=== PATIENT | male | born 1950 | race Caucasian/White ===

== ENCOUNTER 2024-02-14 08:39 | Emergency (ER) | payer MEDICARE, OTHER, SELFPAY ==
[2024-02-14 08:39] VITALS: BP 153/59; PULSE 90; RESP 16; TEMP 36; O2SAT 100; BMI 28.0
--- NOTE | 2024-02-14 08:52 | CT_ITS ---
INDICATION: right back pain, achymosis and swelling EXAMINATION: CTA CHEST, ABDOMEN AND PELVIS WITH CONTRAST - TECHNIQUE: A CTA of the chest, abdomen, and pelvis is obtained with sagittal and coronal reconstructed MIP views. Three-dimensional surface rendered sequence of the thoracic and abdominal aorta was obtained. A radiation dose optimization technique was used for this scan. 75 mL of Isovue-370. Oral contrast: None. COMPARISON: None. FINDINGS: CT CHEST: THORACIC AORTA: Atherosclerotic plaque formation of the ascending thoracic, aortic arch and descending thoracic aorta. ABDOMINAL AORTA: Atherosclerotic plaque formation of the abdominal aorta as well as the major visceral branches. LUNGS: Small right pleural effusion with increased markings at the right lung base suggestive of compressive basilar atelectasis. A small amount of fluid is seen within the right minor fissure. MEDIASTINUM: The thyroid gland is normal. Small mediastinal lymph nodes. HEART: Heart is normal size. No pericardial effusion. Coronary artery calcification. CT ABDOMEN AND PELVIS: LIVER: The liver enhances homogeneously. No masses identified. GALLBLADDER: The CBD is normal. Status post cholecystectomy. SPLEEN: Normal. PANCREAS: No masses or inflammation. ADRENAL GLANDS: Normal. KIDNEYS AND URETERS: The kidneys both enhance appropriately. There are normal size and shape. No hydronephrosis or nephrolithiasis. Small left renal cysts. Punctate calculus in the lower pole calyx of the left kidney. Nonspecific bilateral perinephric stranding. No obstructive uropathy is seen. STOMACH: Normal. SMALL BOWEL: No abnormal distention of the small bowel. MESENTERY: No mesenteric inflammation. No ascites. COLON: No significant diverticulosis, masses or inflammation. The colon otherwise is normal. There is a large fatty ileocecal valve. APPENDIX: The appendix is visualized and normal. IVC: Normal. RETROPERITONEUM: No retroperitoneal lymphadenopathy. PELVIC STRUCTURES: Normal bladder. Prostatic enlargement with indentation of the bladder base. Mild central prostatic calcifications. SOFT TISSUES ABDOMEN: The anterior abdominal wall is normal. SOFT TISSUE CHEST: The extrathoracic soft tissues are normal. BONES: Degenerative changes of the thoracic and lumbar vertebra. CT/CTA Chst, Abd, Pel W and/or WO IMPRESSION: Small right pleural effusion with a right basilar dependent atelectasis. Atherosclerotic plaque formation of the thoracic aorta as well as the abdominal aorta and visceral branches. No evidence of dissection. Nonspecific bilateral perinephric stranding. Small left renal cysts as well as a nonobstructive punctate calculus in the lower pole calyx of the left kidney. Status post cholecystectomy. Electronically Signed: Jared Villanueva MD at 10:48 EDT ,
--- NOTE | 2024-02-14 08:53 | ED.VIS.BACK ---
HPI History of Present Illness Chief Complaint: Back Detail of Chief Complaint: Right back pain Informant: patient Narrative Narrative: Patient presents with right-sided back pain that started about a week ago. Patient states that he just moved here from [place] a week ago. He thinks he may have torn a muscle in his back moving furniture in a bed. She has some pain in his neck that resolved and then started having more pain in his upper back. noted swelling to his back and bruising. He is on Brilinta. History of coronary artery disease. He denies chest pain or significant shortness of breath. Does not have a primary care physician in the area. Patient denies any falls or trauma otherwise. PFSH PFSH Allergy/AdvReac Type Severity Reaction Status Date / Time No Known Allergies Allergy Verified 02/14/24 08:41 Social History Smoking Status: Former smoker ROS ROS ED Review of Systems ROS Unobtainable: other Constitutional Constitutional ED: Reports lethargy; Denies chills, fever(s), sweats or weight loss Eyes Eyes: Denies blurry vision, change in vision or diplopia ENT ENT ED: Denies rhinorrhea or sore throat Cardiovascular Cardiovascular: Reports chest pain and racing heartbeat; Denies orthopnea Respiratory/Chest Respiratory/Chest: Reports dyspnea on exertion; Denies cough, dyspnea, orthopnea or sputum Gastrointestinal Gastrointestinal: Denies abdominal pain, diarrhea, nausea or vomiting Genitourinary Genitourinary ED: Denies dysuria, hematuria or urinary frequency Musculoskeletal Musculoskeletal: Reports back pain; Denies arthralgias, myalgias or neck pain Integumentary Denies abscess, Abrasions or rash Neurologic Neurologic: Denies headache(s) or weakness Psychiatric Psychiatric: Denies anxiety, depression or suicidal thoughts Endocrine Endocrinology: Denies polydipsia, polyphagia or polyuria Hematologic/Lymphatic Hematologic/Lymphatic: Denies easy bleeding, easy bruising or lymphadenopathy Allergic/Immunologic Allergic/Immunologic ED: Denies mouth swelling, tongue swelling or urticaria EXAM Physical Exam Const Vital Signs: 02/14/24 08:39 02/14/24 11:02 Temperature 96.8 F L Temperature Source Temporal Pulse Rate 90 Pulse Rate [Lying] 70 Pulse Rate [Sitting (for 1 minute prior to obtaining)] 71 Pulse Rate [Standing (for 1 minute prior to obtaining)] 81 Respiratory Rate 16 Blood Pressure 153/59 H Blood Pressure [Lying] 155/75 H Blood Pressure [Sitting (for 1 minute prior to obtaining)] 145/62 H Blood Pressure [Standing (for 1 minute prior to obtaining)] 128/54 H Blood Pressure Mean 90 Blood Pressure Mean [Lying] 101 Blood Pressure Mean [Sitting (for 1 minute prior to obtaining)] 89 Blood Pressure Mean [Standing (for 1 minute prior to obtaining)] 78 Pulse Ox 100 Oxygen Delivery Method Room Air Positive well nourished and well developed General Appearance ED: well developed and NAD HEENT Reports TM's clear and moist mucous membranes normocephalic and atraumatic; Negative for trauma or tenderness Tympanic Membrane ED: Yes TM's clear Eyes PERRL and EOMs intact bilaterally General Eye ED: Negative for pale conjunctiva or scleral icterus Neck no lymphadenopathy, supple and no JVD General: Negative for tenderness Chest Wall inspection of chest normal and palpation of chest normal Chest: Negative for tenderness Resp normal respiratory effort and clear to auscultation bilaterally Effort and Inspection: Negative for respiratory distress or pain with movement Auscultation: Negative for rhonchi, wheezes or diminished lung sounds Cardio regular rate, regular rhythm, S1 normal heart sound, S2 normal heart sound and no murmurs Peripheral Pulses: pulses 2+ throughout GI normal to inspection, nondistended, normoactive bowel sounds, soft to palpation, non-tender, non-distended and no masses Back/Spine no CVA tenderness and no thoracic nor lumbar tenderness Back/Spine Narrative: Evaluation of the back reveals significant soft tissue swelling and fullness inferior to the right scapula and into the mid axillary line of the chest wall. Area tender to palpation. There is ecchymosis and bruising extending down the right flank. No crepitus or subcu for Delia noted. Extremity normal to inspection General Extremety ED: Negative for edema General Extremity: Negative for edema Neuro oriented x3, CN's II-XII intact bilaterally, no sensory deficits noted and gait normal Sensorium / Orientation: awake, alert, oriented to person, oriented to place and oriented to time Motor Exam: strength 5/5 throughout and strength abnormal Psych mental status grossly normal Skin no rashes or lesions noted and no wounds MDM MDM MDM Narrative Medical decision making narrative: Patient presents with large soft tissue swelling right posterior chest wall at the mid axillary line with ecchymosis. Concern for hematoma and ongoing active bleeding. IV line established. CBC with differential obtained showed white at 11.7 with hemoglobin 9.0 and platelet count of 339. Chemistries unremarkable. BUN 23 and creatinine 1.95. Glucose 162. Patient had a CTA of the chest abdomen pelvis that showed large hematoma in her right chest wall with questionable area of active bleeding. Discussed case with our general surgeon Dr. Henderson who recommended transfer to a tertiary care center. Discussed case with [facility] however they have no bed availability. Discussed case with [facility] and spoke with surgeon there who accepted transfer patient to their emergency department for further evaluation. Lab Data Attestation: I reviewed the patient's lab results. Labs: Laboratory Results - last 24 hr 02/14/24 09:20 WBC 11.7 H RBC 3.82 L Hgb 9.0 L Hct 28.8 L MCV 75.4 L MCH 23.6 L MCHC 31.3 L RDW Std Deviation 56.9 H RDW Coeff of Toney 21.0 H Plt Count 339 MPV 9.3 Immature Gran % (Auto) 0.600 Neut % (Auto) 82.5 H Lymph % (Auto) 7.0 L Wharton % (Auto) 6.3 Eos % (Auto) 3.2 Baso % (Auto) 0.4 Absolute Neuts (auto) 9.7 H Absolute Lymphs (auto) 0.82 L Nucleated RBC % 0 Anisocytosis 2+ Sodium 140 Potassium 4.8 Chloride 111 H Carbon Dioxide 24.0 Anion Gap 6 BUN 23 H Creatinine 1.95 H Estim Creat Clear Calc 41.85 Est GFR (MDRD) Af Amer 44 L Est GFR (MDRD) Non-Af 36 L BUN/Creatinine Ratio 11.8 Glucose 162 H Calcium 8.6 Radiography Diagnostic Testing: Clinical Impression(s) from Imaging Studies Chest/Abdomen/Pelvis CTA 02/14/24 08:52 IMPRESSION: Small right pleural effusion with a right basilar dependent atelectasis. Atherosclerotic plaque formation of the thoracic aorta as well as the abdominal aorta and visceral branches. No evidence of dissection. Nonspecific bilateral perinephric stranding. Small left renal cysts as well as a nonobstructive punctate calculus in the lower pole calyx of the left kidney. Status post cholecystectomy. Electronically Signed: Jared Villanueva MD at 10:48 EDT , ADDENDUM: 02/14/24 1105 IMPRESSION: Findings suggestive of a large soft tissue density with evidence of the hematoma and possible active bleeding overlying the right lateral chest wall as described. Electronically Signed: Jared Villanueva MD at 10:58 EDT , Discharge Plan Triage Chief Complaint: Back ED Provider: Carlos Kline Dx/Rx/DC Orders Clinical Impression: Hematoma, Anemia Primary Care Provider: Care Physician,No Primary Referrals: NOT,DEFINED [Non-Staff] - Print Language: Occitan Disposition Disposition: DC/Tx to Another Type of HCF
[2024-02-14 09:27] LABS: Absolute Lymphocyte Count 0.82 X10^3/uL (0.83-4.51); Absolute Neutrophil Count 9.7 X10^3/uL (2.0-7.7); Basophil# 0.05 X10^3/uL; Basophil% 0.4 % (0-1); Eosinophil# 0.38 X10^3/uL; Eosinophils% 3.2 % (0-5); Hematocrit 28.8 % (40-54); Lymphocyte # 0.82 X10^3/ul (0.83-4.51); Mean Corp Hgb Conc 31.3 g/dL (32-36); Mean Corpuscular Hgb 23.6 pg (27.0-32.0); Mean Corpuscular Volume 75.4 fL (80-94); Mean Platelet Vol. 9.3 fl (6.2-12.0); Monocyte# 0.74 X10^3/uL; Monocyte% 6.3 % (0-10); NRBC Flagged by Analyzer 0 % (0-5); Neutrophil # 9.65 X10^3/uL (2.7-7.7); Neutrophil % 82.5 % (47-70); POSITIVE MORPHOLOGY YES; Platelet Count 339 K/mm3 (150-450); RBC Distribution Width SD 56.9 fl (35.1-43.9); Red Blood Count 3.82 M/mm3 (4.6-6.2); White Blood Count 11.7 K/mm3 (4.4-11.0)
[2024-02-14 09:36] LABS: Differential Indicated SCAN CRITERIA MET
[2024-02-14 09:40] LABS: Anion Gap 6 (5-15); BUN 23 mg/dL (7-18); BUN/Creat Ratio 11.8 RATIO (10-20); Calcium,Total 8.6 mg/dL (8.5-10.1); Chloride 111 mmol/L (98-107); Creatinine, Serum 1.95 mg/dL (0.70-1.30); EST Glomerular Filtration Rate 36 mL/min (>60); Est Glom Filt Rate - Afr Amer 44 mL/min (>60); Estimated Creatinine Clearance 41.85 ml/min; Glucose 162 mg/dL (74-106); Potassium 4.8 mmol/L (3.5-5.1); Sodium Level 140 mmol/L (136-145)
[2024-02-14 09:56] LABS: Anisocytosis 2+
[2024-02-14 11:02] VITALS: BP 128/54; BP 145/62; BP 155/75; PULSE 70; PULSE 71; PULSE 81
--- NOTE | 2024-02-14 11:32 | ED.RN ---
CALLED [facility].
--- NOTE | 2024-02-14 11:33 | ED.RN ---
CALLED [facility].
[2024-02-14] MEDS: Ondansetron 4 MG/2 ML Vial IV (12:30)
[2024-02-14] MEDS: Morphine 4 MG/ML Syringe IV (12:30)
[2024-02-14] MEDS: 0.9% Normal Saline (1000mL) 1,000 ML 999 ML IV (12:30)
[2024-02-14 12:39] VITALS: BP 130/59; PULSE 68; RESP 18; O2SAT 99
[2024-02-14 13:47] VITALS: BP 130/59; PULSE 68; RESP 18; TEMP 36.6; O2SAT 99
== END 2024-02-14 14:41 | disposition short-term general hospital (02) ==
PROVIDERS: Emergency Provider Emergency Medicine; Visit Provider Emergency Medicine
DX: S20.211A Contusion of right front wall of thorax, initial encounter (principal); X58.XXXA Exposure to other specified factors, initial encounter; D64.9 Anemia, unspecified; I25.10 Atherosclerotic heart disease of native coronary artery without angina pectoris; Z79.02 Long term (current) use of antithrombotics/antiplatelets; Z87.891 Personal history of nicotine dependence
CPT/HCPCS: 71275; 74174; 80048; 85025; 96361; 96374; 96375; 99285; J7030; Q9967; A4216; J2405

== ENCOUNTER → 2024-04-08 | Outpatient (CLI) | payer MEDICARE, OTHER, SELFPAY ==
--- NOTE | 2024-04-08 14:06 | PCM.CR.HP2 ---
CR - History & Physical General Arrival date:: 04/08/24 Arrival time:: 14:06 Date of Referral:: 03/20/24 Date of CR Evaluation:: 04/08/24 Referring Physician: Dr. Salgado Primary Diagnosis: SD NonSTEMI <12 months History of Present Cardiac Event Onset Date Acute Myocardial Infarction within 12 months:: Yes (11/20/2023) Medications Ambulatory Orders ?Medication ?Instructions ?Recorded aspirin 81 mg tablet,delayed 81 mg PO QDAY 03/13/24 release (Adult Aspirin Regimen) atorvastatin 10 mg tablet 10 mg PO QDAY 03/13/24 gabapentin 300 mg capsule 300 mg PO BID 03/13/24 nisoldipine 34 mg tablet,extended 34 mg PO QDAY 03/13/24 release 24 hr ticagrelor 90 mg tablet (Brilinta) 90 mg PO BID 03/13/24 cholecalciferol (vitamin D3) 25 25 mcg PO QDAY 03/20/24 mcg (1,000 unit) capsule dupilumab 300 mg/2 mL subcutaneous 300 mg subcut Q2W 03/20/24 pen injector (Dupixent) insulin lispro continuous subcutaneous infusion 03/20/24 levothyroxine 88 mcg tablet 88 mcg PO QDAY 03/20/24 (Synthroid) metoprolol succinate 25 mg 25 mg PO QDAY 03/20/24 tablet,extended release 24 hr multivitamin 1 tab PO QDAY 03/20/24 vitamin B complex 1 tab PO QDAY 03/20/24 Allergies Allergies No Known Allergies Allergy (Verified 03/20/24 11:35) Sleep Disorder Evaluation Hx of Sleep Apnea: No Do you snore loudly (louder than talking or can be heard through closed doors)?: No Do you often feel tired/ fatigued/ sleepy during daytime?: No Has anyone observed you stop breathing during sleep?: No History of Hypertension (for STOP score): Yes STOP Results: Negative Advanced Directives Advanced Directives Power of Electrical Maintenance Technician: No Living Will: No Advance Directives Information Provided: No Advance Directives on File: No DNR Order?:: No Past Medical History Covid-19 Screening Physicial Symptoms Other Clinical Concerns Exposure Risk Pertinent Comorbidities 65 years or older:: Yes Has a serious heart condition:: Yes Diabetic:: Yes Past Medical Illness Medical History STEMI (ST elevation myocardial infarction) NSTEMI (non-ST elevated myocardial infarction) Hyperlipidemia Diabetic neuropathy Gout Diabetes type I Nephropathy Chronic kidney disease (CKD) Proteinuria Systolic ejection murmur Carotid artery stenosis Hypertension Fatty liver disease, nonalcoholic Renal cyst Chronic back pain Acute renal failure Iron deficiency anemia Hypothyroidism Past Surgical History Surgical History S/P right coronary artery (RCA) stent placement History of bilateral cataract extraction History of vasectomy History of cholecystectomy Family History Summary Family History Mother Hypertension Son Diabetes Social History Smoking History Smoking Status: Former smoker Years Smokin Packs Smoked per Day: 1.5 (stopped in 2011) Alcohol Use Alcohol Usage: No Substance Abuse Hx Substance Use: No Occupation Occupation (List type of work in comments):: Retired Hobbies, Recreation, Social Activities Hobbies: Woodworking Recreational Activities: I am able to engage in all my recreational activities Social Environment Status Marital Status: Current Living Arrangements Living Environment:: Spouse Children How many children do you have?: 4 Do any of your children live nearby?: Yes Safety Do you feel safe in your surroundings?: Yes Assistance Do you need any assistance at home?: no Review of Systems Review of Systems Hints Review of Present Symptoms: Reports Shortness of Breath with Exertion, Dizziness/Lightheadedness, Fatigue, Appetite - Normal, Appetite - Special Diet and Sleep - Normal; Denies Shortness of Breath at Rest, PVD, Operative Discomfort, Angina, Wound Healing, Heart Arrhythmia/Irregularities or Sexual Changes Pain Is Patient Pain Free?: Yes Pain Location: lower extremity Pain Level: 10 Risk Factor Assessment Chief Complaint Chief Complaint: SD NonSTEMI <12 months Vital Signs Pulse Ox: 98 Blood Pressure: 140/67 Pulse Pulse Rate: 66 Pulse Rhythm: Regular Hypertension How long have you been treated?: 20-25 years Blood Pressure Sitting - Right Arm: 140/67 Diabetes Diabetic History: Type I Nutrition Referral for Diabetes: No Obesity Height: 6 ft 2 in Weight:: 220 lb Weight in Pounds: 220.0 lbs Body Mass Index (BMI): 28.2 Physical Inactivity Physical Inactivity: Recreational activity Risk Stratification Risk Guidelines: Moderate Risk: Risk Factor for Smoking, Risk Factor for Obesity, Risk Factor for Sedentary Lifestyle and Risk Factor for Depression and Highest Risk: Risk Factor for Dyslipidemia, Risk Factor for Diabetes and Risk Factor for Hypertension For Smoking Smoking Risk Guidelines For Dyslipidemia Dyslipidemia Risk Guidelines For Diabetes Mellitus Diabetes Risk Guidelines For Obesity/Overweight Obesity/Overweight Risk Guidelines For Hypertension Hypertension Risk Guidelines For Sedentary Lifestyle Sedentary Lifestyle Risk Guidelines For Depression Depression Risk Guidelines Family History Family History Mother Hypertension Son Diabetes Motivation Motivation to Participate On a scale of 1 to 10, how prepared are you to commit to attending program?: 8 What do you see as barriers to successfully being able to complete the program?: nothing What do you see as the benefits of succesfully completing the program? In other words, what do you hope to get out of participating in the program?: improve energy Are there issues you are dealing with that will interfere with completing the program?: no Do you have a spouse or signficant other, family or friends who will help support you to complete the program?: yes
[2024-04-08 14:17] VITALS: BP 140/67; PULSE 66
--- NOTE | 2024-04-08 14:17 | CR.ITP_ITS ---
Diagnosis General Information Admitting Diagnosis: PA NonSTEMI <12 months Personal Learning Style:: Audio/Visual Barriers to Learning: No Barriers Stage of change r/t lifestyle modifications:: Contemplation Gave educational material for:: Treating Heart Disease, How The Heart Works, What it means to have Heart Disease, How Coronary Artery Disease is Diagnosed, Heart Procedures, What Heart Medications Do, Risk Factors & Modifications, Living an Active Life, Nutrition, Emotions & Heart Disease, Stress Management & Relaxation and Sleep Disorders & Heart Disease Education/Goals Cardiac Rehabilitation Goals Personal Goals: Initial Assessment: Improve energy level, Improve knowledge of cardiac disease and Improve muscle strength and endurance Scale for measuring improvement of personal goals Diagnosis & Disease Process Outcomes/Goals: Pt IDs own risk factors & lifestyle modifications by Session 10, Verbalizes symptoms of angina & response by session 3., Pt independently manages and Other Additional Outcomes/Goals: Plan/Interventions: Assist Pt to ID & engage in lifestyle modification to reduce CVD risk, Instruct on individual risk factors, Review symptoms of angina & emergency actions, Review secondary diagnosis & identify educational needs. and Other see comment 30 day Reassessments:: Not Met 30 day Reassessments:: Not Met 30 day Reassessments:: Not Met 30 day Reassessments:: Not Met Final Reassessments:: Not Met Safety Referral to Physical Therapy: No Referral to [facility] Case Management: No Fall Risk Assessed:: Yes Assistive Devices:: None Exercise - Initial Assessment Visit Date of Eval: 04/08/24 (initial eval ) Mets: Pre-: >3 METS for 30 minutes by discharge, >5 METS for 30 minutes by discharge, >7 METS for 30 minutes by discharge and Unable to meet goal due to: (see comment below) Physician Prescribed Exercise Modalities: Treadmill, Rower, Schwinn Airdyne AD-7, SciFit Stepper, SciFit Pro- II Ergometer and SciFit Lateral Form Presser Frequency: 3x/week for 12 weeks [36 sessions] Intensity: 60-80% of age predicted maximum heart rate reserve Current METSs:: 3 Target Heart Rate:: 87-110 Resting Blood Pressure: 140/67 EKG Type: SR Outcomes & Goals Goals:: Verbalizes understanding of THR, RPE & goal METS by session 6, Documents in home exercise log/reports 30 min aerobic 5 day/wk by DC, Demonstrates accurate pulse taking by DC and Other additional outcome/goals: see below Intervention & Plan Exercise Program Goals: Instruct on personal THR & RPE, Instruct on MET level & personal MET goal, Show patient to take own pulse /validate performance until accurate, Instruct on home exercise and Other additional plan/int Physical Activity Home Exercise Physical Activity - Home Exercise: Safe Exercise, Warm-up, Self-monitoring, Cool-Down, Home Exercise > 30 min Daily and Sitting Time <3 hours/daily Outcomes & Goals Outcomes/Goals: Demonstrates correct Warm-up/exercise Cool-Down (S3) if = 2.5 METs, Verbalizes symptoms of exercise intolerance by Session 3 (S3), Demonstrate safe equipment use (S3) & follows exercise prescrition (6) and Other: See below Intervention & Plan Plan/Intervention: Instruct warm-up & cool-down if exercising at > 2 METs, Instruct on symptoms of exercise intolerance & actions to take, Instruct & monitor on saf, Assess intial functional capacity & safety risk and Other See below Nutrition - Initial Assessment Program Goals Nutrition Program Goals Patient has diagnosis of Hyperlipidemia (ICD E78)?: Yes Visit Date of Eval: 04/08/24 (initial eval ) Cholesterol/Lipids (Other Core Measures) Determine presence & major risk factors that modify LDL goal: Cigarette smoking, Hypertension or hypertensive medication, Low HDL cholesterol <40 mg/dL*, Family history of premature CHD in Male < 55 years: female <65 yearsFa and Age men > 45 years; women >/= 55 years Outcomes/Goals: Pt IDs own risk factors & lifestyle modifications by Session 10, Verbalizes symptoms of angina & response by session 3., Pt independently manages and Other Additional Outcomes/Goals: Intervention/Plan: Advocate for lipid panel cholesterol medication if applicable, Instruct on personal lipid levels & lipid goals/NCEP guidelines, Instruct on cholesterol and Other additional plan/int Referral to dietitian:: No (declines) Diabetes (Other Core Measures) Diabetes Type: Diagnosis Type I ICD-10 E10 Insulin dependent injection/pump?: Yes Non-Insulin Dependent?: No Do you monitor your blood sugar at home?: Yes Referral to Diabetic Clinic:: No (declines) Outcomes/Goals:: Able to state symptoms of, Able to state, Able to state and Other additional Intervention/Plan:: Instruct on, Refer to, Instruct on and Other Weight Mgt (Other Care) Height: 6 ft 2 in Weight:: 220 lb BMI: 28.2 Diagnosis Overweight/Obesity BMI> 30% ICD-10 E66: No Diagnosis High BMI/Morbid Obesity BMI> 35% ICD-10 Z68: No Outcomes/Goals: Pt sets, maintains & shows weight loss goal & trend during rehab and Other additional outcomes/goals Intervention/Plan: Instruct on ideal BMI & set weight loss goal w/patient, Assist pt to ID & incorporate diet changes for weight loss by S9, Refer to Structured Weight Loss program as appropriate, Encourage goal of using 250- 300dcal per session for weight loss and Other additional plan/interventions Healthy Eating Habits Will attend diet classes:: Yes Outcomes/Goals:: Consume diet rich in vegs,fruits,whole grain/high fiber,fish,lean meat, Limit sat/trans fats,cholesterol & added salts & sugars and Other additional outcome/goals: Intervention/Plan:: Assess current eating habits and Other Additional plan/interventions Education Gave educational materials for:: Signs & symptoms of hypoglycemia, Signs & symptoms of hyperglycemia, Relate diabetes to coronary artery disease and Healthy eating Core - Initial Assessment Visit Date of Eval: 04/08/24 (initial eval ) Medication Compliance Preventative Medication(s):: Aspirin, Ticagrelor/P2Y12 inhibitor, Statin/lipid and Beta yennifer H/O mental health issues: depression, anxiety, or addiction?: No Doesn?t believe in the benefits of treatment?: No Believes medications are unnecessary or harmful?: No Has a concern about medication side effects?: No Expresses concern over the cost of medications?: No Outcomes/Goals: Verbalizes medications,desired effect & common side effects @ DC, Pt self-reports following medication regimen, Keeps card in wallet w/medications listed by DC and Other additional outcome/goals: Interventions/plans: Instruct on medication effects & side effects, Review medication list w/patient every two weeks, Instruct importance of taking meds as ordered & assist problem solving and Other additional Tobacco Use Tobacco Use: Non-smoker How long ago did you quit using tobacco products?: Greater than or equal to 6 months ago Years Smokin Hypertension Hypertension Diagnosis:: Hypertension ICD-10 I10 Resting Blood Pressure:: 140/67 [place] [employer] Hypertension Guidelines Outcomes/Goals: Able to verbalize/achieve optimal blood pressure <130/80, Incorporates diet changes & exercise for blood pressure control by DC and Other additional outcomes/goals Interventions/plan: Instruct on optimal blood pressure, hypertension & medications, Instruct on effects of sodium, alcohol, stress, exercise &hypertension and Other additional plan/interventions Tobacco Cessation Referral Smoking Cessation Referral:: No Individual Education/Counseling:: No Education Schedule Given:: Yes Psychosocial - Initial Assess VIsit Date of Eval: 04/08/24 (initial eval ) History of previous Mental disease:: No Target Goals Target Goals Psychosocial Test Tool Used:: [employer] (formerly [employer]) QOL Cardiac and PHQ-9 Questionnaire phq-9 Severity Referral to Behavioral Health PS - Interventions: Yes: Attend Stress Management Classes Outcomes/Goals: See list Psychosocial Outcomes/Goals:: ID's personal stressors & 2 strategies to manage stress by discharge and Other Additional outcome/goals: Intervention/Plan: See List Interventions/Plan:: Assess stressors,coping strategies & signs of derpression on admission, Instruct/assist pt to develop coping & personal stress Mgt strateg ies, Refer to Behavioral Health if appropriate, Refer to Physician if appropriate, Instruct patient to recognize signs & symptoms of depression, Instruct patient to recog and Other additional plan/intervention Patient Health Questionnaire PHQ-9 Screening Initial Assessment: 1. Little interest or pleasure in doing things: Not at all 2. Feeling down, depressed, or hopeless: Not at all 3. Trouble falling or staying asleep, or sleeping too much: Not at all 4. Feeling tired or having little energy: More than half the days 5. Poor appetite or overeating: Not at all 6. Feeling bad about yourself -- or that you are a failure or have let yourself or your family down: Not at all 7. Trouble concentrating on things, such as reading the newspaper or watching television: Not at all 8. Moving or speaking so slowly that other people could have noticed. Or the opposite - being so fidgety or restless that you have been moving around a lot more than usual: Not at all 9. Thoughts that you would be better off , or of hurting yourself in some way: Not at all How difficult have these problems made it for you to do your work, take care of things at home, or get along with other people?: Not difficult at all Total Score: 2 MIRANDA-Q SV Test Statements CAD is a disease of the arteries in the heart: False Examples of risk factors for heart disease: True Angina is chest pain or discomfort: True The benefits of resistance training include: True Eating more meat and dairy products: I Don't Know Anti-platelet medications such as aspirin are important: I Don't Know The only effective way to manage stress: False An exercise warm-up slowly increases heart rate: True Prepared, processed foods usually have high sodium: I Don't Know Depression is common after a heart attack: True The statin medications lower cholesterol: I Don't Know To control blood pressure, lower the amount of sodium: True If someone gets chest discomfort during walking: False Transfats are partially hydrogenated vegetable oils: I Don't Know Sleep apnea that is not treated increases the risk: I Don't Know To control cholesterol, one should become a vegetarian: False Someone knows if he/she is exercising at the right level: True Diabetes cannot be prevented with exercise & health eating: False Stress is a large risk for heart attack: True A diet that can help lower blood pressure is rich in: True Total Score Total Correct Responses: 14 Self-Efficacy 6-Item Scale Initial Assessment: We would like to know how confident you are in doing certain activities. Please select your confidence level for: Fatigue Select Number: 5 Physical Discomfort or Pain Select Number: 3 Emotional Distress Select Number: 9 Other Symptoms or Health Problems Select Number: 5 Different Tasks and Activities Select Number: 8 Medication Select Number: 5 Total Score:: 5 Nutrition Survey Nutrition Survey Instructions Scoring Instructions Nutrition Survey Initial: Have you lost >10 lbs over the past 2 months without trying?: No Are you following a special diet at home for diabetes, low fat, or low salt?: Yes Are you interested in meeting with a dietitian for help understanding your diet?: No Do you eat less than 3 meals a day?: Yes Do you eat fatty meats (gale, sausage, ribs, etc), fried foods, desserts, large amounts of salad dressings, margarine, butter, or cheese most days?: No Do you have food allergies? [Enter types in comment field]: No Do you eat in restaurants more than 3 times a week?: No Do you season food with salt, seasoning salt, or garlic salt?: No Do you used canned, boxed, frozen meals, or soups, seasoning packets?: Yes Total Score:: 3 Exercise - 30-day Assessment Physician Prescribed Exercise Modalities: Treadmill, Rower, Schwangel [place]yne AD-7, SciFit Stepper, SciFit Pro- II Ergometer and SciFit Lateral Form Presser Exercise - 60-day Assessment Physician Prescribed Exercise Modalities: Treadmill, Rower, Schwinn Airdyne AD-7, SciFit Stepper, SciFit Pro- II Ergometer and SciFit Lateral Form Presser Exercise - 90-day Assessment Physician Prescribed Exercise Modalities: Treadmill, Rower, Schwinn Airdyne AD-7, SciFit Stepper, SciFit Pro- II Ergometer and SciFit Lateral [place] Exercise - Final/Discharge Physician Prescribed Exercise Modalities: Treadmill, Rower, Schwinn Airdyne AD-7, SciFit Stepper, SciFit Pro- II Ergometer and SciFit Lateral Form Presser Frequency: 3x/week for 12 weeks [36 sessions] Intensity: 60-80% of age predicted maximum heart rate reserve Current METSs:: 3 Target Heart Rate:: 87-110 Nutrition - 30-Day Assessment Weight Mgt (Other Care) Height: 6 ft 2 in Weight:: 220 lb BMI: 28.2 Nutrition - 60-Day Assessment Weight Mgt (Other Care) Height: 6 ft 2 in Weight:: 220 lb BMI: 28.2 Core - 30-Day Assessment Tobacco Use Years Smokin Core - Final Assessment Hypertension Resting Blood Pressure:: 140/67 [place] [employer] Hypertension Guidelines Core - 60-Day Assessment Hypertension Resting Blood Pressure:: 140/67 [place] [employer] Hypertension Guidelines Psychosocial - 30-Day Assess Target Goals Target Goals Referral to Behavioral Health PS - Interventions: Yes: Attend Stress Management Classes Psychosocial - 60-Day Assess Target Goals Target Goals Referral to Behavioral Health PS - Interventions: Yes: Attend Stress Management Classes Psychosocial - 90-Day Assess Target Goals Target Goals Referral to Behavioral Health PS - Interventions: Yes: Attend Stress Management Classes Psychosocial - Final Assessmen Target Goals Target Goals Referral to Behavioral Health PS - Interventions: Yes: Attend Stress Management Classes Nutrition - 90-Day Assessment Weight Mgt (Other Care) Height: 6 ft 2 in Weight:: 220 lb BMI: 28.2 Nutrition - Final Assessment Program Goals Patient has diagnosis of Hyperlipidemia (ICD E78)?: Yes Weight Mgt (Other Care) Height: 6 ft 2 in Weight:: 220 lb BMI: 28.2
[2024-04-08 14:31] VITALS: BP 140/67; O2SAT 98
[2024-04-08 15:11] VITALS: BP 140/67; BMI 28.2
== END | disposition home or self-care (01) ==
LOC: CR 13:56
PROVIDERS: PCP Nurse Practitioner Adult Health; Referring Provider Internal Medicine Cardiovascular Disease; Visit Provider Internal Medicine Cardiovascular Disease
DX: I21.4 Non-ST elevation (NSTEMI) myocardial infarction (principal)

== ENCOUNTER 2024-04-19 14:15 | Outpatient (RCR) | payer MEDICARE, OTHER, SELFPAY ==
[2024-04-08 15:11] VITALS: BMI 28.2
== END 2024-04-23 23:59 ==
LOC: CR 14:15
PROVIDERS: PCP Nurse Practitioner Adult Health; Referring Provider Internal Medicine Cardiovascular Disease; Visit Provider Internal Medicine Cardiovascular Disease
DX: I21.4 Non-ST elevation (NSTEMI) myocardial infarction (principal)
CPT/HCPCS: 93798

== ENCOUNTER 2024-05-22 14:15 | Outpatient (RCR) | payer MEDICARE, OTHER, SELFPAY ==
[2024-04-08 15:11] VITALS: BMI 28.2
--- NOTE | 2024-05-09 07:27 | PCM.CR.ITP ---
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 Little interest or pleasure in doing things: Not at all 2. Feeling down, depressed, or hopeless: Not at all 3. Trouble falling or staying asleep, or sleeping too much: Not at all 4. Feeling tired or having little energy: More than half the days 5. Poor appetite or overeating: Not at all 6. Feeling bad about yourself -- or that you are a failure or have let yourself or your family down: Not at all 7. Trouble concentrating on things, such as reading the newspaper or watching television: Not at all 8. Moving or speaking so slowly that other people could have noticed. Or the opposite - being so fidgety or restless that you have been moving around a lot more than usual: Not at all 9. Thoughts that you would be better off , or of hurting yourself in some way: Not at all How difficult have these problems made it for you to do your work, take care of things at home, or get along with other people?: Not difficult at all Total Score: 2 Self-Efficacy 6-Item Scale 60-Day Re-eval Assessment: We would like to know how confident you are in doing certain activities. 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 Physician Prescribed Exercise Modalities: SciFit Stepper and SciFit Lateral [place] Frequency: 3x/week for 12 weeks [36 sessions] Intensity: 60-80% of age predicted maximum heart rate reserve Duration: 30 - 45 minutes Current METSs:: 2.9 Target Heart Rate:: 87-110 Current RPE:: 12-13 Maximum Excercise HR:: 79 Resting Blood Pressure: 148/70 Maximum Exercise Blood Pressure: 160/70 EKG Type: NSR w/ 1st degree AVB with a rare PAC, occas to freq PVC, Rare vent bigemin Outcomes & Goals Goals:: Verbalizes understanding of THR, RPE & goal METS by session 6, Documents in home exercise log/reports 30 min aerobic 5 day/wk by DC and Demonstrates accurate pulse taking by DC Intervention & Plan Exercise Program Goals: Instruct on personal THR & RPE, Instruct on MET level & personal MET goal, Show patient to take own pulse /validate performance until accurate and Instruct on home exercise Physical Activity Home Exercise Physical Activity - Home Exercise: Safe Exercise, Warm-up, Self-monitoring, Cool-Down, Home Exercise > 30 min Daily and Sitting Time <3 hours/daily Outcomes & Goals Outcomes/Goals: Demonstrates correct Warm-up/exercise Cool-Down (S3) if = 2.5 METs, Verbalizes symptoms of exercise intolerance by Session 3 (S3), Demonstrate safe equipment use (S3) & follows exercise prescrition (6) and Other: See below Intervention & Plan Plan/Intervention: Instruct warm-up & cool-down if exercising at > 2 METs, Instruct on symptoms of exercise intolerance & actions to take, Instruct & monitor on saf, Assess intial functional capacity & safety risk and Other See below 30-day Reassessments 30 day Reassessments:: Progressing Reassessment Notes & Comments:: Proper warm up explained and demonstrated to pt. Pt is able to return demonstration. 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 Exercise - Final/Discharge Physician Prescribed Exercise Modalities: SciFit Stepper and SciFit Lateral [place] Nutrition - 30-Day Assessment Weight Mgt (Other Care) Height: 6 ft 2 in Weight:: 220 lb 8 oz BMI: 28.3 Nutrition - 60-Day Assessment Program Goals Nutrition Program Goals Patient has diagnosis of Hyperlipidemia (ICD E78)?: Yes Visit Date of Eval: 05/09/24 Session #:: 22 Cholesterol/Lipids (Other Core Measures) Determine presence & major risk factors that modify LDL goal: Cigarette smoking, Hypertension or hypertensive medication, Low HDL cholesterol <40 mg/dL*, Family history of premature CHD in Male < 55 years: female <65 yearsFa and Age men > 45 years; women >/= 55 years Outcomes/Goals: Pt IDs own risk factors & lifestyle modifications by Session 10, Verbalizes symptoms of angina & response by session 3., Pt independently manages and Other Additional Outcomes/Goals: Intervention/Plan: Advocate for lipid panel cholesterol medication if applicable, Instruct on personal lipid levels & lipid goals/NCEP guidelines, Instruct on cholesterol and Other additional plan/int Diabetes (Other Core Measures) Diabetes Type: Diagnosis Type I ICD-10 E10 Insulin dependent injection/pump?: Yes Non-Insulin Dependent?: No Do you monitor your blood sugar at home?: Yes Referral to Diabetic Clinic:: No (declines) Weight Mgt (Other Care) Height: 6 ft 2 in Weight:: 220 lb 8 oz BMI: 28.3 Diagnosis Overweight/Obesity BMI> 30% ICD-10 E66: No Diagnosis High BMI/Morbid Obesity BMI> 35% ICD-10 Z68: No Outcomes/Goals: Pt sets, maintains & shows weight loss goal & trend during rehab and Other additional outcomes/goals Intervention/Plan: Instruct on ideal BMI & set weight loss goal w/patient, Assist pt to ID & incorporate diet changes for weight loss by S9, Refer to Structured Weight Loss program as appropriate, Encourage goal of using 250-300dcal per session for weight loss and Other additional plan/interventions Healthy Eating Habits Will attend diet classes:: Yes Outcomes/Goals:: Consume diet rich in vegs,fruits,whole grain/high fiber,fish,lean meat, Limit sat/trans fats,cholesterol & added salts & sugars and Other additional outcome/goals: Intervention/Plan:: Assess current eating habits and Other Additional plan/interventions 30-day Reassessments:: Progressing Reassessment Notes & Comments:: Pt is scheduled to attend nutrition class. Pt is encouraged to eat a heart healthy low sodium diet. Pt encouraged to keep a food log to bring in for review. Education Gave educational materials for:: Signs & symptoms of hypoglycemia, Signs & symptoms of hyperglycemia, Relate diabetes to coronary artery disease and Healthy eating Core - Final Assessment Tobacco Use Years Smokin Hypertension Resting Blood Pressure:: 148/70 [place] [employer] Hypertension Guidelines Core - 60-Day Assessment Visit Date of Eval: 05/09/24 Session #:: 22 Medication Compliance Preventative Medication(s):: Aspirin, Ticagrelor/P2Y12 inhibitor, Statin/lipid and Beta yennifer H/O mental health issues: depression, anxiety, or addiction?: No Doesn?t believe in the benefits of treatment?: No Believes medications are unnecessary or harmful?: No Has a concern about medication side effects?: No Expresses concern over the cost of medications?: No Outcomes/Goals: Verbalizes medications,desired effect & common side effects @ DC, Pt self-reports following medication regimen, Keeps card in wallet w/medications listed by DC and Other additional outcome/goals: Interventions/plans: Instruct on medication effects & side effects, Review medication list w/patient every two weeks, Instruct importance of taking meds as ordered & assist problem solving and Other additional Tobacco Use Tobacco Use: Non-smoker Years Smokin 30-day Reassessments:: Met Reassessment Notes & Comments:: Pt is no longer a smoker Hypertension Hypertension Diagnosis:: Hypertension ICD-10 I10 Resting Blood Pressure:: 148/70 Resting Blood Pressure:: 148/70 [place] [employer] Hypertension Guidelines Peak Exercise Blood Pressure:: 160/70 Outcomes/Goals: Able to verbalize/achieve optimal blood pressure <130/80, Incorporates diet changes & exercise for blood pressure control by DC and Other additional outcomes/goals Interventions/plan: Instruct on optimal blood pressure, hypertension & medications, Instruct on effects of sodium, alcohol, stress, exercise &hypertension and Other additional plan/interventions 30 day Reassessments:: Progressing Reassessment Notes & Comments:: Pt encouraged to eat a low sodium diet to help lower BP. Will continue to monitor and send report to physician if necessary. Tobacco Cessation Referral Smoking Cessation Referral:: No Individual Education/Counseling:: No Education Schedule Given:: Yes Psychosocial - 30-Day Assess Target Goals Target Goals Referral to Behavioral Health PS - Interventions: Yes: Attend Stress Management Classes Outcomes/Goals: See list Psychosocial Outcomes/Goals:: ID's personal stressors & 2 strategies to manage stress by discharge and Other Additional outcome/goals: Psychosocial - 60-Day Assess VIsit Date of Eval: 05/09/24 Session #:: 22 Not Applicable: No Target Goals Target Goals Psychosocial Test Tool Used:: [employer] QOL Cardiac and PHQ-9 Questionnaire phq-9 Severity Referral to Behavioral Health PS - Interventions: Yes: Attend Stress Management Classes Outcomes/Goals: See list Psychosocial Outcomes/Goals:: ID's personal stressors & 2 strategies to manage stress by discharge and Other Additional outcome/goals: Intervention/Plan: See List Interventions/Plan:: Assess stressors,coping strategies & signs of derpression on admission, Instruct/assist pt to develop coping & personal stress Mgt strategies, Refer to Behavioral Health if appropriate, Refer to Physician if appropriate, Instruct patient to recognize signs & symptoms of depression, Instruct patient to recog and Other additional plan/intervention 30-day Reassessments: 30 day Reassessments:: Met Reassessment Notes & Comments:: Pt denies any psychosocial issues at this time. Will continue to monitor. Psychosocial - 90-Day Assess Target Goals Target Goals Referral to Behavioral Health PS - Interventions: Yes: Attend Stress Management Classes Psychosocial - Final Assessmen Target Goals Target Goals Referral to Behavioral Health PS - Interventions: Yes: Attend Stress Management Classes Nutrition - 90-Day Assessment Weight Mgt (Other Care) Height: 6 ft 2 in Weight:: 220 lb 8 oz BMI: 28.3 Nutrition - Final Assessment Weight Mgt (Other Care) Height: 6 ft 2 in Weight:: 220 lb 8 oz BMI: 28.3
[2024-05-09 07:41] VITALS: BP 148/70; BMI 28.3
== END 2024-05-24 23:59 ==
LOC: CR 14:15
PROVIDERS: PCP Nurse Practitioner Adult Health; Referring Provider Internal Medicine Cardiovascular Disease; Visit Provider Internal Medicine Cardiovascular Disease
DX: I21.4 Non-ST elevation (NSTEMI) myocardial infarction (principal)

== ENCOUNTER → 2024-06-04 | Outpatient (CLI) | payer MEDICARE, OTHER, SELFPAY ==
[2024-05-09 07:41] VITALS: BMI 28.3
[2024-06-04 14:00] LABS: Anion Gap 3 (5-15); BUN 28 mg/dL (7-18); BUN/Creat Ratio 13.1 RATIO (10-20); Calcium,Total 8.8 mg/dL (8.5-10.1); Chloride 108 mmol/L (98-107); Creatinine, Serum 2.14 mg/dL (0.70-1.30); EST Glomerular Filtration Rate 32 mL/min (>60); Est Glom Filt Rate - Afr Amer 39 mL/min (>60); Glucose 143 mg/dL (74-106); Potassium 5.2 mmol/L (3.5-5.1); Sodium Level 140 mmol/L (136-145)
== END | disposition home or self-care (01) ==
LOC: LAB 12:28
PROVIDERS: PCP Nurse Practitioner Adult Health; Referring Provider Internal Medicine Cardiovascular Disease; Visit Provider Internal Medicine Cardiovascular Disease
DX: I12.9 Hypertensive chronic kidney disease with stage 1 through stage 4 chronic kidney disease, or unspecified chronic kidney disease (principal); N18.32 Chronic kidney disease, stage 3b
CPT/HCPCS: 36415; 80048

== ENCOUNTER 2024-06-21 14:30 | Outpatient (RCR) | payer MEDICARE, OTHER, SELFPAY ==
[2024-05-09 07:41] VITALS: BMI 28.3
[2024-05-25 02:29] VITALS: BP 148/70
--- NOTE | 2024-06-06 07:07 | PCM.CR.ITP ---
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 Little interest or pleasure in doing things: Not at all 2. Feeling down, depressed, or hopeless: Not at all 3. Trouble falling or staying asleep, or sleeping too much: Not at all 4. Feeling tired or having little energy: More than half the days 5. Poor appetite or overeating: Not at all 6. Feeling bad about yourself -- or that you are a failure or have let yourself or your family down: Not at all 7. Trouble concentrating on things, such as reading the newspaper or watching television: Not at all 8. Moving or speaking so slowly that other people could have noticed. Or the opposite - being so fidgety or restless that you have been moving around a lot more than usual: Not at all 9. Thoughts that you would be better off , or of hurting yourself in some way: Not at all How difficult have these problems made it for you to do your work, take care of things at home, or get along with other people?: Not difficult at all Total Score: 2 Self-Efficacy 6-Item Scale 90-Day Re-eval Assessment: We would like to know how confident you are in doing certain activities. Please select your confidence level for: Fatigue Select Number: 5 Physical Discomfort or Pain Select Number: 3 Emotional Distress Select Number: 9 Other Symptoms or Health Problems Select Number: 5 Different Tasks and Activities Select Number: 8 Medication Select Number: 5 Total Score:: 5 Nutrition Survey Nutrition Survey Instructions Scoring Instructions Exercise - 30-day Assessment Physician Prescribed Exercise Modalities: SciFit Stepper and SciFit Lateral [place] Exercise - 60-day Assessment Physician Prescribed Exercise Modalities: SciFit Stepper and SciFit Lateral [place] Exercise - 90-day Assessment Visit Date of Eval: 06/06/24 Session #:: 29 Physician Prescribed 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 Frequency: 3x/week for 12 weeks [36 sessions] Intensity: 60-80% of age predicted maximum heart rate reserve Duration: 30 - 45 minutes Current METSs:: 2.9 Target Heart Rate:: 87-110 Current RPE:: 12-12.5 Maximum Excercise HR:: 77 Resting Blood Pressure: 160/62 Maximum Exercise Blood Pressure: 144/68 EKG Type: SB to NSR with 1st degree AVB with rare pac and pvc Outcomes & Goals Goals:: Verbalizes understanding of THR, RPE & goal METS by session 6, Documents in home exercise log/reports 30 min aerobic 5 day/wk by DC, Demonstrates accurate pulse taking by DC and Other additional outcome/goals: see below Intervention & Plan Exercise Program Goals: Instruct on personal THR & RPE, Instruct on MET level & personal MET goal, Show patient to take own pulse /validate performance until accurate, Instruct on home exercise and Other additional plan/int Physical Activity Home Exercise Physical Activity - Home Exercise: Safe Exercise, Warm-up, Self-monitoring, Cool-Down, Home Exercise > 30 min Daily and Sitting Time <3 hours/daily Outcomes & Goals Outcomes/Goals: Demonstrates correct Warm-up/exercise Cool-Down (S3) if = 2.5 METs, Verbalizes symptoms of exercise intolerance by Session 3 (S3), Demonstrate safe equipment use (S3) & follows exercise prescrition (6) and Other: See below Intervention & Plan Plan/Intervention: Instruct warm-up & cool-down if exercising at > 2 METs, Instruct on symptoms of exercise intolerance & actions to take, Instruct & monitor on saf, Assess intial functional capacity & safety risk and Other See below 30-day Reassessments 30 day Reassessments:: Progressing Reassessment Notes & Comments:: Proper cool down explained to pt. Pt is able to return demonstration. Exercise - Final/Discharge Physician Prescribed Exercise Modalities: SciFit Stepper and SciFit Lateral [place] Nutrition - 30-Day Assessment Weight Mgt (Other Care) Height: 6 ft 2 in Weight:: 221 lb 8 oz BMI: 28.4 Nutrition - 60-Day Assessment Weight Mgt (Other Care) Height: 6 ft 2 in Weight:: 221 lb 8 oz BMI: 28.4 Core - 90 Day Assessment Visit Date of Eval: 06/06/24 Session #:: 29 Medication Compliance Preventative Medication(s):: Aspirin, Ticagrelor/P2Y12 inhibitor, Statin/lipid and Beta yennifer H/O mental health issues: depression, anxiety, or addiction?: No Doesn?t believe in the benefits of treatment?: No Believes medications are unnecessary or harmful?: No Has a concern about medication side effects?: No Expresses concern over the cost of medications?: No Outcomes/Goals: Verbalizes medications,desired effect & common side effects @ DC, Pt self-reports following medication regimen, Keeps card in wallet w/medications listed by DC and Other additional outcome/goals: Interventions/plans: Instruct on medication effects & side effects, Review medication list w/patient every two weeks, Instruct importance of taking meds as ordered & assist problem solving and Other additional Tobacco Use Tobacco Use: Non-smoker Years Smokin Outcomes/Goals: Smoking cessation achieved or maintained by discharge, Identify aids/strategies for achieving smoking cessation by session 6 and Other additional outcome/goals Interventions/plan: Instruct on effects of smoking & provide smoking cessation resource, Assist pt to set quit date & provide encouragement, Assist pt to develop strategies to achieve/maintain quit date, Assist pt w/nicotine replacement & medication for cessation success and Other additional plan/interventions 30-day Reassessments:: Met Reassessment Notes & Comments:: Pt is no longer a smoker Hypertension Hypertension Diagnosis:: Hypertension ICD-10 I10 Resting Blood Pressure:: 160/62 [place] [employer] Hypertension Guidelines Peak Exercise Blood Pressure:: 130/60 Outcomes/Goals: Able to verbalize/achieve optimal blood pressure <130/80, Incorporates diet changes & exercise for blood pressure control by DC and Other additional outcomes/goals Interventions/plan: Instruct on optimal blood pressure, hypertension & medications, Instruct on effects of sodium, alcohol, stress, exercise &hypertension and Other additional plan/interventions 30 day Reassessments:: Progressing Tobacco Cessation Referral Smoking Cessation Referral:: No Individual Education/Counseling:: No Education Schedule Given:: Yes Psychosocial - 30-Day Assess Target Goals Target Goals Referral to Behavioral Health PS - Interventions: Yes: Attend Stress Management Classes Psychosocial - 60-Day Assess Target Goals Target Goals Referral to Behavioral Health PS - Interventions: Yes: Attend Stress Management Classes Psychosocial - 90-Day Assess VIsit Date of Eval: 06/06/24 Session #:: 29 Not Applicable: No Target Goals Target Goals Psychosocial Test Tool Used:: [employer] QOL Cardiac and PHQ-9 Questionnaire phq-9 Severity Referral to Behavioral Health PS - Interventions: Yes: Attend Stress Management Classes Outcomes/Goals: See list Psychosocial Outcomes/Goals:: ID's personal stressors & 2 strategies to manage stress by discharge and Other Additional outcome/goals: Intervention/Plan: See List Interventions/Plan:: Assess stressors,coping strategies & signs of derpression on admission, Instruct/assist pt to develop coping & personal stress Mgt strategies, Refer to Behavioral Health if appropriate, Refer to Physician if appropriate, Instruct patient to recognize signs & symptoms of depression, Instruct patient to recog and Other additional plan/intervention 30-day Reassessments: 30 day Reassessments:: Met Reassessment Notes & Comments:: Pt denies any psychosocial issues at this time. Psychosocial - Final Assessmen Target Goals Target Goals Referral to Behavioral Health PS - Interventions: Yes: Attend Stress Management Classes Nutrition - 90-Day Assessment Program Goals Nutrition Program Goals Patient has diagnosis of Hyperlipidemia (ICD E78)?: Yes Visit Date of Eval: 06/06/24 Session #:: 29 Cholesterol/Lipids (Other Core Measures) Determine presence & major risk factors that modify LDL goal: Cigarette smoking, Hypertension or hypertensive medication, Low HDL cholesterol <40 mg/dL*, Family history of premature CHD in Male < 55 years: female <65 yearsFa and Age men > 45 years; women >/= 55 years Outcomes/Goals: Pt IDs own risk factors & lifestyle modifications by Session 10, Verbalizes symptoms of angina & response by session 3., Pt independently manages and Other Additional Outcomes/Goals: Intervention/Plan: Advocate for lipid panel cholesterol medication if applicable, Instruct on personal lipid levels & lipid goals/NCEP guidelines, Instruct on cholesterol and Other additional plan/int Diabetes (Other Core Measures) Diabetes Type: Diagnosis Type I ICD-10 E10 Insulin dependent injection/pump?: Yes Non-Insulin Dependent?: No Do you monitor your blood sugar at home?: Yes Referral to Diabetic Clinic:: No (declines) Reassessment Notes & Comments:: Pre BS 125 in CR Weight Mgt (Other Care) Height: 6 ft 2 in Weight:: 221 lb 8 oz BMI: 28.4 Diagnosis Overweight/Obesity BMI> 30% ICD-10 E66: No Diagnosis High BMI/Morbid Obesity BMI> 35% ICD-10 Z68: No Outcomes/Goals: Pt sets, maintains & shows weight loss goal & trend during rehab and Other additional outcomes/goals Intervention/Plan: Instruct on ideal BMI & set weight loss goal w/patient, Assist pt to ID & incorporate diet changes for weight loss by S9, Refer to Structured Weight Loss program as appropriate, Encourage goal of using 250-300dcal per session for weight loss and Other additional plan/interventions Healthy Eating Habits Will attend diet classes:: Yes Outcomes/Goals:: Consume diet rich in vegs,fruits,whole grain/high fiber,fish,lean meat, Limit sat/trans fats,cholesterol & added salts & sugars and Other additional outcome/goals: Intervention/Plan:: Assess current eating habits and Other Additional plan/interventions 30-day Reassessments:: Progressing Reassessment Notes & Comments:: Pt is scheduled to attend nutrition class next week. Low sodium heart healthy diet encouraged. Education Gave educational materials for:: Signs & symptoms of hypoglycemia, Signs & symptoms of hyperglycemia, Relate diabetes to coronary artery disease and Healthy eating Nutrition - Final Assessment Weight Mgt (Other Care) Height: 6 ft 2 in Weight:: 221 lb 8 oz BMI: 28.4
[2024-06-06 07:20] VITALS: BP 160/62; BMI 28.4
== END 2024-06-21 23:59 ==
LOC: CR 14:30
PROVIDERS: PCP Nurse Practitioner Adult Health; Referring Provider Internal Medicine Cardiovascular Disease; Visit Provider Internal Medicine Cardiovascular Disease
DX: I21.4 Non-ST elevation (NSTEMI) myocardial infarction (principal)
CPT/HCPCS: 93798

== ENCOUNTER → 2024-07-18 | Outpatient (CLI) | payer MEDICARE, OTHER, SELFPAY ==
[2024-06-06 07:20] VITALS: BMI 28.4
[2024-07-18 13:37] LABS: Microalbumin:Creatinine Ratio 139.9 mg/g CRE
[2024-07-18 13:46] LABS: ALB/GLOB Ratio 1.4 RATIO (0.9-2.4); AST(SGOT) 12 U/L (<=37); Alanine Aminotransfer ALT/SGPT 11 U/L (<=46); Albumin, Serum 3.6 g/dL (3.4-4.8); Alkaline Phosphatase 61 U/L (40-129); Anion Gap 12 (5-15); BUN 26 mg/dL (4-19); BUN/Creat Ratio 12.4 RATIO (10-20); Calcium,Total 8.8 mg/dL (7.6-11.0); Carbon Dioxide 20.1 mmol/L (21.0-32.0); Chloride 109 mmol/L (98-108); Creatinine, Serum 2.11 mg/dL (0.70-1.20); EST Glomerular Filtration Rate 32 (>60); Globulin 2.5 g/dL (2.2-4.2); Glucose 84 mg/dL (70-99); Potassium 4.8 mmol/L (3.3-5.1); Protein, Total 6.1 g/dL (5.9-8.4); Sodium Level 142 mmol/L (133-145); Total Bilirubin 0.16 mg/dL (0.00-1.30)
== END | disposition home or self-care (01) ==
LOC: LAB 12:37
PROVIDERS: PCP Nurse Practitioner Adult Health; Referring Provider Nurse Practitioner Family; Visit Provider Nurse Practitioner Family
DX: E10.59 Type 1 diabetes mellitus with other circulatory complications (principal); E03.9 Hypothyroidism, unspecified
CPT/HCPCS: 36415; 80053; 82043; 82570; 84439; 84443

== ENCOUNTER → 2024-09-17 | Outpatient (CLI) | payer MEDICARE, OTHER, SELFPAY ==
[2024-06-06 07:20] VITALS: BMI 28.4
[2024-09-17 11:47] LABS: Absolute Lymphocyte Count 1.37 X10^3/uL (0.83-4.51); Absolute Neutrophil Count 7.3 X10^3/uL (2.0-7.7); Basophil# 0.06 X10^3/uL; Basophil% 0.6 % (0-1); Eosinophil# 0.29 X10^3/uL; Hematocrit 40.7 % (40-54); Hemoglobin 13.3 g/dL (13.0-16.5); Lymphocyte # 1.37 X10^3/ul (0.83-4.51); Lymphocyte % 14.2 % (19-41); Mean Corp Hgb Conc 32.7 g/dL (32-36); Mean Corpuscular Hgb 26.5 pg (27.0-32.0); Mean Corpuscular Volume 81.2 fL (80-94); Mean Platelet Vol. 8.9 fl (6.2-12.0); Monocyte# 0.61 X10^3/uL; Monocyte% 6.3 % (0-10); NRBC Flagged by Analyzer 0 % (0-5); Neutrophil # 7.29 X10^3/uL (2.7-7.7); Neutrophil % 75.4 % (47-70); Platelet Count 443 K/mm3 (150-450); RBC Distribution Width CV 17.4 % (11.6-14.6); RBC Distribution Width SD 50.9 fl (35.1-43.9); Red Blood Count 5.01 M/mm3 (4.6-6.2); White Blood Count 9.7 K/mm3 (4.4-11.0)
[2024-09-17 12:53] LABS: ALB/GLOB Ratio 1.1 RATIO (0.9-2.4); AST(SGOT) 14 U/L (<=37); Alanine Aminotransfer ALT/SGPT 10 U/L (<=46); Alkaline Phosphatase 73 U/L (40-129); Anion Gap 14 (5-15); BUN 34 mg/dL (4-19); BUN/Creat Ratio 14.9 RATIO (10-20); Calcium,Total 9.3 mg/dL (7.6-11.0); Carbon Dioxide 22.8 mmol/L (21.0-32.0); Chloride 104 mmol/L (98-108); Cholesterol 117 mg/dL (<=200); Creatinine, Serum 2.27 mg/dL (0.70-1.20); EST Glomerular Filtration Rate 30 (>60); Globulin 3.6 g/dL (2.2-4.2); Glucose 101 mg/dL (70-99); High Density Lipoprotein 43 mg/dL; Low Density Lipoprotein Calc. 52 mg/dL; Potassium 4.2 mmol/L (3.3-5.1); Protein, Total 7.6 g/dL (5.9-8.4); Sodium Level 141 mmol/L (133-145); Total Bilirubin 0.23 mg/dL (0.00-1.30); Triglycerides 110 mg/dL; Very Low Density Lipoprotein 22 mg/dL (5-40); cholesterol:hdl ratio screen 2.75
[2024-09-17 12:54] LABS: Anion Gap 13 (5-15); BUN 34 mg/dL (4-19); Calcium,Total 9.3 mg/dL (7.6-11.0); Carbon Dioxide 23.3 mmol/L (21.0-32.0); Chloride 104 mmol/L (98-108); Creatinine, Serum 2.26 mg/dL (0.70-1.20); EST Glomerular Filtration Rate 30 (>60); Glucose 99 mg/dL (70-99); Potassium 4.2 mmol/L (3.3-5.1); Sodium Level 141 mmol/L (133-145)
== END | disposition home or self-care (01) ==
LOC: LAB 10:58
PROVIDERS: PCP Nurse Practitioner Adult Health; Referring Provider Nurse Practitioner Family; Visit Provider Physician Assistant Medical
DX: E78.5 Hyperlipidemia, unspecified (principal); N18.32 Chronic kidney disease, stage 3b; R53.83 Other fatigue
CPT/HCPCS: 36415; 80048; 80053; 80061; 85025

== ENCOUNTER → 2024-09-18 | Outpatient (CLI) | payer MEDICARE, OTHER, SELFPAY ==
[2024-06-06 07:20] VITALS: BMI 28.4
--- NOTE | 2024-09-18 13:00 | ECHOD_ITS ---
Reason For Study Reason For Study: LV DYSFUNCTION Procedure This was a 2D Doppler, Color Flow transthoracic echocardiogram. Exam performed in department. Left Ventricle Normal LV size. Mild concentric left ventricular hypertrophy. Mild inferior hypokinesis. Overall left ventricular systolic ejection fraction estimated at 60%. Stage I diastolic dysfunction. Right Ventricle Normal right ventricle. Atria The left and right atria are normal. Mitral Valve Mild (1+) mitral valve insufficiency. Tricuspid Valve Trivial tricuspid valve insufficiency. Unable to estimate RV systolic pressure due to insufficient tricuspid regurgitant envelope. Aortic Valve No aortic valve stenosis or regurgitation. Pulmonic Valve The pulmonic valve is not well visualized. Great Vessels Normal sized aortic root. Pericardium/Pleural Small loculated pericardial effusion adjacent to the right atrium. Recommend CT scan for further evaluation if clinically indicated. MMode/2D Measurements & Calculations LVIDd: 5.4 cm IVSd: 1.2 cm LVOT diam: 2.3 cm LVIDs: 2.6 cm LVPWd: 1.1 cm LVOT area: 4.1 cm2 RVDd: 3.6 cm FS: 52.5 % asc Aorta Diam: 3.8 cm LAV(MOD-bp): 42.5 ml LVAd ap4: 31.0 cm2 LAV(MOD-bp) Indexed: 18.8 ml/m2 LVLd ap4: 8.9 cm LAV(MOD-sp2): 42.8 ml EDV(MOD-sp4): 90.3 ml LAV(MOD-sp4): 38.5 ml EDV(sp4-el): 92.1 ml LVAs ap4: 16.6 cm2 LVLs ap4: 7.7 cm ESV(MOD-sp4): 32.2 ml ESV(sp4-el): 30.5 ml EF(MOD-sp4): 64.3 % EF(sp4-el): 66.9 % LVAd ap2: 29.7 cm2 SV(MOD-sp4): 58.0 ml SV(MOD-sp2): 50.7 ml LVLd ap2: 9.1 cm SI(MOD-sp4): 25.6 ml/m2 SI(MOD-sp2): 22.4 ml/m2 EDV(MOD-sp2): 85.6 ml EDV(sp2-el): 82.9 ml LVAs ap2: 17.9 cm2 LVLs ap2: 8.1 cm ESV(MOD-sp2): 34.9 ml ESV(sp2-el): 33.3 ml EF(MOD-sp2): 59.3 % SV(sp4-el): 61.6 ml Ao sinus diam: 4.[address] Junction: 2.9 cm LA dimension(2D): 3.6 cm LA A4 area: 15.3 cm2 RA A4 area: 14.7 cm2 TAPSE: 1.9 cm Time Measurements MV dec time: 0.26 sec Doppler Measurements & Calculations MV E max gui: 64.0 cm/sec Lat Peak E' Gui: 8.4 cm/sec Med Peak E' Gui: 6.4 cm/sec MV A max gui: 102.0 cm/sec E/E' lat: 7.7 E/E' med: 10.0 MV E/A: 0.63 MV dec slope: 243.5 cm/sec2 Ao V2 max: 135.8 cm/sec LV V1 max: 109.2 cm/sec Ao max P.4 mmHg LV V1 max P.8 mmHg Ao V2 mean: 95.8 cm/sec LV V1 mean P.9 mmHg Ao mean P.1 mmHg LV V1 mean: 82.8 cm/sec Ao V2 VTI: 33.6 cm LV V1 VTI: 24.4 cm AV (velocity ratio): 0.72 KRISTAL(I,D): 3.0 cm2 KRISTAL(V,D): 3.3 cm2 SV(LVOT): 100.0 ml PA V2 max: 90.3 cm/sec ECHO/Echo Complete Interpretation Summary Mild concentric left ventricular hypertrophy. Mild inferior hypokinesis. Overall left ventricular systolic ejection fraction estimated at 60%. Stage I diastolic dysfunction. Mild (1+) mitral valve insufficiency. Small loculated pericardial effusion adjacent to the right atrium. Recommend CT scan for further evaluation if clinically indicated. Ordering Physician: Sally Sommer Referring Physician: Sally Sommer Performed By: Rama James RDCS
== END | disposition home or self-care (01) ==
LOC: CVS 13:00
PROVIDERS: PCP Nurse Practitioner Adult Health; Referring Provider Physician Assistant Medical; Visit Provider Physician Assistant Medical
DX: I51.9 Heart disease, unspecified (principal)
CPT/HCPCS: 93306

== ENCOUNTER → 2024-10-14 | Outpatient (CLI) | payer MEDICARE, OTHER, SELFPAY ==
[2024-06-06 07:20] VITALS: BMI 28.4
== END | disposition home or self-care (01) ==
LOC: LAB 10:16
PROVIDERS: PCP Nurse Practitioner Adult Health; Referring Provider Nurse Practitioner Family; Visit Provider Nurse Practitioner Family
DX: E03.9 Hypothyroidism, unspecified (principal)
CPT/HCPCS: 36415; 84439; 84443

== ENCOUNTER → 2025-01-29 | Outpatient (CLI) | payer MEDICARE, OTHER, SELFPAY ==
[2024-06-06 07:20] VITALS: BMI 28.4
[2025-01-29 17:42] LABS: Creatinine, Urine (random) 118.00 mg/dL (39.00-259.00); Microalbumin,Random Urine < 12.0 mg/L (<20 mg/L)
[2025-01-29 17:54] LABS: PTHIN 53 pg/mL (11-61)
[2025-01-29 17:56] LABS: AST(SGOT) 12 U/L (<=37); Alanine Aminotransfer ALT/SGPT 8 U/L (<=46); Albumin, Serum 3.8 g/dL (3.4-4.8); Alkaline Phosphatase 77 U/L (40-129); Anion Gap 12 (5-15); BUN 25 mg/dL (4-19); BUN/Creat Ratio 12.2 RATIO (10-20); Calcium,Total 8.8 mg/dL (7.6-11.0); Carbon Dioxide 26.2 mmol/L (21.0-32.0); Chloride 102 mmol/L (98-108); Globulin 2.9 g/dL (2.2-4.2); Glucose 175 mg/dL (70-99); Potassium 3.8 mmol/L (3.3-5.1); Vitamin D,25 Hydroxy 45.2 ng/mL (30-100)
== END | disposition home or self-care (01) ==
LOC: LAB 15:56
PROVIDERS: PCP Nurse Practitioner Adult Health; Referring Provider Nurse Practitioner Family; Visit Provider Nurse Practitioner Family
DX: E03.9 Hypothyroidism, unspecified (principal); E55.9 Vitamin D deficiency, unspecified
CPT/HCPCS: 36415; 80053; 82043; 82306; 82570; 83970; 84439; 84443

== ENCOUNTER → 2025-02-27 | Outpatient (CLI) | payer MEDICARE, OTHER, SELFPAY ==
[2024-06-06 07:20] VITALS: BMI 28.4
--- NOTE | 2025-02-27 11:13 | US_ITS ---
PROCEDURE: US/Thoracentesis W US
[2025-02-27 11:17] LABS: Platelet Count 353 K/mm3 (150-450)
[2025-02-27 11:26] LABS: Prothrombin Time (Protime)PT. 13.2 SECONDS (11.7-14.9)
[2025-02-27 11:27] LABS: Partial Thromboplast Time 26.3 Seconds (24.1-36.2)
[2025-02-27 11:58] LABS: LDH 183 U/L (87-241)
[2025-02-27 12:14] VITALS: BP 138/57; PULSE 72; RESP 16; O2SAT 98
[2025-02-27] MEDS: Lidocaine 2% (20 ml mdv) 20 ML Vial INFILT (12:16)
[2025-02-27 12:20] VITALS: BP 152/59; PULSE 72; RESP 16; O2SAT 97
--- NOTE | 2025-02-27 12:30 | FLU_PTH ---
PATIENT: LYUDMILA WALTON LOC: [facility]#:[id number] AGE/SX: 75/M ROOM: RE02/27/[address]: BRANDON Jason : 1950 BED: DIS: 02/27/2025 SPEC #: [id number] RECD: 02/27/25 12:36 STATUS: PRICILA REBrennan #: [id number] JULIANNA: 02/27/25 12:[address]: Keira Harper DEPT: CYTOLOGY RECD BY: Ananth Lang ENTERED: 02/27/25 13:59 SP TYPE: Fluid OTHR DR: RYLAN BOWDEN Tissues: A - Pleural fluid, NOS Procedures: Special Stain Group II Surgery Specimen Level IV Cytospin Fluid HEADER OPERATION: Thoracentesis PRE-OP DIAGNOSIS: Right pleural effusion TISSUE SUBMITTED: A- Thoracentesis fluid for cytology DIAGNOSIS CYTOLOGY A. Right pleural effusion, thoracentesis (cytospin, cellblock): - >No malignant cells identified. CYTOLOGY STUDY Slides are reviewed. CYTOLOGY GROSS A. Received is 15 ml of cloudy-yellow fluid labeled with the patient's name and and designated per the requisition as Thoracentesis fluid. Submitted for cytology and cell block preparation. 02/27/2025 CPT: 73164,52732
[2025-02-27 12:38] LABS: Cytology, Body Fluid / CSF SEE PATHOLOGY REPORT
[2025-02-27 13:32] LABS: Body Fluid Mononuclear WBC # 0.365 10^3/uL; Body Fluid Mononuclear WBC % 96.8 %; Body Fluid Polynuclear WBC # 0.012 10^3/uL; Body Fluid Polynuclear WBC % 3.2 %; Red Cell Count/Body Fluid 0.003 10^6/ul; White Blood Count/Body Fluid 0.377 10^3/uL
[2025-02-27 13:33] LABS: Appearance/Body Fluid CLEAR; Auto B Fluid Analyzer BKGD Ct COUNTS W/IN LIMITS (W/IN LIMITS); Color/Body Fluid YELLOW; Source- Body Fluid THORACENTESIS
[2025-02-27 14:06] LABS: Neutrophil (Segs) 4 %
[2025-02-27 14:07] LABS: Body Fluid QC Type(s) BF1Q
[2025-02-27 16:22] LABS: Pathologist Comment/Body Fluid Reviewed
== END | disposition home or self-care (01) ==
LOC: US 11:00
PROVIDERS: PCP Nurse Practitioner Adult Health; Referring Provider Nurse Practitioner Family; Visit Provider Nurse Practitioner Family
DX: J90 Pleural effusion, not elsewhere classified (principal); R06.02 Shortness of breath
CPT/HCPCS: 32555; 36415; 83615; 84155; 84157; 85049; 85610; 85730; 87070; 87075; 87205; 88108; 88305; 88313; 89050

== ENCOUNTER → 2025-03-04 | Outpatient (CLI) | payer MEDICARE, OTHER, SELFPAY ==
[2024-06-06 07:20] VITALS: BMI 28.4
== END | disposition home or self-care (01) ==
PROVIDERS: PCP Nurse Practitioner Adult Health; Referring Provider Nurse Practitioner Family; Visit Provider Nurse Practitioner Family
DX: R91.1 Solitary pulmonary nodule (principal)

== ENCOUNTER → 2025-03-11 | Outpatient (CLI) | payer MEDICARE, OTHER, SELFPAY ==
[2024-06-06 07:20] VITALS: BMI 28.4
--- NOTE | 2025-03-11 10:30 | PET_ITS ---
PROCEDURE: PET/CT TUMOR BASE -THIGH INIT 03/11/2025 REASON FOR EXAM: 75 y/o M with SOLITARY PULMONARY NODULE. 1.4 cm right lower lobe nodule. Previous smoker. Chronic right lower lobe volume loss. TECHNIQUE: Procedure Code: [id number] Modality: PT Procedure: PET/CT TUMOR BASE -THIGH INIT Following the intravenous administration of radionucleotide, image acquisition on a dedicated PET/CT unit was performed at one hour post injection. A preliminary CT study encompassing the Skull base, neck, chest, abdomen, pelvis, and proximal thighs was performed for purposes of attenuation correction and anatomic localization. The proximal thighs were also included. The patient's blood glucose level was 150 mg/dL (allowable range: 50-180 mg/dL). RADIOPHARMACEUTICAL: 12.535 mCi 18F-FDG (Fluorodeoxyglucose F18) IV was injected into he patient. RADIATION DOSE SUMMARY: Effective Dose: Approximately 7 mSv for a standard whole-body PET scan Organ Doses: Varies by organ, with higher doses typically to the bladder, liver, and brain COMPARISON: COMPARISON FROM CT, PET OR OTHER PERTINENT EXAMS: Chest CT of 01/08/2025.. FINDINGS: Physiologic uptake: There may be expected metabolic uptake within the brain, tongue and floor of the mouth and larynx/vocal cords, heart, odell (many normal individuals have hilar uptake in less than 3 nodes with mildly avid hilar nodes less than 2.7 SUV), liver and spleen, system, and GI tract and symmetric muscle uptake. FDG AVID AND NON-AVID LESIONS. Reported avid SUV values (g/mL*) are maximum SUV. NECK: There are no significant neck abnormalities. CHEST: Chest wall- There are no significant chest wall abnormalities. Axilla- There are no significant axillary abnormalities. Lung parenchyma- No significant increased metabolic activity is seen at the previously identified 14 mm right lower lobe nodule. The atelectatic right lower lobe, previously identified, shows nonspecific activity. Mediastinum- There are no significant hilar or mediastinal adenopathy. Pleura- A small right pleural effusion is seen. Mild adjacent pleural activity is noted, nonspecific in nature. ABDOMEN: Prior cholecystectomy. Moderate aortic calcification; no evidence of abdominal aortic aneurysm. Stomach- No significant abnormalities. Liver- No significant abnormalities. Spleen- No significant abnormalities. Pancrease- No significant abnormalities. Kidneys- No significant abnormalities. Bowel- Normal bowel activity. Spine- No significant abnormalities. PELVIS: Mild sigmoid diverticulosis. Bowel- Normal physiologic bowel activity is identified. Masses- There are no pelvic masses. Bones- Increased uptake is seen in the left glenohumeral joint, possibly due to the presence of inflammation/infection; recommend clinical and historical correlation. Increased uptake is seen asymmetrically in the hip joints, right much greater than left, most prominent anteriorly and laterally, likely due to inflammatory process; recommend clinical and historical correlation. Degenerative changes of the spine. With the use of bone window settings, there are no osteolytic or osteoblastic lesions. There are no FDG avid lesions within the visualized portion of the axial skeleton. PET/PET/CT Tumor Base -Thigh Init IMPRESSION: FDG avid- 1. No hypermetabolic activity is seen at the previously concerning 14 mm right lower lobe nodule is seen. 2. Right lower lobe atelectasis with nonspecific activity noted. 3. Small right pleural effusion, with nonspecific adjacent activity. Other: 1. Increased uptake is seen in the left glenohumeral joint, possibly due to the presence of inflammation/infection; recommend clinical and historical correlation. 2. Increased uptake is seen asymmetrically in the hip joints, right much greate r than left, most prominent anteriorly and laterally, likely due to inflammatory process; recommend clinical and historica l correlation. 3. Mild sigmoid diverticulosis. 4. Degenerative changes of the spine. 5. Moderate aortic calcification; no evidence of abdominal aortic aneurysm. 6. Prior cholecystectomy. Please note the low-dose CT scan was performed to facilitate PET image reconstr uction and anatomic localization and does not replace a diagnostic CT. Any diagnostic CT requested and performed at the time of the PET will be reported separately. Reading Location: [place] [id number]
== END | disposition home or self-care (01) ==
LOC: ONC 10:17
PROVIDERS: PCP Nurse Practitioner Adult Health; Referring Provider Nurse Practitioner Family; Visit Provider Nurse Practitioner Family
DX: R91.1 Solitary pulmonary nodule (principal)
CPT/HCPCS: 78815; A9552

== ENCOUNTER 2025-03-21 00:23 | Emergency (ER) | payer MEDICARE, OTHER, SELFPAY ==
[2024-06-06 07:20] VITALS: BMI 28.4
[2025-03-21 00:24] VITALS: BP 211/94; PULSE 111; RESP 23; TEMP 36.4; O2SAT 98; BMI 28.9
--- NOTE | 2025-03-21 00:30 | EKG12_ITS ---
Test Reason : DYSRHYTHMIA Blood Pressure : */* mmHG Vent. Rate : 106 BPM Atrial Rate : 106 BPM P-R Int : 202 ms QRS Dur : 86 ms QT Int : 344 ms P-R-T Axes : 41 52 37 degrees QTcB Int : 456 ms Sinus tachycardia with frequent Premature ventricular complexes Possible Inferior infarct , age undetermined Abnormal ECG Confirmed by ROCHELLE NOVOA ([id number]), editor managing newspaper ANGEL LAZAR ([id number]) on 03/24/2025 6:34:27 AM Referred By: KRYSTYNA Confirmed By: ROCHELLE NOVOA
--- NOTE | 2025-03-21 01:20 | RAD_ITS ---
PROCEDURE: CHEST PA AND LATERAL 03/21/2025 REASON FOR EXAM: CHEST PAIN TECHNIQUE: Procedure Code: RADCXR Modality: DX Procedure: CHEST PA AND LATERAL COMPARISON: PET-CT on 03/11/2025. FINDINGS: Unchanged right pleural effusion. Unchanged right pleural thickening. Unchanged atelectatic airspace disease of the right lower lobe. Normal heart and pericardium. Normal mediastinum and odell. Normal visualized pulmonary arteries. Normal visualized aortic arch and descending thoracic aorta. Normal visualized thoracic spine. Normal visualized ribs, clavicles, and shoulders. There is no demonstrated abnormality of the visualized soft tissue structures of the upper abdomen. RAD/Chest PA and Lateral IMPRESSION: Unchanged right pleural effusion. Unchanged right pleural thickening. Unchanged atelectatic airspace disease of the right lower lobe. Reading [facility]
[2025-03-21 01:23] VITALS: BP 179/88; PULSE 85; RESP 17; O2SAT 96
--- OUTSIDE RECORDS SUMMARY | 2025-03-21 01:23 | XMS RPT_ITS | CCD ---
Author Organization [facility] Providers Care Admitting Interviewer Name Role Phone ANCELMO THOMPSON Attending Unavailable ANCELMO THOMPSON Referring Unavailable NONE, PCP Referring Unavailable JARON HENRY Admitting Unavailable JARON HENRY Attending Unavailable MAST CENTRIFUGE SEPARATOR OPERATOR-INSIDE SALES ADMINISTRATOR, WILMA Primary Care Physician [phone] MAST BIOCHEMISTRY TECHNOLOGIST, WILMA Primary Care Provider [phone] Dr. Tim Salgado MD Attending Provider Dr. Tim Salgado MD Referring Provider MAST BIOCHEMISTRY TECHNOLOGIST, WILMA Referring Provider [phone] Nikko COMMERCIAL BANKER-CNydia Attending Provider Nikko COMMERCIAL BANKER-CNydia Referring Provider MAST BIOCHEMISTRY TECHNOLOGIST, WILMA Primary Care Provider [phone] Dr. Tim Salgado MD Attending Provider Dr. Tim Salgado MD Referring Provider MAST BIOCHEMISTRY TECHNOLOGIST, WILMA Referring Provider Nikko ANDRADE-CNydia Attending Provider Sally Nolan Attending Provider [phone] MAST BIOCHEMISTRY TECHNOLOGIST, WILMA Primary Care Provider [phone] Dr. Tim Salgado MD Attending Provider Dr. Tim Salgado MD Referring Provider Sally Nolan Referring Provider [phone] Dr. Justo Olson MD Attending Provider MAST BIOCHEMISTRY TECHNOLOGIST, WILMA Primary Care Provider [phone] Dr. Tim Salgado MD Attending Provider Dr. Tim Salgado MD Referring Provider MAST CENTRIFUGE SEPARATOR OPERATOR-INSIDE SALES ADMINISTRATOR, WILMA Attending Unavailabl e MAST CENTRIFUGE SEPARATOR OPERATOR-INSIDE SALES ADMINISTRATOR, WILMA Primary Care Unavailabl e MAST CENTRIFUGE SEPARATOR OPERATOR-INSIDE SALES ADMINISTRATOR, WILMA Primary Care Unavailabl e MAST CENTRIFUGE SEPARATOR OPERATOR-INSIDE SALES ADMINISTRATOR, WILMA Attending Unavailabl e MAST CENTRIFUGE SEPARATOR OPERATOR-INSIDE SALES ADMINISTRATOR, WILMA Primary Care Unavailabl e MAST CENTRIFUGE SEPARATOR OPERATOR-INSIDE SALES ADMINISTRATOR, WILMA Attending Unavailabl e MAST CENTRIFUGE SEPARATOR OPERATOR-INSIDE SALES ADMINISTRATOR, WILMA Primary Care Unavailabl e MAST CENTRIFUGE SEPARATOR OPERATOR-INSIDE SALES ADMINISTRATOR, WILMA Attending Unavailabl e MAST BIOCHEMISTRY TECHNOLOGIST, WILMA Primary Care Physician [phone] Nikko COMMERCIAL BANKER-C, Nydia Attending Physician Nikko COMMERCIAL BANKER-C, Nydia Referring Provider MAST BIOCHEMISTRY TECHNOLOGIST, WILMA Referring Provider [phone] MAST BIOCHEMISTRY TECHNOLOGIST, WILMA Attending Physician [phone] MAST, WILMA Primary Care Unavailable Tim Salgado Attending Unavailable Tim Salgado Referring Unavailable Care Physician, No Primary Referring Unava ilable MAST, WILMA Primary Care Unavailable Tim Salgado Attending Unavailable Keira Harper Referring Unavailable Keira Harper Attending Unavailable MAST, WILMA Primary Care Unavailable Keira Harper Referring Unavailable Keira Harper Attending Unavailable MAST, WILMA Primary Care Unavailable MAST, WILMA Attending Unavailable MAST, WILMA Primary Care Unavailable MAST, WILMA Referring Unavailable Nydia El Attending Unavailable Nydia El Referring Unavailable MAST, WILMA Primary Care Unavailable MAST, WILMA Primary Care Unavailable Tim Salgado Attending Unavailable Tim Salgado Referring Unavailable Nydia El Attending Unavailable Nydia El Referring Unavailable MAST, WILMA Primary Care Unavailable MAST, WILMA Primary Care Unavailable Tmi Salgado Attending Unavailable Tim Salgado Referring Unavailable Nydia El Referring Unavailable MAST, WILMA Primary Care Unavailable Sally Nolan Attending Unavail able MAST, WILMA Primary Care Unavailable MAST, WILMA Referring Unavailable Nydia El Attending Unavailable Keira Harper Attending Unavailable MAST, WILMA Primary Care Unavailable MAST, WILMA Referring Unavailable Nydia El Attending Unavailable MAST, WILMA Primary Care Unavailable MAST, WILMA Referring Unavailable MAST, WILMA Primary Care Unavailable MAST, WILMA Referring Unavailable Nydia El Attending Unavailable MAST, WILMA Primary Care Unavailable MAST, WILMA Referring Unavailable Sally Nolan Attending Unavail able Justo Olson Attending Unavailable MAST, WILMA Primary Care Unavailable Nydia El Attending Unavailable MAST, WILMA Primary Care Unavailable MAST, WILMA Referring Unavailable MAST, WILMA Primary Care Unavailable Sally Nolan Referring Unavail able Sally Nolan Attending Unavail able MAST, WILMA Primary Care Unavailable Tim Salgado Attending Unavailable Tmi Salgado Referring Unavailable Nydia El Referring Unavailable Nydia El Attending Unavailable MAST, WILMA Primary Care Unavailable MAST, WILMA Primary Care Unavailable Tim Salgado Referring Unavailable Tim Salgado Attending Unavailable MAST, WILMA Primary Care Unavailable Tim Salgado Attending Unavailable Tim Salgado Referring Unavailable Medications Current Medications Medication Drug Class(es) Dates Sig (Normalized) Sig (Original) aspirin 81 mg delayed release oral tablet (11 sources) Platelet Aggregation Inhibitor, Nonsteroidal Anti-inflammatory Drug Start: 02-28-2024 take 1 tablet by mouth once daily Aspirin (Adult Aspirin Regimen) 81 mg tablet,delayed release (DR/EC) Active 81 mg PO daily March 13, 2024 1:00am Complies with drug therapy atorvastatin 10 mg oral tablet (11 sources) HMG-CoA Reductase Inhibitor Start: 02-28-2024 take 1 tablet by mouth once daily Atorvastatin 10 mg tablet Active 10 mg PO daily March 13, 2024 1:00am Complies with drug therapy cholecalciferol 0.025 mg oral capsule (7 sources) Vitamin D Start: 03-20-2024 take 1 capsule by mouth once daily Cholecalciferol (Vitamin D3) 25 mcg (1,000 unit) capsule Active 25 ug PO daily March 20, 2024 1:00am Complies with drug therapy clobetasol propionate 0.5 mg/ml topical cream (6 sources) Corticosteroid Start: 09-17-2024 Clobetasol 0.05 % cream Active 1 NMA TOPICAL TWICE A DAY September 17, 2024 12:00am Complies with drug therapy 2 ml dupilumab 150 mg/ml auto-injector (10 sources) Interleukin-4 Receptor alpha Antagonist Start: 02-28-2024 Dupilumab (Dupixent Pen) 300 mg/2 mL pen injector Active 300 mg SC every 2 weeks March 20, 2024 1:00am Complies with drug therapy empagliflozin 25 mg oral tablet (9 sources) Sodium-Glucose Cotransporter 2 Inhibitor Start: 01-27-2025 take 1 tablet by mouth once daily in the morning Empagliflozin (Jardiance) 25 mg tablet Active 25 mg PO EVERY MORNING 90 January 27, 2025 12:00am Microalbuminuria due to type 1 diabetes mellitus Type 1 diabetes mellitus with other diabetic kidney complication Proteinuria, unspecified Complies with drug therapy Start: 07-18-2024 End: 01-27-2025 take 1 tablet by mouth once daily in the morning Empagliflozin (Jardiance) 10 mg tablet Discontinued 10 mg PO EVERY MORNING 90 December 30, 2024 4:47pm January 27, 2025 2:43pm Proteinuria Chronic kidney disease Proteinuria, unspecified Chronic kidney disease, stage 3b gabapentin 300 mg oral capsule (11 sources) Anti-epileptic Agent Start: 02-28-2024 End: 02-05-2025 gabapentin 300 mg oral capsule Dose : 300 mg = 1 cap(s), Oral, BID, # 60 cap(s), 0 Refill(s), Pharmacy: [facility], Peripheral neuropathy, 186, cm, 12/16/24 11:09:00 EDT, Height, 100.3, kg, 12/16/24 11:09:00 EDT, Dosing Weight Start Date: 01/06/25 Stop Date: 02/05/25 Status: Ordered Medication Dispense Status: Completed Quantity: 60.0 Unit: cap(s) Total Allowed Fills: 1 Fills Dispensed: 0 Indications: Polyneuropathy, unspecified; hydroCHLOROthiazide 12.5 mg oral tablet (20 sources) Thiazide Diuretic Start: 10-16-2024 take 1 tablet by mouth once daily in the morning Hydrochlorothiazide 12.5 mg tablet Active 12.5 mg PO EVERY MORNING 90 October 16, 2024 12:00am Hypertension Essential (primary) hypertension Complies with drug therapy Start: 06-04-2024 hydroCHLOROthi azide 12.5 mg oral capsule 0 Refill(s) Start Date: 06/04/24 Status: Ordered Medication Dispense Status: Completed Total Allowed Fills: 1 Fills Dispensed: 0 Start: 05-27-2024 End: 10-16-2024 take 12.5-25 mg by mouth once daily in the morning Hydrochlorothiazide 25 mg tablet Discontinued 25 mg PO EVERY MORNING May 30, 2024 3:35pm October 16, 2024 12:27pm this is a dose increase from 12.5 to 25 mg daily. Start: 05-23-2024 End: 05-27-2024 take 1 capsule by mouth once daily in the morning Hydrochlorothiazide 12.5 mg capsule Discontinued 12.5 mg PO EVERY MORNING 7 May 23, 2024 1:00am May 27, 2024 12:59pm Start: 05-23-2024 End: 05-27-2024 take 1 tablet by mouth once daily in the morning Hydrochlorothiazide 12.5 mg tablet Discontinued 12.5 mg PO EVERY MORNING 90 May 23, 2024 1:00am May 27, 2024 5:10pm insulin lispro 100 unt/ml injectable solution (16 sources) Insulin Analog Start: 08-05-2024 End: 01-15-2025 Insulin Lispro 100 unit/mL solution Active 100 U SC DAILY 90 January 15, 2025 3:43pm via insulin pump Complies with drug therapy Start: 03-20-2024 End: 10-16-2024 insulin lispro Discontinued continuous subcutaneous infusion March 20, 2024 1:00am October 16, 2024 12:02pm Start: 03-20-2024 insulin lispro Active continuous subcutaneous infusion March 20, 2024 1:00am Start: 02-28-2024 insulin lispro (Humalog) 100 units/mL injectable solution unit(s) =, Subcutaneous, 0 Refill(s) Start Date: 02/28/24 Status: Ordered Repeat number: 1 ketoconazole 20 mg/ml medicated shampoo (6 sources) Azole Antifungal Start: 09-17-2024 Ketoconazole 2 % shampoo Active TOPICAL September 17, 2024 12:00am Complies with drug therapy levothyroxine sodium 0.1 mg oral tablet (20 sources) l-Thyroxine Start: 12-25-2024 take 2 tablets by mouth once daily, then take 1 tablet by mouth once daily Levothyroxine 100 mcg tablet Active 0 PO daily 96 December 25, 2024 10:49am Hypothyroidism Hypothyroidism, unspecified 2 tabs Monday, 1 tab Monday-Monday orally daily; Complies with drug therapy Start: 07-18-2024 End: 12-25-2024 take 1 tablet by mouth once daily Levothyroxine 100 mcg tablet Discontinued 100 ug PO daily 90 July 18, 2024 12:00am December 25, 2024 10:49am Hypothyroidism Hypothyroidism, unspecified Start: 03-20-2024 Synthroid 100 mcg (0.1 mg) oral tablet Dose : 100 mcg = 1 tab(s), Oral, qDay, # 30 tab(s), 2 Refill(s), Pharmacy: [facility] #[id number], 187.3, cm, 02/28/24 13:26:00 EST, Height, kg, 02/28/24 13:26:00 EST, Dosing Weight Start Date: 03/20/24 Status: Ordered Medication Dispense Status: Completed Quantity: 30.0 Unit: tab(s) Total Allowed Fills: 3 Fills Dispensed: 0 Start: 03-20-2024 End: 07-18-2024 take 1 tablet by mouth once daily Levothyroxine (Synthroid) 88 mcg tablet Discontinued 88 ug PO daily 90 July 18, 2024 11:52am July 18, 2024 11:54am Hypothyroidism Hypothyroidism, unspecified Start: 03-13-2024 End: 03-20-2024 take 1 capsule by mouth once daily Levothyroxine 100 mcg capsule Discontinued 100 ug PO daily March 13, 2024 1:00am March 20, 2024 12:40pm Start: 02-28-2024 take 1 tablet by nany once daily Synthroid 88 mcg (0.088 mg) oral tablet mcg = tab(s), Oral, qDay, 0 Refill(s) Start Date: 02/28/24 Status: Ordered losartan potassium 50 mg oral tablet (16 sources) Angiotensin 2 Receptor Vikram Start: 05-23-2024 End: 05-27-2024 losartan 50 mg oral tablet 0 Refill(s) Start Date: 06/04/24 Status: Ordered Medication Dispense Status: Completed Total Allowed Fills: 1 Fills Dispensed: 0 Multiple Vitamins oral capsule (4 sources) Start: 02-28-2024 take 1 capsule by mouth once daily Multiple Vitamins oral capsule Oral, qDay, 0 Refill(s) Start Date: 02/28/24 Status: Ordered Medication Dispense Status: Completed Total Allowed Fills: 1 Fills Dispensed: 0 Start: 02-28-2024 take 1 capsule by [facility] once daily Multiple Vitamins oral capsule Oral, qDay, 0 Refill(s) Start Date: 02/28/24 Status: Ordered Repeat number: 1 Start: 02-28-2024 take 1 capsule by mo [facility] once daily Multiple Vitamins oral capsule Oral, qDay, 0 Refill(s) Start Date: 02/28/24 Status: Ordered Multivitamin tablet (7 sources) Start: 03-20-2024 Multivitamin t ablet Active 1 {tbl} PO daily March 20, 2024 1:00am Complies with drug therapy Start: 03-20-2024 Multivitamin t ablet Active 1 {tbl} PO daily March 20, 2024 1:00am PreserVision AREDS 2 oral capsule (4 sources) Start: 02-28-2024 take 1 capsule by mouth once daily PreserVision AREDS 2 oral capsule Dose = 1 cap(s), Oral, Daily, 0 Refill(s) Start Date: 02/28/24 Status: Ordered Medication Dispense Status: Completed Total Allowed Fills: 1 Fills Dispensed: 0 Start: 02-28-2024 take 1 capsule by mo [facility] once daily PreserVision AREDS 2 oral capsule Dose = 1 cap(s), Oral, Daily, 0 Refill(s) Start Date: 02/28/24 Status: Ordered Repeat number: 1 Start: 02-28-2024 take 1 capsule by mo [facility] once daily PreserVision AREDS 2 oral capsule Dose = 1 cap(s), Oral, Daily, 0 Refill(s) Start Date: 02/28/24 Status: Ordered tacrolimus 0.001 mg/mg topical ointment (6 sources) Calcineurin Inhibitor Immunosuppressant Start: 09-17-2024 Tacrolimus 0.1 % ointment Active TOPICAL daily September 17, 2024 12:00am Complies with drug therapy Vitamin B Complex oral capsule (4 sources) Start: 02-28-2024 take 1 capsule by mouth once daily Vitamin B Complex oral capsule Dose = 1 cap(s), Oral, Daily, 0 Refill(s) Start Date: 02/28/24 Status: Ordered Medication Dispense Status: Completed Total Allowed Fills: 1 Fills Dispensed: 0 Start: 02-28-2024 take 1 capsule by mo [facility] once daily Vitamin B Complex oral capsule Dose = 1 cap(s), Oral, Daily, 0 Refill(s) Start Date: 02/28/24 Status: Ordered Repeat number: 1 Start: 02-28-2024 take 1 capsule by [facility] once daily Vitamin B Complex oral capsule Dose = 1 cap(s), Oral, Daily, 0 Refill(s) Start Date: 02/28/24 Status: Ordered Vitamin B Complex tablet (7 sources) Start: 03-20-2024 Vitamin B Comp buster tablet Active 1 {tbl} PO daily March 20, 2024 1:00am Complies with drug therapy Start: 03-20-2024 Vitamin B Comp buster tablet Active 1 {tbl} PO daily March 20, 2024 1:00am Vitamin D3 (4 sources) Start: 02-28-2024 Vitamin D3 Dos e : 10 mcg = 1 tab(s), Oral, Daily, 0 Refill(s) Start Date: 02/28/24 Status: Ordered Medication Dispense Status: Completed Total Allowed Fills: 1 Fills Dispensed: 0 Start: 02-28-2024 Vitamin D3 Dos e : 10 mcg = 1 tab(s), Oral, Daily, 0 Refill(s) Start Date: 02/28/24 Status: Ordered Repeat number: 1 Start: 02-28-2024 Vitamin D3 Dos e : 10 mcg = 1 tab(s), Oral, Daily, 0 Refill(s) Start Date: 02/28/24 Status: Ordered Completed/Discontinued Medications Medication Drug Class(es) Dates Sig (Normalized) Sig (Original) amLODIPine 10 mg oral tablet (7 sources) Dihydropyridine Calcium Channel Vikram Start: 03-13-2024 End: 03-20-2024 take 1 tablet by mouth once daily Amlodipine 10 mg tablet Discontinued 10 mg PO daily March 13, 2024 1:00am March 20, 2024 12:37pm 24 hr carvedilol phosphate 80 mg extended release oral capsule (7 sources) alpha-Adrenergic Vikram, beta-Adrenergic Vikram Start: 03-13-2024 End: 03-20-2024 take 1 capsule by mouth once daily at mealtime Carvedilol Phosphate 80 mg capsule, ER multiphase 24 hr Discontinued 80 mg PO EVERY MORNING March 13, 2024 1:00am March 20, 2024 12:38pm must administer with a meal/food 24 hr metoprolol succinate 25 mg extended release oral tablet (12 sources) beta-Adrenergic Vikram Start: 02-28-2024 End: 01-06-2025 take 1 tablet by mouth once daily Metoprolol Succinate 25 mg tablet extended release 24 hr Discontinued 25 mg PO daily March 20, 2024 1:00am January 06, 2025 2:58pm 24 hr nisoldipine 34 mg extended release oral tablet (13 sources) Dihydropyridine Calcium Channel Vikram Start: 02-28-2024 End: 12-05-2024 take 1 tablet by mouth once daily Nisoldipine 34 mg tablet extended release 24 hr Discontinued 34 mg PO daily 90 December 05, 2024 12:40pm December 05, 2024 12:43pm ticagrelor 90 mg oral tablet (13 sources) Start: 02-28-2024 End: 01-06-2025 take 1 tablet by mouth twice daily Ticagrelor (Brilinta) 90 mg tablet Discontinued 90 mg PO TWICE A DAY 180 January 06, 2025 11:20am January 06, 2025 2:45pm Problems Active Problems Problem Classification Problem Date Documented Da te Episodic/Chronic Acute myocardial infarction (17 sources) Myocardial infarction; Translations: [Non-ST elevation (NSTEMI) myocardial infarction] Onset: 03-20-2024 03-13-2024 Chronic Allergic reactions (1 source) Eczema 12-16-2024 Episodic Chronic kidney disease (20 sources) Chronic kidney disease; Translations: [Chronic kidney disease, unspecified] 03-20-2024 Chronic Chronic kidney disease (6 sources) Chronic kidney disease; Translations: [Chronic kidney disease, stage 3b] Onset: 10-16-2024 Coronary atherosclerosis and other heart disease (2 sources) History of myocardial infarction 06-04-2024 Chronic Deficiency and other anemia (9 sources) Anemia; Translations: [Anemia, unspecified] 02-22-2024 Episodic Deficiency and other anemia (7 sources) Iron deficiency anemia; Translations: [Iron deficiency anemia, unspecified] 03-13-2024 Episodic Diabetes mellitus with complications (15 sources) Neuropathy due to diabetes mellitus; Translations: [Type 2 diabetes mellitus with diabetic neuropathy, unspecified] Onset: 01-27-2025 03-13-2024 Chronic Diabetes mellitus without complication (20 sources) Type 1 diabetes mellitus; Translations: [Type 1 diabetes mellitus without complications] Onset: 03-20-2024 04-22-2024 Chronic Diabetes mellitus without complication (19 sources) Insulin pump present; Translations: [Presence of insulin pump (external) (internal)] 04-22-2024 Episodic Disorders of lipid metabolism (20 sources) Hyperlipidemia; Translations: [Hyperlipidemia, unspecified] Onset: 09-23-2024 07-18-2024 Chronic Essential hypertension (20 sources) Hypertensive disorder; Translations: [Essential (primary) hypertension] Onset: 02-21-2025 04-22-2024 Chronic Genitourinary symptoms and ill-defined conditions (11 sources) Proteinuria; Translations: [Proteinuria, unspecified] Onset: 01-27-2025 07-18-2024 Episodic Gout and other crystal arthropathies (7 sources) Gout; Translations: [Gout, unspecified] 03-13-2024 Chronic Heart valve disorders (7 sources) Ejection murmur; Translations: [Cardiac murmur, unspecified] 03-13-2024 Episodic Hypertension with complications and secondary hypertension (1 source) Hypertensive chronic kidney disease with stage 1 through stage 4 chronic kidney disease, or unspecified chronic kidney disease; Translations: [Hypertensive chronic kidney disease with stage 1 through stage 4 chronic kidney disease, or unspecified chronic kidney disease] Onset: 06-19-2024 Chronic Nutritional deficiencies (3 sources) Vitamin D deficiency; Translations: [Vitamin D deficiency, unspecified] Onset: 01-27-2025 01-27-2025 Chronic Occlusion or stenosis of precerebral arteries (7 sources) Carotid artery stenosis; Translations: [Occlusion and stenosis of unspecified carotid artery] 03-13-2024 Chronic Osteoarthritis (2 sources) Osteoarthritis of knee 06-04-2024 Chronic Other and ill-defined heart disease (12 sources) Left ventricular cardiac dysfunction; Translations: [Heart disease, unspecified] 03-20-2024 Chronic Other and ill-defined heart disease (1 source) Heart disease, unspecified; Translations: [Heart disease, unspecified] Onset: 09-23-2024 Chronic Other diseases of kidney and ureters (8 sources) Kidney disease; Translations: [Disorder of kidney and ureter, unspecified] 04-22-2024 Episodic Other diseases of kidney and ureters (7 sources) Cyst of kidney; Translations: [Cyst of kidney, acquired] 03-13-2024 Episodic Other injuries and conditions due to external causes (2 sources) Other injury of unspecified body region, initial encounter; Translations: [Other injury of unspecified body region, initial encounter] Onset: 02-14-2024 Episodic Other injuries and conditions due to external causes (7 sources) Hematoma; Translations: [Other injury of unspecified body region, initial encounter] 02-22-2024 Episodic Other liver diseases (7 sources) Fatty (change of) liver, not elsewhere classified; Translations: [Nonalcoholic fatty liver disease] 03-13-2024 Chronic Other lower respiratory disease (1 source) Solitary pulmonary nodule; Translations: [Solitary pulmonary nodule] Onset: 01-08-2025 Episodic Other nervous system disorders (2 sources) Peripheral nerve disease 06-04-2024 Chronic Other nervous system disorders (1 source) Poor balance 12-16-2024 Episodic Other nutritional; endocrine; and metabolic disorders (16 sources) Overweight; Translations: [Overweight] 07-18-2024 Episodic Pleurisy; pneumothorax; pulmonary collapse (1 source) Pleural effusion, not elsewhere classified; Translations: [Pleural effusion, not elsewhere classified] Onset: 02-27-2025 Episodic Pulmonary heart disease (1 source) Other diseases of pulmonary vessels; Translations: [Other diseases of pulmonary vessels] Onset: 01-08-2025 Episodic Screening and history of mental health and substance abuse codes (1 source) Tobacco use and exposure - finding 12-16-2024 Chronic Comment on above: Smoked 40 years 1 pa ck a day, quit in 2015 Spondylosis; intervertebral disc disorders; other back problems (7 sources) Chronic back pain ; Translations: [Dorsalgia, unspecified] 03-13-2024 Episodic Thyroid disorders (20 sources) Hypothyroidism; Translations: [Hypothyroidism, unspecified] Onset: 02-17-2025 04-22-2024 Chronic Unclassified (2 sources) Does mobilize using cane 06-04-2024 Unclassified (3 sources) Patient encounter status 12-16-2024 Past or Other Problems Problem Classification Problem Date Documented Da te Episodic/Chronic Malaise and fatigue (12 sources) Fatigue; Translations: [Other fatigue] Onset: 09-17-2024 09-17-2024 Episodic Results Test Name Value Interpretation Reference Range Facility Culture, Anaerobic Any Sourc flor 03-04-2025 CUAN U U No growth in 5 days. Normal [facility] Comment on above: Performed By: #### L 503.0300, M100.2900, L200.0200, M100.2000, L350.1000, M100.4001 ####[facility] [id number] [place], [address] Body Fluid Culton 03-02-2025 BFC U U No growth aerobically. Normal [facility] Comment on above: Performed By: #### L 503.0300, M100.2900, L200.0200, M100.2000, L350.1000, M100.4001 ####[facility] [id number] [place], [address] Body Fluid Cell Count+Diffon 02-27-2025 PATH COMM/BF Reviewed Normal [facility] Comment on above: Order Comment: The r eference range and other method performance specifications have not been established for this body fluid. The test must be integrated into the clinical context for interpretation. THORACENTESIS Result Comment: INCR EASED WHITE BLOOD CELLS, PREDOMINANTLY LYMPHOCYTES. NO MALIGNANT CELLS IDENTIFIED. Nilda Herrera MD 02/27/2025 AMENDED REPORT 02/27/25 1621 PATH COMM/BF previously reported as: May follow Performed By: #### L 503.0300, M100.2900, L200.0200, M100.2000, L350.1000, M100.4001 #### [facility] [address] [place], [address] Cytology, Body Fluid / CSFon 02-27-2025 CYTOLOGY,BF/CSF SEE PATHOLOGY REPORT Normal [facility] Comment on above: Order Comment: THORA CENTESIS Result Comment: Spec imen submitted to Anatomical Pathology Department for testing. Performed By: #### L 503.0300, M100.2900, L200.0200, M100.2000, L350.1000, M100.4001 ####[facility] [id number] [place], [address] Gram Stainon 02-27-2025 GS U U Centrifuged Specimen? Culture performed on centrifuged specimen Gram Stain 4+ Red Blood Cells 3+ White Blood Cells No organisms seen Normal [facility] Comment on above: Performed By: #### L 503.0300, M100.2900, L200.0200, M100.2000, L350.1000, M100.4001 ####[facility] [id number] [place], [address] LDHon 02-27-2025 LDH 183 U/L Normal 87-241 [facility] Comment on above: Order Comment: 1 Performed By: #### L 300.3900, L300.4310, L100.1900, L504.2610, L001.0705 #### [facility] [address] [place], [address] Partial Thromboplast Timeon 02-27-2025 aPTT Coag (Bld) [Time] 26.3 s Normal 24.1-36.2 [facility] Comment on above: Performed By: #### L 300.3900, L300.4310, L100.1900, L504.2610, L001.0705 #### [facility] [address] [place], [address] Platelet Counton 02-27-2025 Platelets (Bld) [#/Vol] 353 10*3/uL Normal 150-450 [facility] Comment on above: Performed By: #### L 300.3900, L300.4310, L100.1900, L504.2610, L001.0705 #### [facility] [address] [place], [address] Protein, Body Fluidon 2024 Protein [Mass/Vol] 2.5 g/dL Normal Not Establ. [facility] Comment on above: Order Comment: THORA CENTESIS Performed By: #### L 503.0300, M100.2900, L200.0200, M100.2000, L350.1000, M100.4001 ####[facility] [address] [place], [place], [address] Protein, Totalon 02-27-2025 T PROT 6.9 g/dL Normal 5.9-8.4 [facility] Comment on above: Performed By: #### L 300.3900, L300.4310, L100.1900, L504.2610, L001.0705 #### [facility] [address] [place], [place], [id number] Prothrombin Time w/INRon INR Coag (PPP) [Relative time] 1.0 {INR} Normal [facility] Comment on above: Performed By: #### L 300.3900, L300.4310, L100.1900, L504.2610, L001.0705 #### [facility] [address] [place], [place], [id number] PT Coag (PPP) [Time] 13.2 s Normal 11.7-14.9 [facility] Comment on above: Performed By: #### L 300.3900, L300.4310, L100.1900, L504.2610, L001.0705 #### [facility] [address] [place], [place], [id number] Special Stain Group IIon Special Stain Group II --- Patient Age/Sex Location Account Attending Physician ANTONLYUDMILA 75/M [id number] Keira Harper NP Specimen: [id number] Received: 02/27/25-1235 Status: PRICILA Walker Num: [id number] Spec Type: Fluid Subm Dr: Keira Harper NP HEADER OPERATION: Thoracentesis PRE-OP DIAGNOSIS: Right pleural effusion TISSUE SUBMITTED: A- Thoracentesis fluid for cytology DIAGNOSIS CYTOLOGY A. Right pleural effusion, thoracentesis (cytospin, cellblock): - >No malignant cells identified. CYTOLOGY STUDY Slides are reviewed. CYTOLOGY GROSS A. Received is 15 ml of cloudy-yellow fluid labeled with the patient's name and and designated per the requisition as Thoracentesis fluid." Submitted for cytology and cell block preparation. Mr 02/27/2025 CPT: 32824,33984 Signed (signature on file) Dr. Nilda Herrera MD 03/04/25 1218 Normal [facility] Comment on above: Performed By: #### P SSII ####[facility] [address] [place], [place], [address] Thoracentesis W USon 025 Thoracentesis W US [facility] Imaging Services [address] [place], [place] [address] Thoracentesis W US MR#: [id number] Acct: [id number] Name: LYUDMILA BRENNAN Rep #: [id number] : 1950 M 75 From: Tom Toro PCP: RYLAN BOWDEN Status: REG CLI Study: Thoracentesis W US Date of Exam: 02/27/25 Exam# [id number] Ordering Dr: Keira Harper [employer]- C PROCEDURE: THORACENTESIS W US 02/27/2025 REASON FOR EXAM: RIGHT PLEURAL EFFUSION TECHNIQUE: THORACENTESIS W US COMPARISON: Thoracic CT of 01/08/2025. FINDINGS: Initial imaging demonstrates a apgce-dc-yvvibzpc sized multiloculated right pleural fluid collection. Procedure: Following informed consent, and using standard sterile technique, an ultrasound-guided right thoracentesis was performed via a posterior approach. 2% lidocaine local anesthesia was followed by placement of a 7 cm 5 Nauruan Yueh catheter. A proximally 29 mL of light vi fluid was successfully removed, and sent to the laboratory for evaluation. US/Thoracentesis W US IMPRESSION: Successful ultrasound-guided diagnostic right thoracentesis. Laboratory results pending. Reading Location: [place] [address] CC: RYLAN BOWDEN; Keira Harper NP Loss Prevention Auditor: Signed Normal [facility] Pulmonary Visit Reporton Pulmonary Visit Report [facility] [address] [place], [place] [address] OFFICE VISIT Date of Service: 02/21/25 MR#: [id number] Acct: [id number] Name: LYUDMILA BRENNAN Rep #: [id number] : 1950 Provider: Keira Harper NP Age/Sex: 75/M Location: [facility] Status: Signed Assessment and Plan Assessment and Plan (1) Solitary pulmonary nodule: Status: Acute Comment: Right lower lobe nodule 1.4 cm Plan: Recent screening CT imaging from December 2024 showed a new right lower lobe pulmonary nodule measuring 1.4 cm. The patient does have a significant smoking history but did quit 14 years ago. This may also represent rounded atelectasis. The patient was not sick during the time of this imaging. Due to the concern for potential malignancy however I have recommended PET/CT imaging and have ordered it accordingly. The patient has been educated on the results of the recent CT screening study and the importance of obtaining further imaging and testing and is in agreement to proceed. (2) Pleural effusion: Status: Acute Comment: Right Plan: The patient has had persistent effusion in the right pleural space. The recent CT imaging showed small to moderate amount of pleural fluid present. Due to the concerns for potential malignancy with a nodule identified on CT imaging and after discussing with Dr. Calvo the recommendation is to undergo thoracentesis at this time in efforts to evacuate the pleural space and to evaluate for cytology, culture. At this point is unclear whether it is a transudative or exudative pleural effusion and so lights criteria will be utilized to help differentiate. The patient is on anticoagulation therapy and the ordering provider will need to be notified of this procedure so that the anticoagulation therapy can be held for an appropriate timeframe prior to thoracentesis. Orders: Orders PET/CT Tumor Base -Thigh Init Today R91.1 - Solitary pulmonary nodule Thoracentesis W US Today J90 - Pleural effusion, not elsewhere classified Protein, Total Today J90 - Pleural effusion, not elsewhere classified LDH Today J90 - Pleural effusion, not elsewhere classified Protein, Body Fluid Today J90 - Pleural effusion, not elsewhere classified Prothrombin Time w/INR Today J90 - Pleural effusion, not elsewhere classified Partial Thromboplast Time Today J90 - Pleural effusion, not elsewhere classified, R06.02 - Shortness of breath Platelet Count Today J90 - Pleural effusion, not elsewhere classified Cytology, Body Fluid / CSF Today J90 - Pleural effusion, not elsewhere classified Body Fluid Cell Count+Diff Today J90 - Pleural effusion, not elsewhere classified Culture, Body Fluid Today J90 - Pleural effusion, not elsewhere classified Plan This note was generated with [employer] dictation software. It may contain incorrect words, spelling, and punctuation that were not noted in checking the note before signing. Plan Details Follow Up: 4 Weeks (LMR) HPI HPI Comments Details: Patient is a 75-year-old male who presents today for evaluation of lung nodule found on screening CT ordered by PCP, TARA Bowden. He is ambulatory and currently on room air. He presents today with his spouse. Chest CT screening ordered by his PCP on January 08, 2025 which showed biapical scarring as well as other scattered areas of pleural parenchymal scarring. There is subpleural reticulation seen within the left upper lobe and lower lobes. Tree in bud pattern nodular densities are seen within the posterior portion of the left lower lobe along the left major fissure. There is a partial consolidation and atelectasis within the right lower lobe with calcifications within the consolidation with associated volume loss. There is a lobulated right lower lobe nodular density which may be separate from the area of consolidation that measures 1.4 cm. There is a small to moderate right pleural effusion. No pneumothorax or left pleural effusion. He did experience an MA in September 2023 with 2 stent placements and he forgot to take Brilinta for 3 days and had a second MA at the end of September due to clot in stent. He reports that a chest x-ray showed pneumonia during this time and he was treated with IV antibiotic therapy and was hospitalized for most of October 2023. He had an injury in his back last year. reports that he was admitted to [facility] in January 2024 for bleeding and hematoma to right scapula and was told that it was due to his activity level and Brilinta. He was given 1 unit packed red blood cells. He remains on Brillinta and Aspirin. No known history of pulmonary embolism or DVT. He does carry a comorbid history of CKD stage IIIb, diabetes mellitus type 2, insulin-dependent, peripheral neuropathy, anemia, hypothyroidism in addition to MA and stent placem (more content not included)... Normal [facility] Comprehensive Metabolic Prof sandra 01-29-2025 Albumin [Mass/Vol] 3.8 g/dL Normal 3.4-4.8 [facility] Comment on above: Performed By: #### L 500.2500 #### [facility] [address] [place], [address] Albumin/Globulin [Mass ratio] 1.3 {ratio} Normal 0.9-2.4 [facility] Comment on above: Performed By: #### L 500.2500 #### [facility] [address] [place], [address] ALK PHOS 77 U/L Normal 40-129 [facility] Comment on above: Performed By: #### L 500.2500 #### [facility] [address] [place], [address] ALT [Catalytic activity/Vol] 8 U/L Normal <=46 [facility] Comment on above: Performed By: #### L 500.2500 #### [facility] [address] [place], [address] AST [Catalytic activity/Vol] 12 U/L Normal <=37 [facility] Comment on above: Performed By: #### L 500.2500 #### [facility] [address] [place], [address] Bilirubin [Mass/Vol] 0.22 mg/dL Normal 0.00-1.30 [facility] Comment on above: Performed By: #### L 500.2500 #### [facility] [address] [place], [address] BUN/CRE 12.2 RATIO Normal 10-20 [facility] Comment on above: Performed By: #### L 500.2500 #### [facility] [address] [place], [address] Calcium [Mass/Vol] 8.8 mg/dL Normal 7.6-11.0 [facility] Comment on above: Performed By: #### L 500.2500 #### [facility] [address] [place], [address] Chloride [Moles/Vol] 102 mmol/L Normal 98-108 [facility] Comment on above: Performed By: #### L 500.2500 #### [facility] [address] [place], [address] CO2 [Moles/Vol] 26.2 mmol/L Normal 21.0-32.0 [facility] Comment on above: Performed By: #### L 500.2500 #### [facility] [address] [place], [address] Creatinine [Mass/Vol] 2.03 mg/dL High 0.70-1.20 [facility] Comment on above: Performed By: #### L 500.2500 #### [facility] [address] [place], [address] GAP 12 Normal 5-15 [facility] Comment on above: Performed By: #### L 500.2500 #### [facility] [address] [place], [address] GFR/1.73 sq M.predicted among non-blacks MDRD (S/P/Bld) [Vol rate/Area] 34 mL/min/{1.73_m2} Low >60 [facility] Comment on above: Result Comment: mL/m in/1.73m2 CKD-EPI Creatinine Equation (2020) Performed By: #### L 500.2500 #### [facility] [address] [place], [address] Globulin (S) [Mass/Vol] 2.9 g/dL Normal 2.2-4.2 [facility] Comment on above: Performed By: #### L 500.2500 #### [facility] [address] [place], [address] Glucose [Mass/Vol] 175 mg/dL High 70-99 [facility] Comment on above: Performed By: #### L 500.2500 #### [facility] [address] [place], [address] Potassium [Moles/Vol] 3.8 mmol/L Normal 3.3-5.1 [facility] Comment on above: Performed By: #### L 500.2500 #### [facility] [address] [place], [address] Sodium [Moles/Vol] 140 mmol/L Normal 133-145 [facility] Comment on above: Performed By: #### L 500.2500 #### [facility] [address] [place], [address] T PROT 6.6 g/dL Normal 5.9-8.4 [facility] Comment on above: Performed By: #### L 500.2500 #### [facility] [address] [place], [address] Urea nitrogen [Mass/Vol] 25 mg/dL High 4-19 [facility] Comment on above: Performed By: #### L 500.2500 #### [facility] [address] [place], [address] Microalb:Creat Ratio,Random URon 01-29-2025 Creatinine [Mass/Vol] 118.00 mg/dL Normal 39.00-259.00 [facility] Comment on above: Performed By: #### L 501.9520, L509.1000, L502.0250, L506.1001, L500.4050, L506.0400 ####[facility] [address] [place], [address] MALB:CREAT UNABLE TO CALCULATE Normal <30 mg/g CRE [facility] Comment on above: Performed By: #### L 501.9520, L509.1000, L502.0250, L506.1001, L500.4050, L506.0400 ####[facility] [address] [place], [address] MICROALBUMIN,UR < 12.0 Normal <20 mg/L [facility] Comment on above: Performed By: #### L 501.9520, L509.1000, L502.0250, L506.1001, L500.4050, L506.0400 ####[facility] [address] [place], [address] PTHINon 01-29-2025 PTH 53 pg/mL Normal 11-61 [facility] Comment on above: Performed By: #### L 501.9520, L509.1000, L502.0250, L506.1001, L500.4050, L506.0400 ####[facility] [address] [place], [address] T4 Free Directon 01-29-2025 T4 FREE DIRECT 1.20 ng/dL Normal 0.76-1.46 [facility] Comment on above: Performed By: #### L 500.2500 #### [facility] [address] [place], [address] Thyroid Stim Hormone (TSH)on 01-29-2025 TSH 4.040 uIU/mL Normal 0.300-4.200 [facility] Comment on above: Performed By: #### L 500.2500 #### [facility] [address] [place], [address] Vitamin D,25 Hydroxyon 01-29 Vitamin D 25-OH 45.2 ng/mL Normal 30-100 [facility] Comment on above: Result Comment: Carlota min D Status Deficiency: <20 ng/mL (50nmol/L) Insufficiency: 20-30 ng/mL (50-75 nmol/L) Sufficiency: 30-100 ng/mL (75-250 nmol/L) Toxicity: >100 ng/mL (>250 nmol/L) Performed By: #### L 500.2500 #### [facility] [address] [place], [address] Endocrinology Visit Reporton 01-27-2025 Endocrinology Visit Report [facility] [address] [place] [address] OFFICE VISIT Date of Service: 01/27/25 MR#: [id number] Acct: [id number] Name: LYUDMILA BRENNAN Rep #: [id number] : 1950 Provider: BRANDON sainz Age/Sex: 75/M Location: [facility] Status: Signed Intake Vital Signs 10/16/24 11:54 01/27/25 14:16 Height 6 ft 2 in 6 ft 2 in Weight: 228 lb 222 lb 2 oz BMI 29.2 28.5 BP 120/67 165/69 H Blood Pressure Location Lt brachial Rt brachial Position Sitting Sitting Pulse 58 L 75 Pulse Source Monitor Monitor Pulse Oximetry (%) 96 95 Oxygen Delivery Method room air room air Intake Visit Reasons: 3.5 M FU Chief Complaint: f/u diabetes/hypothyroid Is patient in pain?: No Allergies No Known Allergies Allergy (Verified 01/27/25 14:19) Medications ???Medication ???Instructions ???Recorded ???Confirmed ???Type aspirin 81 mg tablet,delayed 81 mg PO QDAY 03/13/24 01/27/25 Hi story release (Adult Aspirin Regimen) atorvastatin 10 mg tablet 10 mg PO QDAY 03/13/24 01/27/25 Hi story gabapentin 300 mg capsule 300 mg PO BID 03/13/24 01/27/25 Hi story cholecalciferol (vitamin D3) 25 25 mcg PO QDAY 03/20/24 01/27/25 H istory mcg (1,000 unit) capsule dupilumab 300 mg/2 mL subcutaneous 300 mg subcut Q2W 03/20/2401/27 History pen injector (Dupixent) multivitamin 1 tab PO QDAY 03/20/24 01/27/25 Hi story vitamin B complex 1 tab PO QDAY 03/20/24 01/27/25 Hi story losartan 50 mg tablet 50 mg PO QDAY #90 tabs 05/23/24 Rx clobetasol 0.05 % topical cream 1 applic topical BID 09/17/2410/16 History ketoconazole 2 % shampoo topical 09/17/24 01/27/25 History tacrolimus 0.1 % topical ointment topical QDAY 09/17/24 01/27/25 Hi story hydrochlorothiazide 12.5 mg tablet 12.5 mg PO QAM #90 tabs 10/16/24 01/27/25 Rx nisoldipine 34 mg tablet,extended 34 mg PO QDAY Pt is out, awaiting 12/05/24 01/27/25 Rx release 24 hr mail in RX #7 tabs levothyroxine 100 mcg tablet See Rx Instructions PO QDAY #96 01/27/25 Rx tabs metoprolol succinate 25 mg 25 mg PO QDAY #90 tabs 01/06/25 Rx tablet,extended release 24 hr ticagrelor 90 mg tablet (Brilinta) 90 mg PO BID #180 tabs 01/06/25 01/27/25 Rx insulin lispro 100 unit/mL 100 unit subcut DAILY #90 mL 01/1501/27/25 Rx subcutaneous solution empagliflozin 25 mg tablet 25 mg PO QAM #90 tabs 01/27/2510/16 Rx (Jardiance) Have you fallen in the past year?: No PFSH Medical History STEMI (ST elevation myocardial infarction) NSTEMI (non-ST elevated myocardial infarction) Hyperlipidemia Diabetic neuropathy Gout Diabetes type I Nephropathy Chronic kidney disease (CKD) Systolic ejection murmur Carotid artery stenosis Hypertension Fatty liver disease, nonalcoholic Renal cyst Chronic back pain Acute renal failure Iron deficiency anemia Hypothyroidism Surgical History S/P right coronary artery (RCA) stent placement History of bilateral cataract extraction History of vasectomy History of cholecystectomy Family History Mother Hypertension Son Diabetes Social History Smoking Status: Former smoker how long ago did patient quit smokin years ago alcohol intake: never substance use type: does not use caffeine: Yes Type: coffee Number of servings: 3 HPI HPI Chief Complaint: f/u diabetes/hypothyroid Details: LYUDMILA BRENNAN, is a 75 M who presents to the office today for evaluation and management of diabetes and hypothyroid. A1C today is 7.2%, increased from 10/16/24 at 7.0%. He has lost 6 lbs since that time. He is using Medtronic 780g with [employer] CGM- he would like to switch to new [employer] CGM. Insulin pump downloaded and reviewed- he is not entering carbohydrates appropriately. He states that he and his don't eat at normal times so it is difficult for him to enter carbs, he was not able to explain to me how time of eating affected carbohydrate count. He is having occasional lows d/t automode trying to compensate for elevated blood sugars. He denies any significant episode of hypoglycemia that has required assistance from others. He is hypothyroid, TSH 10/14/24 was 17.6. At that time he admits that he was missing doses of LT4. Reports compliance with medication since that time. BP slightly elevated. Currently taking HCTZ 12.5 mg once daily, losartan 50 mg once daily, nisoldipine 34 mg once daily, and metoprolol 25 mg once daily. He has CKD and microalbuminuria. Recently established with nephrol (more content not included)... Normal [facility] CT THORAX SCREENING W/O CONT [facility] 01-13-2025 CT THORAX SCREENING W/O CONTRAST ORIGINAL EXAMINATION: LOW DOSE SCREENING CT OF THE CHEST WITHOUT CONTRAST01/08/2025 5:00 pm TECHNIQUE: Low dose lung cancer screening CT of the chest was performed without the administration of intravenous contrast. Multiplanar reformatted images are provided for review. Automated exposure control, iterative reconstruction, and/or weight based adjustment of the mA/kV was utilized to reduce the radiation dose to as low as reasonably achievable. COMPARISON: None. HISTORY: ORDERING SYSTEM PROVIDED HISTORY: Reason for Exam: Lung cancer screening, >= 20 pk-yr smoking history, quit in past 15 yrs 6 ft 2 in 220 lb male. 30 pack years. No family hx. no current complaints FINDINGS: Borderline enlarged in size. Aortic valve atherosclerotic calcifications. Severe coronary artery atherosclerotic calcifications. Nonaneurysmal thoracic aorta with moderate atherosclerotic calcifications. The main pulmonary artery is dilated and measures 3.0 cm. No lymphadenopathy is visible on this unenhanced exam. No suspicious findings seen in the visualized portion of the abdomen. Cholecystectomy. Hypodensity seen within the left kidney measures 1.5 cm and 3 HU, compatible with a cyst this a series 301, image 275). 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 These findings require no further follow-up imaging. The abdomen is not evaluated in detail. The trachea and mainstem bronchi are patent. Biapical scarring as well as other scattered areas of pleuroparenchymal scarring. Subpleural reticulation seen within the left upper and lower lobes. Tree-in-bud nodular densities are seen within the posterior portion of the left lower lobe and along the left major fissure. There is partial consolidation/atelec tasis within the right lower lobe with calcifications within the consolidation with associated volume loss, findings favor a chronic process. There is a lobulated right lower lobe nodular density which may be separate from the area of consolidation that measures 1.4 cm (series 302, image 95). Small to moderate right pleural effusion. No pneumothorax or left pleural effusion. No aggressive osseous lesions visible. Multiple chronic appearing anterior left rib deformities. 7 mm sclerotic focus seen within the T12 vertebral body may represent a bone island. Mild degenerative changes seen in the spine. Mild bilateral gynecomastia. IMPRESSION: Chronic consolidation/atelec tasis of the right lower lobe with associated volume loss. There is a 1.4 cm nodular density anterior to the consolidation which may be separate. Recommend PET-CT for further evaluation. Tree-in-bud nodular densities seen along the left major fissure and subpleural portion of the left lower lobe. Findings may be infectious/inflammat ory. Recommend attention on follow-up. Minimal pulmonary fibrotic changes. Small to moderate right pleural effusion. Coronary artery atherosclerotic calcifications. I have personally reviewed the images of this examination and agree with the resident's findings and interpretation. Information below is for Lung nodule tracking purposes: Nodule: S10 Other Findings: P-INFT P-CAC P-PFB Change: Na Recall : Immediately Recall Type: PET LungRads: 4Bs Interpreted by: Mateo Carroll DO Preliminary Report By: Benjamin Lopez Electronically signed By Mateo Carroll DO Dictated Date: 01/13/2025 10:07:12 AM Prelim Date: 01/13/2025 11:59:12 AM Sign Date: 01/13/2025 11:59:12 AM Ordering Provider: [facility] Inital Evaluation (1) - PTwilda 01-09-2025 Inital Evaluation (1) - PT [facility] Physical Therapy [facility] [address] [place] [address] / REHABILITATION SERVICES INITIAL EVALUATION MR#: [id number] Acct: [id number] Name: LYUDMILA BRENNAN Rep #: [id number] : 1950 75 From: Marques Soliman PT, Cert. MD [place], OCS Referring Dr.: RYLAN BOWDEN Status: REG RC R Insurance: MEDICARE PART A B FOR LIFE Patient's Visit Information Visit Information Visit Information: LYUDMILA BRENNAN is a 75 year old M referred to Physical Therapy by RYLAN BOWDEN with a diagnosis of POOR BALANCE. Date of Evaluation: 01/09/25 Physical Therapist: Marques Soliman PT, Cert MDT, OCS Visit Plan Frequency: 2x /Week Duration: 4 Weeks Plan: PT INTERVENTIONS PROGRESSIVE BALANCE TRAINING ,STRENGTHENING BLE , FUNCTIONAL STRENGTHENING AND AEROBIC EX'S Subjective Subjective: This 75 y/o male presents to physical therapy balance problems. Patient seen DR routine visit and c/o drag foot and weakness .Patient has no falls. Patient just from [place]. Patient has h/o neuropathy . Patient has paresthesia/tingling in legs. Patient denies pain. Patient dizziness/nausea/vaishnavi tigo/ tinnitus. Patient sleeping okay. Patient not on exercise routine. Patient uses cane or walker with extended distance becomes fatigue/tire legs. Patient has knee pain at night when straightening/bendin g knee. Patient condition affects QOL and function. Patient goals get stronger. SOCAIL: VOACTION RETIRED Objective Objective: POSTURE: mild forward posture ,slight hips/knees flexed PALPATION: unremarkable NEURO: c/o paresthesia/tingling legs due to neuropathy ,light touch intact GAIT: reciprocal pattern slow constance mild shuffle gait ,hips/knees slightly flexed FLEXABILITY: hamstrings mod tight MMT: quads/hams 4/5 ,hip flexion 4/5 ,hip abd 4-/5 ,ankle 4/5 Balance/Special Test Scores Functional Gait Assessment Score: 16 % Disability: 46.6700 CATSIB Score (Max score 120 seconds): 42 Lower Extremity Functional Score: 33 30 Second Chair Rise Test Seconds: 8 Goals Goal 1:: Patient to be I with HEP for balance Goal Time Frame: 4-6 Weeks Goal 2:: Patient to improve CATSIBE score by 5-10 points to improve balance and decrease risk of falls Goal Time Frame: 4-6 Weeks Goal 3:: Patient to improve functional gait assessment score by 5 -10 points to improve gait and balance Goal Time Frame: 4-6 Weeks Goal 4:: Patient to improve 30sec sit-stand by 3- 5reps to improve functional strength Goal Time Frame: 4-6 Weeks Goal 5:: Patient to improve LFES score by 5 points to improve QOL and gait Goal Time Frame: 4-6 Weeks Rehabilitation Potential Physical Therapy Diagnosis: Patient has decrease balance with CATSIB score decreased , decrease Functional gait assessment ,neuropathy with poor somatosensory along with fatigue in legs with extended walking does have h/o cardiac issues thus benefit from skilled PT Rehabilitation Potential: Fair Anticipated Interventions Patient/Client Instruction: Educate patient on: Condition and Plan of Care For the Purpose of:: To decrease pain, To increase ROM, To improve muscle performance and motor function, To improve ability to perform ADL's, To increase tolerance to activity/condition/p osition, To improve ability of physical actions for home/community/work/ leisure, To improve health of tissue, To decrease soft tissue restriction, To increase flexibility/ROM, To improve endurance and To improve balance Therapeutic Exercise to Include: Strength training, Endurance training, Balance training, Postural training, Flexibilty training and Dynamic Lumbar Stabilization For the Purpose of:: To improve muscle performance and motor function, To increase tolerance to activity/condition/p osition, To improve ability of physical actions for home/community/work/ leisure, To improve gait and locomotor functions, To increase flexibility/ROM, To improve endurance, To improve balance, To improve self management and To improve tolerance to ADL's Text: Thank you for the opportunity to evaluate your patient. For Medicare and Medicare HMO plans, please review the plan of care and approve it. It will need to be FAXED BACK to us at [phone] for Medicare purposes. For Medicare only, by signing this I certify the plan of care. Please let me know if there are questions or concerns regarding this plan of care. Physician Signature: D ate: 01/09/25 1158 CC: RYLAN BOWDEN TRESSA Signed Normal [facility] .Auto Diffon 12-12-2024 Basophil, Absolute 0.1 10 3/mcL Normal 0.0-0.3 [facility] Comment on above: Performed By: #### C BC, CMP, GFR, ANEU, ADIFF #### [place] [address] Lymphocyte, Absolute 1.2 10 3/mcL Normal 0.9-4.3 [facility] Comment on above: Performed By: #### C BC, CMP, GFR, ANEU, ADIFF #### [address] [address] Monocyte, Absolute 0.6 10 3/mcL Normal 0.1-1.4 [facility] Comment on above: Performed By: #### C BC, CMP, GFR, ANEU, ADIFF #### [address] [address] .Auto DiffOrdered By: SYSTEM SYSTEM on 12-12-2024 Basophils/100 WBC (Bld) 0.9 % Normal 0.0-2.5 A O Workflow SS Comment on above: Performed By: #### C BC, CMP, GFR, ANEU, ADIFF #### [address] [address] Eosinophil, Absolute 0.3 103/mcL Normal 0.0-0.7 AO Workflow SS Comment on above: Performed By: #### C BC, CMP, GFR, ANEU, ADIFF #### [address] [address] Eosinophils/100 WBC (Bld) 3.1 % Normal 0.0-6.0 AO Workflow SS Comment on above: Performed By: #### C BC, CMP, GFR, ANEU, ADIFF #### [address] [place] [address] [place], [place] [address] Lymphocytes/100 WBC (Bld) 12.1 % Low 20.0-40.0 AO Workflow SS Comment on above: Performed By: #### C BC, CMP, GFR, ANEU, ADIFF #### [address] [address] Monocytes/100 WBC (Bld) 6.5 % Normal 2.0-13.0 A O Workflow SS Comment on above: Performed By: #### C BC, CMP, GFR, ANEU, ADIFF #### [address] [address] Neutrophils/100 WBC (Bld) 77.4 % High 50.0-75.0 AO Workflow SS Comment on above: Performed By: #### C BC, CMP, GFR, ANEU, ADIFF #### [address] [address] .GFROrdered By: SYSTEM Vehrity on 12-12-2024 Estimated Glomerular Filtration Rate 38 ml/min/1.73sqm Normal AO Chemistry S Comment on above: Interpretive Data: Stages of Chronic Kidney Disease (CKD) Stage Description eGFR(ml/min/1.73 sq.m.) CKD 1 Normal kidney function or >=90 normal kindney function with possible kidney damage (ex. Proteinuria) CKD 2 Kidney damage with mild loss 60-89 of kidney function CKD 3a Mild to moderate loss of kidney 45-59 function CKD 3b Moderate to severe loss of 30-44 of kindey function CKD 4 Severe loss of kidney function 15-29 CKD 5 Kidney failure <15 Note: (go live 2024) the eGFR calculation was updated to the 2020 CKD-EPI creatinine equation without a race factor to calculate the eGFR results. Result Comment: Stages of Chronic Kidney Disease (CKD) Stage Description eGFR(ml/min/1.73 sq.m.) CKD 1 Normal kidney function or >=90 normal kindney function with possible kidney damage (ex. Proteinuria) CKD 2 Kidney damage with mild loss 60-89 of kidney function CKD 3a Mild to moderate loss of kidney 45-59 function CKD 3b Moderate to severe loss of 30-44 of kindey function CKD 4 Severe loss of kidney function 15-29 CKD 5 Kidney failure <15 Note: (go live 2024) the eGFR calculation was updated to the 2020 CKD-EPI creatinine equation without a race factor to calculate the eGFR results. Performed By: #### C BC, CMP, GFR, ANEU, ADIFF #### [place] [address] .NEUABSon 12-12-2024 Neutrophil, Absolute 7.7 10 3/mcL Normal 2.3-8.1 [facility] Comment on above: Performed By: #### C BC, CMP, GFR, ANEU, ADIFF #### [place] [address] CBCOrdered By: SYSTEM SYSTEM on 12-12-2024 Erythrocyte distribution width (RBC) [Ratio] 15.7 % High 11.5-15.5 AO Workflow SS Comment on above: Performed By: #### C BC, CMP, GFR, ANEU, ADIFF #### [place] [address] Hematocrit (Bld) [Volume fraction] 38.4 % Low 40.0-52.0 AO Workflow SS Comment on above: Performed By: #### C BC, CMP, GFR, ANEU, ADIFF #### [place] [address] MCH (RBC) [Entitic mass] 26.0 pg Low 27.0-33.0 AO Workflow SS Comment on above: Performed By: #### C BC, CMP, GFR, ANEU, ADIFF #### [place] [address] MCHC 33.0 G/dL Normal 32.0-36.0 AO Workflow SS Comment on above: Performed By: #### C BC, CMP, GFR, ANEU, ADIFF #### [place] [address] MCV (RBC) [Entitic vol] 78.7 fL Low 81.0-100.0 A O Workflow SS Comment on above: Performed By: #### C BC, CMP, GFR, ANEU, ADIFF #### [place] [id number] Platelet mean volume (Bld) [Entitic vol] 7.5 fL Normal 6.4-10.5 AO Workflow SS Comment on above: Performed By: #### C BC, CMP, GFR, ANEU, ADIFF #### [address] [address] CBCon 12-12-2024 Hgb 12.7 G/dL Low 13.0-17.5 [facility] Comment on above: Performed By: #### C BC, CMP, GFR, ANEU, ADIFF #### [address] [address] Platelet 395 10 3/mcL Normal 150-450 [facility] Comment on above: Performed By: #### C BC, CMP, GFR, ANEU, ADIFF #### [address] [address] RBC 4.88 10 6/mcL Normal 4.50-6.00 [facility] Comment on above: Performed By: #### C BC, CMP, GFR, ANEU, ADIFF #### [address] [address] WBC 9.9 10 3/mcL Normal 4.5-10.8 [facility] Comment on above: Performed By: #### C BC, CMP, GFR, ANEU, ADIFF #### [address] [address] CMPon 12-12-2024 Albumin Level 3.1 G/dL Low 3.4-4.8 [facility] Comment on above: Performed By: #### C BC, CMP, GFR, ANEU, ADIFF #### [address] [address] ALT [Catalytic activity/Vol] 11 U/L Low 16-63 [facility] Comment on above: Performed By: #### C BC, CMP, GFR, ANEU, ADIFF #### [address] [address] AST [Catalytic activity/Vol] 10 U/L Normal 10-40 [facility] Comment on above: Performed By: #### C BC, CMP, GFR, ANEU, ADIFF #### [address] [address] Bili Total 0.3 mg/dL Normal 0.2-1.0 [facility] Comment on above: Result Comment: Use of this assay is not recommended for patients undergoing treatment with eltrombopag due to the potential for falsely elevated results. Performed By: #### C BC, CMP, GFR, ANEU, ADIFF #### [address] [address] BUN/Creatinine Ratio 16 ratio Normal 7-27 [facility] Comment on above: Performed By: #### C BC, CMP, GFR, ANEU, ADIFF #### [place] [id number] Total Protein 7.2 G/dL Normal 6.4-8.2 [facility] Comment on above: Performed By: #### C BC, CMP, GFR, ANEU, ADIFF #### [address] [address] CMPOrdered By: SYSTEM SYSTEM on 12-12-2024 Albumin/Globulin [Mass ratio] 0.8 {ratio} Low 1.1-2.5 AO ADM SS Comment on above: Performed By: #### C BC, CMP, GFR, ANEU, ADIFF #### [address] [address] ALP [Catalytic activity/Vol] 72 U/L Normal 40-135 AO ADM SS Comment on above: Performed By: #### C BC, CMP, GFR, ANEU, ADIFF #### [address] [address] Calcium [Mass/Vol] 9.4 mg/dL Normal 8.4-10.2 AO ADM SS Comment on above: Performed By: #### C BC, CMP, GFR, ANEU, ADIFF #### [address] [address] Chloride [Moles/Vol] 104 mmol/L Normal 98-107 AO A DM SS Comment on above: Performed By: #### C BC, CMP, GFR, ANEU, ADIFF #### [address] [address] CO2 [Moles/Vol] 30 mmol/L Normal 23-31 AO ADM SS Comment on above: Performed By: #### C BC, CMP, GFR, ANEU, ADIFF #### [address] [address] Creatinine [Mass/Vol] 1.86 mg/dL High 0.67-1.17 AO ADM SS Comment on above: Performed By: #### C BC, CMP, GFR, ANEU, ADIFF #### [address] [address] Electrolyte Balance 5.0 mEq/L Normal 4.0-15.0 AO AD M SS Comment on above: Performed By: #### C BC, CMP, GFR, ANEU, ADIFF #### [address] [address] Globulin 4.1 G/dL Normal 2.7-4.4 AO ADM SS Comment on above: Performed By: #### C BC, CMP, GFR, ANEU, ADIFF #### [address] [address] Glucose [Mass/Vol] 89 mg/dL Normal 83-110 AO ADM SS Comment on above: Performed By: #### C BC, CMP, GFR, ANEU, ADIFF #### [address] [address] Potassium [Moles/Vol] 4.4 mmol/L Normal 3.5-5.1 AO ADM SS Comment on above: Performed By: #### C BC, CMP, GFR, ANEU, ADIFF #### [address] [address] Sodium [Moles/Vol] 139 mmol/L Normal 136-145 AO ADM SS Comment on above: Performed By: #### C BC, CMP, GFR, ANEU, ADIFF #### [address] [address] Urea nitrogen [Mass/Vol] 29 mg/dL High 7-18 AO ADM SS Comment on above: Performed By: #### C BC, CMP, GFR, ANEU, ADIFF #### [address] [place] [id number] [place] [id number] LABORATORYOrdered By: SYSTEM SYSTEM on 12-12-2024 Albumin BCP dye [Mass/Vol] 3.1 G/dL Low 3.4 - 4.8 G/dL AO ADM SS ALT With P-5'-P [Catalytic activity/Vol] 11 U/L Low 16 - 63 U/L AO ADM SS AST With P-5'-P [Catalytic activity/Vol] 10 U/L Normal 10 - 40 U/L AO ADM SS Basophils (Bld) [#/Vol] 0.1 103/mcL Normal 0.0 - 0.3 10^3/mcL AO Workflow SS Bilirubin [Mass/Vol] 0.3 mg/dL Normal 0.2 - 1 .0 mg/dL AO ADM SS Comment on above: Interpretive Data: U se of this assay is not recommended for patients undergoing treatment with eltrombopag due to the potential for falsely elevated results. Hemoglobin (Bld) [Mass/Vol] 12.7 G/dL Low 13.0 - 17.5 G/dL AO Workflow SS Lymphocytes (Bld) [#/Vol] 1.2 103/mcL Normal 0.9 - 4.3 10^3/mcL AO Workflow SS Monocytes (Bld) [#/Vol] 0.6 103/mcL Normal 0.1 - 1.4 10^3/mcL AO Workflow SS Neutrophils (Bld) [#/Vol] 7.7 103/mcL Normal 2.3 - 8.1 10^3/mcL AO Workflow SS Platelets (Bld) [#/Vol] 395 103/mcL Normal 150 - 450 10^3/mcL AO Workflow SS Protein [Mass/Vol] 7.2 G/dL Normal 6.4 - 8.2 G/dL AO ADM SS RBC (Bld) [#/Vol] 4.88 106/mcL Normal 4.50 - 6.0 0 10^6/mcL AO Workflow SS Urea nitrogen/Creatinine [Mass ratio] 16 ratio Normal 7 - 27 ratio AO ADM SS WBC (Bld) [#/Vol] 9.9 103/mcL Normal 4.5 - 10.8 10^3/mcL AO Workflow SS Endocrinology Visit Reporton 10-16-2024 Endocrinology Visit Report [facility] [address] [place] [address] OFFICE VISIT Date of Service: 10/16/24 MR#: [id number] Acct: [id number] Name: LYUDMILA BRENNAN Rep #: [id number] : 1950 Provider: BRANDON sainz Age/Sex: 74/M Location: [facility] [place] Status: Signed Intake Vital Signs 07/18/24 11:18 09/17/24 09:53 10/16/24 11:54 Height 6 ft 2 in 6 ft 2 in 6 ft 2 in Weight: 228 lb BMI 29.2 BP 120/67 Blood Pressure Location Lt brachial Position Sitting Pulse 58 L Pulse Source Monitor Pulse Oximetry (%) 96 Oxygen Delivery Method room air Intake Visit Reasons: 3 M FU Chief Complaint: f/u diabetes/hypothyroid Plate Colorer Required: No Accompanied by: Self Is patient in pain?: No Allergies No Known Allergies Allergy (Verified 10/16/24 12:00) Medications ???Medication ???Instructions ???Recorded ???Confirmed ???Type aspirin 81 mg tablet,delayed 81 mg PO QDAY 03/13/24 10/16/24 Hi story release (Adult Aspirin Regimen) atorvastatin 10 mg tablet 10 mg PO QDAY 03/13/24 10/16/24 Hi story gabapentin 300 mg capsule 300 mg PO BID 03/13/24 10/16/24 Hi story nisoldipine 34 mg tablet,extended 34 mg PO QDAY 03/13/24 10/16/24 H istory release 24 hr ticagrelor 90 mg tablet (Brilinta) 90 mg PO BID 03/13/24 10/16/24 H istory cholecalciferol (vitamin D3) 25 25 mcg PO QDAY 03/20/24 10/16/24 H istory mcg (1,000 unit) capsule dupilumab 300 mg/2 mL subcutaneous 300 mg subcut Q2W 03/20/2410/16 History pen injector (Dupixent) metoprolol succinate 25 mg 25 mg PO QDAY 03/20/24 10/16/24 Hi story tablet,extended release 24 hr multivitamin 1 tab PO QDAY 03/20/24 10/16/24 Hi story vitamin B complex 1 tab PO QDAY 03/20/24 10/16/24 Hi story losartan 50 mg tablet 50 mg PO QDAY #90 tabs 05/23/24 Rx empagliflozin 10 mg tablet 10 mg PO QAM #90 tabs 07/18/24 Rx (Jardiance) levothyroxine 100 mcg tablet 100 mcg PO QDAY #90 tabs 07/18/24 10/16/24 Rx insulin lispro 100 unit/mL 100 unit subcut DAILY #90 mL 08/0510/16/24 Rx subcutaneous solution clobetasol 0.05 % topical cream 1 applic topical BID 09/17/24/09/15 History ketoconazole 2 % shampoo topical 09/17/24 10/16/24 History tacrolimus 0.1 % topical ointment topical QDAY 09/17/24 10/16/24 Hi story hydrochlorothiazide 12.5 mg tablet 12.5 mg PO QAM #90 tabs 10/16/24 10/16/24 Rx Have you fallen in the past year?: No PFSH Medical History (Updated 10/16/24 @ 12:56 by Nydia El NP-C) STEMI (ST elevation myocardial infarction) NSTEMI (non-ST elevated myocardial infarction) Hyperlipidemia Diabetic neuropathy Gout Diabetes type I Nephropathy Chronic kidney disease (CKD) Systolic ejection murmur Carotid artery stenosis Hypertension Fatty liver disease, nonalcoholic Renal cyst Chronic back pain Acute renal failure Iron deficiency anemia Hypothyroidism Surgical History S/P right coronary artery (RCA) stent placement History of bilateral cataract extraction History of vasectomy History of cholecystectomy Family History Mother Hypertension Son Diabetes Social History Smoking Status: Former smoker how long ago did patient quit smokin years ago alcohol intake: never substance use type: does not use caffeine: Yes Type: coffee Number of servings: 3 HPI HPI Chief Complaint: f/u diabetes/hypothyroid Details: LYUDMILA BRENNAN, is a 74 M who presents to the office today for evaluation and management of diabetes. A1C today is 7.0%, consistent with 07/18/24. He has gained 4 lbs since that time. Currently using Medtronic 780g with Guardian CGM. Insulin pump downloaded and reviewed- he continues not to enter carbs. He denies any significant episode of hypoglycemia that has required assistance from others. BP is controlled. Currently vy losartan 50 mg once daily, metoprolol succ 25 mg once daily, nisoldipine 34 mg once daily, and HCTZ 25 mg once daily. He states that starting Jardiance, he gets mildly dizzy upon standing. He has CKD and microalbuminuria. He is hypothyroid and taking levothyroxine 100 mcg once daily. Recent TSH on 10/14/24 was 17.6, improved from 07/18/24 at 39. Since that time he has started following the rules of taking LT4; however, he admits that he is missing doses as he is taking it in the middle of the night. He takes a daily statin with tightly controlled cholesterol. Labs are up to date. Denies any acute concerns. [facility] Musculoskeletal: Positive for joint pain Exam Const General: cooperative, healthy appearing (more content not included)... Normal [facility] Laboratory - Hematology and Cell countsOrdered By: Nydia El on 10-16-2024 HbA1c (Bld) [Mass fraction] 7.0 % High 4.2-6.3 [facility] T4 Free Directon 10-14-2024 T4 FREE DIRECT 0.90 ng/dL Normal 0.76-1.46 [facility] Comment on above: Performed By: #### L 506.0400, L501.9520 ####[facility] [address] [place], [address] T4 freeOrdered By: Jairo on 10-14-2024 Free T4 [Mass/Vol] 0.90 ng/dL 0.76-1.46 [facility] TSH DL <= 0.005 mIU/L QnOrde red By: Nydia El on 10-14-2024 TSH Qn 17.600 uIU/mL High 0.300-4.200 [facility] Thyroid Stim Hormone (TSH)on 10-14-2024 TSH 17.600 uIU/mL High 0.300-4.200 [facility] Comment on above: Performed By: #### L 506.0400, L501.9520 ####[facility] [address] [place], [address] Microalb:Creat Ratio,Random URon 10-10-2024 MALB:CREAT 13.9 mg/g CRE Normal [facility] Comment on above: Result Comment: AMENDED REPORT 10/10/24 0819 MALB:CREAT previously reported as: 139.9 mg/g CRE Performed By: #### L 500.4050, L506.0400, L501.9520, L502.0250 ####[facility] [address] [place], [address] Echo Completeon 09-18-2024 Echo Complete [facility] [address] [place] [address] Echo Complete 09/18/24 1312 MR#: [id number] Acct: [id number] Name: LYUDMILA BRENNAN Rep #: [id number] : 1950 74 From: Justo Olson MD Attending Dr: ANH Garsia Status: REG CLI Ordering Dr: Sally Sommer Date: 08/23 12/16 Location: [facility] Sex: M C Admitted: Reason For Study Reason For Study: LV DYSFUNCTION Procedure This was a 2D Doppler, Color Flow transthoracic echocardiogram. Exam performed in department. Left Ventricle Normal LV size. Mild concentric left ventricular hypertrophy. Mild inferior hypokinesis. Overall left ventricular systolic ejection fraction estimated at 60%. Stage I diastolic dysfunction. Right Ventricle Normal right ventricle. Atria The left and right atria are normal. Mitral Valve Mild (1+) mitral valve insufficiency. Tricuspid Valve Trivial tricuspid valve insufficiency. Unable to estimate RV systolic pressure due to insufficient tricuspid regurgitant envelope. Aortic Valve No aortic valve stenosis or regurgitation. Pulmonic Valve The pulmonic valve is not well visualized. Great Vessels Normal sized aortic root. Pericardium/Pleural Small loculated pericardial effusion adjacent to the right atrium. Recommend CT scan for further evaluation if clinically indicated. MMode/2D Measurements Calculations LVIDd: 5.4 cm IVSd: 1.2 cm LVOT diam: 2.3 cm LVIDs: 2.6 cm LVPWd: 1.1 cm LVOT area: 4.1 cm2 RVDd: 3.6 cm FS: 52.5 % asc Aorta Diam: 3.8 cm LAV(MOD-bp): 42.5 ml LVAd ap4: 31.0 cm2 LAV(MOD-bp) Indexed: 18.8 ml/m2 LVLd ap4: 8.9 cm LAV(MOD-sp2): 42.8 ml EDV(MOD-sp4): 90.3 ml LAV(MOD-sp4): 38.5 ml EDV(sp4-el): 92.1 ml LVAs ap4: 16.6 cm2 LVLs ap4: 7.7 cm ESV(MOD-sp4): 32.2 ml ESV(sp4-el): 30.5 ml EF(MOD-sp4): 64.3 % EF(sp4-el): 66.9 % LVAd ap2: 29.7 cm2 SV(MOD-sp4): 58.0 ml SV(MOD-sp2): 50.7 ml LVLd ap2: 9.1 cm SI(MOD-sp4): 25.6 ml/m2 SI(MOD-sp2): 22.4 ml/m2 EDV(MOD-sp2): 85.6 ml EDV(sp2-el): 82.9 ml LVAs ap2: 17.9 cm2 LVLs ap2: 8.1 cm ESV(MOD-sp2): 34.9 ml ESV(sp2-el): 33.3 ml EF(MOD-sp2): 59.3 % SV(sp4-el): 61.6 ml Ao sinus diam: 4.[address] Junction: 2.9 cm LA dimension(2D): 3.6 cm LA A4 area: 15.3 cm2 RA A4 area: 14.7 cm2 TAPSE: 1.9 cm Time Measurements MV dec time: 0.26 sec Doppler Measurements Calculations MV E max rah: 64.0 cm/sec Lat Peak E' Rah: 8.4 cm/sec Med Peak E' Rah: 6.4 cm/sec MV A max rah: 102.0 cm/sec E/E' lat: 7.7 E/E' med: 10.0 MV E/A: 0.63 MV dec slope: 243.5 cm/sec2 Ao V2 max: 135.8 cm/sec LV V1 max: 109.2 cm/sec Ao max P.4 mmHg LV V1 max P.8 mmHg Ao V2 mean: 95.8 cm/sec LV V1 mean P.9 mmHg Ao mean P.1 mmHg LV V1 mean: 82.8 cm/sec Ao V2 VTI: 33.6 cm LV V1 VTI: 24.4 cm AV (velocity ratio): 0.72 KRISTAL(I,D): 3.0 cm2 KRISTAL(V,D): 3.3 cm2 SV(LVOT): 100.0 ml PA V2 max: 90.3 cm/sec ECHO/Echo Complete Interpretation Summary Mild concentric left ventricular hypertrophy. Mild inferior hypokinesis. Overall left ventricular systolic ejection fraction estimated at 60%. Stage I diastolic dysfunction. Mild (1+) mitral valve insufficiency. Small loculated pericardial effusion adjacent to the right atrium. Recommend CT scan for further evaluation if clinically indicated. Ordering Physician: Sally Sommer Referring Physician: Sally Sommer Performed By: Rama James, GENET 09/18/24 1500 Date Justo Olson MD CC: RYLAN BOWDEN; ANH Garsia Date Dictated: 09/18/24 1312 Date Transcribed: 09/18/24 1500 Loss Prevention Auditor: Signed Normal [facility] Echocardiogram study reportO rdered By: Justo Olson on 09-18-2024 Study report [facility] [address] [place] [address] Echo Complete 09/18/24 1312 MR#: [id number] Acct: [id number] Name: LYUDMILA BRENNAN Rep #:[id number] : 1950 74 From: Justo Olson MD Attending Dr: ANH Garsia Status: REG CLI Ordering Dr: Sally Sommer PA Date: 09/18/24 Location: [facility] Sex: M C Admitted: Reason For Study Reason For Study: LV DYSFUNCTION Procedure This was a 2D Doppler, Color Flow transthoracic echocardiogram. Exam performed in department. Left Ventricle Normal LV size. Mild concentric left ventricular hypertrophy. Mild inferior hypokinesis. Overall left ventricular systolic ejection fraction estimated at 60%. Stage I diastolic dysfunction. Right Ventricle Normal right ventricle. Atria The left and right atria are normal. Mitral Valve Mild (1+) mitral valve insufficiency. Tricuspid Valve Trivial tricuspid valve insufficiency. Unable to estimate RV systolic pressure due to insufficient tricuspid regurgitant envelope. Aortic Valve No aortic valve stenosis or regurgitation. Pulmonic Valve The pulmonic valve is not well visualized. Great Vessels Normal sized aortic root. Pericardium/Pleural Small loculated pericardial effusion adjacent to the right atrium. Recommend CT scan for further evaluation if clinically indicated. MMode/2D Measurements & Calculations LVIDd: 5.4 cm IVSd: 1.2 cm LVOT diam: 2.3 cm LVIDs: 2.6 cm LVPWd: 1.1 cm LVOT area: 4.1 cm2 RVDd: 3.6 cm FS: 52.5 % asc Aorta Diam: 3.8 cm LAV(MOD-bp): 42.5 ml LVAd ap4: 31.0 cm2 LAV(MOD-bp) Indexed: 18.8 ml/m2 LVLd ap4: 8.9 cm LAV(MOD-sp2): 42.8 ml EDV(MOD-sp4): 90.3 ml LAV(MOD-sp4): 38.5 ml EDV(sp4-el): 92.1 ml LVAs ap4: 16.6 cm2 LVLs ap4: 7.7 cm ESV(MOD-sp4): 32.2 ml ESV(sp4-el): 30.5 ml EF(MOD-sp4): 64.3 % EF(sp4-el): 66.9 % LVAd ap2: 29.7 cm2 SV(MOD-sp4): 58.0 ml SV(MOD-sp2): 50.7 ml LVLd ap2: 9.1 cm SI(MOD-sp4): 25.6 ml/m2 SI(MOD-sp2): 22.4 ml/m2 EDV(MOD-sp2): 85.6 ml EDV(sp2-el): 82.9 ml LVAs ap2: 17.9 cm2 LVLs ap2: 8.1 cm ESV(MOD-sp2): 34.9 ml ESV(sp2-el): 33.3 ml EF(MOD-sp2): 59.3 % SV(sp4-el): 61.6 ml Ao sinus diam: 4.[address] Junction: 2.9 cm LA dimension(2D): 3.6 cm LA A4 area: 15.3 cm2 RA A4 area: 14.7 cm2 TAPSE: 1.9 cm Time Measurements MV dec time: 0.26 sec Doppler Measurements & Calculations MV E max rah: 64.0 cm/sec Lat Peak E' Rah: 8.4 cm/sec Med Peak E' Rah: 6.4 cm/sec MV A max rah: 102.0 cm/sec E/E' lat: 7.7 E/E' med: 10.0 MV E/A: 0.63 MV dec slope: 243.5 cm/sec2 Ao V2 max: 135.8 cm/sec LV V1 max: 109.2 cm/sec Ao max P.4 mmHg LV V1 max P.8 mmHg Ao V2 mean: 95.8 cm/sec LV V1 mean P.9 mmHg Ao mean P.1 mmHg LV V1 mean: 82.8 cm/sec Ao V2 VTI: 33.6 cm LV V1 VTI: 24.4 cm AV (velocity ratio): 0.72 KRISTAL(I,D): 3.0 cm2 KRISTAL(V,D): 3.3 cm2 SV(LVOT): 100.0 ml PA V2 max: 90.3 cm/sec ECHO/Echo Complete Interpretation Summary Mild concentric left ventricular hypertrophy. Mild inferior hypokinesis. Overall left ventricular systolic ejection fraction estimated at 60%. Stage I diastolic dysfunction. Mild (1+) mitral valve insufficiency. Small loculated pericardial effusion adjacent to the right atrium. Recommend CT scan for further evaluation if clinically indicated. Ordering Physician: Slaly Sommer Referring Physician: Sally Sommer Performed By: Rama James RDCS 09/18/24 1500 Date _ Justo Olson MD CC: RYLAN BOWDEN; ANH Garsia ~ Date Dictated: 09/18/24 1312 Date Transcribed: 09/18/24 1500 Loss Prevention Auditor: Signed [facility] Work Phone: Absolute lymphocyte countOrd ered By: Sally Sommer on 09-17-2024 Lymphocytes Auto (Unsp spec) [#/Vol] 1.37 10*3/uL 0.83-4.51 [facility] Absolute neutrophil countOrd ered By: Sally Sommer on 09-17-2024 Neutrophils (Bld) [#/Vol] 7.3 10*3/uL 2.0-7.7 [facility] Anion gap in Serum or Plasma Ordered By: Nydia El on 09-17-2024 Anion gap [Moles/Vol] 13 mmol/L 5-15 [facility] Automated blood erythrocyte countOrdered By: Sally Sommer on 09-17-2024 RBC (Bld) [#/Vol] 5.01 10*6/uL Normal 4.6-6.2 [facility] Comment on above: Performed By: #### L 500.4050, L500.4100, L100.0100 ####[facility] [address] [place], [address] Automated blood hematocrit ( percentage)Ordered By: Sally Sommer on 09-17-2024 Hematocrit (Bld) [Volume fraction] 40.7 % Normal 40-54 [facility] Comment on above: Performed By: #### L 500.4050, L500.4100, L100.0100 ####[facility] [address] [place], [address] Automated lymphocyte count a s percentage of total leukocytesOrdered By: Sally Sommer on 09-17-2024 Lymphocytes/100 WBC Auto (Unsp spec) 14.2 % Low 19-41 [facility] BUN/creatinine ratioOrdered By: Nydia El on 09-17-2024 Urea nitrogen/Creatinine [Mass ratio] 15.0 mg/mg 10-20 [facility] Basic Metabolic Profile (BMP )on 09-17-2024 BUN/CRE 15.0 RATIO Normal -20 [facility] Comment on above: Performed By: #### L 500.2500 ####[facility] [address] [place], [address] GAP 13 Normal 5-15 [facility] Comment on above: Performed By: #### L 500.2500 ####[facility] [address] [place], [address] Potassium [Moles/Vol] 4.2 mmol/L Normal 3.3-5.1 [facility] Comment on above: Performed By: #### L 500.2500 ####[facility] [address] [place], [address] Basophil percentageOrdered B y: Sally Sommer on 09-17-2024 Basophils/100 WBC (Bld) 0.6 % Normal 0-1 [facility] Comment on above: Performed By: #### L 500.4050, L500.4100, L100.0100 ####[facility] [address] [place], [address] Bilirubin, totalOrdered By: Sally Sommer on 09-17-2024 Bilirubin [Mass/Vol] 0.23 mg/dL Normal 0.00-1.30 [facility] Comment on above: Performed By: #### L 500.4050, L500.4100, L100.0100 ####[facility] [address] [place], [address] CBC W/Diff, Automatedon - Absolute Lymph 1.37 X10 3/uL Normal 0.83-4.51 [facility] Comment on above: Performed By: #### L 500.4050, L500.4100, L100.0100 ####[facility] [address] [place], [address] Absolute Neut 7.3 X10 3/uL Normal 2.0-7.7 [facility] Comment on above: Performed By: #### L 500.4050, L500.4100, L100.0100 ####[facility] [address] [place], [address] IG% 0.500 Normal 0.0-0.9 [facility] Comment on above: Result Comment: IG% - Immature Granulocytes (promyelocytes, myelocytes and metamyelocytes) > 1% indicates that a LEFT SHIFT is Present. Performed By: #### L 500.4050, L500.4100, L100.0100 ####[facility] [address] [place], [address] Lymphocytes/100 WBC (Bld) 14.2 % Low 19-41 [facility] Comment on above: Performed By: #### L 500.4050, L500.4100, L100.0100 ####[facility] [address] [place], [address] Nucleated RBC (Bld) [#/Vol] 0 10*3/uL Normal 0-5 [facility] Comment on above: Performed By: #### L 500.4050, L500.4100, L100.0100 ####[facility] [address] [place], [address] RDW SD 50.9 fl High 35.1-43.9 [facility] Comment on above: Performed By: #### L 500.4050, L500.4100, L100.0100 ####[facility] [address] [place], [address] Calculated very low density lipoprotein (VLDL) cholesterol measurementOrdered By: Sally Sommer on 09-17-2024 Calculated very low density lipoprotein (VLDL) cholesterol measurement 22 mg/dL 5-40 [facility] Carbon dioxide, total [Moles /volume] in Central venous bloodOrdered By: Nydia El on 09-17-2024 CO2 [Moles/Vol] 23.3 mmol/L Normal 21.0-32.0 [facility] Comment on above: Performed By: #### L 500.2500 ####[facility] [address] [place], [address] Cardiology Visit Reporton Cardiology Visit Report [facility] [address] [place] [address] OFFICE VISIT Date of Service: 09/17/24 MR#: [id number] Acct: [id number] Name: LYUDMILA BRENNAN Rep #: [id number] : 1950 Provider: ANH Carlson Age/Sex: 74/M Location: [facility] Status: Signed HPI HPI History of Present Illness Details: Patient is a 74-year-old white male for a cardiovascular follow up. Patient carries a history of coronary disease status post stenting of the right coronary artery October 19 and then did not take his antiplatelet agent and was back in the hospital October 25, 2023 with a repeat current inferior wall myocardial infarction. The patient's presenting complaint was profound nausea. He did not have any chest discomfort. The patient says that they thought he might of had atrial fibrillation but then decided that he did not he does wear an iWatch which has not noted any atrial fibrillation since his discharge. The patient has a history of diabetes mellitus hemoglobin A1c has been consistently less than 7 he has an insulin pump. He also has a history of hypothyroidism on replacement therapy and he is hyperlipidemic on statin therapy. Patient also has a history of hypertension which has been fairly well-controlled. The patient's last cath November 20, 2023 showed an occluded stent in the right coronary artery which was subsequently redilated and restented. He had a 60% proximal LAD lesion mild disease in the circumflex and his ejection fraction was estimated 43% by echo. He has been fatigued over the last few months. His TSH is hypo and he is working with endocrine on this. He does not have any chest pain. He does have SOB with exertion but this is no different than before. He tries to exercise but it is difficult with is neuropathy. He does not have any palpitations. Intake Vital Signs 03/20/24 08:47 09/17/24 09:53 09/17/24 11:18 Height 6 ft 2 in 6 ft 2 in Weight: 221 lb BMI 28.3 BP 155/71 H 120/78 Blood Pressure Location Lt brachial Position Sitting Respiration 16 Pulse 73 Pulse Source NIBP Intake Visit Reasons: 6 M FU Plate Colorer Required: No Is patient in pain?: No Allergies No Known Allergies Allergy (Verified 09/17/24 10:03) Medications ???Medication ???Instructions ???Recorded ???Confirmed ???Type aspirin 81 mg tablet,delayed 81 mg PO QDAY 03/13/24 09/17/24 Hi story release (Adult Aspirin Regimen) atorvastatin 10 mg tablet 10 mg PO QDAY 03/13/24 09/17/24 Hi story gabapentin 300 mg capsule 300 mg PO BID 03/13/24 09/17/24 Hi story nisoldipine 34 mg tablet,extended 34 mg PO QDAY 03/13/24 09/17/24 H istory release 24 hr ticagrelor 90 mg tablet (Brilinta) 90 mg PO BID 03/13/24 09/17/24 H istory cholecalciferol (vitamin D3) 25 25 mcg PO QDAY 03/20/24 09/17/24 H istory mcg (1,000 unit) capsule dupilumab 300 mg/2 mL subcutaneous 300 mg subcut Q2W 03/20/2409/17 History pen injector (Dupixent) insulin lispro continuous subcutaneous infusion 1 05/20/23 09/17/24 History metoprolol succinate 25 mg 25 mg PO QDAY 03/20/24 09/17/24 Hi story tablet,extended release 24 hr multivitamin 1 tab PO QDAY 03/20/24 09/17/24 Hi story vitamin B complex 1 tab PO QDAY 03/20/24 09/17/24 Hi story losartan 50 mg tablet 50 mg PO QDAY #90 tabs 05/23/24 Rx hydrochlorothiazide 25 mg tablet 25 mg PO QAM this is a dose 09/17/24 Rx increase from 12.5 to 25 mg daily. #90 tabs empagliflozin 10 mg tablet 10 mg PO QAM #90 tabs 07/18/24 Rx (Jardiance) levothyroxine 100 mcg tablet 100 mcg PO QDAY #90 tabs 07/18/24 09/17/24 Rx insulin lispro 100 unit/mL 100 unit subcut DAILY #90 mL 08/0509/17/24 Rx subcutaneous solution clobetasol 0.05 % topical cream 1 applic topical BID 09/17/24 05/2 11/15 History ketoconazole 2 % shampoo topical 09/17/24 09/17/24 History tacrolimus 0.1 % topical ointment topical QDAY 09/17/24 09/17/24 Hi story Ejection fraction %: 43 Have you fallen in the past year?: No Nurse's Note: Worsening neuropathy in feet PFSH Medical History (Updated 09/17/24 @ 10:32 by Sally KAMARA, PA) STEMI (ST elevation myocardial infarction) NSTEMI (non-ST elevated myocardial infarction) Hyperlipidemia Diabetic neuropathy Gout Diabetes type I Nephropathy Chronic kidney disease (CKD) Proteinuria Systolic ejection murmur Carotid artery stenosis Hypertension Fatty liver disease, nonalcoholic Renal cyst Chronic back pain Acute renal failure Iron deficiency anemia Hypothyroidism Surgical History (Updated 09/17/24 @ 11:19 by Sally KAMARA, PA) S/P right coronary artery (RCA) stent placement History of bilateral cataract extraction History of vasectomy (more content not included)... Normal [facility] Chloride assayOrdered By: Me jono El on 09-17-2024 Chloride [Moles/Vol] 104 mmol/L Normal 98-108 [facility] Comment on above: Performed By: #### L 500.2500 ####[facility] [address] [place], [place], [address] Performed By: #### L 500.4050, L500.4100, L100.0100 ####[facility] [address] [place], [address] Comprehensive Metabolic Prof sandra 09-17-2024 ALK PHOS 73 U/L Normal 40-129 [facility] Comment on above: Performed By: #### L 500.4050, L500.4100, L100.0100 ####[facility] [address] [place], [address] BUN/CRE 14.9 RATIO Normal 10-20 [facility] Comment on above: Performed By: #### L 500.4050, L500.4100, L100.0100 ####[facility] [address] [place], [address] CO2 [Moles/Vol] 22.8 mmol/L Normal 21.0-32.0 [facility] Comment on above: Performed By: #### L 500.4050, L500.4100, L100.0100 ####[facility] [address] [place], [address] Creatinine [Mass/Vol] 2.27 mg/dL High 0.70-1.20 [facility] Comment on above: Performed By: #### L 500.4050, L500.4100, L100.0100 ####[facility] [address] [place], [address] GAP 14 Normal 5-15 [facility] Comment on above: Performed By: #### L 500.4050, L500.4100, L100.0100 ####[facility] [address] [place], [address] Glucose [Mass/Vol] 101 mg/dL High 70-99 [facility] Comment on above: Performed By: #### L 500.4050, L500.4100, L100.0100 ####[facility] [address] [place], [address] Potassium [Moles/Vol] 4.2 mmol/L Normal 3.3-5.1 [facility] Comment on above: Performed By: #### L 500.4050, L500.4100, L100.0100 ####[facility] [address] [place], [address] T PROT 7.6 g/dL Normal 5.9-8.4 [facility] Comment on above: Performed By: #### L 500.4050, L500.4100, L100.0100 ####[facility] [address] [place], [address] Comprehensive Metabolic Prof ilOrdered By: Sally Sommer on 09-17-2024 AST [Catalytic activity/Vol] 14 U/L Normal <=37 [facility] Comment on above: Performed By: #### L 500.4050, L500.4100, L100.0100 ####[facility] [address] [place], [address] Eosinophil percentageOrdered By: Sally Sommer on 09-17-2024 Eosinophils/100 WBC (Bld) 3.0 % Normal 0-5 [facility] Comment on above: Performed By: #### L 500.4050, L500.4100, L100.0100 ####[facility] [address] [place], [address] Erythrocyte distribution wid th ratioOrdered By: Sally Sommer on 09-17-2024 Erythrocyte distribution width (RBC) [Ratio] 17.4 % High 11.6-14.6 [facility] Comment on above: Performed By: #### L 500.4050, L500.4100, L100.0100 ####[facility] [address] [place], [address] Erythrocyte distribution wid th standard deviationOrdered By: Sally Sommer on 09-17-2024 Erythrocyte distribution width (RBC) [Ratio] 50.9 fl High 35.1-43.9 [facility] Glomerular filtration rate ( GFR) estimation/1.73 sq m using serum, plasma, or whole bOrdered By: Nydia El on 09-17-2024 GFR/1.73 sq M.predicted among non-blacks MDRD (S/P/Bld) [Vol rate/Area] 30 mL/min/{1.73_m2} Low >60 [facility] Comment on above: mL/min/1.73m2 CKD-EP I Creatinine Equation (2020) Result Comment: mL/m in/1.73m2 CKD-EPI Creatinine Equation (2020) Performed By: #### L 500.2500 ####[facility] [address] [place], [address] Performed By: #### L 500.4050, L500.4100, L100.0100 ####[facility] [address] [place], [address] Hemoglobin measurementOrdere d By: Sally Sommer on 09-17-2024 Hemoglobin (Bld) [Mass/Vol] 13.3 g/dL Normal 13.0-16.5 [facility] Comment on above: Performed By: #### L 500.4050, L500.4100, L100.0100 ####[facility] [address] [place], [address] Immature granulocytes/100 WB C Auto (Bld)Ordered By: Sally Sommer on 09-17-2024 Immature granulocytes/100 WBC (Bld) 0.500 % 0.0-0.9 [facility] Comment on above: IG% - Immature Granu locytes (promyelocytes, myelocytes and metamyelocytes) > 1% indicates that a LEFT SHIFT is Present. LDL calc ser/plasOrdered By: Sally Sommer on 09-17-2024 Cholesterol in LDL [Mass/Vol] 52 mg/dL Normal [facility] Comment on above: Zndanmsprd=050-722 m g/dL & Higher Rbvf=146 mg/dL or greater Result Comment: Bord uulbnx=941-506 mg/dL Higher Ahnk=303 mg/dL or greater Performed By: #### L 500.4050, L500.4100, L100.0100 ####[facility] [address] [place], [address] Lipid Profileon 09-17-2024 CHOL:HDL 2.75 Normal [facility] Comment on above: Performed By: #### L 500.4050, L500.4100, L100.0100 ####[facility] [address] [place], [address] Cholesterol in VLDL [Mass/Vol] 22 mg/dL Normal 5-40 [facility] Comment on above: Performed By: #### L 500.4050, L500.4100, L100.0100 ####[facility] [address] [place], [address] MCV (mean corpuscular volume ) determinationOrdered By: Sally Sommer on 09-17-2024 MCV (RBC) [Entitic vol] 81.2 fL Normal 80-94 [facility] Comment on above: Performed By: #### L 500.4050, L500.4100, L100.0100 ####[facility] [address] [place], [address] Mean corpuscular hemoglobin (MCH) determinationOrdered By: Sally Sommer on 09-17-2024 MCH (RBC) [Entitic mass] 26.5 pg Low 27.0-32.0 [facility] Comment on above: Performed By: #### L 500.4050, L500.4100, L100.0100 ####[facility] [address] [place], [address] Mean corpuscular hemoglobin concentration (MCHC) determinationOrdered By: Sally Sommer on 09-17-2024 MCHC (RBC) [Mass/Vol] 32.7 g/dL Normal 32-36 [facility] Comment on above: Performed By: #### L 500.4050, L500.4100, L100.0100 ####[facility] [address] [place], [address] Mean platelet volume determi nationOrdered By: Sally Sommer on 09-17-2024 Platelet mean volume (Bld) [Entitic vol] 8.9 fL Normal 6.2-12.0 [facility] Comment on above: Performed By: #### L 500.4050, L500.4100, L100.0100 ####[facility] [address] [place], [address] Monocyte percentageOrdered B y: Sally Sommer on 09-17-2024 Monocytes/100 WBC (Bld) 6.3 % Normal 0-10 [facility] Comment on above: Performed By: #### L 500.4050, L500.4100, L100.0100 ####[facility] [address] [place], [address] Neutrophil percentageOrdered By: Sally Sommer on 09-17-2024 Neutrophils/100 WBC (Bld) 75.4 % High 47-70 [facility] Comment on above: Performed By: #### L 500.4050, L500.4100, L100.0100 ####[facility] [address] [place], [address] Nucleated red blood cell per centageOrdered By: Sally Sommer on 09-17-2024 Nucleated RBC/100 WBC (Bld) [Ratio] 0 % 0-5 [facility] Platelet countOrdered By: Debora Sommer on 09-17-2024 Platelets (Bld) [#/Vol] 443 10*3/uL Normal 150-450 [facility] Comment on above: Performed By: #### L 500.4050, L500.4100, L100.0100 ####[facility] [address] [place], [address] Potassium measurement (mass/ volume)Ordered By: Nydia El on 09-17-2024 Potassium (Unsp spec) [Mass/Vol] 4.2 mmol/L 3.3-5.1 [facility] Screening total cholesterol/ high density lipoprotein (HDL) cholesterol ratioOrdered By: Sally Sommer on 09-17-2024 Cholesterol.total/Sruthi sterol in HDL [Mass ratio] 2.75 {ratio} [facility] Serum creatinine measurement (mass/volume)Ordered By: Nydia El on 09-17-2024 Creatinine [Mass/Vol] 2.26 mg/dL High 0.70-1.20 [facility] Comment on above: Performed By: #### L 500.2500 ####[facility] [address] [place], [address] Serum globulin measurementOr dered By: Sally Sommer on 09-17-2024 Globulin (S) [Mass/Vol] 3.6 g/dL Normal 2.2-4.2 [facility] Comment on above: Performed By: #### L 500.4050, L500.4100, L100.0100 ####[facility] [address] [place], [address] Serum glucose measurement (m ass/volume)Ordered By: Nydia El on 09-17-2024 Glucose [Mass/Vol] 99 mg/dL Normal 70-99 [facility] Comment on above: Performed By: #### L 500.2500 ####[facility] [address] [place], [address] Serum or plasma alanine garcia otransferase (ALT) measurementOrdered By: Sally Sommer on 09-17-2024 ALT [Catalytic activity/Vol] 10 U/L Normal <=46 [facility] Comment on above: Performed By: #### L 500.4050, L500.4100, L100.0100 ####[facility] [address] [place], [address] Serum or plasma albumin selwyn urement (mass/volume)Ordered By: Sally Sommer on 09-17-2024 Albumin [Mass/Vol] 4.0 g/dL Normal 3.4-4.8 [facility] Comment on above: Performed By: #### L 500.4050, L500.4100, L100.0100 ####[facility] [address] [place], [address] Serum or plasma albumin/glob ulin mass ratioOrdered By: Sally Sommer on 09-17-2024 Albumin/Globulin [Mass ratio] 1.1 {ratio} Normal 0.9-2.4 [facility] Comment on above: Performed By: #### L 500.4050, L500.4100, L100.0100 ####[facility] [address] [place], [address] Serum or plasma alkaline nidia sphatase measurementOrdered By: Sally Sommer on 09-17-2024 ALP [Catalytic activity/Vol] 73 U/L 40-129 [facility] Serum or plasma calcium selwyn urement (mass/volume)Ordered By: Nydia El on 09-17-2024 Calcium [Mass/Vol] 9.3 mg/dL Normal 7.6-11.0 [facility] Comment on above: Performed By: #### L 500.2500 ####[facility] [address] [place], [place], [address] Performed By: #### L 500.4050, L500.4100, L100.0100 ####[facility] [address] [place], [address] Serum or plasma cholesterol in HDL measurement (mass/volume)Ordered By: aSlly Sommer on 09-17-2024 Cholesterol in HDL [Mass/Vol] 43 mg/dL Normal [facility] Comment on above: National Cholesterol Education Program (NCEP) guidelines:<40 mg/dL: Low HDL-cholesterol (major risk factor for CHD)>= 60 mg/dL: High HDL-cholesterol (negative risk factor for CHD)HDL-cholesterol is affected by a number of factors, e.g. smoking, exercise, hormones, sex and age. Result Comment: Suha onal Cholesterol Education Program (NCEP) guidelines: <40 mg/dL: Low HDL-cholesterol (major risk factor for CHD) >= 60 mg/dL: High HDL-cholesterol (negative risk factor for CHD) HDL-cholesterol is affected by a number of factors, e.g. smoking, exercise, hormones, sex and age. Performed By: #### L 500.4050, L500.4100, L100.0100 ####[facility] [address] [place], [address] Serum or plasma cholesterol measurement (mass/volume)Ordered By: Sally Sommer on 09-17-2024 Cholesterol [Mass/Vol] 117 mg/dL Normal <=200 [facility] Comment on above: Cholesterol level, D esirable <200 mg/dLBorderline high cholesterol 200-239 mg/dLHigh cholesterol >=240 mg/dLRecommendations of the NCEP Adult Treatment Panel for the following risk-cutoff thresholds for the [place] population. Result Comment: Chol esterol level, Desirable <200 mg/dL Borderline high cholesterol 200-239 mg/dL High cholesterol >=240 mg/dL Recommendations of the NCEP Adult Treatment Panel for the following risk-cutoff thresholds for the [place] population. Performed By: #### L 500.4050, L500.4100, L100.0100 ####[facility] [address] [place], [address] Serum or plasma urea nitroge n measurement (mass/volume)Ordered By: Nydia El on 09-17-2024 Urea nitrogen [Mass/Vol] 34 mg/dL High 4-19 [facility] Comment on above: Performed By: #### L 500.2500 ####[facility] [address] [place], [address] Performed By: #### L 500.4050, L500.4100, L100.0100 ####[facility] [address] [place], [address] Sodium levelOrdered By: Bro El on 09-17-2024 Sodium [Moles/Vol] 141 mmol/L Normal 133-145 [facility] Comment on above: Performed By: #### L 500.2500 ####[facility] [address] [place], [address] Performed By: #### L 500.4050, L500.4100, L100.0100 ####[facility] [address] [place], [address] Total proteinOrdered By: Etienne Sommer on 09-17-2024 Protein [Mass/Vol] 7.6 g/dL 5.9-8.4 [facility] Triglycerides measurementOrd ered By: Sally Sommer on 09-17-2024 Triglyceride [Mass/Vol] 110 mg/dL Normal [facility] Comment on above: The drugs N-Acetylcy steine and Metamizole may falsely depress this assay. Normal range: <150 mg/dLBorderline High: 150-199 mg/dLHigh: 200-499 mg/dLVery High: >500 mg/dL Result Comment: The drugs N-Acetylcysteine and Metamizole may falsely depress this assay. Normal range: <150 mg/dL Borderline High: 150-199 mg/dL High: 200-499 mg/dL Very High: >500 mg/dL Performed By: #### L 500.4050, L500.4100, L100.0100 ####[facility] [address] [place], [address] White blood cell (WBC) count Ordered By: Sally Sommer on 09-17-2024 WBC (Bld) [#/Vol] 9.7 10*3/uL Normal 4.4-11.0 [facility] Comment on above: Performed By: #### L 500.4050, L500.4100, L100.0100 ####[facility] [address] [place], [address] Albumin DL <= 20 mg/L (U) [M ass/Vol]Ordered By: Nydia El on 07-18-2024 Urine Random Microalbumin 27.0 mg/L NO RANGE EST. [facility] Anion gap in Serum or Plasma Ordered By: Nydia El on 07-18-2024 Anion gap [Moles/Vol] 12 mmol/L 5-15 [facility] BUN/creatinine ratioOrdered By: Nydia El on 07-18-2024 Urea nitrogen/Creatinine [Mass ratio] 12.4 mg/mg 10-20 [facility] Bilirubin, totalOrdered By: Nydia El on 07-18-2024 Bilirubin [Mass/Vol] 0.16 mg/dL 0.00-1.30 [facility] Carbon dioxide, total [Moles /volume] in Central venous bloodOrdered By: Nydia El on 07-18-2024 CO2 [Moles/Vol] 20.1 mmol/L Low 21.0-32.0 [facility] Chloride assayOrdered By: Me jono El on 07-18-2024 Chloride [Moles/Vol] 109 mmol/L High 98-108 [facility] Comprehensive Metabolic Prof ilon 07-18-2024 Albumin [Mass/Vol] 3.6 g/dL Normal 3.4-4.8 [facility] Comment on above: Performed By: #### L 500.4050, L506.0400, L501.9520, L502.0250 ####[facility] [address] [place], [address] Albumin/Globulin [Mass ratio] 1.4 {ratio} Normal 0.9-2.4 [facility] Comment on above: Performed By: #### L 500.4050, L506.0400, L501.9520, L502.0250 ####[facility] [address] [place], [address] ALK PHOS 61 U/L Normal 40-129 [facility] Comment on above: Performed By: #### L 500.4050, L506.0400, L501.9520, L502.0250 ####[facility] [address] [place], [address] ALT [Catalytic activity/Vol] 11 U/L Normal <=46 [facility] Comment on above: Performed By: #### L 500.4050, L506.0400, L501.9520, L502.0250 ####[facility] [address] [place], [address] AST [Catalytic activity/Vol] 12 U/L Normal <=37 [facility] Comment on above: Performed By: #### L 500.4050, L506.0400, L501.9520, L502.0250 ####[facility] [address] [place], [address] Bilirubin [Mass/Vol] 0.16 mg/dL Normal 0.00-1.30 [facility] Comment on above: Performed By: #### L 500.4050, L506.0400, L501.9520, L502.0250 ####[facility] [address] [place], [address] BUN/CRE 12.4 RATIO Normal 10-20 [facility] Comment on above: Performed By: #### L 500.4050, L506.0400, L501.9520, L502.0250 ####[facility] [address] [place], [address] Calcium [Mass/Vol] 8.8 mg/dL Normal 7.6-11.0 [facility] Comment on above: Performed By: #### L 500.4050, L506.0400, L501.9520, L502.0250 ####[facility] [address] [place], [address] Chloride [Moles/Vol] 109 mmol/L High 98-108 [facility] Comment on above: Performed By: #### L 500.4050, L506.0400, L501.9520, L502.0250 ####[facility] [address] [place], [address] CO2 [Moles/Vol] 20.1 mmol/L Low 21.0-32.0 [facility] Comment on above: Performed By: #### L 500.4050, L506.0400, L501.9520, L502.0250 ####[facility] [address] [place], [address] Creatinine [Mass/Vol] 2.11 mg/dL High 0.70-1.20 [facility] Comment on above: Performed By: #### L 500.4050, L506.0400, L501.9520, L502.0250 ####[facility] [address] [place], [address] GAP 12 Normal 5-15 [facility] Comment on above: Performed By: #### L 500.4050, L506.0400, L501.9520, L502.0250 ####[facility] [address] [place], [address] GFR/1.73 sq M.predicted among non-blacks MDRD (S/P/Bld) [Vol rate/Area] 32 mL/min/{1.73_m2} Low >60 [facility] Comment on above: Result Comment: mL/m in/1.73m2 CKD-EPI Creatinine Equation (2020) Performed By: #### L 500.4050, L506.0400, L501.9520, L502.0250 ####[facility] [address] [place], [address] Globulin (S) [Mass/Vol] 2.5 g/dL Normal 2.2-4.2 [facility] Comment on above: Performed By: #### L 500.4050, L506.0400, L501.9520, L502.0250 ####[facility] [address] [place], [address] Glucose [Mass/Vol] 84 mg/dL Normal 70-99 [facility] Comment on above: Performed By: #### L 500.4050, L506.0400, L501.9520, L502.0250 ####[facility] [address] [place], [address] Potassium [Moles/Vol] 4.8 mmol/L Normal 3.3-5.1 [facility] Comment on above: Performed By: #### L 500.4050, L506.0400, L501.9520, L502.0250 ####[facility] [address] [place], [address] Sodium [Moles/Vol] 142 mmol/L Normal 133-145 [facility] Comment on above: Performed By: #### L 500.4050, L506.0400, L501.9520, L502.0250 ####[facility] [address] [place], [address] T PROT 6.1 g/dL Normal 5.9-8.4 [facility] Comment on above: Performed By: #### L 500.4050, L506.0400, L501.9520, L502.0250 ####[facility] [address] [place], [address] Urea nitrogen [Mass/Vol] 26 mg/dL High 4-19 [facility] Comment on above: Performed By: #### L 500.4050, L506.0400, L501.9520, L502.0250 ####[facility] [address] [place], [address] Creatinine Unsp time (U) [Ma ss/Vol]Ordered By: Nydia El on 07-18-2024 Creatinine (U) [Mass/Vol] 193.00 mg/dL 39.00-259.00 [facility] Endocrinology Visit Reporton 07-18-2024 Endocrinology Visit Report [facility] [address] [place] [address] OFFICE VISIT Date of Service: 07/18/24 MR#: [id number] Acct: [id number] Name: LYUDMILA BRENNAN Rep #: [id number] : 1950 Provider: BRANDON sainz Age/Sex: 74/M Location: [facility] [place] Status: Signed Intake Vital Signs 04/22/24 09:41 06/06/24 07:20 07/18/24 11:18 Height 6 ft 2 in 6 ft 2 in 6 ft 2 in Weight: 224 lb BMI 28.8 BP 152/73 H Blood Pressure Location Rt brachial Position Sitting Pulse 63 Pulse Oximetry (%) 97 Oxygen Delivery Method room air Intake Visit Reasons: 3 M FU Chief Complaint: f/u diabetes/hypothyroid Is patient in pain?: No Allergies No Known Allergies Allergy (Verified 07/18/24 11:23) Medications ???Medication ???Instructions ???Recorded ???Confirmed ???Type aspirin 81 mg tablet,delayed 81 mg PO QDAY 03/13/24 07/18/24 Hi story release (Adult Aspirin Regimen) atorvastatin 10 mg tablet 10 mg PO QDAY 03/13/24 07/18/24 Hi story gabapentin 300 mg capsule 300 mg PO BID 03/13/24 07/18/24 Hi story nisoldipine 34 mg tablet,extended 34 mg PO QDAY 03/13/24 07/18/24 H istory release 24 hr ticagrelor 90 mg tablet (Brilinta) 90 mg PO BID 03/13/24 07/18/24 H istory cholecalciferol (vitamin D3) 25 25 mcg PO QDAY 03/20/24 07/18/24 H istory mcg (1,000 unit) capsule dupilumab 300 mg/2 mL subcutaneous 300 mg subcut Q2W 03/20/2407/18 History pen injector (Dupixent) insulin lispro continuous subcutaneous infusion 1 05/20/23 07/18/24 History metoprolol succinate 25 mg 25 mg PO QDAY 03/20/24 07/18/24 Hi story tablet,extended release 24 hr multivitamin 1 tab PO QDAY 03/20/24 07/18/24 Hi story vitamin B complex 1 tab PO QDAY 03/20/24 07/18/24 Hi story losartan 50 mg tablet 50 mg PO QDAY #90 tabs 05/23/24 Rx hydrochlorothiazide 25 mg tablet 25 mg PO QAM this is a dose 07/18/24 Rx increase from 12.5 to 25 mg daily. #90 tabs empagliflozin 10 mg tablet 10 mg PO QAM #90 tabs 07/18/24 Rx (Jardiance) levothyroxine 100 mcg tablet 100 mcg PO QDAY #14 tabs 07/18/24 07/18/24 Rx levothyroxine 100 mcg tablet 100 mcg PO QDAY #90 tabs 07/18/24 07/18/24 Rx Have you fallen in the past year?: No PFSH Medical History (Updated 07/18/24 @ 14:21 by BRANDON Cotto) STEMI (ST elevation myocardial infarction) NSTEMI (non-ST elevated myocardial infarction) Hyperlipidemia Diabetic neuropathy Gout Diabetes type I Nephropathy Chronic kidney disease (CKD) Proteinuria Systolic ejection murmur Carotid artery stenosis Hypertension Fatty liver disease, nonalcoholic Renal cyst Chronic back pain Acute renal failure Iron deficiency anemia Hypothyroidism Surgical History S/P right coronary artery (RCA) stent placement History of bilateral cataract extraction History of vasectomy History of cholecystectomy Family History Mother Hypertension Son Diabetes Social History Smoking Status: Former smoker alcohol intake: never substance use type: does not use caffeine: Yes Type: coffee Number of servings: 3 HPI HPI Chief Complaint: f/u diabetes/hypothyroid Details: LYUDMILA BRENNAN, is a 74 M who presents to the office today for evaluation and management of diabetes and hypothyroid. A1C today is 7.1%, increased from February of last year at 6.3%. Potential for falsely low A1C d/t chronic anemia. Weight is stable from initial appt here on 04/22/24. Currently using Medtronic 780g insulin pump with Guardian 4 CGM. Insulin pump downloaded and reviewed- he is not entering any carbs. He denies any significant episode of hypoglycemia that has required assistance from others. BP today is 152/73, improved from prior visit at 179/84. Currently taking HCTZ 25 mg once daily, losartan 50 mg once daily, metoprolol succ 25 mg once daily, and nisoldipine 34 mg once daily. Reports compliance with medication. He states that at cardiac rehab BP has been down into 120's systolic. He is hypothyroid and takes levothyroxine 100 mcg once daily. He was not aware of the rules associated with taking thyroid replacement hormone. He is taking after food with coffee. 03/18/24 TSH 28.17. He has CKD. He does not currently see nephrology. He takes a daily statin, cholesterol is well controlled. Denies any acute concerns. ROS Const Constitutional: Positive for fatigue; No weight change ENT ENT: No dizziness/vertigo Cardio Cardiology: Positive for palpitations; No chest pain at rest, chest pain with exertion or shortness of breath Skin Skin: No (more content not included)... Normal [facility] GFR/1.73 sq M.predicted kenisha g non-blacks MDRD (S/P/Bld) [Vol rate/Area]Ordered By: Nydia El on 07-18-2024 Estimated GFR (MDRD) Non-Af Amer 32 Low >60 [facility] Comment on above: mL/min/1.73m2 CKD-EP I Creatinine Equation (2020) Glomerular filtration rate ( GFR) estimation/1.73 sq m using serum, plasma, or whole bOrdered By: Nydia El on 07-18-2024 GFR/1.73 sq M.predicted among non-blacks MDRD (S/P/Bld) [Vol rate/Area] 32 mL/min/{1.73_m2} Low >60 [facility] Comment on above: mL/min/1.73m2 CKD-EP I Creatinine Equation (2020) Laboratory - Chemistry and C hemistry - challengeOrdered By: Nydia El on 07-18-2024 AST [Catalytic activity/Vol] 12 U/L <38 [facility] Laboratory - Hematology and Cell countsOrdered By: Nydia El on 07-18-2024 HbA1c (Bld) [Mass fraction] 7.1 % High 4.2-6.3 [facility] Microalbumin/creat ratio urO rdered By: Nydia El on 07-18-2024 Urine Microalbumin/Creatinine Ratio 139.9 mg/g CRE [facility] Potassium (Unsp spec) [Mass/ Vol]Ordered By: Nydia El on 07-18-2024 Potassium [Moles/Vol] 4.8 mmol/L 3.3-5.1 [facility] Potassium measurement (mass/ volume)Ordered By: Nydia El on 07-18-2024 Potassium (Unsp spec) [Mass/Vol] 4.8 mmol/L 3.3-5.1 [facility] Random urine creatinine selwyn urement (mass/volume)Ordered By: Nydia El on 07-18-2024 Creatinine Unsp time (U) [Mass/Vol] 193.00 mg/dL 39.00-259.00 [facility] Serum creatinine measurement (mass/volume)Ordered By: Nydia El on 07-18-2024 Creatinine [Mass/Vol] 2.11 mg/dL High 0.70-1.20 [facility] Serum globulin measurementOr dered By: Nydia El on 07-18-2024 Globulin (S) [Mass/Vol] 2.5 g/dL 2.2-4.2 [facility] Serum glucose measurement (m ass/volume)Ordered By: Nyida El on 07-18-2024 Glucose [Mass/Vol] 84 mg/dL 70-99 [facility] Serum or plasma alanine garcia otransferase (ALT) measurementOrdered By: Nydia El on 07-18-2024 ALT [Catalytic activity/Vol] 11 U/L <47 [facility] Serum or plasma albumin selwyn urement (mass/volume)Ordered By: Nydia El on 07-18-2024 Albumin [Mass/Vol] 3.6 g/dL 3.4-4.8 [facility] Serum or plasma albumin/glob ulin mass ratioOrdered By: Nydia El on 07-18-2024 Albumin/Globulin [Mass ratio] 1.4 {ratio} 0.9-2.4 [facility] Serum or plasma alkaline nidia sphatase measurementOrdered By: Nydia El on 07-18-2024 ALP [Catalytic activity/Vol] 61 U/L 40-129 [facility] Serum or plasma calcium selwyn urement (mass/volume)Ordered By: Nydia El on 07-18-2024 Calcium [Mass/Vol] 8.8 mg/dL 7.6-11.0 [facility] Serum or plasma urea nitroge n measurement (mass/volume)Ordered By: Nydia El on 07-18-2024 Urea nitrogen [Mass/Vol] 26 mg/dL High 4-19 [facility] Sodium levelOrdered By: Bro El on 07-18-2024 Sodium [Moles/Vol] 142 mmol/L 133-145 [facility] T4 Free Directon 07-18-2024 T4 FREE DIRECT 0.70 ng/dL Low 0.76-1.46 [facility] Comment on above: Performed By: #### L 500.4050, L506.0400, L501.9520, L502.0250 ####[facility] [address] [place], [address] T4 freeOrdered By: Jairo on 07-18-2024 Free T4 [Mass/Vol] 0.70 ng/dL Low 0.76-1.46 [facility] TSH DL <= 0.005 mIU/L QnOrde red By: Nydia El on 07-18-2024 Thyroid Stimulating Hormone (TSH) 39.000 uIU/mL High 0.300-4.200 [facility] TSH Qn 39.000 uIU/mL High 0.300-4.200 [facility] Thyroid Stim Hormone (TSH)on 07-18-2024 TSH 39.000 uIU/mL High 0.300-4.200 [facility] Comment on above: Performed By: #### L 500.4050, L506.0400, L501.9520, L502.0250 ####[facility] [address] [place], [address] Total proteinOrdered By: Neelam El on 07-18-2024 Protein [Mass/Vol] 6.1 g/dL 5.9-8.4 [facility] Urine albumin measurement wi detection limit of 20 mg/L or less (mass/volume)Ordered By: Nydia El on 07-18-2024 Albumin DL <= 20 mg/L (U) [Mass/Vol] 27.0 mg/L NO RANGE EST. [facility] Basic Metabolic Profile (BMP )on 06-04-2024 BUN/CRE 13.1 RATIO Normal 10-20 [facility] Comment on above: Performed By: #### L 500.2500 #### [facility] [address] [place], [address] CA,Total 8.8 mg/dL Normal 8.5-10.1 [facility] Comment on above: Performed By: #### L 500.2500 #### [facility] [address] [place], [address] EST GFR - AA 39 mL/min Low >60 [facility] Comment on above: Result Comment: Afri can Kenyan GFR Calc Performed By: #### L 500.2500 #### [facility] [address] [place], [address] GAP 3 Low 5-15 [facility] Comment on above: Performed By: #### L 500.2500 #### [facility] [address] [place], [place], [address] Blood urea nitrogen (BUN)/cr eatinine ratioOrdered By: Tim Salgado on 06-04-2024 Urea nitrogen/Creatinine [Mass ratio] 13.1 mg/mg 10- [facility] Carbon dioxide measurementOr dered By: Tim Salgado on 06-04-2024 CO2 [Moles/Vol] 29.0 mmol/L Normal 21.0-32.0 [facility] Comment on above: Performed By: #### L 500.2500 #### [facility] [address] [place], [place], [address] Chloride measurementOrdered By: Tim Salgado on 06-04-2024 Chloride [Moles/Vol] 108 mmol/L High 98-107 [facility] Comment on above: Performed By: #### L 500.2500 #### [facility] [address] [place], [place], [address] Estimated glomerular filtrat ion rate (GFR) AmericanOrdered By: Tim Salgado on 06-04-2024 Estimated GFR (MDRD) Amer 39 mL/min Low >60 [facility] Comment on above: GFR Calc Glomerular filtration rate ( GFR) estimationOrdered By: Tim Salgado on 06-04-2024 Estimated GFR (MDRD) Non-Af Amer 32 mL/min Low >60 [facility] Comment on above: Non- GFR Calc GFR/1.73 sq M.predicted among non-blacks MDRD (S/P/Bld) [Vol rate/Area] 32 mL/min/{1.73_m2} Low >60 [facility] Comment on above: Non- GFR Calc Result Comment: Non- GFR Calc Performed By: #### L 500.2500 #### [facility] [address] [facility] [address] [place], [place], [id number] Glucose measurementOrdered B y: Tim Salgado on 06-04-2024 Glucose [Mass/Vol] 143 mg/dL High 74-106 [facility] Comment on above: Fasting Glucose resu lt greater than or equal to 126 mg/dL suggests DIABETES MELLITUS per A.D.A. criteria. Result Comment: Fast ing Glucose result greater than or equal to 126 mg/dL suggests DIABETES MELLITUS per A.D.A. criteria. Performed By: #### L 500.2500 #### [facility] [address] [place], [place], [address] Potassium measurementOrdered By: Tim Salgado on 06-04-2024 Potassium [Moles/Vol] 5.2 mmol/L High 3.5-5.1 [facility] Comment on above: Performed By: #### L 500.2500 #### [facility] [address] [place], [place], [address] Serum anion gap measurementO rdered By: Tim Salgado on 06-04-2024 Anion gap [Moles/Vol] 3 mmol/L Low 5-15 [facility] Serum or plasma calcium selwyn urement (mass/volume)Ordered By: Tim Salgado on 06-04-2024 Calcium [Mass/Vol] 8.8 mg/dL 8.5-10.1 [facility] Serum or plasma creatinine m easurement (mass/volume)Ordered By: Tim Salgado on 06-04-2024 Creatinine [Mass/Vol] 2.14 mg/dL High 0.70-1.30 [facility] Comment on above: The validity of the calculated GFR & GFRAA in patients over 70 years has not been determined. Clinical correlation is essential. Result Comment: The validity of the calculated GFR GFRAA in patients over 70 years has not been determined. Clinical correlation is essential. Performed By: #### L 500.2500 #### [facility] [address] [place], [place], [address] Serum or plasma urea nitroge n measurement (mass/volume)Ordered By: Tim Salgado on 06-04-2024 Urea nitrogen [Mass/Vol] 28 mg/dL High 7-18 [facility] Comment on above: Performed By: #### L 500.2500 #### [facility] [address] [place], [address] Sodium levelOrdered By: Basil Salgado on 06-04-2024 Sodium [Moles/Vol] 140 mmol/L Normal 136-145 [facility] Comment on above: Performed By: #### L 500.2500 #### [facility] [address] [facility] [place], [place], [address] .Auto Diffon 05-29-2024 Basophil, Absolute 0.1 10 3/mcL Normal 0.0-0.2 [facility] Comment on above: Performed By: #### C BC, CMP, GFR, ANEU, ADIFF #### [address] [address] Basophils/100 WBC (Bld) 1.1 % Normal 0.0-2.5 [facility] Comment on above: Performed By: #### C BC, CMP, GFR, ANEU, ADIFF #### [address] [address] Eosinophil, Absolute 0.4 10 3/mcL Normal 0.0-0.7 [facility] Comment on above: Performed By: #### C BC, CMP, GFR, ANEU, ADIFF #### [address] [address] Eosinophils/100 WBC (Bld) 3.9 % Normal 0.0-7.0 [facility] Comment on above: Performed By: #### C BC, CMP, GFR, ANEU, ADIFF #### [address] [address] Lymphocyte, Absolute 1.4 10 3/mcL Normal 0.9-4.3 [facility] Comment on above: Performed By: #### C BC, CMP, GFR, ANEU, ADIFF #### [address] [address] Lymphocytes/100 WBC (Bld) 16.0 % Low 20.0-40.0 [facility] Comment on above: Performed By: #### C BC, CMP, GFR, ANEU, ADIFF #### [address] [address] Monocyte, Absolute 0.6 10 3/mcL Normal 0.1-1.4 [facility] Comment on above: Performed By: #### C BC, CMP, GFR, ANEU, ADIFF #### [address] [address] Monocytes/100 WBC (Bld) 7.0 % Normal 2.0-13.0 [facility] Comment on above: Performed By: #### C BC, CMP, GFR, ANEU, ADIFF #### [address] [address] Neutrophils/100 WBC (Bld) 72.0 % Normal 50.0-75.0 [facility] Comment on above: Performed By: #### C BC, CMP, GFR, ANEU, ADIFF #### [address] [address] .GFRon 05-29-2024 Estimated Glomerular Filtration Rate 37 ml/min/1.73sqm Normal [facility] Comment on above: Result Comment: Stages of Chronic Kidney Disease (CKD) Stage Description eGFR(ml/min/1.73 sq.m.) CKD 1 Normal kidney function or >=90 normal kindney function with possible kidney damage (ex. Proteinuria) CKD 2 Kidney damage with mild loss 60-89 of kidney function CKD 3a Mild to moderate loss of kidney 45-59 function CKD 3b Moderate to severe loss of 30-44 of kindey function CKD 4 Severe loss of kidney function 15-29 CKD 5 Kidney failure <15 Note: (go live 2024) the eGFR calculation was updated to the 2020 CKD-EPI creatinine equation without a race factor to calculate the eGFR results. Performed By: #### C BC, CMP, GFR, ANEU, ADIFF #### [address] [address] .NEUABSon 05-29-2024 Neutrophil, Absolute 6.5 10 3/mcL Normal 2.3-8.1 [facility] Comment on above: Performed By: #### C BC, CMP, GFR, ANEU, ADIFF #### [address] [address] CBCon 05-29-2024 Erythrocyte distribution width (RBC) [Ratio] 19.9 % High 11.5-15.5 [facility] Comment on above: Performed By: #### C BC, CMP, GFR, ANEU, ADIFF #### [place] [id number] Hematocrit (Bld) [Volume fraction] 38.7 % Low 40.0-52.0 [facility] Comment on above: Performed By: #### C BC, CMP, GFR, ANEU, ADIFF #### [place] [id number] Hgb 12.7 G/dL Low 13.0-17.5 [facility] Comment on above: Performed By: #### C BC, CMP, GFR, ANEU, ADIFF #### [address] [address] MCH (RBC) [Entitic mass] 25.3 pg Low 27.0-33.0 [facility] Comment on above: Performed By: #### C BC, CMP, GFR, ANEU, ADIFF #### [address] [address] MCHC 32.8 G/dL Normal 32.0-36.0 [facility] Comment on above: Performed By: #### C BC, CMP, GFR, ANEU, ADIFF #### [address] [address] MCV (RBC) [Entitic vol] 77.0 fL Low 81.0-100.0 [facility] Comment on above: Performed By: #### C BC, CMP, GFR, ANEU, ADIFF #### [address] [address] Platelet 317 10 3/mcL Normal 150-450 [facility] Comment on above: Performed By: #### C BC, CMP, GFR, ANEU, ADIFF #### [address] [address] Platelet mean volume (Bld) [Entitic vol] 7.8 fL Normal 6.4-10.5 [facility] Comment on above: Performed By: #### C BC, CMP, GFR, ANEU, ADIFF #### [address] [address] RBC 5.02 10 6/mcL Normal 4.50-6.00 [facility] Comment on above: Performed By: #### C BC, CMP, GFR, ANEU, ADIFF #### [address] [address] WBC 9.0 10 3/mcL Normal 4.5-10.8 [facility] Comment on above: Performed By: #### C BC, CMP, GFR, ANEU, ADIFF #### [address] [address] CMPon 05-29-2024 Albumin Level 3.4 G/dL Normal 3.4-4.8 [facility] Comment on above: Performed By: #### C BC, CMP, GFR, ANEU, ADIFF #### [address] [address] Albumin/Globulin [Mass ratio] 0.9 {ratio} Low 1.1-2.5 [facility] Comment on above: Performed By: #### C BC, CMP, GFR, ANEU, ADIFF #### [address] [address] ALP [Catalytic activity/Vol] 73 U/L Normal 40-135 [facility] Comment on above: Performed By: #### C BC, CMP, GFR, ANEU, ADIFF #### [place] [address] ALT [Catalytic activity/Vol] 18 U/L Normal 16-63 [facility] Comment on above: Performed By: #### C BC, CMP, GFR, ANEU, ADIFF #### [place] [address] AST [Catalytic activity/Vol] 13 U/L Normal 10-40 [facility] Comment on above: Performed By: #### C BC, CMP, GFR, ANEU, ADIFF #### [place] [address] Bili Total 0.4 mg/dL Normal 0.2-1.0 [facility] Comment on above: Result Comment: Use of this assay is not recommended for patients undergoing treatment with eltrombopag due to the potential for falsely elevated results. Performed By: #### C BC, CMP, GFR, ANEU, ADIFF #### [address] [address] BUN/Creatinine Ratio 13 ratio Normal 7-27 [facility] Comment on above: Performed By: #### C BC, CMP, GFR, ANEU, ADIFF #### [place] [id number] Calcium [Mass/Vol] 9.0 mg/dL Normal 8.4-10.2 [facility] Comment on above: Performed By: #### C BC, CMP, GFR, ANEU, ADIFF #### [address] [address] Chloride [Moles/Vol] 103 mmol/L Normal 98-107 [facility] Comment on above: Performed By: #### C BC, CMP, GFR, ANEU, ADIFF #### [place] [address] CO2 [Moles/Vol] 28 mmol/L Normal 23-31 [facility] Comment on above: Performed By: #### C BC, CMP, GFR, ANEU, ADIFF #### [place] [address] Creatinine [Mass/Vol] 1.89 mg/dL High 0.70-1.30 [facility] Comment on above: Result Comment: Test ing performed on [employer] Dimension EXL analyzer using a modified kinetic Dianne technique. Performed By: #### C BC, CMP, GFR, ANEU, ADIFF #### [place] [address] Electrolyte Balance 7.0 mEq/L Normal 4.0-15.0 [facility] Comment on above: Performed By: #### C BC, CMP, GFR, ANEU, ADIFF #### [place] [address] Globulin 3.6 G/dL Normal 1.5-3.8 [facility] Comment on above: Performed By: #### C BC, CMP, GFR, ANEU, ADIFF #### [place] [address] Glucose [Mass/Vol] 241 mg/dL High 83-110 [facility] Comment on above: Performed By: #### C BC, CMP, GFR, ANEU, ADIFF #### [place] [address] Potassium [Moles/Vol] 5.2 mmol/L High 3.5-5.1 [facility] Comment on above: Performed By: #### C BC, CMP, GFR, ANEU, ADIFF #### [place] [address] Sodium [Moles/Vol] 138 mmol/L Normal 136-145 [facility] Comment on above: Performed By: #### C BC, CMP, GFR, ANEU, ADIFF #### [place] [address] [place], [place] [address] Total Protein 7.0 G/dL Normal 6.4-8.2 [facility] Comment on above: Performed By: #### C BC, CMP, GFR, ANEU, ADIFF #### [place] [address] [place], [place] [address] Urea nitrogen [Mass/Vol] 24 mg/dL High 7-18 [facility] Comment on above: Performed By: #### C BC, CMP, GFR, ANEU, ADIFF #### [place] [address] [place], [place] [address] LABORATORYOrdered By: SYSTEM SYSTEM on 05-29-2024 Albumin BCP dye [Mass/Vol] 3.4 G/dL Normal 3.4 - 4.8 G/dL AO ADM SS Albumin/Globulin [Mass ratio] 0.9 {ratio} Low 1.1 - 2.5 ratio AO ADM SS ALP [Catalytic activity/Vol] 73 U/L Normal 40 - 135 U/L AO ADM SS ALT With P-5'-P [Catalytic activity/Vol] 18 U/L Normal 16 - 63 U/L AO ADM SS AST With P-5'-P [Catalytic activity/Vol] 13 U/L Normal 10 - 40 U/L AO ADM SS Basophils (Bld) [#/Vol] 0.1 103/mcL Normal 0.0 - 0.2 10^3/mcL AO Workflow SS Basophils/100 WBC (Bld) 1.1 % Normal 0.0 - 2.5 % AO Workflow SS Bilirubin [Mass/Vol] 0.4 mg/dL Normal 0.2 - 1 .0 mg/dL AO ADM SS Comment on above: Interpretive Data: U se of this assay is not recommended for patients undergoing treatment with eltrombopag due to the potential for falsely elevated results. Calcium [Mass/Vol] 9.0 mg/dL Normal 8.4 - 10. 2 mg/dL AO ADM SS Chloride [Moles/Vol] 103 mmol/L Normal 98 - 10 7 mmol/L AO ADM SS CO2 [Moles/Vol] 28 mmol/L Normal 23 - 31 mmol/L AO ADM SS Creatinine [Mass/Vol] 1.89 mg/dL High 0.70 - 1.30 mg/dL AO ADM SS Comment on above: Interpretive Data: T esting performed on Siemens Dimension EXL analyzer using a modified kinetic Dianne technique. Electrolyte Balance 7.0 mEq/L Normal 4.0 - 15 .0 mEq/L AO ADM SS Eosinophil, Absolute 0.4 103/mcL Normal 0.0 - 0 .7 10^3/mcL AO Workflow SS Eosinophils/100 WBC (Bld) 3.9 % Normal 0.0 - 7.0 % AO Workflow SS Erythrocyte distribution width (RBC) [Ratio] 19.9 % High 11.5 - 15.5 % AO Workflow SS Estimated Glomerular Filtration Rate 37 ml/min/1.73sqm Invalid Interpretation Code AO Chemistry S Comment on above: Interpretive Data: Stages of Chronic Kidney Disease (CKD) Stage Description eGFR(ml/min/1.73 sq.m.) CKD 1 Normal kidney function or >=90 normal kindney function with possible kidney damage (ex. Proteinuria) CKD 2 Kidney damage with mild loss 60-89 of kidney function CKD 3a Mild to moderate loss of kidney 45-59 function CKD 3b Moderate to severe loss of 30-44 of kindey function CKD 4 Severe loss of kidney function 15-29 CKD 5 Kidney failure <15 Note: (go live 2024) the eGFR calculation was updated to the 2020 CKD-EPI creatinine equation without a race factor to calculate the eGFR results. Globulin 3.6 G/dL Normal 1.5 - 3.8 G/dL AO ADM SS Glucose [Mass/Vol] 241 mg/dL High 83 - 110 mg/dL AO ADM SS Hematocrit (Bld) [Volume fraction] 38.7 % Low 40.0 - 52.0 % AO Workflow SS Hemoglobin (Bld) [Mass/Vol] 12.7 G/dL Low 13.0 - 17.5 G/dL AO Workflow SS Lymphocytes (Bld) [#/Vol] 1.4 103/mcL Normal 0.9 - 4.3 10^3/mcL AO Workflow SS Lymphocytes/100 WBC (Bld) 16.0 % Low 20.0 - 40.0 % AO Workflow SS MCH (RBC) [Entitic mass] 25.3 pg Low 27.0 - 33.0 pg AO Workflow SS MCHC 32.8 G/dL Normal 32.0 - 36.0 G/dL AO Workflow SS MCV (RBC) [Entitic vol] 77.0 fL Low 81.0 - 100.0 fL AO Workflow SS Monocytes (Bld) [#/Vol] 0.6 103/mcL Normal 0.1 - 1.4 10^3/mcL AO Workflow SS Monocytes/100 WBC (Bld) 7.0 % Normal 2.0 - 13.0 % AO Workflow SS Neutrophils (Bld) [#/Vol] 6.5 103/mcL Normal 2.3 - 8.1 10^3/mcL AO Workflow SS Neutrophils/100 WBC (Bld) 72.0 % Normal 50.0 - 75.0 % AO Workflow SS Platelet mean volume (Bld) [Entitic vol] 7.8 fL Normal 6.4 - 10.5 fL AO Workflow SS Platelets (Bld) [#/Vol] 317 103/mcL Normal 150 - 450 10^3/mcL AO Workflow SS Potassium [Moles/Vol] 5.2 mmol/L High 3.5 - 5.1 mmol/L AO ADM SS Protein [Mass/Vol] 7.0 G/dL Normal 6.4 - 8.2 G/dL AO ADM SS RBC (Bld) [#/Vol] 5.02 106/mcL Normal 4.50 - 6.0 0 10^6/mcL AO Workflow SS Sodium [Moles/Vol] 138 mmol/L Normal 136 - 145 mmol/L AO ADM SS Urea nitrogen [Mass/Vol] 24 mg/dL High 7 - 18 mg/dL AO ADM SS Urea nitrogen/Creatinine [Mass ratio] 13 ratio Normal 7 - 27 ratio AO ADM SS WBC (Bld) [#/Vol] 9.0 103/mcL Normal 4.5 - 10.8 10^3/mcL AO Workflow SS Endocrinology Visit Reporton 04-22-2024 Endocrinology Visit Report [facility] [address] [place] [address]. [address] [place] [address] OFFICE VISIT Date of Service: 04/22/24 MR#: [id number] Acct: [id number] Name: ANTONLYUDMILA GREENBERG Rep #: [id number] : 1950 Provider: BRANDON sainz Age/Sex: 74/M Location: [facility] Status: Signed Intake Vital Signs 03/20/24 08:47 04/08/24 15:11 04/22/24 09:41 Height 6 ft 2 in 6 ft 2 in 6 ft 2 in Weight: 224 lb BMI 28.8 BP 179/84 H Blood Pressure Location Lt brachial Position Sitting Pulse 59 L Pulse Source Monitor Pulse Oximetry (%) 97 Oxygen Delivery Method room air Intake Visit Reasons: Diabetes/Hypothyroid Chief Complaint: establish care- diabetes/hypothyroid Is patient in pain?: No Allergies No Known Allergies Allergy (Verified 04/22/24 09:44) Medications ???Medication ???Instructions ???Recorded ???Confirmed ???Type aspirin 81 mg tablet,delayed 81 mg PO QDAY 03/13/24 04/22/24 History release (Adult Aspirin Regimen) atorvastatin 10 mg tablet 10 mg PO QDAY 03/13/24 04/22/24 History gabapentin 300 mg capsule 300 mg PO BID 03/13/24 04/22/24 History nisoldipine 34 mg tablet,extended 34 mg PO QDAY 03/13/24 04/22/24 History release 24 hr ticagrelor 90 mg tablet (Brilinta) 90 mg PO BID 03/13/24 04/22/24 History cholecalciferol (vitamin D3) 25 25 mcg PO QDAY 03/20/24 04/22/24 History mcg (1,000 unit) capsule dupilumab 300 mg/2 mL subcutaneous 300 mg subcut Q2W 03/20/24 04/22/24 History pen injector (Dupixent) insulin lispro continuous subcutaneous infusion 03/20/24 04/22/24 History levothyroxine 88 mcg tablet 88 mcg PO QDAY 03/20/24 04/22/24 History (Synthroid) metoprolol succinate 25 mg 25 mg PO QDAY 03/20/24 04/22/24 History tablet,extended release 24 hr multivitamin 1 tab PO QDAY 03/20/24 04/22/24 History vitamin B complex 1 tab PO QDAY 03/20/24 04/22/24 History Have you fallen in the past year?: No PFSH Medical History STEMI (ST elevation myocardial infarction) NSTEMI (non-ST elevated myocardial infarction) Hyperlipidemia Diabetic neuropathy Gout Diabetes type I Nephropathy Chronic kidney disease (CKD) Proteinuria Systolic ejection murmur Carotid artery stenosis Hypertension Fatty liver disease, nonalcoholic Renal cyst Chronic back pain Acute renal failure Iron deficiency anemia Hypothyroidism Surgical History S/P right coronary artery (RCA) stent placement History of bilateral cataract extraction History of vasectomy History of cholecystectomy Family History Mother Hypertension Son Diabetes Social History Smoking Status: Former smoker alcohol intake: never substance use type: does not use caffeine: Yes Type: coffee Number of servings: 3 HPI HPI Chief Complaint: establish care- diabetes/hypothyroid Details: LYUDMILA BRENNAN, is a 74 M who presents to the office today for evaluation and management of diabetes and hypothyroid. Patient referred by cardiology for care of type 1 diabetes and hypothyroid. He recently relocated to [place] from [place]. He was diagnosed with diabetes in 1996 after noting increased thirst. He reports that he started as a type 2 but then stopped making insulin." Complications include MA, CAD, neuropathy, microalbuminuria, and CKD. Currently using Zecter 780g with Guardian CGM. Reports A1C approximately 1 month ago was 6.3%. Insulin pump downloaded and reviewed- he is significantly under reporting carbohydrates. GMI is 7.7%. He has hx of anemia, likely d/t chronic disease. Regarding hypothyroid- he is currently taking levothyroxine 100 mcg once daily. Dose was recently increased after recent labs. He takes levothyroxine with other medications, and often times coffee or with food. BP today is elevated, currently taking nislodipine ER 34 mg once daily and metoprolol succ 25 mg once daily. He states BP readings are typically not as elevated as it is today. He takes a daily statin. He had recent labs completed with PCP. I do not have record of these. Denies any acute concerns. ROS Const Constitutional: No fatigue or weight change ENT ENT: No dizziness/vertigo Cardio Cardiology: No chest pain at rest, chest pain with exertion, shortness of breath or palpitations Skin Skin: No wounds Endo Endocrine: No fatigue or weight change Exam Const General: cooperative, healthy appearing, comfortable and no acute distress Nutritional Appearance: overweight Orientation: alert, awake and oriented x3 HENMT Head: normal to inspection Ears: hearing grossly normal bilat (more content not included)... Normal [facility] CR - History AND Physicalon 04-08-2024 CR - History & Physical [facility]hab [address] [place] [address] CR - History Physical MR#: [id number] Acct: [id number] Name: LYUDMILA BRENNAN Rep #: [id number] : 1950 74 From: Clay Rosales BS, RVT PCP: RYLAN BOWDEN DOS: 04/08/24 CR - History Physical General Arrival date:: 04/08/24 Arrival time:: 14:06 Date of Referral:: 03/20/24 Date of CR Evaluation:: 04/08/24 Referring Physician: Dr. Salgado Primary Diagnosis: MA NonSTEMI <12 months History of Present Cardiac Event Onset Date Acute Myocardial Infarction within 12 months:: Yes (11/20/2023) Medications Ambulatory Orders ???Medication ???Instructions ???Recorded aspirin 81 mg tablet,delayed 81 mg PO QDAY 03/13/24 release (Adult Aspirin Regimen) atorvastatin 10 mg tablet 10 mg PO QDAY 03/13/24 gabapentin 300 mg capsule 300 mg PO BID 03/13/24 nisoldipine 34 mg tablet,extended 34 mg PO QDAY 03/13/24 release 24 hr ticagrelor 90 mg tablet (Brilinta) 90 mg PO BID 03/13/24 cholecalciferol (vitamin D3) 25 25 mcg PO QDAY 03/20/24 mcg (1,000 unit) capsule dupilumab 300 mg/2 mL subcutaneous 300 mg subcut Q2W 03/20/24 pen injector (Dupixent) insulin lispro continuous subcutaneous infusion 03/20/24 levothyroxine 88 mcg tablet 88 mcg PO QDAY 03/20/24 (Synthroid) metoprolol succinate 25 mg 25 mg PO QDAY 03/20/24 tablet,extended release 24 hr multivitamin 1 tab PO QDAY 03/20/24 vitamin B complex 1 tab PO QDAY 03/20/24 Allergies Allergies No Known Allergies Allergy (Verified 03/20/24 11:35) Sleep Disorder Evaluation Hx of Sleep Apnea: No Do you snore loudly (louder than talking or can be heard through closed doors)?: No Do you often feel tired/ fatigued/ sleepy during daytime?: No Has anyone observed you stop breathing during sleep?: No History of Hypertension (for STOP score): Yes STOP Results: Negative Advanced Directives Advanced Directives Power of Molder Wax Ball: No Living Will: No Advance Directives Information Provided: No Advance Directives on File: No DNR Order?:: No Past Medical History Covid-19 Screening Physicial Symptoms Other Clinical Concerns Exposure Risk Pertinent Comorbidities 65 years or older:: Yes Has a serious heart condition:: Yes Diabetic:: Yes Past Medical Illness Medical History STEMI (ST elevation myocardial infarction) NSTEMI (non-ST elevated myocardial infarction) Hyperlipidemia Diabetic neuropathy Gout Diabetes type I Nephropathy Chronic kidney disease (CKD) Proteinuria Systolic ejection murmur Carotid artery stenosis Hypertension Fatty liver disease, nonalcoholic Renal cyst Chronic back pain Acute renal failure Iron deficiency anemia Hypothyroidism Past Surgical History Surgical History S/P right coronary artery (RCA) stent placement History of bilateral cataract extraction History of vasectomy History of cholecystectomy Family History Summary Family History Mother Hypertension Son Diabetes Social History Smoking History Smoking Status: Former smoker Years Smokin Packs Smoked per Day: 1.5 (stopped in 2011) Alcohol Use Alcohol Usage: No Substance Abuse Hx Substance Use: No Occupation Occupation (List type of work in comments):: Retired Hobbies, Recreation, Social Activities Hobbies: Woodworking Recreational Activities: I am able to engage in all my recreational activities Social Environment Status Marital Status: Current Living Arrangements Living Environment:: Spouse Children How many children do you have?: 4 Do any of your children live nearby?: Yes Safety Do you feel safe in your surroundings?: Yes Assistance Do you need any assistance at home?: no Review of Systems Review of Systems Hints Review of Present Symptoms: Reports Shortness of Breath with Exertion, Dizziness/Lightheade dness, Fatigue, Appetite - Normal, Appetite - Special Diet and Sleep - Normal; Denies Shortness of Breath at Rest, PVD, Operative Discomfort, Angina, Wound Healing, Heart Arrhythmia/Irregular ities or Sexual Changes Pain Is Patient Pain Free?: Yes Pain Location: lower extremity Pain Level: 10/01 Risk Factor Assessment Chief Complaint Chief Complaint: MA NonSTEMI <12 months Vital Signs Pulse Ox: 98 Blood Pressure: 140/67 Pulse Pulse Rate: 66 Pulse Rhythm: Regular Hypertension How long have you been treated?: 20-25 years Blood Pressure Sitting - Right Arm: 140/67 Diabetes Diabetic History: Type I Nutrition Referral for Diabetes: No Obesity Height: 6 ft 2 in Weight:: 220 lb Weight in Pounds: 220.0 lbs Body Mass Index (BMI): 28.2 Physical Inactivity Physical Inactivity: Recreati (more content not included)... Normal [facility] 12 Lead EKG performed by [facility] on 03-20-2024 12 Lead EKG performed by [address] [address] 12 Lead EKG performed by [facility] 03/20/[address] MR#: [id number] Acct: [id number] Name: LYUDMILA BRENNAN Rep #: [id number] : 1950 74 From: Tim Salgado MD Attending Dr: Dr. Tim Salgado MD Status: DE P AMB Ordering Dr: Tim Salgado MD Date: 03/20/24 Location: [facility] Sex: M C Admitted: BMS/12 Lead EKG performed by [facility] ECG Report Interpretation ------Sinus Rhythm -Inferior infarct -probably not recent. ABNORMAL Electronically signed on 03/20/2024 at 12:[address] Tim Salgado [employer] Version [id number] 03/20/24 1242 Date Tim Salgado MD CC: RYLAN BOWDEN Date Dictated: 03/20/24845 Date Transcribed: 03/20/24845 Loss Prevention Auditor: Signed Normal [facility] Cardiology Visit Reporton Cardiology Visit Report [facility] [address] [place] [address] OFFICE VISIT Date of Service: 03/20/24 MR#: [id number] Acct: [id number] Name: LYUDMILA BRENNAN Rep #: [id number] : 1950 Provider: Dr. Tim romero MD Age/Sex: 74/M Location: [facility] Status: Signed HPI HPI History of Present Illness Details: Patient is a 74-year-old white male comes in for new patient visit with his . They have just relocated here from [place]. Patient carries a history of coronary disease status post stenting of the right coronary artery October 19 and then did not take his antiplatelet agent and was back in the hospital October 25, 2023 with a repeat current inferior wall myocardial infarction. The patient's presenting complaint was profound nausea. He did not have any chest discomfort. The patient says that they thought he might of had atrial fibrillation but then decided that he did not he does wear an iWatch which has not noted any atrial fibrillation since his discharge. The patient did participate in phase 2 cardiac rehab earlier this summer and early fall in [place]. He is wishing to get into phase 2 rehab again. The patient has a history of diabetes mellitus hemoglobin A1c has been consistently less than 7 he has an insulin pump. He also has a history of hypothyroidism on replacement therapy and he is hyperlipidemic on statin therapy. Patient also has a history of hypertension which has been fairly well-controlled. The patient's last cath November 20, 2023 showed an occluded stent in the right coronary artery which was subsequently redilated and restented. He had a 60% proximal LAD lesion mild disease in the circumflex and his ejection fraction was estimated 43% by echo. Currently the patient denies any recurrence of his symptoms he is fairly active in his home environment without restrictions. Denies any syncope or near syncope denies any lower extremity edema. Intake Vital Signs 02/14/24 08:39 03/20/24 08:47 Height 6 ft 2 in 6 ft 2 in Weight: 220 lb BMI 28.2 BP 140/67 H Blood Pressure Location Lt brachial Position Sitting Respiration 16 Pulse 66 Pulse Source NIBP Intake Visit Reasons: Est Care/ HX of MA (Self) Plate Colorer Required: No Accompanied by: Is patient in pain?: No Allergies No Known Allergies Allergy (Verified 03/20/24 11:35) Medications ???Medication ???Instructions ???Recorded ???Confirmed ???Type aspirin 81 mg tablet,delayed 81 mg PO QDAY 03/13/24 03/20/24 History release (Adult Aspirin Regimen) atorvastatin 10 mg tablet 10 mg PO QDAY 03/13/24 03/20/24 History gabapentin 300 mg capsule 300 mg PO BID 03/13/24 03/20/24 History nisoldipine 34 mg tablet,extended 34 mg PO QDAY 03/13/24 03/20/24 History release 24 hr ticagrelor 90 mg tablet (Brilinta) 90 mg PO BID 03/13/24 03/20/24 History cholecalciferol (vitamin D3) 25 25 mcg PO QDAY 03/20/24 03/20/24 History mcg (1,000 unit) capsule dupilumab 300 mg/2 mL subcutaneous 300 mg subcut Q2W 03/20/24 03/20/24 History pen injector (Dupixent) insulin lispro continuous subcutaneous infusion 03/20/24 03/20/24 History levothyroxine 88 mcg tablet 88 mcg PO QDAY 03/20/24 03/20/24 History (Synthroid) metoprolol succinate 25 mg 25 mg PO QDAY 03/20/24 03/20/24 History tablet,extended release 24 hr multivitamin 1 tab PO QDAY 03/20/24 03/20/24 History vitamin B complex 1 tab PO QDAY 03/20/24 03/20/24 History Ejection fraction %: 43 Have you fallen in the past year?: No PFSH Medical History STEMI (ST elevation myocardial infarction) NSTEMI (non-ST elevated myocardial infarction) Hyperlipidemia Diabetic neuropathy Gout Diabetes type I Nephropathy Chronic kidney disease (CKD) Proteinuria Systolic ejection murmur Carotid artery stenosis Hypertension Fatty liver disease, nonalcoholic Renal cyst Chronic back pain Acute renal failure Iron deficiency anemia Hypothyroidism Surgical History S/P right coronary artery (RCA) stent placement History of bilateral cataract extraction History of vasectomy History of cholecystectomy Family History Mother Hypertension Son Diabetes Social History Smoking Status: Former smoker alcohol intake: never substance use type: does not use caffeine: Yes Type: coffee Number of servings: 3 ROS Const Const: Positive for weakness (BLE); Negative for fatigue, headache(s) or weight gain ENT ENT: Positive for balance problems; Negative for headache(s), dizziness or Nosebleed/epistaxis Cardio Chest Pain: No Palpitatio (more content not included)... Normal [facility] .Auto Diffon 03-18-2024 Basophil, Absolute 0.1 10 3/mcL Normal 0.0-0.2 [facility] Comment on above: Performed By: #### A 1C, ANEU, CBC, TSH, GFR, ADIFF, CMP, LIPID #### [address] [address] Basophils/100 WBC (Bld) 1.0 % Normal 0.0-2.5 [facility] Comment on above: Performed By: #### A 1C, ANEU, CBC, TSH, GFR, ADIFF, CMP, LIPID #### [address] [address] Eosinophil, Absolute 0.6 10 3/mcL Normal 0.0-0.7 [facility] Comment on above: Performed By: #### A 1C, ANEU, CBC, TSH, GFR, ADIFF, CMP, LIPID #### [address] [address] Eosinophils/100 WBC (Bld) 6.9 % Normal 0.0-7.0 [facility] Comment on above: Performed By: #### A 1C, ANEU, CBC, TSH, GFR, ADIFF, CMP, LIPID #### [address] [address] Lymphocyte, Absolute 1.2 10 3/mcL Normal 0.9-4.3 [facility] Comment on above: Performed By: #### A 1C, ANEU, CBC, TSH, GFR, ADIFF, CMP, LIPID #### [address] [address] Lymphocytes/100 WBC (Bld) 13.0 % Low 20.0-40.0 [facility] Comment on above: Performed By: #### A 1C, ANEU, CBC, TSH, GFR, ADIFF, CMP, LIPID #### [place] [address] [place], [place] [address] Monocyte, Absolute 0.5 10 3/mcL Normal 0.1-1.4 [facility] Comment on above: Performed By: #### A 1C, ANEU, CBC, TSH, GFR, ADIFF, CMP, LIPID #### [address] [address] Monocytes/100 WBC (Bld) 6.2 % Normal 2.0-13.0 [facility] Comment on above: Performed By: #### A 1C, ANEU, CBC, TSH, GFR, ADIFF, CMP, LIPID #### [address] [address] Neutrophils/100 WBC (Bld) 72.9 % Normal 50.0-75.0 [facility] Comment on above: Performed By: #### A 1C, ANEU, CBC, TSH, GFR, ADIFF, CMP, LIPID #### [address] [address] .GFRon 03-18-2024 GFR Non- 43 ml/min/1.73sqm Normal [facility] Comment on above: Result Comment: GFR Population mean for , Non- Americans Ages 20-29 = 116 mL/min/1.73 sq.m. Ages 30-39 = 107 mL/min/1.73 sq.m. Ages 40-49 = 99 mL/min/1.73 sq.m. Ages 50-59 = 93 mL/min/1.73 sq.m. Ages 60-69 = 85 mL/min/1.73 sq.m. Ages 70+ = 75 mL/min/1.73 sq.m. Chronic Kidney Disease: Less than 60 mL/min/1.73 square meters End Stage Renal Disease: Less than 15 mL/min/1.73 square meters Performed By: #### C BC, CMP, GFR, ANEU, ADIFF #### [address] [address] GFR 53 ml/min/1.73sqm Normal [facility] Comment on above: Result Comment: GFR Population mean for , Non- Americans Ages 20-29 = 116 mL/min/1.73 sq.m. Ages 30-39 = 107 mL/min/1.73 sq.m. Ages 40-49 = 99 mL/min/1.73 sq.m. Ages 50-59 = 93 mL/min/1.73 sq.m. Ages 60-69 = 85 mL/min/1.73 sq.m. Ages 70+ = 75 mL/min/1.73 sq.m. Chronic Kidney Disease: Less than 60 mL/min/1.73 square meters End Stage Renal Disease: Less than 15 mL/min/1.73 square meters Performed By: #### C BC, CMP, GFR, ANEU, ADIFF #### [address] [address] .NEUABSon 03-18-2024 Neutrophil, Absolute 6.5 10 3/mcL Normal 2.3-8.1 [facility] Comment on above: Performed By: #### A 1C, ANEU, CBC, TSH, GFR, ADIFF, CMP, LIPID #### [address] [address] A1Con 03-18-2024 Glucose [Mass/Vol] 134 mg/dL Normal [facility] Comment on above: Result Comment: Corinne mated Average Glucose calculated by equation ((28.7xA1C)-46.7) Estimated average glucose (eAG) is a calculated value from Hemoglobin A1C and is truck sales representative of the average blood glucose level in the last 2-3 month period. Normal range: less than 114 mg/dL Performed By: #### C BC, CMP, GFR, ANEU, ADIFF #### [address] [address] HbA1c (Bld) [Mass fraction] 6.3 % Normal 4.3-6.4 [facility] Comment on above: Performed By: #### C BC, CMP, GFR, ANEU, ADIFF #### [place] [address] CBCon 03-18-2024 Erythrocyte distribution width (RBC) [Ratio] 21.3 % High 11.5-15.5 [facility] Comment on above: Performed By: #### A 1C, ANEU, CBC, TSH, GFR, ADIFF, CMP, LIPID #### [place] [address] Hematocrit (Bld) [Volume fraction] 32.5 % Low 40.0-52.0 [facility] Comment on above: Performed By: #### A 1C, ANEU, CBC, TSH, GFR, ADIFF, CMP, LIPID #### [place] [address] Hgb 10.6 G/dL Low 13.0-17.5 [facility] Comment on above: Performed By: #### A 1C, ANEU, CBC, TSH, GFR, ADIFF, CMP, LIPID #### [place] [address] MCH (RBC) [Entitic mass] 24.5 pg Low 27.0-33.0 [facility] Comment on above: Performed By: #### A 1C, ANEU, CBC, TSH, GFR, ADIFF, CMP, LIPID #### [place] [address] MCHC 32.4 G/dL Normal 32.0-36.0 [facility] Comment on above: Performed By: #### A 1C, ANEU, CBC, TSH, GFR, ADIFF, CMP, LIPID #### [place] [address] MCV (RBC) [Entitic vol] 75.7 fL Low 81.0-100.0 [facility] Comment on above: Performed By: #### A 1C, ANEU, CBC, TSH, GFR, ADIFF, CMP, LIPID #### [place] [address] Platelet 330 10 3/mcL Normal 150-450 [facility] Comment on above: Performed By: #### A 1C, ANEU, CBC, TSH, GFR, ADIFF, CMP, LIPID #### [address] [address] Platelet mean volume (Bld) [Entitic vol] 6.5 fL Normal 6.4-10.5 [facility] Comment on above: Performed By: #### A 1C, ANEU, CBC, TSH, GFR, ADIFF, CMP, LIPID #### [address] [address] RBC 4.30 10 6/mcL Low 4.50-6.00 [facility] Comment on above: Performed By: #### A 1C, ANEU, CBC, TSH, GFR, ADIFF, CMP, LIPID #### [address] [address] WBC 8.9 10 3/mcL Normal 4.5-10.8 [facility] Comment on above: Performed By: #### A 1C, ANEU, CBC, TSH, GFR, ADIFF, CMP, LIPID #### [address] [address] CMPon 03-18-2024 Albumin Level 3.0 G/dL Low 3.4-4.8 [facility] Comment on above: Performed By: #### A 1C, ANEU, CBC, TSH, GFR, ADIFF, CMP, LIPID #### [address] [address] Albumin/Globulin [Mass ratio] 1.0 {ratio} Low 1.1-2.5 [facility] Comment on above: Performed By: #### A 1C, ANEU, CBC, TSH, GFR, ADIFF, CMP, LIPID #### [address] [address] ALP [Catalytic activity/Vol] 67 U/L Normal 40-135 [facility] Comment on above: Performed By: #### A 1C, ANEU, CBC, TSH, GFR, ADIFF, CMP, LIPID #### [address] [address] ALT [Catalytic activity/Vol] 14 U/L Low 16-63 [facility] Comment on above: Performed By: #### A 1C, ANEU, CBC, TSH, GFR, ADIFF, CMP, LIPID #### [address] [address] AST [Catalytic activity/Vol] 10 U/L Normal 10-40 [facility] Comment on above: Performed By: #### A 1C, ANEU, CBC, TSH, GFR, ADIFF, CMP, LIPID #### [address] [address] Bili Total 0.3 mg/dL Normal 0.2-1.0 [facility] Comment on above: Result Comment: Use of this assay is not recommended for patients undergoing treatment with eltrombopag due to the potential for falsely elevated results. Performed By: #### A 1C, ANEU, CBC, TSH, GFR, ADIFF, CMP, LIPID #### [address] [address] BUN/Creatinine Ratio 10 ratio Normal 7-27 [facility] Comment on above: Performed By: #### A 1C, ANEU, CBC, TSH, GFR, ADIFF, CMP, LIPID #### [address] [address] Calcium [Mass/Vol] 8.7 mg/dL Normal 8.4-10.2 [facility] Comment on above: Performed By: #### A 1C, ANEU, CBC, TSH, GFR, ADIFF, CMP, LIPID #### [address] [address] Chloride [Moles/Vol] 105 mmol/L Normal 98-107 [facility] Comment on above: Performed By: #### A 1C, ANEU, CBC, TSH, GFR, ADIFF, CMP, LIPID #### [address] [address] CO2 [Moles/Vol] 28 mmol/L Normal 23-31 [facility] Comment on above: Performed By: #### A 1C, ANEU, CBC, TSH, GFR, ADIFF, CMP, LIPID #### [address] [address] Creatinine [Mass/Vol] 1.57 mg/dL High 0.70-1.30 [facility] Comment on above: Result Comment: Test ing performed on Siemens Dimension EXL analyzer using a modified kinetic Dianne technique. Performed By: #### A 1C, ANEU, CBC, TSH, GFR, ADIFF, CMP, LIPID #### [address] [address] Electrolyte Balance 7.0 mEq/L Normal 4.0-15.0 [facility] Comment on above: Performed By: #### A 1C, ANEU, CBC, TSH, GFR, ADIFF, CMP, LIPID #### [address] [address] Globulin 3.0 G/dL Normal [facility] Comment on above: Performed By: #### A 1C, ANEU, CBC, TSH, GFR, ADIFF, CMP, LIPID #### [address] [address] Glucose [Mass/Vol] 162 mg/dL High 83-110 [facility] Comment on above: Performed By: #### A 1C, ANEU, CBC, TSH, GFR, ADIFF, CMP, LIPID #### [address] [address] Potassium [Moles/Vol] 4.7 mmol/L Normal 3.5-5.1 [facility] Comment on above: Performed By: #### A 1C, ANEU, CBC, TSH, GFR, ADIFF, CMP, LIPID #### [address] [address] Sodium [Moles/Vol] 140 mmol/L Normal 136-145 [facility] Comment on above: Performed By: #### A 1C, ANEU, CBC, TSH, GFR, ADIFF, CMP, LIPID #### [address] [address] Total Protein 6.0 G/dL Low 6.4-8.2 [facility] Comment on above: Performed By: #### A 1C, ANEU, CBC, TSH, GFR, ADIFF, CMP, LIPID #### [place] [address] [place], [place] [address] Urea nitrogen [Mass/Vol] 15 mg/dL Normal 7-18 [facility] Comment on above: Performed By: #### A 1C, ANEU, CBC, TSH, GFR, ADIFF, CMP, LIPID #### [place] [address] [place], [place] [address] LABORATORYOrdered By: SYSTEM SYSTEM on 03-18-2024 Albumin BCP dye [Mass/Vol] 3.0 G/dL Low 3.4 - 4.8 G/dL AO ADM SS Albumin/Globulin [Mass ratio] 1.0 {ratio} Low 1.1 - 2.5 ratio AO ADM SS ALP [Catalytic activity/Vol] 67 U/L Normal 40 - 135 U/L AO ADM SS ALT With P-5'-P [Catalytic activity/Vol] 14 U/L Low 16 - 63 U/L AO ADM SS AST With P-5'-P [Catalytic activity/Vol] 10 U/L Normal 10 - 40 U/L AO ADM SS Basophils (Bld) [#/Vol] 0.1 103/mcL Normal 0.0 - 0.2 10^3/mcL AO Workflow SS Basophils/100 WBC (Bld) 1.0 % Normal 0.0 - 2.5 % AO Workflow SS Bilirubin [Mass/Vol] 0.3 mg/dL Normal 0.2 - 1 .0 mg/dL AO ADM SS Comment on above: Interpretive Data: U se of this assay is not recommended for patients undergoing treatment with eltrombopag due to the potential for falsely elevated results. Calcium [Mass/Vol] 8.7 mg/dL Normal 8.4 - 10. 2 mg/dL AO ADM SS Chloride [Moles/Vol] 105 mmol/L Normal 98 - 10 7 mmol/L AO ADM SS CO2 [Moles/Vol] 28 mmol/L Normal 23 - 31 mmol/L AO ADM SS Creatinine [Mass/Vol] 1.57 mg/dL High 0.70 - 1.30 mg/dL AO ADM SS Comment on above: Interpretive Data: T esting performed on Siemens Dimension EXL analyzer using a modified kinetic Dianne technique. Electrolyte Balance 7.0 mEq/L Normal 4.0 - 15 .0 mEq/L AO ADM SS Eosinophil, Absolute 0.6 103/mcL Normal 0.0 - 0 .7 10^3/mcL AO Workflow SS Eosinophils/100 WBC (Bld) 6.9 % Normal 0.0 - 7.0 % AO Workflow SS Erythrocyte distribution width (RBC) [Ratio] 21.3 % High 11.5 - 15.5 % AO Workflow SS GFR/1.73 sq M.predicted among blacks MDRD (S/P/Bld) [Vol rate/Area] 53 ml/min/1.73sqm Invalid Interpretation Code AO Chemistry S Comment on above: Interpretive Data: GFR Population mean for , Non- Americans Ages 20-29 = 116 mL/min/1.73 sq.m. Ages 30-39 = 107 mL/min/1.73 sq.m. Ages 40-49 = 99 mL/min/1.73 sq.m. Ages 50-59 = 93 mL/min/1.73 sq.m. Ages 60-69 = 85 mL/min/1.73 sq.m. Ages 70+ = 75 mL/min/1.73 sq.m. Chronic Kidney Disease: Less than 60 mL/min/1.73 square meters End Stage Renal Disease: Less than 15 mL/min/1.73 square meters GFR/1.73 sq M.predicted among non-blacks MDRD (S/P/Bld) [Vol rate/Area] 43 ml/min/1.73sqm Invalid Interpretation Code AO Chemistry S Comment on above: Interpretive Data: GFR Population mean for , Non- Americans Ages 20-29 = 116 mL/min/1.73 sq.m. Ages 30-39 = 107 mL/min/1.73 sq.m. Ages 40-49 = 99 mL/min/1.73 sq.m. Ages 50-59 = 93 mL/min/1.73 sq.m. Ages 60-69 = 85 mL/min/1.73 sq.m. Ages 70+ = 75 mL/min/1.73 sq.m. Chronic Kidney Disease: Less than 60 mL/min/1.73 square meters End Stage Renal Disease: Less than 15 mL/min/1.73 square meters Globulin 3.0 G/dL Invalid Interpretation Code AO ADM SS Glucose [Mass/Vol] 162 mg/dL High 83 - 110 mg/dL AO ADM SS Glucose [Mass/Vol] 134 mg/dL Invalid Interpretation Code AO Chemistry S Comment on above: Interpretive Data: E stimated average glucose (eAG) is a calculated value from Hemoglobin A1C and is truck sales representative of the average blood glucose level in the last 2-3 month period. Normal range: less than 114 mg/dL HbA1c (Bld) [Mass fraction] 6.3 % Normal 4.3 - 6.4 % AO ADM SS Hematocrit (Bld) [Volume fraction] 32.5 % Low 40.0 - 52.0 % AO Workflow SS Hemoglobin (Bld) [Mass/Vol] 10.6 G/dL Low 13.0 - 17.5 G/dL AO Workflow SS Lymphocytes (Bld) [#/Vol] 1.2 103/mcL Normal 0.9 - 4.3 10^3/mcL AO Workflow SS Lymphocytes/100 WBC (Bld) 13.0 % Low 20.0 - 40.0 % AO Workflow SS MCH (RBC) [Entitic mass] 24.5 pg Low 27.0 - 33.0 pg AO Workflow SS MCHC 32.4 G/dL Normal 32.0 - 36.0 G/dL AO Workflow SS MCV (RBC) [Entitic vol] 75.7 fL Low 81.0 - 100.0 fL AO Workflow SS Monocytes (Bld) [#/Vol] 0.5 103/mcL Normal 0.1 - 1.4 10^3/mcL AO Workflow SS Monocytes/100 WBC (Bld) 6.2 % Normal 2.0 - 13.0 % AO Workflow SS Neutrophils (Bld) [#/Vol] 6.5 103/mcL Normal 2.3 - 8.1 10^3/mcL AO Workflow SS Neutrophils/100 WBC (Bld) 72.9 % Normal 50.0 - 75.0 % AO Workflow SS Platelet mean volume (Bld) [Entitic vol] 6.5 fL Normal 6.4 - 10.5 fL AO Workflow SS Platelets (Bld) [#/Vol] 330 103/mcL Normal 150 - 450 10^3/mcL AO Workflow SS Potassium [Moles/Vol] 4.7 mmol/L Normal 3.5 - 5.1 mmol/L AO ADM SS Protein [Mass/Vol] 6.0 G/dL Low 6.4 - 8.2 G/dL AO ADM SS RBC (Bld) [#/Vol] 4.30 106/mcL Low 4.50 - 6.0 0 10^6/mcL AO Workflow SS Sodium [Moles/Vol] 140 mmol/L Normal 136 - 145 mmol/L AO ADM SS TSH Qn 28.17 m[IU]/L High 0.36 - 3.74 mcIU/mL AO ADM SS Urea nitrogen [Mass/Vol] 15 mg/dL Normal 7 - 18 mg/dL AO ADM SS Urea nitrogen/Creatinine [Mass ratio] 10 ratio Normal 7 - 27 ratio AO ADM SS WBC (Bld) [#/Vol] 8.9 103/mcL Normal 4.5 - 10.8 10^3/mcL AO Workflow SS LABORATORYOrdered By: Harriet Kent on 03-18-2024 Cholesterol [Mass/Vol] 130 mg/dL Normal 0 - 2 00 mg/dL AO ADM SS Comment on above: Interpretive Data: C holesterol Reference Interval: Less than 200 Desirable 200-239 Borderline high risk 240 and above High risk Cholesterol in HDL [Mass/Vol] 58 mg/dL Normal 40 - 60 mg/dL AO ADM SS Cholesterol in LDL [Mass/Vol] 61 mg/dL Normal 0 - 130 mg/dL AO ADM SS Triglyceride [Mass/Vol] 55 mg/dL Normal 0 - 150 mg/dL AO ADM SS Comment on above: Interpretive Data: T riglyceride Reference Interval: Less than 150 Normal 150-199 Borderline high risk 200-499 High risk 500 or higher Very high risk LIPIDon 03-18-2024 Cholesterol [Mass/Vol] 130 mg/dL Normal 0-200 [facility] Comment on above: Result Comment: Chol esterol Reference Interval: Less than 200 Desirable 200-239 Borderline high risk 240 and above High risk Performed By: #### C BC, CMP, GFR, ANEU, ADIFF #### [place] [address] [place], [place] [address] Cholesterol in HDL [Mass/Vol] 58 mg/dL Normal 40-60 [facility] Comment on above: Performed By: #### C BC, CMP, GFR, ANEU, ADIFF #### Patricio [address] [address] Cholesterol in LDL [Mass/Vol] 61 mg/dL Normal 0-130 [facility] Comment on above: Performed By: #### C BC, CMP, GFR, ANEU, ADIFF #### [place] [address] [place], [place] [address] Triglyceride [Mass/Vol] 55 mg/dL Normal 0-150 [facility] Comment on above: Result Comment: Trig lyceride Reference Interval: Less than 150 Normal 150-199 Borderline high risk 200-499 High risk 500 or higher Very high risk Performed By: #### C BC, CMP, GFR, ANEU, ADIFF #### [address] [address] TSHon 03-18-2024 TSH Qn 28.17 m[IU]/L High 0.36-3.74 [facility] Comment on above: Performed By: #### A 1C, ANEU, CBC, TSH, GFR, ADIFF, CMP, LIPID #### [address] [address] Office Visiton 02-28-2024 Follow-up visit [id number] Lyudmila Brennan 1950 M Date Provider Department Center 02/28/2024 [id number]-[facility] [place] No family history on file Level of Service:03414 [place] OFFICE/OUTPATIENT ESTABLISHED MOD MDM 30 MIN Reason for Visit and Comments: Follow-up [928116] - Shoulder injury Normal [facility] Progress Noteon 02-28-2024 Progress Note [facility] [address] [facility] [address] Dept: [phone] Dept Loc: [phone] Patient Name: Lyudmila Brennan Date: 02/28/24 Reason for Visit: Chief Complaint Patient presents with Follow-up Shoulder injury Visit type: Established Patient HISTORY OF PRESENT ILLNESS 74 y.o. male status post strain injury with hematoma. Patient recently moved into a home into [place] and while moving boxes felt a pop in the right shoulder area with pain down into the right flank. Bruising and swelling occurred very shortly after and presented for evaluation. Given his use of Brilinta and ASA he was admitted for monitoring to make sure hematoma was not expanding. Hgb dropped and he was transfused 1uPRBC, Brilinta and ASA on hold. Daily exams did not show clinical signs of enlarging hematoma. Ecchymosis slightly worsened but then stabilized. Hgb remained stable. Brilinta and ASA restarted and Hgb remained stabled as did the hematoma clinically. Abdominal binder and ice packs continued while in patient and will continue at home. Patient eager to discharge home. Patient to establish with PCP and follow up in trauma clinic. Discussed with patient strict return precautions and to continue close monitoring at home. Patient and agreeable with plan. Patient presents to trauma office today for follow up. Consultations in Hospital: IP CONSULT TO GERIATRICS Subjective (Location/Symptom, Timing/Onset,Context /Setting, Quality, Duration, Modifying Factors, Severity) Note limiting factors. Patient doing very well. showed me daily pictures of the bruising subsiding and the swelling slowly subsided. Has continue his Brilinta and ASA without difficulty. Slightly elevated BP, notes he tooks his BP meds today and is denying any chest pain, sob, weakness, dizziness, etc. Has appointment with PCP after todays appointment. No past medical history on file. No past surgical history on file. No family history on file. Social History Socioeconomic History Marital status: Spouse name: Not on file Number of children: Not on file Years of education: Not on file Highest education level: Not on file Occupational History Not on file Tobacco Use Smoking status: Former Types: Cigarettes Passive exposure: Past Smokeless tobacco: Not on file Vaping Use Vaping status: Former Substance and Sexual Activity Alcohol use: Not Currently Drug use: Never Sexual activity: Not on file Other Topics Concern Not on file Social History Narrative Not on file Social Drivers of Health Financial Resource Strain: Not on file Food Insecurity: No Food Insecurity (02/17/2024) Hunger Vital Sign Worried About Running Out of Food in the Last Year: Never true Ran Out of Food in the Last Year: Never true Transportation Needs: No Transportation Needs (02/17/2024) PRAPARE - Transportation Lack of Transportation (Medical): No Lack of Transportation (Non-Medical): No Physical Activity: Not on file Stress: Not on file Social Connections: Not on file Intimate Partner Violence: Not At Risk (02/17/2024) Humiliation, Afraid, Rape, and Kick questionnaire Fear of Current or Ex-Partner: No Emotionally Abused: No Physically Abused: No Sexually Abused: No Housing Stability: Low Risk (02/17/2024) Housing Stability Vital Sign Unable to Pay for Housing in the Last Year: No Number of Times Moved in the Last Year: 1 Homeless in the Last Year: No Current Outpatient Medications Medication Sig Dispense Refill aspirin 81 MG EC tablet Take 81 mg by mouth daily. atorvastatin (Lipitor) 10 MG tablet Take 10 mg by mouth daily. b complex vitamins capsule Take 1 capsule by mouth daily. Cholecalciferol (D3-1000 PO) Take by mouth daily. dupilumab (Dupixent) 300 MG/2ML solution prefilled syringe injection Inject 300 mg under the skin Twice a Week. gabapentin (Neurontin) 300 MG capsule Take 300 mg by mouth 2 times daily. Insulin Lispro (Humalog) 100 UNIT/ML solution injection Inject 0-29 Units under the skin in the morning and 0-29 Units at noon and 0-29 Units in the evening. Inject with meals. levothyroxine (Synthroid, Levoxyl) 100 MCG tablet Take 88 mcg by mouth every morning (before breakfast). metoprolol tartrate (Lopressor) 25 MG tablet Take 25 mg by mouth Once. Multiple Vitamin (multivitamin) tablet Take 1 tablet by mouth daily. nisoldipine (Sular) 34 MG 24 hr tablet Take 34 mg by mouth every morning (before breakfast). Do not crush, chew, or split. ticagrelor (Brilinta) 90 MG tablet Take 90 mg by mouth 2 times daily. No current facility-administere d medications for this visit. No Known Allergies No orders to display POCT glucose meter Result Date: 02/15/2024 Performed by: [facility], [address] [place] [address] CLIA ID: [id number] XR chest 1 view Result Date: 02/15/2024 Patient Name: LYUDMILA BRENNAN DO (more content not included)... Normal [facility] 36on 02-23-2024 36 Scheduled Normal [facility] 30on 02-17-2024 30 Problem: Pain - Adult Goal: Verbalizes/displays adequate comfort level or baseline comfort level Outcome: Progressing Flowsheets (Taken 02/16/20241954) Verbalizes/displays adequate comfort level or baseline comfort level: Encourage patient to monitor pain and request assistance Assess pain using appropriate pain scale Administer analgesics based on type and severity of pain and evaluate response Problem: Safety - Adult Goal: Free from fall injury Outcome: Progressing Problem: Discharge Planning Goal: Discharge to home or other facility with appropriate resources Outcome: Progressing Problem: Chronic Conditions and Co-morbidities Goal: Patient's chronic conditions and co-morbidity symptoms are monitored and maintained or improved Outcome: Progressing Problem: Knowledge Deficit Goal: Patient/family/careg iver demonstrates understanding of disease process, treatment plan, medications, and discharge instructions Outcome: Progressing Problem: Potential for Compromised Skin Integrity Goal: Skin Integrity is Maintained or Improved Outcome: Progressing Goal: Nutritional status is improving Outcome: Progressing Problem: Urinary Incontinence Goal: Perineal skin integrity is maintained or improved Outcome: Progressing The patient is Moderately Stable - Low risk of patient condition declining or worsening Normal [facility] BASIC METABOLIC PANELon 01-23 Anion gap [Moles/Vol] 5 mmol/L Normal 3-13 [facility] Comment on above: Performed By: #### L AB15 ####Supervisor Wet Room: JUANI FLORES ([id number])[address] Calcium [Mass/Vol] 8.4 mg/dL Normal 8.4-10.4 [facility] Comment on above: Performed By: #### L AB15 ####Supervisor Wet Room: JUANI FLORES ([id number])[facility] ([facility])[address] [place] [address] [place] Chloride [Moles/Vol] 108 mmol/L High 98-107 [facility] Comment on above: Performed By: #### L AB15 ####Supervisor Wet Room: JUANI FLORES ([id number])[facility] ([facility])[address] [place] [address] CO2 [Moles/Vol] 23 mmol/L Normal 22-30 [facility] Comment on above: Performed By: #### L AB15 ####Supervisor Wet Room: JUANI [id number])[facility] ([facility])[address] [place] [address] Creatinine [Mass/Vol] 1.41 mg/dL High 0.66-1.25 [facility] Comment on above: Performed By: #### L AB15 ####Supervisor Wet Room: JUANI FLORES ([id number])[facility] ([facility])[address] [place] [address] GLOMERULAR FILTRATION RATE ML/MIN/1.73 SQ M.PREDICTED 52.3 mL/min/1.73m*2 Low >60.0 [facility] Comment on above: Result Comment: Calc ulation based on the Chronic Kidney Disease Epidemiology Collaboration (CKD-EPI) equation refit without adjustment for race Performed By: #### L AB15 ####Supervisor Wet Room: JUANI FLORES ([id number])[facility] ([facility])[address] [place] [address] Glucose [Mass/Vol] 107 mg/dL High 70-100 [facility] Comment on above: Performed By: #### L AB15 ####Supervisor Wet Room: JUANI FLORES ([id number])[facility] ([facility])[address] [place] [address] Potassium [Moles/Vol] 4.4 mmol/L Normal 3.5-5.1 [facility] Comment on above: Performed By: #### L AB15 ####Supervisor Wet Room: JUANI FLORES ([id number])[facility] ([facility])[address] [place] [address] Sodium [Moles/Vol] 136 mmol/L Normal 135-145 [facility] Comment on above: Performed By: #### L AB15 ####Supervisor Wet Room: JUANI FLORES ([id number])[facility] ([facility])[address] [place] [address] [place] Urea nitrogen [Mass/Vol] 24 mg/dL High 9-20 [facility] Comment on above: Performed By: #### L AB15 ####Supervisor Wet Room: JUANI FLORES ([id number])[facility] ([facility])[address] [place] [address] CBC (HEMOGRAM)on 02-17-2024 Erythrocyte distribution width (RBC) [Ratio] 19.9 % High 11.5-15.0 [facility] Comment on above: Performed By: #### L [id number] ####Supervisor Wet Room: JUANI FLORES ([id number])[facility])[address] [place] [address] Hematocrit (Bld) [Volume fraction] 28.4 % Low 40.0-52.0 [facility] Comment on above: Performed By: #### L [id number] ####Supervisor Wet Room: JUANI FLORES ([phone])[facility])[address] [place] [address] Hemoglobin (Bld) [Mass/Vol] 8.9 g/dL Low 13.0-18.0 [facility] Comment on above: Performed By: #### L [id number] ####Supervisor Wet Room: JUANI FLORES ([id number])[facility])[address] [place] [address] MCH (RBC) [Entitic mass] 23.7 pg Low 26.0-34.0 [facility] Comment on above: Performed By: #### L [id number] ####Supervisor Wet Room: JUANI FLORES ([id number])[facility])[address] [place] [address] MCHC 31.3 % Normal 30.5-36.0 [facility] Comment on above: Performed By: #### L [id number] ####Supervisor Wet Room: JUANI FLORES ([id number])[facility])[address] [place] [address] MCV (RBC) [Entitic vol] 75.7 fL Low 77.0-99.0 [facility] Comment on above: Performed By: #### L [id number] ####Supervisor Wet Room: JUANI FLORES ([id number])[facility])[address] [place] [address] Platelet mean volume (Bld) [Entitic vol] 8.9 fL Low 9.0-12.7 [facility] Comment on above: Performed By: #### L [id number] ####Supervisor Wet Room: JUANI FLORES ([id number])[facility])[address] [place] [address] Platelets (Bld) [#/Vol] 352 10*3/uL Normal 140-440 [facility] Comment on above: Performed By: #### L [id number] ####Supervisor Wet Room: JUANI FLORES ([id number])[facility])[address] [place] [address] RBC (Bld) [#/Vol] 3.75 10*6/uL Low 4.40-5.90 [facility] Comment on above: Performed By: #### L [id number] ####Supervisor Wet Room: JUANI FLORES ([id number])[facility])[address] [place] [address] WBC (Bld) [#/Vol] 10.3 10*3/uL Normal 3.6-10.7 [facility] Comment on above: Performed By: #### L [id number] ####Supervisor Wet Room: JUANI FLORES ([id number])[facility])[address] [place] [address] CBC WITH AUTO DIFFERENTIALon 02-17-2024 Basophils (Bld) [#/Vol] 0.1 10*3/uL Normal 0.0-0.2 [facility] Comment on above: Performed By: #### L [id number] ####Supervisor Wet Room: JUANI FLORES ([id number])[facility] [facility])[address] [place] [address] Basophils/100 WBC (Bld) 0.8 % Normal 0.0-2.0 [facility] Comment on above: Performed By: #### L [id number] ####Supervisor Wet Room: JUANI FLORES ([phone])[facility])[address] [place] [address] Eosinophils (Bld) [#/Vol] 0.5 10*3/uL Normal 0.0-0.5 [facility] Comment on above: Performed By: #### L [id number] ####Supervisor Wet Room: JUANI FLORES ([id number])[address] Eosinophils/100 WBC (Bld) 5.8 % Normal 0.0-6.0 [facility] Comment on above: Performed By: #### L [id number] ####Supervisor Wet Room: JUANI FLORES ([id number])[facility])[address] [place] [address] Erythrocyte distribution width (RBC) [Ratio] 20.0 % High 11.5-15.0 [facility] Comment on above: Performed By: #### L [id number] ####Supervisor Wet Room: JUANI FLORES ([id number])[address] Hematocrit (Bld) [Volume fraction] 26.0 % Low 40.0-52.0 [facility] Comment on above: Performed By: #### L [id number] ####Supervisor Wet Room: JUANI FLORES ([id number])[address] Hemoglobin (Bld) [Mass/Vol] 8.2 g/dL Low 13.0-18.0 [facility] Comment on above: Performed By: #### L [id number] ####Supervisor Wet Room: JUANI FLORES ([id number])[address] IMMATURE GRANS % 0.4 % Normal 0.0-2.0 [facility] Comment on above: Performed By: #### L [id number] ####Supervisor Wet Room: JUANI FLORES ([id number])[address] IMMATURE GRANS ABSOLUTE 0.0 10*3/uL Normal <0.1 [facility] Comment on above: Performed By: #### L [id number] ####Supervisor Wet Room: JUANI [id number])[facility])[address] [place] [address] Lymphocytes (Bld) [#/Vol] 1.4 10*3/uL Normal 1.0-4.3 [facility] Comment on above: Performed By: #### L [id number] ####Supervisor Wet Room: JUANI FLORES ([id number])[facility])[address] [place] [address] Lymphocytes/100 WBC (Bld) 15.8 % Normal 15.0-45.0 [facility] Comment on above: Performed By: #### L [id number] ####Supervisor Wet Room: JUANI FLORES ([id number])[facility])[address] [place] [address] MCH (RBC) [Entitic mass] 23.9 pg Low 26.0-34.0 [facility] Comment on above: Performed By: #### L [id number] ####Supervisor Wet Room: JUANI FLORES ([id number])[facility])[address] [place] [address] MCHC 31.5 % Normal 30.5-36.0 [facility] Comment on above: Performed By: #### L [id number] ####Supervisor Wet Room: JUANI FLORES ([id number])[facility])[address] [place] [address] MCV (RBC) [Entitic vol] 75.8 fL Low 77.0-99.0 [facility] Comment on above: Performed By: #### L [id number] ####Supervisor Wet Room: JUANI FLORES ([phone])[facility])[address] [place] [address] Monocytes (Bld) [#/Vol] 0.7 10*3/uL Normal 0.0-0.9 [facility] Comment on above: Performed By: #### L [id number] ####Supervisor Wet Room: JUANI FLORES ([phone])[facility])[address] [place] [address] Monocytes/100 WBC (Bld) 7.8 % Normal 5.0-13.0 [facility] Comment on above: Performed By: #### L [id number] ####Supervisor Wet Room: JUAIN FLORES ([id number])[facility] ([facility])[address] [place] [address] NEUTROPHILS ABSOLUTE 6.0 10*3/uL Normal 1.8-7.5 [facility] Comment on above: Performed By: #### L [id number] ####Supervisor Wet Room: JUANI FLORES ([id number])[facility] ([facility])[address] [place] [address] Neutrophils/100 WBC (Bld) 69.4 % Normal 38.0-82.0 [facility] Comment on above: Performed By: #### L [id number] ####Supervisor Wet Room: JUANI FLORES ([id number])[facility] ([facility])[address] [place] [address] NRBC 0.0 /100 WBCs Normal 0.0-2.0 [facility] Comment on above: Performed By: #### L [id number] ####Supervisor Wet Room: JUANI FLORES ([id number])[facility] ([facility])[address] [place] [address] Platelet mean volume (Bld) [Entitic vol] 9.6 fL Normal 9.0-12.7 [facility] Comment on above: Performed By: #### L [id number] ####Supervisor Wet Room: JUANI FLORES ([id number])[facility] ([facility])[address] [place] [address] Platelets (Bld) [#/Vol] 342 10*3/uL Normal 140-440 [facility] Comment on above: Performed By: #### L [id number] ####Supervisor Wet Room: JUANI FLORES ([id number])[facility] ([facility])[address] [place] [address] [place] RBC (Bld) [#/Vol] 3.43 10*6/uL Low 4.40-5.90 [facility] Comment on above: Performed By: #### L [id number] ####Supervisor Wet Room: JUANI FLORES ([id number])[address] WBC (Bld) [#/Vol] 8.6 10*3/uL Normal 3.6-10.7 [facility] Comment on above: Performed By: #### L [id number] ####Supervisor Wet Room: JUANI FLORES ([id number])[address] Nursing Noteon 02-17-2024 Nursing Note Telemetry discontinued, PRN lock removed, home going instructions reviewed with pt and . [facility] Progress Noteon 02-17-2024 Progress Note This note is for coding purposes only. Patient is documented to have DM being treated with insulin. Per [facility] patient had blood glucose as high as 286, 285, 246. Could this be further specified as: DM with hyperglycemia Bertha Can MD Division of Trauma Department of Surgery [facility] Progress Note Attestation signed by Bertha Can MD at 02/19/2024 7:55 AM ATTENDING ADDENDUM Patient Active Problem List Diagnosis Hematoma I have personally performed a face to face diagnostic evaluation on this patient. I have reviewed and agree with the care plan as documented above by my CENTRIFUGE SEPARATOR OPERATOR/JARAD. I personally discussed the review of systems and interviewed the patient along with performing a physical examination. In addition, I discussed the patient's condition and treatment options with him/her when possible. All of the patient's questions were answered and family updated when appropriate and possible. I I performed a physical exam and ROS on the same date of service as above. My findings agree with the above note except for any details corrected below. 74M with CAD on ASA/Brilinta following cardiac stents in October, who presented with large right chest/flank hematoma following mild muscle injury sustained moving boxes at home on 02/10. ASA and Brilinta held since 02/13. He required 1 unit RBC transfusion overnight 02/13 for Hb 6.2. No subsequent transfusions required. Hb this AM is 8.9 - stable. Hematoma on exam appears stable. Plan to discharge home this afternoon on ASA/Brilinta. The risks of bleeding with minor trauma/muscle injury were again discussed. Patient is in the middle of a move into a new house and he doesn't want to burden his with all of the heavy lifting. We discussed the signs and symptoms to look out for that should prompt a return to the ED, including worsening pain, weakness/dizziness. Medically stable to discharge home today. Level of Medical Decision Making: risk of morbidity from additional diagnostic testing or treatment due to acute traumatic pain []High [x]Moderate []Low Complexity: Acute illness with systemic symptoms (MOD) Risk: Prescription drug management (MOD) Personally Reviewed/Independent ly interpreted patient's: [x]Epic notes []Radiology studies [x]Labs []EKG []Ordering tests []Other Discussed/ With: [x]Patient/Family [x]RN []Consultants []SW/TCC []Other Total Care Time (combined between CENTRIFUGE SEPARATOR OPERATOR/PA-C and myself) throughout the day today was >= 35 minutes (including chart/data review/analysis, care coordination, and [id number] encounter), and was spent discussing/counselin g the patient/family regarding the care plan for this patient. I examined the patient independently. I reviewed relevant data myself and may have also done so in the context of team rounds. A full chart review was performed. Bertha Can MD Division of Trauma Department of Surgery [facility] Daily Trauma Progress Note JAILYN 02/17/2024 9:31 AM Admit Date: 02/14/2024 Post Trauma Day 3 Other Lifting heavy objects HISTORY OF TRAUMATIC EVENT: 74 y.o. male presenting as a transfer from [facility]. He states that on 02/10, he was lifting some heavy objects out of his vehicle when he felt a pop in his right shoulder and had subsequent pain that traveled down his shoulder into his right flank. His noticed some bruising and swelling on the right flank which prompted him to present to the hospital. Patient pain level currently is 2/10. He currently takes Brillinta and ASA for recent stent placement 10/2023 INJURIES: Right flank hematoma Right hemothorax PROCEDURES: None INCIDENTAL FINDINGS: CHIEF COMPLAINT: right flank pain PREVIOUS 24 HOUR EVENTS: - HGB 8.2 Consults: IP CONSULT TO GERIATRICS MEDICATIONS: Current Facility-Administere d Medications: acetaminophen (Tylenol) tablet 1,000 mg, 1,000 mg, Oral, q8h, Dewayne Sherman III, MD, 1,000 mg at 02/17/24 0920 amLODIPine (Norvasc) tablet 10 mg, 10 mg, Oral, Daily, KYLEIGH Hardy CNP, 10 mg at 02/17/24 0916 aspirin EC tablet 81 mg, 81 mg, Oral, Daily, KYLEIGH Hardy CNP, 81 mg at 02/17/24 0919 atorvastatin (Lipitor) tablet 10 mg, 10 mg, Oral, Daily, Sammy Byrd MD, 10 mg at 02/17/24 0919 dextrose 5 % infusion, 100 mL/hr, IntraVENous, PRN, Sammy Byrd MD dextrose 50 % solution 12.5 g, 12.5 g, IntraVENous, PRN, Sammy Byrd MD gabapentin (Neurontin) capsule 300 mg, 300 mg, Oral, BID, Sammy Byrd MD, 300 mg at 02/17/24 0916 glucagon (human recombinant) injection 1 mg, 1 mg, IntraMUSCular, PRN, Sammy Byrd MD glucose oral gel 15 g, 15 g, Oral, PRN, aSmmy Byrd MD Insulin Lispro (Humalog) injection 0-6 Units, 0-6 Units, SubCUTAneous, BID WC AND Insulin Lispro (Humalog) injection 0-6 Units, 0-6 Units, SubCUTAneous, Nightly, Bertha [place], CENTRIFUGE SEPARATOR OPERATOR - INSIDE SALES ADMINISTRATOR Insulin Pump - (Patient Supplied), , SubCUTAneous, Continuous, Gregorio Tellez MD levothyroxine (Synthroid, Levoxyl) tablet 88 mcg, 88 mcg, Oral, qAM AC, Sammy Byrd MD, 88 mcg at 02/17/24 0631 naloxone (Narcan) injection 0.4 (more content not included)... Normal [facility] 30on 02-16-2024 30 The patient is Moderately Unstable - Medium risk of patient condition declining or worsening The patient's goals for the shift include The clinical goals for the shift include Over the shift, the patient did not make progress toward the following goals. Barriers to progression include hematoma. Recommendations to address these barriers include frequent checks . Normal [facility] 30 Problem: Pain - Adult Goal: Verbalizes/displays adequate comfort level or baseline comfort level Outcome: Progressing Problem: Safety - Adult Goal: Free from fall injury Outcome: Progressing Problem: Discharge Planning Goal: Discharge to home or other facility with appropriate resources Outcome: Progressing Problem: Chronic Conditions and Co-morbidities Goal: Patient's chronic conditions and co-morbidity symptoms are monitored and maintained or improved Outcome: Progressing Problem: Knowledge Deficit Goal: Patient/family/careg iver demonstrates understanding of disease process, treatment plan, medications, and discharge instructions Outcome: Progressing Problem: Potential for Compromised Skin Integrity Goal: Skin Integrity is Maintained or Improved Outcome: Progressing Goal: Nutritional status is improving Outcome: Progressing Problem: Urinary Incontinence Goal: Perineal skin integrity is maintained or improved Outcome: Progressing Normal [facility] BASIC METABOLIC PANELon 10-2 Anion gap [Moles/Vol] 10 mmol/L Normal 3-13 [facility] Comment on above: Performed By: #### L [id number] ####Supervisor Wet Room: JUANI FLORES ([id number])[facility])[address] [place] [address] Calcium [Mass/Vol] 8.1 mg/dL Low 8.4-10.4 [facility] Comment on above: Performed By: #### L [id number] ####Supervisor Wet Room: JUANI FLORES ([id number])[facility] ([facility])[address] [place] [address] Chloride [Moles/Vol] 107 mmol/L Normal 98-107 [facility] Comment on above: Performed By: #### L AB15 ####Supervisor Wet Room: JUANI FLORES ([id number])[facility])[address] [place] [address] CO2 [Moles/Vol] 19 mmol/L Low 22-30 [facility] Comment on above: Performed By: #### L AB15 ####Supervisor Wet Room: JUANI FLORES ([id number])[facility])[address] [place] [address] Creatinine [Mass/Vol] 1.66 mg/dL High 0.66-1.25 [facility] Comment on above: Performed By: #### L AB15 ####Supervisor Wet Room: JUANI FLORES ([id number])[facility])[address] [place] [address] GLOMERULAR FILTRATION RATE ML/MIN/1.73 SQ M.PREDICTED 43.0 mL/min/1.73m*2 Low >60.0 [facility] Comment on above: Result Comment: Calc ulation based on the Chronic Kidney Disease Epidemiology Collaboration (CKD-EPI) equation refit without adjustment for race Performed By: #### L AB15 ####Supervisor Wet Room: JUANI FLORES ([id number])[facility])[address] [place] [address] Glucose [Mass/Vol] 210 mg/dL High 70-100 [facility] Comment on above: Performed By: #### L AB15 ####Supervisor Wet Room: JUANI FLORES ([phone])[facility])[address] [place] [address] Potassium [Moles/Vol] 4.8 mmol/L Normal 3.5-5.1 [facility] Comment on above: Performed By: #### L AB15 ####Supervisor Wet Room: JUANI FLORES ([id number])[facility])[address] [place] [address] Sodium [Moles/Vol] 136 mmol/L Normal 135-145 [facility] Comment on above: Performed By: #### L AB15 ####Supervisor Wet Room: JUANI FLORES ([id number])[facility] ([facility])[address] [place] [address] Urea nitrogen [Mass/Vol] 25 mg/dL High 9-20 [facility] Comment on above: Performed By: #### L AB15 ####Supervisor Wet Room: JUANI FLORES ([id number])[facility] ([facility])[address] [place] [address] CBC WITH AUTO DIFFERENTIALon 02-16-2024 Basophils (Bld) [#/Vol] 0.1 10*3/uL Normal 0.0-0.2 [facility] Comment on above: Performed By: #### L [id number] ####Supervisor Wet Room: JUANI FLORES ([id number])[facility] ([facility])[address] [place] [address] Basophils/100 WBC (Bld) 0.6 % Normal 0.0-2.0 [facility] Comment on above: Performed By: #### L [id number] ####Supervisor Wet Room: JUANI FLORES ([id number])[facility] ([facility])[address] [place] [address] Eosinophils (Bld) [#/Vol] 0.6 10*3/uL High 0.0-0.5 [facility] Comment on above: Performed By: #### L [id number] ####Supervisor Wet Room: JUANI FLORES ([id number])[facility] ([facility])[address] [place] [address] Eosinophils/100 WBC (Bld) 5.5 % Normal 0.0-6.0 [facility] Comment on above: Performed By: #### L [id number] ####Supervisor Wet Room: JUANI FLORES ([id number])[facility])[address] [place] [address] Erythrocyte distribution width (RBC) [Ratio] 20.3 % High 11.5-15.0 [facility] Comment on above: Performed By: #### L [id number] ####Supervisor Wet Room: JUANI FLORES ([id number])[facility])[address] [place] [address] Hematocrit (Bld) [Volume fraction] 27.9 % Low 40.0-52.0 [facility] Comment on above: Performed By: #### L [id number] ####Supervisor Wet Room: JUANI FLORES ([id number])[facility])[address] [place] [address] Hemoglobin (Bld) [Mass/Vol] 8.7 g/dL Low 13.0-18.0 [facility] Comment on above: Performed By: #### L [id number] ####Supervisor Wet Room: JUANI FLORES ([id number])[facility])[address] [place] [address] IMMATURE GRANS % 0.3 % Normal 0.0-2.0 [facility] Comment on above: Performed By: #### L [id number] ####Supervisor Wet Room: JUANI FLROES ([phone])[facility])[address] [place] [address] IMMATURE GRANS ABSOLUTE 0.0 10*3/uL Normal <0.1 [facility] Comment on above: Performed By: #### L [id number] ####Supervisor Wet Room: JUANI FLORES ([id number])[facility])[address] [place] [address] Lymphocytes (Bld) [#/Vol] 1.2 10*3/uL Normal 1.0-4.3 [facility] Comment on above: Performed By: #### L [id number] ####Supervisor Wet Room: JUANI FLORES ([id number])[facility])[address] [place] [address] Lymphocytes/100 WBC (Bld) 11.8 % Low 15.0-45.0 [facility] Comment on above: Performed By: #### L [id number] ####Supervisor Wet Room: JUANI FLORES ([id number])[facility])[address] [place] [address] MCH (RBC) [Entitic mass] 23.9 pg Low 26.0-34.0 [facility] Comment on above: Performed By: #### L [id number] ####Supervisor Wet Room: JUANI FLORES ([id number])[facility])[address] [place] [address] MCHC 31.2 % Normal 30.5-36.0 [facility] Comment on above: Performed By: #### L [id number] ####Supervisor Wet Room: JUANI FLORES ([id number])[facility])[address] [place] [address] MCV (RBC) [Entitic vol] 76.6 fL Low 77.0-99.0 [facility] Comment on above: Performed By: #### L [id number] ####Supervisor Wet Room: JUANI FLORES ([id number])[facility])[address] [place] [address] Monocytes (Bld) [#/Vol] 0.7 10*3/uL Normal 0.0-0.9 [facility] Comment on above: Performed By: #### L [id number] ####Supervisor Wet Room: JUANI FLORES ([id number])[facility])[address] [place] [address] Monocytes/100 WBC (Bld) 6.9 % Normal 5.0-13.0 [facility] Comment on above: Performed By: #### L [id number] ####Supervisor Wet Room: JUANI FLORES ([id number])[facility])[address] [place] [address] NEUTROPHILS ABSOLUTE 7.6 10*3/uL High 1.8-7.5 [facility] Comment on above: Performed By: #### L [id number] ####Supervisor Wet Room: JUANI FLORES ([id number])[facility])[address] [place] [address] Neutrophils/100 WBC (Bld) 74.9 % Normal 38.0-82.0 [facility] Comment on above: Performed By: #### L [id number] ####Supervisor Wet Room: JUANI FLORES ([id number])[facility] ([facility])[address] [place] [address] NRBC 0.0 /100 WBCs Normal 0.0-2.0 [facility] Comment on above: Performed By: #### L [id number] ####Supervisor Wet Room: JUANI FLORES ([id number])[facility] ([facility])[address] [place] [address] Platelet mean volume (Bld) [Entitic vol] 9.7 fL Normal 9.0-12.7 [facility] Comment on above: Performed By: #### L [id number] ####Supervisor Wet Room: JUANI FLORES ([id number])[facility] ([facility])[address] [place] [address] Platelets (Bld) [#/Vol] 345 10*3/uL Normal 140-440 [facility] Comment on above: Performed By: #### L [id number] ####Supervisor Wet Room: JUANI FLORES ([id number])[facility] ([facility])[address] [place] [address] RBC (Bld) [#/Vol] 3.64 10*6/uL Low 4.40-5.90 [facility] Comment on above: Performed By: #### L [id number] ####Supervisor Wet Room: JUANI FLORES ([id number])[facility] ([facility])[address] [place] [address] WBC (Bld) [#/Vol] 10.1 10*3/uL Normal 3.6-10.7 [facility] Comment on above: Performed By: #### L [id number] ####Supervisor Wet Room: JUANI FLORES ([id number])[facility])[address] [place] [address] HEMOGLOBIN AND HEMATOCRIT, B LOODon 02-16-2024 Hematocrit (Bld) [Volume fraction] 30.8 % Low 40.0-52.0 [facility] Comment on above: Performed By: #### L [id number] ####Supervisor Wet Room: JUANI FLORES ([id number])[address] Hemoglobin (Bld) [Mass/Vol] 9.6 g/dL Low 13.0-18.0 [facility] Comment on above: Performed By: #### L [id number] ####Supervisor Wet Room: JUANI FLORES ([id number])[facility] ([facility])[address] [place] [address] Progress Noteon 02-16-2024 Progress Note Nutrition rescreen completed. Chart reviewed. Patient to be monitored and followed by the diet burner technician. Clementina Garibay, LORI Normal [facility] Progress Note Billing Note: Patient transferred from [facility] for reported hematoma extending from R axillary region into diaphragm/R flank. Noted to be on Brilinta ans ASA; both placed on hold. Hb dropped form 8.5 to 6.2 and patient transfused with prbc's. Can this be further clarified as: hematoma worsened by Moe Erwin APRN - [facility] Trauma Surgery/ Critical Care/ Acute Care Surgery Normal [facility] Progress Note Attestation signed by Bertha Can MD at 02/19/2024 7:53 AM ATTENDING ADDENDUM Patient Active Problem List Diagnosis Hematoma I have personally performed a face to face diagnostic evaluation on this patient. I have reviewed and agree with the care plan as documented above by my CENTRIFUGE SEPARATOR OPERATOR/PAGerard. I personally discussed the review of systems and interviewed the patient along with performing a physical examination. In addition, I discussed the patient's condition and treatment options with him/her when possible. All of the patient's questions were answered and family updated when appropriate and possible. I I performed a physical exam and ROS on the same date of service as above. My findings agree with the above note except for any details corrected below. 74M with CAD on ASA/Brilinta following cardiac stents in October, who presented with large right chest/flank hematoma following mild muscle injury sustained moving boxes at home on 02/10. ASA and Brilinta held since 02/13. He required 1 unit RBC transfusion overnight 02/13 for Hb 6.2. No subsequent transfusions required. Hb this AM is 8.7 - stable. Hematoma on exam appears to have distributed, swelling appears more prominent on the back above level of binder, remains similar appearance at flank. Ecchymosis extended slightly past marking. - ASA 81mg restarted 02/14 evening. Repeat H/H this afternoon, if stable will restart Brilinta for evening dose. - Continue ice pack to area and compression with binder. - Small right hemothorax noted on CT chest -> stable on AM CXR - H/o HTN: metoprolol, amlodipine (in place of nisaldipine) - H/o hypothyroidism: home levothyroxine Patient eager to go home. We discussed the risk of ongoing bleeding, and the risk of bleeding even with minor injuries due to the DAPT. Anticipate home tomorrow if exam and Hb remain stable on DAPT. Level of Medical Decision Making: risk of morbidity from additional diagnostic testing or treatment due to acute traumatic pain []High [x]Moderate []Low Complexity: Acute illness with systemic symptoms (MOD) Risk: Prescription drug management (MOD) Personally Reviewed/Independent ly interpreted patient's: [x]Epic notes []Radiology studies [x]Labs []EKG []Ordering tests []Other Discussed/ With: [x]Patient/Family [x]RN []Consultants []SW/TCC []Other Total Care Time (combined between CENTRIFUGE SEPARATOR OPERATOR/PA-C and myself) throughout the day today was >= 35 minutes (including chart/data review/analysis, care coordination, and lnmm-mc-mrbv encounter), and was spent discussing/counselin g the patient/family regarding the care plan for this patient. I examined the patient independently. I reviewed relevant data myself and may have also done so in the context of team rounds. A full chart review was performed. Bertha Can MD Division of Trauma Department of Surgery [facility] Daily Trauma Progress Note Nurse Practitioner 02/16/2024 6:26 AM Admit Date: 02/14/2024 Post Trauma Day 2 Other Lifting heavy objects HISTORY OF TRAUMATIC EVENT: 74 y.o. male presenting as a transfer from [facility]. He states that on 02/10, he was lifting some heavy objects out of his vehicle when he felt a pop in his right shoulder and had subsequent pain that traveled down his shoulder into his right flank. His noticed some bruising and swelling on the right flank which prompted him to present to the hospital. Patient pain level currently is 2/10. He currently takes Brillinta and ASA for recent stent placement 10/2023 INJURIES: Right flank hematoma Right hemothorax PROCEDURES: None INCIDENTAL FINDINGS: CHIEF COMPLAINT: right flank pain PREVIOUS 24 HOUR EVENTS: - HGB stable with repeat H&H at 8.7 Consults: IP CONSULT TO GERIATRICS MEDICATIONS: Current Facility-Administere d Medications: acetaminophen (Tylenol) tablet 1,000 mg, 1,000 mg, Oral, q8h, Dewayne Sherman III, MD, 1,000 mg at 02/15/24 0121 amLODIPine (Norvasc) tablet 5 mg, 5 mg, Oral, Daily, KYLEIGH Hardy CNP, 5 mg at 02/15/24 1125 aspirin EC tablet 81 mg, 81 mg, Oral, Daily, KYLEIGH Hardy CNP atorvastatin (Lipitor) tablet 10 mg, 10 mg, Oral, Daily, Sammy Byrd MD, 10 mg at 02/15/24 0836 dextrose 5 % infusion, 100 mL/hr, IntraVENous, PRN, Sammy Byrd MD dextrose 50 % solution 12.5 g, 12.5 g, IntraVENous, PRN, Sammy Byrd MD gabapentin (Neurontin) capsule 300 mg, 300 mg, Oral, BID, Sammy Byrd MD, 300 mg at 02/15/24 2231 glucagon (human recombinant) injection 1 mg, 1 mg, IntraMUSCular, PRN, Sammy Byrd MD glucose oral gel 15 g, 15 g, Oral, PRN, Sammy Byrd MD Insulin Lispro (Humalog) injection 0-6 Units, 0-6 Units, SubCUTAneous, BID WC AND Insulin Lispro (Humalog) injection 0-6 Units, 0-6 Unit (more content not included)... Normal [facility] XR CHEST 1 VIEWon 02-16-2024 XR CHEST 1 VIEW [facility] 1950 [id number] Exam Date/Time: 02/16/2024 06:56 Procedure: XR CHEST 1 VIEW Ordering Provider: ERWIN LAURA Reason For Exam: eval right pleural effusion AP CHEST X-RAY CLINICAL INDICATION: eval right pleural effusion TECHNIQUE: AP portable x-ray of the chest. COMPARISON: February 15, 2024 FINDINGS: Lines/Tubes: None Heart/Mediastinum: Within normal limits Lungs: Persistent hazy density is noted overlying the right lower lobe which obscures the right hemidiaphragm. Bones: Unremarkable IMPRESSION: Persistent hazy density overlies the right lower lobe obscuring the right hemidiaphragm most likely representing pleural effusion not significantly changed compared to previous exam. Report Dictated on Electronically Signed By: Tim Min MD Electronically Signed Date/Time: 02/16/2024 7:54 AM EDT [facility] 30on 02-15-2024 30 The patient is Moderately Stable - Low risk of patient condition declining or worsening Problem: Pain - Adult Goal: Verbalizes/displays adequate comfort level or baseline comfort level Outcome: Progressing Problem: Safety - Adult Goal: Free from fall injury Outcome: Progressing Problem: Discharge Planning Goal: Discharge to home or other facility with appropriate resources Outcome: Progressing Problem: Chronic Conditions and Co-morbidities Goal: Patient's chronic conditions and co-morbidity symptoms are monitored and maintained or improved Outcome: Progressing Normal [facility] [id number] 02-15-2024 [id number] c/s for no PCP. Pt just moved back to the area in [place]. CAC unable to schedule a [facility] physician per prior TCC note. SW provided pt with a list of PCP in the [place] area. Informed pt he could research other options as well. Normal [facility] BASIC METABOLIC PANELon 10-2 Anion gap [Moles/Vol] 3 mmol/L Normal 3-13 [facility] Comment on above: Performed By: #### L [id number] ####Supervisor Wet Room: JUANI FLORES ([phone])[facility] ([facility])[address] [place] [address] Calcium [Mass/Vol] 8.1 mg/dL Low 8.4-10.4 [facility] Comment on above: Performed By: #### L AB15 ####Supervisor Wet Room: JUANI FLORES ([id number])[facility] ([facility])[address] [place] [address] Chloride [Moles/Vol] 111 mmol/L High 98-107 [facility] Comment on above: Performed By: #### L AB15 ####Supervisor Wet Room: JUANI FLORES ([id number])[facility] ([facility])[address] [place] [address] CO2 [Moles/Vol] 21 mmol/L Low 22-30 [facility] Comment on above: Performed By: #### L AB15 ####Supervisor Wet Room: JUANI FLORES ([id number])[facility] ([facility])[address] [place] [address] Creatinine [Mass/Vol] 1.55 mg/dL High 0.66-1.25 [facility] Comment on above: Performed By: #### L AB15 ####Supervisor Wet Room: JUANI FLORES ([phone])[facility] ([facility])[address] [place] [address] [place] GLOMERULAR FILTRATION RATE ML/MIN/1.73 SQ M.PREDICTED 46.7 mL/min/1.73m*2 Low >60.0 [facility] Comment on above: Result Comment: Calc ulation based on the Chronic Kidney Disease Epidemiology Collaboration (CKD-EPI) equation refit without adjustment for race Performed By: #### L AB15 ####Supervisor Wet Room: JUANI [id number])[facility] [place] [address] [place] Glucose [Mass/Vol] 95 mg/dL Normal 70-100 [facility] Comment on above: Performed By: #### L AB15 ####Supervisor Wet Room: JUANI FLORES ([phone])[facility] ([facility])[address] [place] [address] Potassium [Moles/Vol] 4.7 mmol/L Normal 3.5-5.1 [facility] Comment on above: Performed By: #### L AB15 ####Supervisor Wet Room: JUANI FLORES ([phone])[facility] ([facility])[address] [place] [address] Sodium [Moles/Vol] 135 mmol/L Normal 135-145 [facility] Comment on above: Performed By: #### L AB15 ####Supervisor Wet Room: JUANI FLORES ([phone])[facility] ([facility])[address] [place] [address] Urea nitrogen [Mass/Vol] 20 mg/dL Normal 9-20 [facility] Comment on above: Performed By: #### L AB15 ####Supervisor Wet Room: JUANI FLORES ([id number])[facility] ([facility])[address] [place] [address] Anion gap [Moles/Vol] 7 mmol/L Normal 3-13 [facility] Comment on above: Performed By: #### L AB15 ####Supervisor Wet Room: JUANI FLORES ([id number])[facility] ([facility])[address] [place] [address] Calcium [Mass/Vol] 8.0 mg/dL Low 8.4-10.4 [facility] Comment on above: Performed By: #### L AB15 ####Supervisor Wet Room: JUANI FLORES ([id number])[facility] ([facility])[address] [place] [address] [place] Chloride [Moles/Vol] 109 mmol/L High 98-107 [facility] Comment on above: Performed By: #### L AB15 ####Supervisor Wet Room: JUANI FLORES ([phone])[facility] ([facility])[address] [place] [address] CO2 [Moles/Vol] 22 mmol/L Normal 22-30 [facility] Comment on above: Performed By: #### L AB15 ####Supervisor Wet Room: JUANI FLORES ([phone])[facility])[address] [place] [address] Creatinine [Mass/Vol] 1.74 mg/dL High 0.66-1.25 [facility] Comment on above: Performed By: #### L AB15 ####Supervisor Wet Room: JUANI FLORES ([phone])[facility])[address] [place] [address] GLOMERULAR FILTRATION RATE ML/MIN/1.73 SQ M.PREDICTED 40.6 mL/min/1.73m*2 Low >60.0 [facility] Comment on above: Result Comment: Calc ulation based on the Chronic Kidney Disease Epidemiology Collaboration (CKD-EPI) equation refit without adjustment for race Performed By: #### L AB15 ####Supervisor Wet Room: JUANI FLORES ([id number])[facility])[address] [place] [address] Glucose [Mass/Vol] 92 mg/dL Normal 70-100 [facility] Comment on above: Performed By: #### L AB15 ####Supervisor Wet Room: JUANI FLORES ([phone])[facility])[address] [place] [address] Potassium [Moles/Vol] 4.6 mmol/L Normal 3.5-5.1 [facility] Comment on above: Performed By: #### L AB15 ####Supervisor Wet Room: JUANI FLORES ([phone])[facility])[address] [place] [address] Sodium [Moles/Vol] 138 mmol/L Normal 135-145 [facility] Comment on above: Performed By: #### L AB15 ####Supervisor Wet Room: JUANI FLORES ([id number])[facility] ([facility])[address] [place] [address] Urea nitrogen [Mass/Vol] 24 mg/dL High 9-20 [facility] Comment on above: Performed By: #### L AB15 ####Supervisor Wet Room: JUANI FLORES ([id number])[facility])[address] [place] [address] BLOOD TYPE AND SCREEN GELon 02-15-2024 ABO GROUPING A Normal [facility] Comment on above: Performed By: #### L [id number] ####Supervisor Wet Room: JUANI FLORES ([id number])[facility]OD [facility] ([facility])[address] [place] [address] RH TYPE IN BLOOD Positive Normal [facility] Comment on above: Performed By: #### L [id number] ####Supervisor Wet Room: JUANI FLORES ([phone])[facility] ([facility])[address] [place] [address] CBC WITH AUTO DIFFERENTIALon 02-15-2024 Basophils (Bld) [#/Vol] 0.1 10*3/uL Normal 0.0-0.2 [facility] Comment on above: Performed By: #### L [id number] ####Supervisor Wet Room: JUANI FLORES ([phone])[facility] ([facility])[address] [place] [address] [place] Basophils/100 WBC (Bld) 0.7 % Normal 0.0-2.0 [facility] Comment on above: Performed By: #### L [id number] ####Supervisor Wet Room: JUANI FLORES ([id number])[facility])[address] [place] [address] [place] Eosinophils (Bld) [#/Vol] 0.7 10*3/uL High 0.0-0.5 [facility] Comment on above: Performed By: #### L [id number] ####Supervisor Wet Room: JUANI FLORES ([id number])[facility])[address] [place] [address] [place] Eosinophils/100 WBC (Bld) 7.7 % High 0.0-6.0 [facility] Comment on above: Performed By: #### L [id number] ####Supervisor Wet Room: JUANI FLORES ([id number])[facility])[address] [place] [address] Erythrocyte distribution width (RBC) [Ratio] 20.0 % High 11.5-15.0 [facility] Comment on above: Performed By: #### L [id number] ####Supervisor Wet Room: JUANI FLORES ([phone])[facility])[address] [place] [address] Hematocrit (Bld) [Volume fraction] 28.0 % Low 40.0-52.0 [facility] Comment on above: Performed By: #### L [id number] ####Supervisor Wet Room: JUANI FLORES ([id number])[address] Hemoglobin (Bld) [Mass/Vol] 8.9 g/dL Low 13.0-18.0 [facility] Comment on above: Performed By: #### L [id number] ####Supervisor Wet Room: JUANI FLORES ([id number])[address] IMMATURE GRANS % 0.6 % Normal 0.0-2.0 [facility] Comment on above: Performed By: #### L [id number] ####Supervisor Wet Room: JUANI FLORES ([id number])[address] IMMATURE GRANS ABSOLUTE 0.1 10*3/uL High <0.1 [facility] Comment on above: Performed By: #### L [id number] ####Supervisor Wet Room: JUANI FLORES ([id number])[facility])[address] [place] [address] [place] Lymphocytes (Bld) [#/Vol] 1.2 10*3/uL Normal 1.0-4.3 [facility] Comment on above: Performed By: #### L [id number] ####Supervisor Wet Room: JUANI FLORES ([id number])[facility])[address] [place] [address] Lymphocytes/100 WBC (Bld) 13.3 % Low 15.0-45.0 [facility] Comment on above: Performed By: #### L [id number] ####Supervisor Wet Room: JUANI FLORES ([id number])[facility])[address] [place] [address] MCH (RBC) [Entitic mass] 24.3 pg Low 26.0-34.0 [facility] Comment on above: Performed By: #### L [id number] ####Supervisor Wet Room: JUANI FLORES ([id number])[facility])[address] [place] [address] MCHC 31.8 % Normal 30.5-36.0 [facility] Comment on above: Performed By: #### L [id number] ####Supervisor Wet Room: JUANI FLORES ([phone])[facility])[address] [place] [address] MCV (RBC) [Entitic vol] 76.3 fL Low 77.0-99.0 [facility] Comment on above: Performed By: #### L [id number] ####Supervisor Wet Room: JUANI FLORES ([id number])[facility])[address] [place] [address] Monocytes (Bld) [#/Vol] 0.8 10*3/uL Normal 0.0-0.9 [facility] Comment on above: Performed By: #### L [id number] ####Supervisor Wet Room: JUANI FLORES ([id number])[facility])[address] [place] [address] Monocytes/100 WBC (Bld) 9.1 % Normal 5.0-13.0 [facility] Comment on above: Performed By: #### L [id number] ####Supervisor Wet Room: JUANI FLORES ([phone])[facility] ([facility])[address] [place] [address] NEUTROPHILS ABSOLUTE 6.2 10*3/uL Normal 1.8-7.5 [facility] Comment on above: Performed By: #### L [id number] ####Supervisor Wet Room: JUANI FLORES ([id number])[facility] ([facility])[address] [place] [address] Neutrophils/100 WBC (Bld) 68.6 % Normal 38.0-82.0 [facility] Comment on above: Performed By: #### L [id number] ####Supervisor Wet Room: JUANI FLORES ([id number])[facility] ([facility])[address] [place] [address] NRBC 0.0 /100 WBCs Normal 0.0-2.0 [facility] Comment on above: Performed By: #### L [id number] ####Supervisor Wet Room: JUANI FLORES ([id number])[facility] ([facility])[address] [place] [address] Platelet mean volume (Bld) [Entitic vol] 8.9 fL Low 9.0-12.7 [facility] Comment on above: Performed By: #### L [id number] ####Supervisor Wet Room: JUANI FLORES ([phone])[facility] ([facility])[address] [place] [address] Platelets (Bld) [#/Vol] 294 10*3/uL Normal 140-440 [facility] Comment on above: Performed By: #### L [id number] ####Supervisor Wet Room: JUANI FLORES ([phone])[facility] ([facility])[address] [place] [address] [place] RBC (Bld) [#/Vol] 3.67 10*6/uL Low 4.40-5.90 [facility] Comment on above: Performed By: #### L [id number] ####Supervisor Wet Room: JUANI FLORES ([id number])[facility] ([facility])[address] [place] [address] [place] WBC (Bld) [#/Vol] 9.0 10*3/uL Normal 3.6-10.7 [facility] Comment on above: Performed By: #### L [id number] ####Supervisor Wet Room: JUANI FLORES ([id number])[facility] ([facility])[address] [place] [address] Consulton 02-15-2024 Consult Attestation with edits by Sadia Vega DO at 02/15/2024 5:25 PM I have independently seen and evaluated the patient and agree with the Resident, Alfreda. I have edited note as needed, please see edits in blue as needed. 74 year old male who presented as transfer from [place] with large right sided chest hematoma. Pt reports that he has been moving, unpacking, lifting boxes. He denies know when the injury happened but woke up with large bruise. Pain limited to when he reaches with the right hand. Otherwise independent, navigated move recently. Has MA with stents placed in October - admits that he forgot to take the brilinta a few days and had to go back for another stent to be placed. Has since gotten a med reminder system that beeps to remind him to take meds and has been helpful to him. On exam - alert, talkative, pleasant and clearly able to express himself. RRR, lungs clear anteriorly. Abdominal binder in place. + LE edema. Assessment/Plan Acute functional decline Acute traumatic pain Traumatic right flank hematoma Signed electronically by Sadia Vega DO on 02/15/2024 at 5:21 PM [facility] Geriatric Medicine Inpatient Consult Service Admission Date: 02/14/2024 Admission Status: INPATIENT Chief Complaint: R flank pain Reason for Appointment Geriatrics consulted for "Medication management " Assessment/Plan Principal Problem: Hematoma Traumatic R flank hematoma Acute pain Acute functional change - Patient is independent at home with ADLs and iADLs - PT OT evaluated the patient and recommended home with assist PRN - Continue to monitor for functional change - Continue PT OT while inpatient agree -continue with scheduled acetaminophen and prn oxycodone, gabapentin appropriate dose for renal function R flank hematoma R pleural effusion CKD stage III Hypertension Hyperlipidemia CAD s/p CABG w/ stent placement - Management per primary team Subjective: HPI 74 y.o. year-old male with PMHx significant for HTN, HLD, CAD s/p CABG w/ stent placement (on DAPT w/ ASA and brillinta) who presented to the [facility] ED on 02/14/24 as a transfer from [facility]. Per patient, on 02/10 he was lifting some heavy boxes of his vehicle and suddenly noted some pain in his R shoulder. Later in the day, noted some swelling on his R upper thoracic region and some bruising along his R flank area.. Upon arrival, his vitals were stable, mildly hypertensives w/ systolics in 140s. Scr 1.68 (unknown baseline), mild leukocytosis at 11.2 and hemoglobin of 8.5 (no prior values) which trended down to 6.2 this am requiring blood transfusion. CXR demonstrated R pleural effusion - possible hemothorax. CT chest abdomen demonstrated hematoma underlying R axillary region extending out to R side of the chest wall. Trauma following. His home brilinta and asa is held. Patient was seen and examined at the bedside. Resting comfortably on bed, NAD. States he lives at home with his . Recently moved from [place]. States he is independent with his ADLs and iADLs. No hx of anxiety and depression. Denies any acute concerns. States his pain along his R shoulder is improved. Geriatrics ED screen: Do you (or your loved one) have problems with your memory that affect your (their) day to day activities or that you or your family notice most days?: No Do you (or loved one) live alone AND/OR Do you (they) need more help at home then you (they) have now or currently available?: No Have you (or loved one) been in the hospital in the last 3 months?: Yes Do you (or loved one) have trouble with your walking or balance? Or Have you (they) fallen recently?: Yes Do you (or loved one) have trouble with your walking or balance? Or Have you (they) fallen recently?: Yes Do you (or loved one) take more than 5 medications or vitamins every day?: Yes When compared to others your (their) own age, are you (or loved one) in worse health?: No Total Score: 3 Quick Cognitive Screen (QCS): Nursing Delirium Screen (Nu-Desc): Nursing Delirium Symptom Checklist Total Score: 0 Conversation with patient: Conversation with caregiver: spouse. As documented above Advance Care Planning Healthcare Power ofAttorney: Unknown Financial Power of Molder Wax Ball: Unknown Living Will:Unknown Code Status: Full No Known Allergies Current Facility-Administere d Medications: acetaminophen (Tylenol) tablet 1,000 mg, 1,000 mg, Oral, q8h, Dewayne Sherman III, MD, 1,000 mg at 02/15/24 0121 amLODIPine (Norvasc) tablet 5 mg, 5 mg, Oral, Daily, Bertha Erwin APRN - INSIDE SALES ADMINISTRATOR, 5 mg at 02/15/24 1125 atorvastatin (Lipitor) tablet 10 mg, 10 mg, Oral, Daily, Sammy Byrd MD, 10 mg at 02/15/24 0836 dextrose 5 % infusion, 100 mL/hr, IntraVEN (more content not included)... Normal [facility] HEMOGLOBIN AND HEMATOCRIT, B Sukhwinder 02-15-2024 Hematocrit (Bld) [Volume fraction] 29.6 % Low 40.0-52.0 [facility] Comment on above: Performed By: #### L [id number] ####Supervisor Wet Room: JUANI FLORES ([id number])[address] Hemoglobin (Bld) [Mass/Vol] 9.3 g/dL Low 13.0-18.0 [facility] Comment on above: Performed By: #### L [id number] ####Supervisor Wet Room: JUANI FLORES ([id number])[facility])[address] [place] [address] Hematocrit (Bld) [Volume fraction] 20.2 % Low 40.0-52.0 [facility] Comment on above: Performed By: #### L [id number] ####Supervisor Wet Room: JUANI FLORES ([phone])[address] Hemoglobin (Bld) [Mass/Vol] 6.2 g/dL Critically low 13.0-18.0 [facility] Comment on above: Performed By: #### L [id number] ####Supervisor Wet Room: JUANI FLORES ([phone])[address] Progress Noteon 02-15-2024 Progress Note Attestation signed by Bertha Can MD at 02/19/2024 7:53 AM (Updated) ATTENDING ADDENDUM Patient Active Problem List Diagnosis Hematoma I have personally performed a face to face diagnostic evaluation on this patient. I have reviewed and agree with the care plan as documented above by my CENTRIFUGE SEPARATOR OPERATOR/JARAD. I personally discussed the review of systems and interviewed the patient along with performing a physical examination. In addition, I discussed the patient's condition and treatment options with him/her when possible. All of the patient's questions were answered and family updated when appropriate and possible. I I performed a physical exam and ROS on the same date of service as above. My findings agree with the above note except for any details corrected below. 74M with CAD on ASA/Brilinta following cardiac stents in October, who presented with large right chest/flank hematoma following mild muscle injury sustained moving boxes at home on 02/10. ASA and Brilinta held since 02/13. He required 1 unit RBC transfusion overnight 02/13 for Hb 6.2. This morning he is not in acute distress. He has a large area of ecchymosis over the left posterior flank, and palpable swelling over the right posterior chest wall (this is consistent with location of hematoma on his CT C/A/P). Hb this AM is 8.9. - repeat H/H at 1600, if stable restart ASA 81mg - Continue to hold Brilinta. Add ice pack to area and continued compression with binder. - Resume home anti-HTN meds: metoprolol, amlodipine (in place of nisaldipine) - Small right hemothorax noted on CT chest -> CXR to ensure no progression - H/o hypothyroidism: home levothyroxine Level of Medical Decision Making: risk of morbidity from additional diagnostic testing or treatment due to acute traumatic pain []High [x]Moderate []Low Complexity: Acute illness with systemic symptoms (MOD) Risk: Prescription drug management (MOD) Personally Reviewed/Independent ly interpreted patient's: [x]Epic notes []Radiology studies [x]Labs []EKG []Ordering tests []Other Discussed/ With: [x]Patient/Family [x]RN []Consultants []SW/TCC []Other Total Care Time (combined between CENTRIFUGE SEPARATOR OPERATOR/PA-C and myself) throughout the day today was >= 35 minutes (including chart/data review/analysis, care coordination, and [id number] encounter), and was spent discussing/counselin g the patient/family regarding the care plan for this patient. I examined the patient independently. I reviewed relevant data myself and may have also done so in the context of team rounds. A full chart review was performed. Bertha Can MD Division of Trauma Department of Surgery [facility] Daily Trauma Progress Note Nurse Practitioner 02/15/2024 6:10 AM Admit Date: 02/14/2024 Post Trauma Day 1 Other Lifting heavy objects HISTORY OF TRAUMATIC EVENT: 74 y.o. male presenting as a transfer from [facility]. He states that on 02/10, he was lifting some heavy objects out of his vehicle when he felt a pop in his right shoulder and had subsequent pain that traveled down his shoulder into his right flank. His noticed some bruising and swelling on the right flank which prompted him to present to the hospital. Patient pain level currently is 2/10. He currently takes Brillinta and ASA for recent stent placement 10/2023 INJURIES: Right flank hematoma Right hemothorax PROCEDURES: None INCIDENTAL FINDINGS: CHIEF COMPLAINT: right flank pain PREVIOUS 24 HOUR EVENTS: - Patient admitted to Trauma Surgery Service, telemetry floor - HGB decreased to 6.2, Transfused 1 unit pRBCs Consults: None MEDICATIONS: Current Facility-Administere d Medications: acetaminophen (Tylenol) tablet 1,000 mg, 1,000 mg, Oral, q8h, Dewayne Sherman III, MD, 1,000 mg at 02/15/24 0121 atorvastatin (Lipitor) tablet 10 mg, 10 mg, Oral, Daily, Sammy Byrd MD dextrose 5 % infusion, 100 mL/hr, IntraVENous, PRN, Sammy Byrd MD dextrose 50 % solution 12.5 g, 12.5 g, IntraVENous, PRN, Sammy Byrd MD gabapentin (Neurontin) capsule 300 mg, 300 mg, Oral, BID, Sammy Byrd MD, 300 mg at 02/15/24 0030 glucagon (human recombinant) injection 1 mg, 1 mg, IntraMUSCular, PRN, Sammy Byrd MD glucose oral gel 15 g, 15 g, Oral, PRN, Sammy Byrd MD HYDROmorphone (Dilaudid) injection 0.5 mg, 0.5 mg, IntraVENous, q3h PRN, Dewayne Sherman III, MD Insulin Pump - (Patient Supplied), , SubCUTAneous, Continuous, Gregorio Tellez MD levothyroxine (Synthroid, Levoxyl) tablet 88 mcg, 88 mcg, Oral, qAM AC, Sammy Byrd MD ondansetron ODT (Zofran-ODT) disintegrating tablet 4 mg, 4 mg, Oral, q8h PRN OR ondansetron (Zofran) injection 4 mg, 4 mg, IntraVENous, q6h PRN, Dewayne Sherman III, MD oxyCODONE (Roxicodone) immediate releas (more content not included)... Normal [facility] Progress Note Trauma Surgery Overnight Note Paged by bedside RN regarding AM labs/hemoglobin with hemoglobin < 7.0. Upon evaluation, patient is resting comfortably in bed watching TV, in no acute distress. He states that his pain from earlier has largely resolved and currently has no pain. He denies feeling lightheadedness or having heart palpitations. Vital signs reviewed, no tachycardia or hypotension. Right flank with large ecchymosis but without obvious expanding hematoma. Plan: - More fitted abdominal binder replaced prior binder - Ice therapy ordered - Blood consent obtained - 2u pRBC prepared, 1u pRBC ordered to transfuse - Transfer to with Tele - Continue with serial abdominal exams - Will follow-up post transfusion H/H Gregorio Tellez MD General Surgery PGY-2 Pager [phone] Normal [facility] XR CHEST 1 VIEWon 02-15-2024 XR CHEST 1 VIEW Patient Name: LYUDMILA BRENNAN : 1950 Exam Date/Time: 02/15/2024 11:17 Procedure: XR CHEST 1 VIEW Ordering Provider: ERWIN LAURA Reason For Exam: eval right hemothorax CHEST CLINICAL INDICATION: eval right hemothorax TECHNIQUE: AP portable chest COMPARISON: No relevant prior study. FINDINGS: SUPPORT DEVICES: None HEART AND MEDIASTINUM: Mild calcification of the thoracic aorta. Cardiac silhouette is normal in size. LUNGS AND PLEURA: Small right pleural effusion. Subtle hazy opacity in the region of the right lung base, likely due to mild atelectasis and layering pleural fluid. No pneumothorax is identified. OSSEOUS STRUCTURES: Unremarkable. IMPRESSION: Small right pleural effusion and mild right basilar atelectasis. Report Dictated on Electronically Signed By: Lakeisha Sharp MD Electronically Signed Date/Time: 02/15/2024 11:36 AM EDT Normal [facility] [id number] 02-14-2024 [id number] TCC faxed [facility] [place] letter to the [place] center to make aware of admission [phone] [facility] [phone] Care Managment Initial Assessment Date: 02/14/2024 Patient Name: Lyudmila Brennan : 1950 Patient Information Source of Information: Patient Cognition/Language: WFL - Within Functional Limits Permission given to speak with patient truck sales representative/careg iver as indicated: Confirmation of Payer with patient/family: Yes Payer Name: Medicare/ [place]: Yes Confirmation of Primary Care Physician: No PCP Primary Caregiver: Self If assistance needed, confirmed caregiver ready, willing and able to care for patient at discharge: Confirmed with: Living Arrangements Current Residence: House Number of Floors 1 Number of Entry Steps: 1 Bed/Bath Levels: Both first floor Facility: Facility Name: Plan to Return: Yes Lives with: Spouse/significant other Support Systems: Spouse/significant other, Family members Activities of Daily Living Ambulation: Assistance (cane or walker) Bathing/Dressing: Independent Elimination/Continen ce/Toileting: Independent Feeding: Independent Who Assists with Activities of Daily Living: Instrumental Activities of Daily Living Prescription Coverage: Yes Pharmacy Used: [facility] Medication Management: Independent Transportation/Shopp ing: Independent Transportation Mode: Car Needs Assistance with Transportation at Discharge: No Meal Preparation: Independent Laundry/Cleaning: Independent Finances/Bill Paying: Independent Communication: Independent Types of Care Services/Equipment Utilized Care Services: (denies) Dialysis Type: NA Durable Medical Equipment: Walker, Cane Patient's Goal/Discharge Plan Patient expects to be discharged to: home Discharge Planning Actions: Continue to follow, No needs identified Patient's Choice Rights and [employer] and Collaborative Relationships Disclosed as Indicated for Post-Acute Care: NA Interdisciplinary Team Engagement: Social Work Referral for: Additional Information: Pt transferred from [facility] for right flank pain after lifting heavy objects out of his car. TCC met with pt bedside in the ED - Introduced self and role. Pt is from home with spouse - They just moved here from [place]. Has not established with a PCP - Per [facility] we do not have any offices near the [place] area to set up a PCP for him - and he is also needing a aerodynamicist and piece work checker. Pt uses a cane or walker (has neuropathy in feet), otherwise independent in his daily care needs. manages medication. Both he and the drive and he states his will pick him up at time of discharge - at which time goal is to return home. Only real needs are PCP and specialist set up however pt is wanting to establish these closer to the [place] and [facility] areas. TCC to follow and assist as appropriate. Normal [facility] 36on 02-14-2024 36 ED provider requesting appointments for patient to establish with PCP, Grinding Wheel Dresser and Template Fitter in the [place] area. Patient just moved to [facility] from [place]. ED provider advised that a message would be sent to management with a request to assist patient if possible. Normal [facility] BASIC METABOLIC PANELon 01-23 Anion gap [Moles/Vol] 8 mmol/L Normal 3-13 [facility] Comment on above: Performed By: #### L AB15 ####Supervisor Wet Room: JUANI FLORES ([id number])[address] Calcium [Mass/Vol] 8.2 mg/dL Low 8.4-10.4 [facility] Comment on above: Performed By: #### L AB15 ####Supervisor Wet Room: JUANI FLORES ([id number])[address] Chloride [Moles/Vol] 109 mmol/L High 98-107 [facility] Comment on above: Performed By: #### L AB15 ####Supervisor Wet Room: JUANI FLORES ([id number])[facility])[address] [place] [address] CO2 [Moles/Vol] 22 mmol/L Normal 22-30 [facility] Comment on above: Performed By: #### L AB15 ####Supervisor Wet Room: JUANI FLORES ([id number])[address] Creatinine [Mass/Vol] 1.68 mg/dL High 0.66-1.25 [facility] Comment on above: Performed By: #### L AB15 ####Supervisor Wet Room: JUANI FLORES ([id number])[facility])[address] [place] [address] GLOMERULAR FILTRATION RATE ML/MIN/1.73 SQ M.PREDICTED 42.4 mL/min/1.73m*2 Low >60.0 [facility] Comment on above: Result Comment: Calc ulation based on the Chronic Kidney Disease Epidemiology Collaboration (CKD-EPI) equation refit without adjustment for race Performed By: #### L AB15 ####Supervisor Wet Room: JUANI FLORES ([id number])[facility])[address] [place] [address] Glucose [Mass/Vol] 93 mg/dL Normal 70-100 [facility] Comment on above: Performed By: #### L AB15 ####Supervisor Wet Room: JUANI FLORES ([id number])[facility])[address] [place] [address] Potassium [Moles/Vol] 4.6 mmol/L Normal 3.5-5.1 [facility] Comment on above: Performed By: #### L AB15 ####Supervisor Wet Room: JUANI FLORES ([id number])[facility])[address] [place] [address] Sodium [Moles/Vol] 138 mmol/L Normal 135-145 [facility] Comment on above: Performed By: #### L AB15 ####Supervisor Wet Room: JUANI FLORES ([id number])[facility])[address] [place] [address] Urea nitrogen [Mass/Vol] 22 mg/dL High 9-20 [facility] Comment on above: Performed By: #### L AB15 ####Supervisor Wet Room: JUANI FLORES ([id number])[facility])[address] [place] [address] CBC WITH AUTO DIFFERENTIALon 02-14-2024 Basophils (Bld) [#/Vol] 0.1 10*3/uL Normal 0.0-0.2 [facility] Comment on above: Performed By: #### L [id number] ####Supervisor Wet Room: JUANI FLORES ([id number])[facility])[address] [place] [address] Basophils/100 WBC (Bld) 0.6 % Normal 0.0-2.0 [facility] Comment on above: Performed By: #### L [id number] ####Supervisor Wet Room: JUANI FLORES ([id number])[facility])[address] [place] [address] Eosinophils (Bld) [#/Vol] 0.4 10*3/uL Normal 0.0-0.5 [facility] Comment on above: Performed By: #### L [id number] ####Supervisor Wet Room: JUANI FLORES ([id number])[facility])[address] [place] [address] Eosinophils/100 WBC (Bld) 4.2 % Normal 0.0-6.0 [facility] Comment on above: Performed By: #### L [id number] ####Supervisor Wet Room: JUANI FLORES ([id number])[facility])[address] [place] [address] Erythrocyte distribution width (RBC) [Ratio] 20.9 % High 11.5-15.0 [facility] Comment on above: Performed By: #### L [id number] ####Supervisor Wet Room: JUANI FLORES ([id number])[facility])[address] [place] [address] Hematocrit (Bld) [Volume fraction] 22.5 % Low 40.0-52.0 [facility] Comment on above: Performed By: #### L [id number] ####Supervisor Wet Room: JUANI FLORES ([id number])[facility])[address] [place] [address] Hemoglobin (Bld) [Mass/Vol] 7.1 g/dL Low 13.0-18.0 [facility] Comment on above: Performed By: #### L [id number] ####Supervisor Wet Room: JUANI [id number])[facility] ([facility])[address] [place] [address] IMMATURE GRANS % 0.5 % Normal 0.0-2.0 [facility] Comment on above: Performed By: #### L [id number] ####Supervisor Wet Room: JUANI FLORES ([id number])[facility])[address] [place] [address] IMMATURE GRANS ABSOLUTE 0.0 10*3/uL Normal <0.1 [facility] Comment on above: Performed By: #### L [id number] ####Supervisor Wet Room: JUANI FLORES ([id number])[facility])[address] [place] [address] Lymphocytes (Bld) [#/Vol] 1.2 10*3/uL Normal 1.0-4.3 [facility] Comment on above: Performed By: #### L [id number] ####Supervisor Wet Room: JUANI FLORES ([id number])[facility])[address] [place] [address] Lymphocytes/100 WBC (Bld) 13.3 % Low 15.0-45.0 [facility] Comment on above: Performed By: #### L [id number] ####Supervisor Wet Room: JUANI FLORES ([id number])[facility])[address] [place] [address] MCH (RBC) [Entitic mass] 23.4 pg Low 26.0-34.0 [facility] Comment on above: Performed By: #### L [id number] ####Supervisor Wet Room: JUANI FLORES ([id number])[facility])[address] [place] [address] MCHC 31.6 % Normal 30.5-36.0 [facility] Comment on above: Performed By: #### L [id number] ####Supervisor Wet Room: JUANI FLORES ([id number])[facility])[address] [place] [address] MCV (RBC) [Entitic vol] 74.0 fL Low 77.0-99.0 [facility] Comment on above: Performed By: #### L [id number] ####Supervisor Wet Room: JUANI FLORES ([id number])[facility])[address] [place] [address] Monocytes (Bld) [#/Vol] 0.7 10*3/uL Normal 0.0-0.9 [facility] Comment on above: Performed By: #### L [id number] ####Supervisor Wet Room: JUANI FLORES ([id number])[facility] ([facility])[address] [place] [address] Monocytes/100 WBC (Bld) 8.2 % Normal 5.0-13.0 [facility] Comment on above: Performed By: #### L [id number] ####Supervisor Wet Room: JUANI FLORES ([id number])[facility])[address] [place] [address] NEUTROPHILS ABSOLUTE 6.4 10*3/uL Normal 1.8-7.5 [facility] Comment on above: Performed By: #### L [id number] ####Supervisor Wet Room: JUANI FLORES ([id number])[facility] ([facility])[address] [place] [address] Neutrophils/100 WBC (Bld) 73.2 % Normal 38.0-82.0 [facility] Comment on above: Performed By: #### L [id number] ####Supervisor Wet Room: JUANI FLORES ([id number])[facility])[address] [place] [address] NRBC 0.0 /100 WBCs Normal 0.0-2.0 [facility] Comment on above: Performed By: #### L [id number] ####Supervisor Wet Room: JUANI FLORES ([id number])[facility])[address] [place] [address] Platelet mean volume (Bld) [Entitic vol] 9.7 fL Normal 9.0-12.7 [facility] Comment on above: Performed By: #### L [id number] ####Supervisor Wet Room: JUANI FLORES ([id number])[facility] ([facility])[address] [place] [address] Platelets (Bld) [#/Vol] 286 10*3/uL Normal 140-440 [facility] Comment on above: Performed By: #### L [id number] ####Supervisor Wet Room: JUANI FLORES ([id number])[facility] ([facility])[address] [place] [address] RBC (Bld) [#/Vol] 3.04 10*6/uL Low 4.40-5.90 [facility] Comment on above: Performed By: #### L [id number] ####Supervisor Wet Room: JUANI FLORES ([id number])[facility] ([facility])[address] [place] [address] WBC (Bld) [#/Vol] 8.8 10*3/uL Normal 3.6-10.7 [facility] Comment on above: Performed By: #### L [id number] ####Supervisor Wet Room: JUANI FLORES ([id number])[facility] ([facility])[address] [place] [address] Basophils (Bld) [#/Vol] 0.1 10*3/uL Normal 0.0-0.2 [facility] Comment on above: Performed By: #### L [id number] ####Supervisor Wet Room: JUANI FLORES ([id number])[facility] ([facility])[address] [place] [address] Basophils/100 WBC (Bld) 0.5 % Normal 0.0-2.0 [facility] Comment on above: Performed By: #### L [id number] ####Supervisor Wet Room: JUANI FLORES ([id number])[facility] ([facility])[address] [place] [address] Eosinophils (Bld) [#/Vol] 0.5 10*3/uL Normal 0.0-0.5 [facility] Comment on above: Performed By: #### L [id number] ####Supervisor Wet Room: JUANI FLORES ([id number])[facility])[address] [place] [address] Eosinophils/100 WBC (Bld) 4.0 % Normal 0.0-6.0 [facility] Comment on above: Performed By: #### L [id number] ####Supervisor Wet Room: JUANI FLORES ([id number])[facility])[address] [place] [address] Erythrocyte distribution width (RBC) [Ratio] 21.2 % High 11.5-15.0 [facility] Comment on above: Performed By: #### L [id number] ####Supervisor Wet Room: JUANI FLORES ([id number])[address] Hematocrit (Bld) [Volume fraction] 27.7 % Low 40.0-52.0 [facility] Comment on above: Performed By: #### L [id number] ####Supervisor Wet Room: JUANI FLORES ([id number])[facility])[address] [place] [address] Hemoglobin (Bld) [Mass/Vol] 8.5 g/dL Low 13.0-18.0 [facility] Comment on above: Performed By: #### L [id number] ####Supervisor Wet Room: JUANI FLORES ([id number])[facility])[address] [place] [address] IMMATURE GRANS % 0.3 % Normal 0.0-2.0 [facility] Comment on above: Performed By: #### L [id number] ####Supervisor Wet Room: JUANI FLORES ([id number])[address] IMMATURE GRANS ABSOLUTE 0.0 10*3/uL Normal <0.1 [facility] Comment on above: Performed By: #### L [id number] ####Supervisor Wet Room: JUANI FLORES ([id number])[facility])[address] [place] [address] Lymphocytes (Bld) [#/Vol] 1.1 10*3/uL Normal 1.0-4.3 [facility] Comment on above: Performed By: #### L [id number] ####Supervisor Wet Room: JUANI FLORES ([id number])[facility])[address] [place] [address] Lymphocytes/100 WBC (Bld) 9.6 % Low 15.0-45.0 [facility] Comment on above: Performed By: #### L [id number] ####Supervisor Wet Room: JUANI FLORES ([id number])[facility])[address] [place] [address] MCH (RBC) [Entitic mass] 23.2 pg Low 26.0-34.0 [facility] Comment on above: Performed By: #### L [id number] ####Supervisor Wet Room: JUANI FLORES ([id number])[facility])[address] [place] [address] MCHC 30.7 % Normal 30.5-36.0 [facility] Comment on above: Performed By: #### L [id number] ####Supervisor Wet Room: JUANI FLORES ([id number])[facility])[address] [place] [address] MCV (RBC) [Entitic vol] 75.5 fL Low 77.0-99.0 [facility] Comment on above: Performed By: #### L [id number] ####Supervisor Wet Room: JUANI FLORES ([id number])[facility])[address] [place] [address] Monocytes (Bld) [#/Vol] 0.8 10*3/uL Normal 0.0-0.9 [facility] Comment on above: Performed By: #### L [id number] ####Supervisor Wet Room: JUANI FLORES ([id number])[facility])[address] [place] [address] Monocytes/100 WBC (Bld) 7.4 % Normal 5.0-13.0 [facility] Comment on above: Performed By: #### L [id number] ####Supervisor Wet Room: JUANI FLORES ([id number])[facility] ([facility])[address] [place] [address] NEUTROPHILS ABSOLUTE 8.8 10*3/uL High 1.8-7.5 [facility] Comment on above: Performed By: #### L [id number] ####Supervisor Wet Room: JUANI FLORES ([id number])[facility] ([facility])[address] [place] [address] Neutrophils/100 WBC (Bld) 78.2 % Normal 38.0-82.0 [facility] Comment on above: Performed By: #### L [id number] ####Supervisor Wet Room: JUANI FLORES ([id number])[facility] ([facility])[address] [place] [address] NRBC 0.0 /100 WBCs Normal 0.0-2.0 [facility] Comment on above: Performed By: #### L [id number] ####Supervisor Wet Room: JUANI FLORES ([id number])[facility] ([facility])[address] [place] [address] Platelet mean volume (Bld) [Entitic vol] 9.2 fL Normal 9.0-12.7 [facility] Comment on above: Performed By: #### L [id number] ####Supervisor Wet Room: JUANI FLORES ([id number])[facility] ([facility])[address] [place] [address] Platelets (Bld) [#/Vol] 333 10*3/uL Normal 140-440 [facility] Comment on above: Performed By: #### L [id number] ####Supervisor Wet Room: JUANI FLORES ([id number])[facility] ([facility])[address] [place] [address] RBC (Bld) [#/Vol] 3.67 10*6/uL Low 4.40-5.90 [facility] Comment on above: Performed By: #### L [id number] ####Supervisor Wet Room: JUANI FLORES ([id number])[facility] ([facility])[address] [place] [address] WBC (Bld) [#/Vol] 11.2 10*3/uL High 3.6-10.7 [facility] Comment on above: Performed By: #### L [id number] ####Supervisor Wet Room: JUANI FLORES ([id number])[facility])[address] [place] [address] ED Nursing Noteon 02-14-2024 ED Nursing Note Report to FROYLAN Sears RN 02/14/24 1911 [facility] ED Nursing Note Patient provided with bagged lunch per request. Tina Persaud RN 02/14/24 1857 [facility] ED Nursing Note Abdominal binder applied at this time. Tina Persaud RN 02/14/24 1845 [facility] ED Nursing Note Report from FROYLAN Sears for lunch coverage. Tina Persaud RN 02/14/24 1815 [facility] ED Provider Noteon ED Provider Note EMERGENCY DEPARTMENT ENCOUNTER Pt Name: Lyudmila Brennan Birthdate 1950 Date of evaluation: 02/14/2024 ED Provider: Jorge Jones PA-C CHIEF COMPLAINT Chief Complaint Patient presents with Flank Pain Patient states R sided flank pain started around last , states bruising to the area started yesterday. Patient went to [facility] today & CT showed internal bleeding that was leaking into his chest. Denies any CP or SOB. Denies any known injury to the area or any recent falls. Shoulder Pain Patient states R shoulder pain x weeks. HISTORY OF PRESENT ILLNESS (Location/Symptom, Timing/Onset, Context/Setting, Quality, Duration, Modifying Factors, Severity) Note limiting factors. I wore appropriate PPE for the entirety of this encounter. HPI Lyudmila Brennan is a 74 y.o. male who presents to the emergency department as a transfer from [facility]. Patient went there today for a 6-day history of right-sided flank pain and then noticed some right-sided flank bruising yesterday. They did a CT over there that supposedly saw a hematoma right side of the chest with concern of active bleeding and called over here to surgery team who accepted him for transfer and further evaluation. Pain has been constant for the last 6 days but denies any dizziness, lightheadedness or syncope. No chest pain or shortness of breath. No abdominal pain. Takes Brilinta daily but no other blood thinners. Is in the process of actively moving from [place] and doing a lot of heavy lifting but denies any falls or injuries or trauma. Nursing Notes were reviewed. Limitations to history: None Outside historians: None REVIEW OF SYSTEMS Review of Systems Please see HPI for pertinent positives and negatives. All other systems reviewed and negative PAST MEDICAL HISTORY No past medical history on file. SURGICAL HISTORY No past surgical history on file. CURRENT MEDICATIONS Previous Medications No medications on file ALLERGIES Patient has no known allergies. FAMILY HISTORY No family history on file. SOCIAL HISTORY SCREENINGS PHYSICAL EXAM ED Triage Vitals [02/14/24 1719] Temp Heart Rate Resp BP 36.8 ?C (98.2 ?F) 79 18 (!) 154/67 SpO2 Temp Source Heart Rate Source Patient Position 98 % Oral Monitor -- BP Location FiO2 (%) -- -- Physical Exam GENERAL APPEARANCE: NAD, no cyanosis, pallor, or diaphoresis. EYES: lids/conjunctiva normal. Pupils equal round react to light. Extraocular movement intact. EARS/NOSE/THROAT: Mucous membranes moist, nares normal, lips/teeth normal uvula midline without oral pharyngeal erythema, exudate or swelling TMs normal bilaterally. No lymphangitis/lymphed erlin. HEAD/NECK: normocephalic atraumatic, no facial trauma, neck is supple. No midline cervical tenderness. RESPIRATORY: respiratory effort normal, speaks in full sentences, no tripod position, no accessory muscle use. Lungs clear to auscultation without rhonchi, wheezes, rales CARDIAC: Regular rate and rhythm, no murmurs gallops or rubs. 2+ radial pulses bilaterally. 2+ DP and PT pulses. ABDOMINAL: Normal active bowel sounds present. Negative Salem sign. Soft, ND/NT. No guarding or rigidity. no evidence of fluid wave. No pulsatile masses on exam, rebound tenderness, Rivas sign or pain over Mcburney's point. MUSCLES/EXTREMITIES: Back : Patient does have some significant fresh ecchymosis to the right flank and back. Does have some tenderness over this area. No midline tenderness to the cervical, thoracic or lumbar region. Lower Extremity Exam: No obvious deformity. There is no tenderness to the right or left lower extremity there is no swelling. ROM is intact. 5/5 strength to hip flexors, hip extensors, knee flexion, knee extension, dorsiflexion, plantarflexion, EHL of great toe. Brisk cap refill < 2 seconds. DP, PT pulses are 2+ bilaterally. Distal sensation and motor intact. Compartments soft. Patient observed to walk with normal gait. SKIN: Warm, pink and dry. No rashes, dermatoses, petechiae or lesions. NEUROLOGICAL: Cranial nerves II through XII are grossly intact. Speech is clear and appropriate. Normal level of consciousness. Gait and coordination are normal. 5/5 strength in all extremities. DIAGNOSTIC RESULTS ED BEDSIDE ULTRASOUND: Performed by ED Physician - none LABS: Labs Reviewed CBC WITH AUTO DIFFERENTIAL BASIC METABOLIC PANEL All other labs were within normal range or not returned as of this dictation. EMERGENCY DEPARTMENT COURSE and DIFFERENTIAL DIAGNOSIS/MDM: Vitals: Vitals: 02/14/24 1716 02/14/24 1719 02/14/24 1804 BP: (!) 154/67 (!) 143/56 BP Location: Left arm Patient Position: Lying Pulse: 79 77 Resp: 18 16 Temp: 36.8 ?C (98.2 ?F) TempSrc: Oral SpO2: 98% 96% Weight: 97.5 kg (215 lb) Height: 1.88 m (6' 2") Nursing notes and external records reviewed. Patient is being transferred from [facility] a (more content not included)... Normal [facility] ED Provider Note Emergency Department Encounter [facility] EMERGENCY DEPT Patient: Lyudmila Brennan : 1950 Date of Evaluation: 02/14/2024 ED Supervising Physician: Tom Fonseca MD I personally evaluated Lyudmila Brennan and made/approved the management plan and take responsibility for the patient management. This will serve as my Supervisory note and shared attestation. I did perform a substantive portion of the visit including all aspects of the Medical Decision Making. I wore appropriate PPE for the entirety of this encounter. In brief, Lyudmila Brennan is a 74 y.o. that presents to the emergency department patient was transferred from [facility] is on Plavix for coronary artery disease with stent noticed some hematoma to his right lateral chest. Also had some bruising to the flank had some pain. No known trauma he had a CT scan at [facility] which noted a large hematoma from the axillary to the diaphragm area on the right Focused exam: Patient alert and orient x 4 Patito and noted. Card pulm exam is normal. There is a large mass extending from the right axillary down to about T5-6. It is slightly tender no erythema patient with hematoma possibly from his Brilinta. Brief ED course/MDM: Will have surgery evaluate him and admit Diagnostics interpreted by me: I personally discussed the patient's management with other clinicians: All diagnostic, treatment, and disposition decisions were made by myself in conjunction with the JAILYN. For all further details of the patient's emergency department visit, please see their documentation. (Comment: Please note this report has been produced using speech recognition software and may contain errors related to that system including errors in grammar, punctuation, and spelling, as well as words and phrases that may be inappropriate. If there are any questions or concerns please feel free to contact the dictating provider for clarification.) Tom Fonseca MD [employer] Tom Fonseca MD 02/14/24 0520 Normal [facility] .GFRon 09-11-2018 GFR 62 ml/min/1.73sqm Normal [facility] ([place]) Comment on above: Result Comment: GFR Population mean for , Non- Americans Ages 20-29 = 116 mL/min/1.73 sq.m. Ages 30-39 = 107 mL/min/1.73 sq.m. Ages 40-49 = 99 mL/min/1.73 sq.m. Ages 50-59 = 93 mL/min/1.73 sq.m. Ages 60-69 = 85 mL/min/1.73 sq.m. Ages 70+ = 75 mL/min/1.73 sq.m. Chronic Kidney Disease: Less than 60 mL/min/1.73 square meters End Stage Renal Disease: Less than 15 mL/min/1.73 square meters Performed By: #### C MP, GFR #### [place] [address] GFR Non- 51 ml/min/1.73sqm Normal [facility] ([place]) Comment on above: Result Comment: GFR Population mean for , Non- Americans Ages 20-29 = 116 mL/min/1.73 sq.m. Ages 30-39 = 107 mL/min/1.73 sq.m. Ages 40-49 = 99 mL/min/1.73 sq.m. Ages 50-59 = 93 mL/min/1.73 sq.m. Ages 60-69 = 85 mL/min/1.73 sq.m. Ages 70+ = 75 mL/min/1.73 sq.m. Chronic Kidney Disease: Less than 60 mL/min/1.73 square meters End Stage Renal Disease: Less than 15 mL/min/1.73 square meters Performed By: #### C MP, GFR #### [address] [address] CMPon 09-11-2018 Albumin mass conc 3.5 G/dL Normal 3.4-4.8 [facility] ([place]) Comment on above: Performed By: #### C MP, GFR #### [address] [address] Albumin/Globulin mass ratio 1.1 {ratio} Normal 1.1-2.5 [facility] ([place]) Comment on above: Performed By: #### C MP, GFR #### [address] [address] ALP enzyme act/vol 81 U/L Normal 40-135 [facility] ([place]) Comment on above: Performed By: #### C MP, GFR #### [address] [address] ALT enzyme act/vol 24 U/L Normal 10-35 [facility] ([place] Comment on above: Performed By: #### C MP, GFR #### [address] [address] AST enzyme act/vol 14 U/L Normal 10-40 [facility] ([place] Comment on above: Performed By: #### C MP, GFR #### [address] [address] Bili Total 0.4 mg/dL Normal 0.2-1.0 [facility] ([place]) Comment on above: Performed By: #### C MP, GFR #### [address] [address] Calcium mass conc 9.3 mg/dL Normal 8.4-10.2 [facility] ([place]) Comment on above: Performed By: #### C MP, GFR #### [place] [id number] Chloride molar conc 104 mmol/L Normal 98-107 [facility] ([place]) Comment on above: Performed By: #### C MP, GFR #### [place] [address] CO2 molar conc 30 mmol/L Normal 23-31 [facility] ([place]) Comment on above: Performed By: #### C MP, GFR #### [place] [address] Creatinine mass conc 1.38 mg/dL High 0.70-1.30 [facility] ([place]) Comment on above: Performed By: #### C MP, GFR #### [address] [address] Electrolyte Balance 8.0 mEq/L Normal [facility] ([place]) Comment on above: Performed By: #### C MP, GFR #### [address] [address] Globulin mass conc (S) 3.1 G/dL Normal [facility] ([place]) Comment on above: Performed By: #### C MP, GFR #### [place] [address] Glucose mass conc 88 mg/dL Normal 80-115 [facility] ([place]) Comment on above: Performed By: #### C MP, GFR #### [place] [id number] Potassium molar conc 4.2 mmol/L Normal 3.5-5.1 [facility] ([place]) Comment on above: Performed By: #### C MP, GFR #### [place] [id number] Protein mass conc 6.6 G/dL Normal 6.4-8.2 [facility] ([place]) Comment on above: Performed By: #### C MP, GFR #### [address] [address] Sodium molar conc 142 mmol/L Normal 136-145 [facility] ([place] Comment on above: Performed By: #### C MP, GFR #### [address] [address] Urea nitrogen mass conc 22 mg/dL High 7-18 A [facility] ([place]) Comment on above: Performed By: #### C MP, GFR #### [address] [address] Urea nitrogen/Creatinine mass ratio 16 ratio Normal 7-27 [facility] ([place]) Comment on above: Performed By: #### C MP, GFR #### [address] [address] .GFRon 06-06-2018 GFR Non- 50 ml/min/1.73sqm Normal [facility] ([place] Comment on above: Result Comment: GFR Population mean for , Non- Americans Ages 20-29 = 116 mL/min/1.73 sq.m. Ages 30-39 = 107 mL/min/1.73 sq.m. Ages 40-49 = 99 mL/min/1.73 sq.m. Ages 50-59 = 93 mL/min/1.73 sq.m. Ages 60-69 = 85 mL/min/1.73 sq.m. Ages 70+ = 75 mL/min/1.73 sq.m. Chronic Kidney Disease: Less than 60 mL/min/1.73 square meters End Stage Renal Disease: Less than 15 mL/min/1.73 square meters Performed By: #### L IPID, CMP, GFR #### [address] [address] GFR 61 ml/min/1.73sqm Normal [facility] ([place]) Comment on above: Result Comment: GFR Population mean for , Non- Americans Ages 20-29 = 116 mL/min/1.73 sq.m. Ages 30-39 = 107 mL/min/1.73 sq.m. Ages 40-49 = 99 mL/min/1.73 sq.m. Ages 50-59 = 93 mL/min/1.73 sq.m. Ages 60-69 = 85 mL/min/1.73 sq.m. Ages 70+ = 75 mL/min/1.73 sq.m. Chronic Kidney Disease: Less than 60 mL/min/1.73 square meters End Stage Renal Disease: Less than 15 mL/min/1.73 square meters Performed By: #### L IPID, CMP, GFR #### [address] [address] CMPon 06-06-2018 Albumin mass conc 3.9 G/dL Normal 3.4-4.8 [facility] ([place]) Comment on above: Performed By: #### L IPID, CMP, GFR #### [address] [address] Albumin/Globulin mass ratio 1.2 {ratio} Normal 1.1-2.5 [facility] ([place]) Comment on above: Performed By: #### L IPID, CMP, GFR #### [address] [address] ALP enzyme act/vol 73 U/L Normal 40-135 [facility] ([place]) Comment on above: Performed By: #### L IPID, CMP, GFR #### [address] [address] ALT enzyme act/vol 22 U/L Normal 10-35 [facility] ([place]) Comment on above: Performed By: #### L IPID, CMP, GFR #### [address] [address] AST enzyme act/vol 15 U/L Normal 10-40 [facility] ([place]) Comment on above: Performed By: #### L IPID, CMP, GFR #### [address] [address] Bili Total 0.3 mg/dL Normal 0.2-1.0 [facility] ([place]) Comment on above: Performed By: #### L IPID, CMP, GFR #### [place] [address] Calcium mass conc 9.3 mg/dL Normal 8.4-10.2 [facility] ([place]) Comment on above: Performed By: #### L IPID, CMP, GFR #### [place] [address] Chloride molar conc 102 mmol/L Normal 98-107 [facility] ([place]) Comment on above: Performed By: #### L IPID, CMP, GFR #### [place] [address] CO2 molar conc 30 mmol/L Normal 23-31 [facility] ([place]) Comment on above: Performed By: #### L IPID, CMP, GFR #### [place] [address] Creatinine mass conc 1.40 mg/dL High 0.70-1.30 [facility] ([place]) Comment on above: Performed By: #### L IPID, CMP, GFR #### [place] [address] Electrolyte Balance 9.0 mEq/L Normal [facility] ([place]) Comment on above: Performed By: #### L IPID, CMP, GFR #### [place] [address] Globulin mass conc (S) 3.2 G/dL Normal [facility] ([place]) Comment on above: Performed By: #### L IPID, CMP, GFR #### [place] [address] Glucose mass conc 53 mg/dL Low 80-115 [facility] ([place] Comment on above: Performed By: #### L IPID, CMP, GFR #### [place] [address] Potassium molar conc 4.2 mmol/L Normal 3.5-5.1 [facility] ([place] Comment on above: Performed By: #### L IPID, CMP, GFR #### [place] [address] Protein mass conc 7.1 G/dL Normal 6.4-8.2 [facility] ([place] Comment on above: Performed By: #### L IPID, CMP, GFR #### [facility] [address] [place] [address] Sodium molar conc 141 mmol/L Normal 136-145 [facility] ([place]) Comment on above: Performed By: #### L IPID, CMP, GFR #### [facility] [address] [place] [address] Urea nitrogen mass conc 26 mg/dL High 7-18 A [facility] ([place]) Comment on above: Performed By: #### L IPID, CMP, GFR #### [address] [address] Urea nitrogen/Creatinine mass ratio 19 ratio Normal 7-27 [facility] ([place]) Comment on above: Performed By: #### L IPID, CMP, GFR #### [address] [address] LIPIDon 06-06-2018 Cholesterol in HDL mass conc 63 mg/dL High 40-60 [facility] ([place] Comment on above: Performed By: #### L IPID, CMP, GFR #### [address] [address] Cholesterol in LDL mass conc 82 mg/dL Normal 0-130 [facility] ([place] Comment on above: Performed By: #### L IPID, CMP, GFR #### [address] [address] Cholesterol mass conc 175 mg/dL Normal 0-200 [facility] ([place]) Comment on above: Result Comment: Chol esterol Reference Interval: Less than 200 Desirable 200-239 Borderline high risk 240 and above High risk Performed By: #### L IPID, CMP, GFR #### [address] [address] Triglyceride mass conc 152 mg/dL High 0-150 [facility] ([place]) Comment on above: Result Comment: Trig lyceride Reference Interval: Less than 150 Normal 150-199 Borderline high risk 200-499 High risk 500 or higher Very high risk Performed By: #### L IPID, CMP, GFR #### [address] [address] Farhan 06-06-2018 U Microalb 3720 mcg/dL Normal [facility] ([place]) Comment on above: Performed By: #### M ALBR #### [address] [address] U Ratio Alb/Cre 33.2 mcg/mg High 0.0-16.9 [facility] ([place]) Comment on above: Performed By: #### M ALBR #### [place] [address] U Creatinine 112.0 mg/dL Normal [facility] ([place]) Comment on above: Performed By: #### M ALBR #### [place] [id number] Vital Signs Date Time Vital Sign Value Performing Clinician Dinh valdez 01-27-2025 14:16-0400 Body height 187.96 cm WILMA MAST BIOCHEMISTRY TECHNOLOGIST Work Phone: [facility] 01-27-2025 14:16-0400 Body mass index (BMI) [Ratio] 28.5 kg/m2 WILMA MAST BIOCHEMISTRY TECHNOLOGIST Work Phone: [facility] 01-27-2025 14:16-0400 Body weight 100.75 kg WILMA MAST BIOCHEMISTRY TECHNOLOGIST Work Phone: [facility] 01-27-2025 14:16-0400 Diastolic blood pressure 69 mm[Hg] WILMA MAST BIOCHEMISTRY TECHNOLOGIST Work Phone: [facility] 01-27-2025 14:16-0400 Heart rate 75 /min WILMA MAST BIOCHEMISTRY TECHNOLOGIST Work Phone: [facility] 01-27-2025 14:16-0400 SaO2% (BldA) [Mass fraction] 95 % WILMA MAST BIOCHEMISTRY TECHNOLOGIST Work Phone: [facility] 01-27-2025 14:16-0400 Systolic blood pressure 165 mm[Hg] WILMA MAST BIOCHEMISTRY TECHNOLOGIST Work Phone: [facility] 10-16-2024 11:54-0400 Body height 187.96 cm WILMA MAST BIOCHEMISTRY TECHNOLOGIST Work Phone: [facility] 10-16-2024 11:54-0400 Body mass index (BMI) [Ratio] 29.2 kg/m2 WILMA MAST BIOCHEMISTRY TECHNOLOGIST Work Phone: [facility] 10-16-2024 11:54-0400 Body weight 103.41 kg WILMA MAST BIOCHEMISTRY TECHNOLOGIST Work Phone: [facility] 10-16-2024 11:54-0400 Diastolic blood pressure 67 mm[Hg] WILMA MAST BIOCHEMISTRY TECHNOLOGIST Work Phone: [facility] 10-16-2024 11:54-0400 Heart rate 58 /min WILMA MAST BIOCHEMISTRY TECHNOLOGIST Work Phone: [facility] 10-16-2024 11:54-0400 SaO2% (BldA) [Mass fraction] 96 % WILMA MAST BIOCHEMISTRY TECHNOLOGIST Work Phone: [facility] 10-16-2024 11:54-0400 Systolic blood pressure 120 mm[Hg] WILMA MAST BIOCHEMISTRY TECHNOLOGIST Work Phone: [facility] 09-17-2024 11:18-0400 Diastolic blood pressure 78 mm[Hg] WILMA MAST BIOCHEMISTRY TECHNOLOGIST Work Phone: [facility] 09-17-2024 11:18-0400 Systolic blood pressure 120 mm[Hg] WILMA MAST BIOCHEMISTRY TECHNOLOGIST Work Phone: [facility] 09-17-2024 09:53-0400 Body mass index (BMI) [Ratio] 28.3 kg/m2 WILMA MAST BIOCHEMISTRY TECHNOLOGIST Work Phone: [facility] 09-17-2024 09:53-0400 Body weight 100.24 kg WILMA MAST BIOCHEMISTRY TECHNOLOGIST Work Phone: [facility] 09-17-2024 09:53-0400 Diastolic blood pressure 71 mm[Hg] WILMA MAST BIOCHEMISTRY TECHNOLOGIST Work Phone: [facility] 09-17-2024 09:53-0400 Heart rate 73 /min WILMA MAST BIOCHEMISTRY TECHNOLOGIST Work Phone: [facility] 09-17-2024 09:53-0400 Respiratory rate 16 /min WILMA MAST BIOCHEMISTRY TECHNOLOGIST Work Phone: [facility] 09-17-2024 09:53-0400 Systolic blood pressure 155 mm[Hg] WILMA MAST BIOCHEMISTRY TECHNOLOGIST Work Phone: [facility] 07-18-2024 11:18-0400 Body height 187.96 cm WILMA MAST BIOCHEMISTRY TECHNOLOGIST Work Phone: [facility] 07-18-2024 11:18-0400 Body mass index (BMI) [Ratio] 28.8 kg/m2 WILMA MAST BIOCHEMISTRY TECHNOLOGIST Work Phone: [facility] 07-18-2024 11:18-0400 Body weight 101.6 kg WILMA MAST BIOCHEMISTRY TECHNOLOGIST Work Phone: [facility] 07-18-2024 11:18-0400 Diastolic blood pressure 73 mm[Hg] WILMA MAST BIOCHEMISTRY TECHNOLOGIST Work Phone: [facility] 07-18-2024 11:18-0400 Heart rate 63 /min WILMA MAST BIOCHEMISTRY TECHNOLOGIST Work Phone: [facility] 07-18-2024 11:18-0400 SaO2% (BldA) [Mass fraction] 97 % WILMA MAST BIOCHEMISTRY TECHNOLOGIST Work Phone: [facility] 07-18-2024 11:18-0400 Systolic blood pressure 152 mm[Hg] WILMA MAST BIOCHEMISTRY TECHNOLOGIST Work Phone: [facility] 06-06-2024 07:20-0500 Body weight 100.47 kg WILMA MAST BIOCHEMISTRY TECHNOLOGIST Work Phone: [facility] 05-09-2024 07:41-0500 Body weight 100.01 kg WILMA MAST BIOCHEMISTRY TECHNOLOGIST Work Phone: [facility] 04-22-2024 09:41-0500 Body mass index (BMI) [Ratio] 28.8 kg/m2 WILMA MAST BIOCHEMISTRY TECHNOLOGIST Work Phone: [facility] 04-22-2024 09:41-0500 Body weight 101.6 kg WILMA MAST BIOCHEMISTRY TECHNOLOGIST Work Phone: [facility] 04-22-2024 09:41-0500 Diastolic blood pressure 84 mm[Hg] WILMA MAST BIOCHEMISTRY TECHNOLOGIST Work Phone: [facility] 04-22-2024 09:41-0500 Heart rate 59 /min WILMA MAST BIOCHEMISTRY TECHNOLOGIST Work Phone: [facility] 04-22-2024 09:41-0500 SaO2% (BldA) [Mass fraction] 97 % WILMA MAST BIOCHEMISTRY TECHNOLOGIST Work Phone: [facility] 04-22-2024 09:41-0500 Systolic blood pressure 179 mm[Hg] WILMA MAST BIOCHEMISTRY TECHNOLOGIST Work Phone: [facility] 04-08-2024 15:11-0500 Body mass index (BMI) [Ratio] 28.2 kg/m2 WILMA MAST BIOCHEMISTRY TECHNOLOGIST Work Phone: [facility] 04-08-2024 15:11-0500 Body weight 99.79 kg WILMA MAST BIOCHEMISTRY TECHNOLOGIST Work Phone: [facility] 04-08-2024 14:31-0500 SaO2% (BldA) [Mass fraction] 98 % WILMA MAST BIOCHEMISTRY TECHNOLOGIST Work Phone: [facility] 04-08-2024 14:17-0500 Diastolic blood pressure 67 mm[Hg] WILMA MAST BIOCHEMISTRY TECHNOLOGIST Work Phone: [facility] 04-08-2024 14:17-0500 Heart rate 66 /min WILMA MAST BIOCHEMISTRY TECHNOLOGIST Work Phone: [facility] 04-08-2024 14:17-0500 Systolic blood pressure 140 mm[Hg] WILMA MAST BIOCHEMISTRY TECHNOLOGIST Work Phone: [facility] Encounters Encounter Date Encounter Type Care Provider Facility Start: 03-04-2025 ambulatory Keira Mccormack ty:[facility] Start: 02-27-2025 ambulatory Keira Mccormack ty:[facility] Start: 02-21-2025 End: 02-21-2025 ambulatory Keira Harper Facility:[facility] Start: 02-03-2025 ambulatory WILMA MAST Facility:[facility] Start: 01-29-2025 End: 01-29-2025 ambulatory Nydia El Facility:[facility] Start: 01-27-2025 End: 01-27-2025 Patient encounter procedure Nydia El COMMERCIAL BANKER-C -[facility] Work Phone: Start: 01-27-2025 End: 01-27-2025 ambulatory WILMA MAST BIOCHEMISTRY TECHNOLOGIST Work Phone: -[facility] Start: 01-27-2025 Registered Recurring WILMA MAST CRN P -Physical Therapy Work Phone: Start: 01-08-2025 End: 01-08-2025 ambulatory WILMA MAST CENTRIFUGE SEPARATOR OPERATOR-INSIDE SALES ADMINISTRATOR Facility:[facility] Start: 01-08-2025 End: 01-08-2025 Patient encounter procedure WILMA MAST CENTRIFUGE SEPARATOR OPERATOR-INSIDE SALES ADMINISTRATOR [facility] Start: 12-12-2024 End: 12-12-2024 ambulatory WILMA MAST CENTRIFUGE SEPARATOR OPERATOR-INSIDE SALES ADMINISTRATOR Facility:[facility] Start: 12-12-2024 End: 12-12-2024 Patient encounter procedure WILMA MAST CENTRIFUGE SEPARATOR OPERATOR-INSIDE SALES ADMINISTRATOR [facility] Start: 10-16-2024 End: 10-16-2024 Patient encounter procedure Nydia El COMMERCIAL BANKER-C -[facility] Work Phone: Start: 10-16-2024 End: 10-16-2024 ambulatory WILMA MAST BIOCHEMISTRY TECHNOLOGIST Work Phone: [facility] Work Phone: Start: 10-14-2024 End: 10-14-2024 ambulatory WILMA MAST BIOCHEMISTRY TECHNOLOGIST Work Phone: [facility] Work Phone: Start: 10-14-2024 End: 10-14-2024 Patient encounter procedure Nydia El COMMERCIAL BANKER-C -Laboratory Work Phone: Start: 10-14-2024 End: 10-14-2024 ambulatory Nydia Nikko Facility:[facility] Start: 09-18-2024 Non-patient / Non-visit Dr. Justo Olson MD -[facility] Start: 09-18-2024 End: 09-18-2024 ambulatory WILMA MAST BIOCHEMISTRY TECHNOLOGIST Work Phone: [facility] Work Phone: Start: 09-18-2024 End: 09-18-2024 Patient encounter procedure Sally Sommer PA -Cardiovascular Services Work Phone: Start: 09-17-2024 End: 09-17-2024 Patient encounter procedure Sally KAMARA -[facility] Work Phone: Start: 09-17-2024 End: 09-18-2024 ambulatory WILMA MAST BIOCHEMISTRY TECHNOLOGIST Work Phone: [facility] Work Phone: Start: 09-17-2024 End: 09-17-2024 ambulatory Nydia Nikko Facility:[facility] Start: 07-18-2024 End: 07-18-2024 ambulatory WILMA MAST BIOCHEMISTRY TECHNOLOGIST Work Phone: [facility] Work Phone: Start: 07-18-2024 End: 07-18-2024 Patient encounter procedure Nydia El COMMERCIAL BANKER-C -Laboratory Work Phone: Start: 07-18-2024 End: 07-18-2024 Patient encounter procedure Nydia El COMMERCIAL BANKER-C -[facility] Work Phone: Start: 07-18-2024 End: 07-18-2024 ambulatory WILMA MAST Facility:[facility] Start: 07-18-2024 End: 07-18-2024 ambulatory Nydia Nikko Facility:[facility] Start: 07-02-2024 ambulatory WILMA MAST Facility:[facility] Start: 06-21-2024 End: 06-21-2024 ambulatory WILMA MAST Facility:[facility] Start: 06-21-2024 End: 06-21-[address] Tim Salgado MD -Cardiac Rehab Work Phone: Start: 06-04-2024 End: 06-04-[address] Tim Salgado MD -Laboratory Work Phone: Start: 06-04-2024 End: 06-04-2024 ambulatory WILMA MAST Facility:[facility] Start: 05-29-2024 End: 05-29-2024 ambulatory WILMA MAST CENTRIFUGE SEPARATOR OPERATOR-INSIDE SALES ADMINISTRATOR Facility:[facility] Verenice WAN Start: 05-29-2024 End: 05-29-2024 Patient encounter procedure WILMA MAST CENTRIFUGE SEPARATOR OPERATOR-INSIDE SALES ADMINISTRATOR [facility] Start: 05-22-2024 End: 05-24-2024 ambulatory WILMA MAST Facility:[facility] Start: 05-22-2024 End: 05-24-[address] Tim Salgado MD -Cardiac Rehab Work Phone: Start: 04-22-2024 End: 04-22-2024 Patient encounter procedure Nydia TAYLOR -[facility] Work Phone: Start: 04-22-2024 End: 04-22-2024 ambulatory WILMA MAST Facility:[facility] Start: 04-19-2024 End: 04-23-2024 ambulatory WILMA MAST Facility:[facility] Start: 04-19-2024 End: 04-23-[address] Tim Salgado MD -Cardiac Rehab Work Phone: Start: 04-08-2024 End: 04-08-[address] Tim Salgado MD -Cardiac Rehab Work Phone: Start: 04-08-2024 End: 04-08-2024 ambulatory WILMA MAST Facility:[facility] Start: 03-20-2024 End: 03-20-2024 ambulatory No Primary Care Physician Facility:[facility] Start: 03-18-2024 End: 03-18-2024 ambulatory WILMA MAST CENTRIFUGE SEPARATOR OPERATOR-INSIDE SALES ADMINISTRATOR Facility:[facility] Verenice WAN Start: 03-18-2024 End: 03-18-2024 Patient encounter procedure WILMA MAST CENTRIFUGE SEPARATOR OPERATOR-INSIDE SALES ADMINISTRATOR [facility] Start: 02-28-2024 End: 02-28-2024 ambulatory ANCELMO GHCHEVY [facility] Start: 02-14-2024 End: 02-17-2024 Evaluation and management of inpatient PCP NONE [facility] Procedures Date Procedure Procedure Detail Performing Clinician Start: 07-18-2024 Urine microalbumin/creatinine ratio measurement WILMA MAST BIOCHEMISTRY TECHNOLOGIST Work Phone: Comment on above: Previous reported re sult: 139.9 mg/g CREEdited by: ROBERTA on 10/10/24:0819 AMENDED REPORT 10/10/24 0819 MALB:CREAT previously reported as: 139.9 mg/g CRE Start: 06-04-2024 Measurement of renal function WILMA MAST BIOCHEMISTRY TECHNOLOGIST Work Phone: Comment on above: GFR Calc Start: 02-15-2024 Antibody screen ALOK THOMPSON Comment on above: Performed By: #### L [id number] ####Supervisor Wet Room: JUANI FLORES ([id number])[facility] ([address] Start: 11-22-2023 Coronary angioplasty KR ISTA MAST CENTRIFUGE SEPARATOR OPERATOR-INSIDE SALES ADMINISTRATOR Start: 10-25-2023 Coronary angioplasty KR ISTA MAST CENTRIFUGE SEPARATOR OPERATOR-INSIDE SALES ADMINISTRATOR Start: 04-24-1996 Cholecystectomy WILMA MAST CENTRIFUGE SEPARATOR OPERATOR-INSIDE SALES ADMINISTRATOR Start: 04-24-1975 Removal of thrombus KRI STA MAST CENTRIFUGE SEPARATOR OPERATOR-INSIDE SALES ADMINISTRATOR History of placement of stent for coronary artery disease S/P right coronary artery (RCA) stent placement WILMA MAST BIOCHEMISTRY TECHNOLOGIST Work Phone: Comment on above: 10/25/2023 PCI RCA x 2 History of placement of stent for coronary artery disease S/P right coronary artery (RCA) stent placement Sally KAMARA Plan of Treatment Date Care Activity Detail Author Start: 01-27-2025 Parathyroid hormone measurement [facility] Start: 01-27-2025 T4 free measurement [facility] Start: 01-27-2025 Thyroid stimulating hormone measurement [facility] Start: 01-27-2025 Urine microalbumin/c reatinine ratio measurement [facility] Start: 01-27-2025 Vitamin D, 25-hydrox y measurement [facility] Start: 09-17-2024 Patient referral [facility] Work Phone: CBC W Auto Different ial panel - Blood [facility] metabo lic 1999 panel - Serum or Plasma [facility] metabo lic 1999 panel - Serum or Plasma [facility] Lipid 1996 panel - S mansi or Plasma [facility] Patient referral [facility] Work Phone: [facility] Immunizations Immunization Date Immunization Notes Care Provider Fa cility 12-16-2024 Pneumococcal conjuga te PCV20, polysaccharide [id number] conjugate, adjuvant, PF; Translations: [Prevnar 20] WILMA MAST CENTRIFUGE SEPARATOR OPERATOR-INSIDE SALES ADMINISTRATOR [facility] 02-28-2024 influenza, high dose seasonal, preservative-free; Translations: [Fluad PF Prefilled Syringe ] WILMA MAST CENTRIFUGE SEPARATOR OPERATOR-INSIDE SALES ADMINISTRATOR [facility] 04-09-2018 pneumococcal conjuga te vaccine, 13 valent WILMA MAST CENTRIFUGE SEPARATOR OPERATOR-INSIDE SALES ADMINISTRATOR [facility] Payers Date Payer Category Payer Private Health Insurance 06e [id number] 2024 [employer] ( and others) [id number] 2024 Self-pay [id number] 2023 [employer] ( and others) [id number] 2023 [employer] ( and others) [id number] 2014 Medicare [id number] 2014 Medicare [id number] 1950 Unknown [id number] [id number]7 1950 Unknown [id number] 2.16.840.1.449407.3.579.2.627 1950 Unknown [id number] 2.16.840.1.245599.3.579.2.627 1950 Unknown [id number] 2.16.840.1.918787.3.579.2.627 Unknown [id number] 2.16.840.1.828985.3.579.2.462 Unknown [id number] 2.16.840.1.827325.3.579.2.462 Unknown [id number] 2.16.840.1.354670.3.579.2.462 Unknown [id number] 2.16.840.1.281623.3.579.2.462 Unknown [id number] 2.16.840.1.301317.3.579.2.462 Unknown [id number] 2.16.840.1.555976.3.579.2.462 Unknown [id number] 2.16.840.1.417386.3.579.2.462 Unknown [id number] 2.16.840.1.391137.3.579.2.462 Unknown [id number] 2.16.840.1.979507.3.579.2.462 Unknown [id number] 2.16.840.1.519561.3.579.2.462 Unknown [id number] 2.16.840.1.801623.3.579.2.462 Unknown [id number] 2.16.840.1.035781.3.579.2.462 Unknown [id number] 2.16.840.1.487442.3.579.2.462 Unknown [id number] 2.16.840.1.865217.3.579.2.462 Unknown [id number] 2.16.840.1.602104.3.579.2.462 Unknown [id number] 2.16.840.1.299427.3.579.2.462 Unknown [id number] 2.16.840.1.966478.3.579.2.462 Unknown [id number] 2.16.840.1.667068.3.579.2.462 Unknown [id number] 2.16.840.1.668447.3.579.2.462 Unknown [id number] 2.16.840.1.575151.3.579.2.462 Unknown [id number] 2.16.840.1.537687.3.579.2.462 Unknown [id number] 2.16.840.1.771316.3.579.2.462 Social History Date Type Detail Facility Start: 02-28-2024 End: 09-17-2024 Tobacco smoking status Ex-smoker (finding) [facility] Tobacco smoking status Former sm okeless tobacco user, quit more than 30 days ago [facility] Start: 1950 Sex Assigned At Male [facility] Sexual Orientation [facility] gomez [facility] Start: 01-18-2017 End: 07-23-2024 Sex Male (finding) [facility] Sex Male [facility] Clinical Notes 02-14-2024 to 01-27-2025 Note Date & Type Note Facility 01-27-2025 Progress note [facility] 01-27-2025 Progress note Note Date/Time January 27, 2025 3:05pm [facility] [address] [place] [address] OFFICE VISIT Date of Service: 01/27/25 MR#: [id number] Acct: [id number] Name: LYUDMILA BRENNAN Rep #: [id number] : 1950 Provider: BRANDON El Age/Sex: 75/M Location: [facility] Status: Signed Intake Vital Signs 10/16/24 11:54 01/27/25 14:16 Height 6 ft 2 in 6 ft 2 in Weight: 228 lb 222 lb 2 oz BMI 29.2 28.5 BP 120/67 165/69 H Blood Pressure Location Lt brachial Rt brachial Position Sitting Sitting Pulse 58 L 75 Pulse Source Monitor Monitor Pulse Oximetry (%) 96 95 Oxygen Delivery Method room air room air Intake Visit Reasons: 3.5 M FU Chief Complaint: f/u diabetes/hypothyroid Is patient in pain?: No Allergies No Known Allergies Allergy (Verified 01/27/25 14:19) Medications ?Medication ?Instructions ?Recorded ?Confirmed ?Type aspirin 81 mg tablet,delayed 81 mg PO QDAY 03/13/24 History release (Adult Aspirin Regimen) atorvastatin 10 mg tablet 10 mg PO QDAY 03/13/2401/27 History gabapentin 300 mg capsule 300 mg PO BID 03/13/2401/27 History cholecalciferol (vitamin D3) 25 25 mcg PO QDAY 4 01/27/25 History mcg (1,000 unit) capsule dupilumab 300 mg/2 mL subcutaneous 300 mg subcut Q2W 1 05/20/23 01/27/25 History pen injector (Dupixent) multivitamin 1 tab PO QDAY 03/20/2401/27 History vitamin B complex 1 tab PO QDAY 03/20/2401/27 History losartan 50 mg tablet 50 mg PO QDAY #90 tabs 05/2301/27/25 Rx clobetasol 0.05 % topical cream 1 applic topical BID 0 09/17/24 01/27/25 History ketoconazole 2 % shampoo topical 09/17/24 01/27/25 Hi story tacrolimus 0.1 % topical ointment topical QDAY 5 01/27/25 History hydrochlorothiazide 12.5 mg tablet 12.5 mg PO QAM #90 tabs 10/16/24 01/27/25 Rx nisoldipine 34 mg tablet,extended 34 mg PO QDAY Pt is out, awaiting 12/05/24 01/27/25 Rx release 24 hr mail in RX #7 tabs levothyroxine 100 mcg tablet See Rx Instructions PO QD AY #96 12/25/24 01/27/25 Rx tabs metoprolol succinate 25 mg 25 mg PO QDAY #90 tabs 12/2301/27/25 Rx tablet,extended release 24 hr ticagrelor 90 mg tablet (Brilinta) 90 mg PO BID #180 t abs 01/06/25 01/27/25 Rx insulin lispro 100 unit/mL 100 unit subcut DAILY #90 m L 01/15/25 01/27/25 Rx subcutaneous solution empagliflozin 25 mg tablet 25 mg PO QAM #90 tabs 01/2701/27/25 Rx (Jardiance) Have you fallen in the past year?: No PFSH Medical History STEMI (ST elevation myocardial infarction) NSTEMI (non-ST elevated myocardial infarction) Hyperlipidemia Diabetic neuropathy Gout Diabetes type I Nephropathy Chronic kidney disease (CKD) Systolic ejection murmur Carotid artery stenosis Hypertension Fatty liver disease, nonalcoholic Renal cyst Chronic back pain Acute renal failure Iron deficiency anemia Hypothyroidism Surgical History S/P right coronary artery (RCA) stent placement History of bilateral cataract extraction History of vasectomy History of cholecystectomy Family History Mother Hypertension Son Diabetes Social History Smoking Status: Former smoker how long ago did patient quit smokin years ago alcohol intake: never substance use type: does not use caffeine: Yes Type: coffee Number of servings: 3 HPI HPI Chief Complaint: f/u diabetes/hypothyroid Details: LYUDMILA BRENNAN, is a 75 M who presents to the office today for evaluation and management of diabetes and hypothyroid. A1C today is 7.2%, increased from 6/25/25 at 7.0%. He has lost 6 lbs since that time. He is using [employer]tronic 780g with [employer] CGM- he would like to switch to new [employer] CGM. Insulin pump downloaded and reviewed- he is not entering carbohydrates appropriately. He states that he and his don't eat at normal times so it isdifficult for him to enter carbs, he was not able to explain to me how time of eating affected carbohydrate count. He is having occasional lows d/t automode trying to compensate for elevated blood sugars. He denies any significant episode of hypoglycemia that has required assistance from others. He is hypothyroid, TSH 10/14/24 was 17.6. At that time he admits that he was missing doses of LT4. Reports compliance with medication since that time. BP slightly elevated. Currently taking HCTZ 12.5 mg once daily, losartan 50 mg once daily, nisoldipine 34 mg once daily, and metoprolol 25 mg once daily. He has CKD and microalbuminuria. Recently established with nephrology. He takes a daily statin, cholesterol tightly controlled. Denies any acute concerns. ROS Const Constitutional: Positive for fatigue; No weight change ENT ENT: No dizziness/vertigo Cardio Cardiology: No chest pain at rest, chest pain with exertion, shortness of breathor palpitations Musc Musculoskeletal: Positive for joint pain (left shoulder) Skin Skin: No wounds Endo Endocrine: Positive for fatigue; No weight change Exam Const General: cooperative, healthy appearing, comfortable and no acute distress Nutritional Appearance: overweight Orientation: alert, awake and oriented x3 HENMT Head: normal to inspection Ears: hearing grossly normal bilaterally Nose: external nose normal Face and sinus: normal facial exam Eyes General: appearance normal, both eyes and all related structures Alignment and Position: alignment normal Sclera: sclerae normal Neck Neck: normal visual inspection Chest Chest palpation & inspection: normal inspection of the chest Resp Eff[place] & Inspection: normal respiratory effort, able to speak in complete sentences, symmetric chest movement, normal respiratory pattern, no audible wheezes and no cough Auscultation: Bilateral: Clear to Auscultation Cardio Rate: regular rate Rhythm: regular rhythm Heart Sounds: S1 normal and S2 normal GI Inspection: normal to inspection Musc Cervical Spine: normal cervical lordosis Thoracic/Lumbar Spine: thoracic and lumbar spine normal to inspection Skin General: no rashes or lesions noted Lesions: no lesions Rashes: no rashes Trauma: no lacerations or abrasions Wounds: no wounds Neuro General: patient alert, patient awake and patient oriented x3 Cognition: normal cognition Speech: speech normal Gait: normal gait Extrem General: normal to inspection and no pedal edema Psych Appearance: grossly normal Mental Status: mental status grossly normal Mood: congruent mood Affect: normal affect Speech and Movement: speech and movement normal Attitude: cooperative Thought Process: normal Thought Content: normal Judgment: judgment good Results POC A1C POC A1C 7.2 % Last Edit by Adam Feliz RN on 01/27/25 14:22 Clinical Quality Measures Falls Risk Screening/Assistive Devices Have you fallen in the past year?: No Assessment and Plan Assessment and Plan (1) Diabetes type I: Status: Chronic Qualifiers: Diabetes mellitus complication status: with circulatory complication Diabetes mellitus complication detail: with other circulatory complications Qualified Code(s): E10.59 - Type 1 diabetes mellitus with other circulatory complications Plan: Chronic- controlled. Longitudinal care provided. G2211. I reviewed with the patient the risk of developing and worsening of diabetes complications including retinopathy, neuropathy, nephropathy, heart attack, stroke, amputation, and sudden . Diabetes education provided. A1C at goal: <7.5%. CGM tracings reviewed in detail with patient. I emphasized importance of accurately counting and reporting carbohydrates. Notify office of persistently high/low blood sugars. I reached out to [employer] to pursue new [employer] CGM. CGM: he is checking blood sugar 4x/day, he is using blood sugar reading to titrate insulin dose, he is using a continuous infusion insulin pump, he is at risk of hypoglycemia. Reviewed most recent labs. The patient was counseled regarding the importance of foot care including daily visual and tactile inspection. The patient was instructed not to go barefoot andto always wear socks with their shoes. Follow up in 3 months. (2) Presence of insulin pump: Status: Chronic Plan: Plan same as above. (3) Insulin pump titration: Status: Chronic Plan: No changes made to insulin pump settings at today's appt. (4) Hypothyroidism: Status: Chronic Qualifiers: Hypothyroidism type: unspecified Qualified Code(s): E03.9 - Hypothyroidism, unspecified Plan: Chronic- stability unknown. -TSH/T4 Continue levothyroxine 175 mcg once daily. Take levothyroxine on an empty stomach with water at least four hours after eating. Then wait 30-60 minutes before consuming any other food or beverage, especially coffee. Separate levothyroxine from vitamins by at least 4 hours. Stop taking any biotin supplement 4 days prior to having labs drawn. (5) Hypertension: Status: Chronic Qualifiers: Hypertension type: unspecified Qualified Code(s): I10 - Essential (primary) hypertension Plan: Chronic- not well controlled. Continue HCTZ 12.5 mg once daily. Continue losartan 50 mg once daily. Continue nisoldipine 34 mg once daily. Continue metoprolol 25 mg once daily. Avoid dietary sodium. Will continue to monitor. (6) Chronic kidney disease (CKD): Status: Chronic Qualifiers: Chronic kidney disease stage: stage 3 (moderate) Chronic kidney diseasestage 3 subtype: stage 3b (GFR 30-44) Qualified Code(s): N18.32 - Chronic kidney disease, stage 3b Plan: Chronic- stability unknown. -CMP, PTHI Assure adequate hydration. Maintain glycemic control. Achieve and maintain BP control. Avoid NSAIDs. Continue ARB. Continue SGLT2. (7) Microalbuminuria due to type 1 diabetes mellitus: Status: Chronic Plan: Chronic- stability unknown. -M:C Increase Jardiance to 25 mg once daily. Plan otherwise same as #6. (8) Vitamin D deficiency: Status: Chronic Plan: Chronic- stability unknown. -vitamin D Continue vitamin D3 1,000 iu once daily. Will titrate dose if indicated by labs. (9) Overweight: Status: Chronic Plan: Chronic- improving. Encouraged a diet that contains high quality carbohydrates rich in fiber. I have spent [35] minutes today reviewing labs, records and history. Time includes coordinating care, interpretation of tests, discussion with patient's other health care providers via telephone. This also includes time I spent with the patient for exam, treatment plan and education as well as documenting clinical information. Orders: Orders POC A1C Today E10.59 - Type 1 diabetes mellitus with other circulatory complications Thyroid Stim Hormone (TSH) Today E03.9 - Hypothyroidism, unspecified Free T4 Today E03.9 - Hypothyroidism, unspecified Comprehensive Metabolic Profil Today E03.9 - Hypothyroidism, unspecified Microalb:Creat Ratio,Random UR Today E03.9 - Hypothyroidism, unspecified Vitamin D,25 Hydroxy Today E55.9 - Vitamin D deficiency, unspecified PTHIN Today E55.9 - Vitamin D deficiency, unspecified Medications: New empagliflozin (Jardiance) 25 mg PO QAM 90 tabs 1RF E10.29 - Type 1 diabetes mellitus with other diabetic kidney complication, R80.9 - Proteinuria, unspecified Discontinued empagliflozin (Jardiance) Discontinued Reason: Order Changed 10 mg PO QAM 90 tabs 1RF N18.32 - Chronic kidney disease, stage 3b, R80.9 - Proteinuria, unspecified Plan Details Follow Up: 3 Months Coding Level of Care Code Off vis,est,level 4 Extra Time Spent Extra Time Spent Extra Time Spent: G2211 Diagnoses Type 1 diabetes mellitus with other circulatory complication E10.59 Diabetes mellitus complication status: with circulatory complication Diabetes mellitus complication detail: with other circulatory complications Presence of insulin pump Z96.41 Insulin pump titration Z46.81 Hypothyroidism, unspecified type E03.9 Hypothyroidism type: unspecified Hypertension, unspecified type I10 Hypertension type: unspecified Stage 3b chronic kidney disease N18.32 Chronic kidney disease stage: stage 3 (moderate) Chronic kidney disease stage 3 subtype: stage 3b (GFR 30-44) Microalbuminuria due to type 1 diabetes mellitus E10.29; R80.9 Vitamin D deficiency E55.9 Overweight E66.3 Additional Codes Extra Time Spent - Extra Time Spent: G2211 (G2211) 01/27/25 1526 <Electronically signed by Nydia TAYLOR> Date _ Nydia TAYLOR Cosigner Signature: Date (if applicable) CC: RYLAN BOWDEN ~ [facility] Work Phone: 1(449) 951-504306-25-2025 Evaluation note* Diagnosis Onset Date Resolution Status Admit Date Chronic kidney disease (CKD) chronic October 16, 2024 11:48am Diabetes type I chronic September 11:48am Hyperlipidemia chronic October 16, 2024 11:48am Hypertension chronic Chantelle 25th, 2 025 11:48am Hypothyroidism chronic October 16, 2024 11:48am Insulin pump titration chronic 2024 11:48am Microalbuminuria due to type 1 diabetes mellitus chronic October 16 11:48am Overweight chronic October 16 11:48am Presence of insulin pump chronic October 16, 2024 11:48am Chronic kidney disease (CKD) chronic January 27, 2025 2:04pm Diabetes type I chronic January 272024 2:04pm Hypertension chronic January 27, 2025 2:04pm Hypothyroidism chronic January 2:04pm Insulin pump titration chronic Oc 2024 2:04pm Microalbuminuria due to type 1 diabetes mellitus chronic January 27, 025 2:04pm Overweight chronic January 27 025 2:04pm Presence of insulin pump chronic January 27, 2025 2:04pm Vitamin D deficiency chronic 2024 2:04pm [facility] Work Phone: 1(309) 353-777003-27-2025 Evaluation note* Diagnosis Onset Date Resolution Status Admit Date Chronic kidney disease (CKD) chronic July 18, 2024 11:08am Diabetes type I chronic June 11:08am Hyperlipidemia chronic June 11:08am Hypertension chronic July 18, 2024 11:08am Hypothyroidism chronic June 11:08am Insulin pump titration chronic [facility] 2024 11:08am Overweight chronic July 18 11:08am Presence of insulin pump chronic July 18, 2024 11:08am Proteinuria chronic July 18 025 11:08am Fatigue acute September 17, 2024 9:58am LV dysfunction acute September 17, 2024 9:58am NSTEMI (non-ST elevated myocardial infarction) acute September 17, 2024 9:58am Chronic kidney disease (CKD) chronic September 17, 2024 9:58am Diabetes type I chronic September 17, 2024 9:58am Hyperlipidemia chronic September 17, 2024 9:58am Hypertension chronic September 17 9:58am Hypothyroidism chronic September 17, 2024 9:58am [facility] Work Phone: 1(159) 314-907503-27-2025 Evaluation note* Diagnosis Onset Date Resolution Status Admit Date Chronic kidney disease (CKD) chronic July 18, 2024 11:08am Diabetes type I chronic June 11:08am Hyperlipidemia chronic June 11:08am Hypertension chronic July 18, 2024 11:08am Hypothyroidism chronic June 11:08am Insulin pump titration chronic [facility] 2024 11:08am Overweight chronic July 18 11:08am Presence of insulin pump chronic July 18, 2024 11:08am Proteinuria chronic July 18, 025 11:08am Fatigue acute September 17, 2024 9:58am LV dysfunction acute September 17, 2024 9:58am S/P right coronary artery (R CA) stent placement acute September 17, 2024 9 :58am Chronic kidney disease (CKD) chronic September 17, 2024 9:58am Hyperlipidemia chronic September 17, 2024 9:58am Hypertension chronic September 17 9:58am Hypothyroidism chronic September 17, 2024 9:58am [facility] Work Phone: 1(831) 594-930803-27-2025 Evaluation note* Diagnosis Onset Date Resolution Status Admit Date Chronic kidney disease (CKD) chronic July 18, 2024 11:08am Diabetes type I chronic June 11:08am Hyperlipidemia chronic June 11:08am Hypertension chronic July 18, 2024 11:08am Hypothyroidism chronic June 11:08am Insulin pump titration chronic [facility] 2024 11:08am Overweight chronic July 18 11:08am Presence of insulin pump chronic July 18, 2024 11:08am Proteinuria deleted July 18, 2 025 11:08am Fatigue acute September 17, 2024 9:58am LV dysfunction acute September 17, 2024 9:58am S/P right coronary artery (R CA) stent placement acute September 17, 2024 9 :58am Chronic kidney disease (CKD) chronic September 17, 2024 9:58am Hyperlipidemia chronic September 17, 2024 9:58am Hypertension chronic September 17 9:58am Hypothyroidism chronic September 17, 2024 9:58am [facility] Work Phone: 1(215) 843-225803-27-2025 Evaluation note* Diagnosis Onset Date Resolution Status Admit Date Chronic kidney disease (CKD) chronic July 18, 2024 11:08am Diabetes type I chronic June 11:08am Hyperlipidemia chronic June 11:08am Hypertension chronic July 18, 2024 11:08am Hypothyroidism chronic June 11:08am Insulin pump titration chronic [facility] 2024 11:08am Overweight chronic July 18 11:08am Presence of insulin pump chronic July 18, 2024 11:08am Proteinuria deleted July 18, 11:08am Fatigue acute September 17, 2024 9:58am LV dysfunction acute September 17, 2024 9:58am S/P right coronary artery (R CA) stent placement acute September 17, 2024 9 :58am Chronic kidney disease (CKD) chronic September 17, 2024 9:58am Hyperlipidemia chronic September 17, 2024 9:58am Hypertension chronic September 17 9:58am Hypothyroidism chronic September 17, 2024 9:58am Chronic kidney disease (CKD) chronic October 16, 2024 11:48am Diabetes type I chronic September 11:48am Hyperlipidemia chronic October 16, 2024 11:48am Hypertension chronic October 16, 025 11:48am Hypothyroidism chronic October 16, 2024 11:48am Insulin pump titration chronic 2024 11:48am Microalbuminuria due to type 1 diabetes mellitus chronic October 16 11:48am Overweight chronic October 16 11:48am Presence of insulin pump chronic October 16, 2024 11:48am [facility] Work Phone: 1(681) 783-765012-30-2024 Evaluation note* Diagnosis Onset Date Resolution Status Admit Date Chronic kidney disease (CKD) chronic April 22, 2024 9:25am Diabetes type I chronic April 22, 2024 9:25am Hypertension chronic March 9:25am Hypothyroidism chronic March 262023 9:25am Insulin pump titration chronic 2023 9:25am Nephropathy chronic March 9:25am Presence of insulin pump chronic April 22, 2024 9:25am Chronic kidney disease (CKD) chronic July 18, 2024 11:08am Diabetes type I chronic June 11:08am Hyperlipidemia chronic June 11:08am Hypertension chronic July 18, 2024 11:08am Hypothyroidism chronic June 11:08am Insulin pump titration chronic [facility] 2024 11:08am Overweight chronic July 18 20 25 11:08am Presence of insulin pump chronic July 18, 2024 11:08am Proteinuria chronic July 18, 2 025 11:08am [facility] Work Phone: 1(765) 459-225710-31-2024 NoteName of Caller: Ayde Contact Reason for Appointment: New Patient. Patient has referral with diagnosis of T14.8XXA (ICD-10-CM) - Hematoma . Please contact to schedule. Office Name: [address]26-2024 NoteDepartment of Trauma / Critical Care Discharge Summary Name: Lyudmila Brennan Date: 02/17/2024 12:32 PM : 1950 Age/Sex: 74 y.o. male Admit Date: 02/14/24 Discharge Date: 02/17/24 Attending: Jaron Henry MD Discharge Diagnosis: 1. Hematoma Patient Active Problem List Diagnosis Hematoma Body mass index is 27.68 kg/m?. BMI Classification: Overweight (BMI 25.0-29.9) Reason for Hospitalization: The patient was admitted for hematoma. Hospital Course (Care, treatment and services provided): Please see H&P and prior notes for more detailed summary of previous investigations and clinical assessment prior to this admission. Brief HPI 74 y.o. male presenting as a transfer from [facility]. He states that on 02/10, he was lifting some heavy objects out of his vehicle when he felt a pop in his right shoulder and had subsequent pain that traveled down his shoulder into his right flank. His noticed some bruising and swelling on the right flank which prompted him to present to the hospital. Patient pain level currently is 2/10. He currently takes Brillinta and ASA for recent stent placement 10/2023 INJURIES: Right flank hematoma Right hemothorax Incidental Findings: none Hospital course: Patient recently moved into a home into [place] and while moving boxes felt a pop in the right shoulder area with pain down into the right flank. Bruising and swelling occurred very shortly after and presented for evaluation. Given his use of Brilinta and ASA he was admitted for monitoring to make sure hematoma was not expanding. Hgb dropped and he was transfused 1uPRBC, Brilinta and ASA on hold. Daily exams did not show clinical signs of enlarging hematoma. Ecchymosis slightly worsened but then stabilized. Hgb remained stable. Brilinta and ASA restarted and Hgb remained stabled as did the hematoma clinically. Abdominal binder and ice packs continued while in patient and will continue at home. Patient eager to discharge home. Patient to establish with PCP and follow up in trauma clinic. Discussed with patient strict return precautions and to continue close monitoring at home. Patient and agreeable with plan. Consultations: IP CONSULT TO GERIATRICS PCP: No primary care provider on file. Recommended Follow-ups: PCP Trauma Treatments and Procedures with outcomes: Labs: Data Review Data CBC with Differential: Lab Results Component Value Date WBC 10.3 02/17/2024 RBC 3.75 (L) 02/17/2024 HGB 8.9 (L) 02/17/2024 HCT 28.4 (L) 02/17/2024 PLT 352 02/17/2024 CMP: Lab Results Component Value Date NA 136 02/17/2024 K 4.4 02/17/2024 CL 108 (H) 02/17/2024 CO2 23 02/17/2024 BUN 24 (H) 02/17/2024 CREATININE 1.41 (H) 02/17/2024 GLUCOSE 107 (H) 02/17/2024 CALCIUM 8.4 02/17/2024 BMP: Hepatic Function Panel: Ionized Calcium: No components found for: IONCA Magnesium: No results found for: "MG" Phosphorus: No results found for: "PHOS" PT/INR: No results found for: "PROTIME", "INR" PTT: No results found for: "APTT"[APTT Last 3 Troponin: No results found for: "TROPONINI" Urine Culture: No components found for: "CURINE" Blood Culture: No components found for: "CBLOOD", "CFUNGUSBL" Blood Culture from Central Line: No components found for: "CBLOODLN" Stool Culture: No components found for: "CSTOOL" Sputum Culture: No components found for: "CSPUTUM" Sputum Culture for AFB: No components found for: "CAFBSM" Wound Culture: n/a Procedures: Blood transfusion Significant Imaging Results: POCT glucose meter Result Date: 02/15/2024 Performed by: [facility], [address] [place] [id number] CLIA ID: [id number] XR chest 1 view Result Date: 02/15/2024 Patient Name: LYUDMILA BRENNAN : 1950 [facility]#: [id number] Exam Date/Time: 02/15/2024 11:17 Procedure: XR CHEST 1 VIEW Ordering Provider: ERWIN LAURA Reason For Exam: eval right hemothorax CHEST CLINICAL INDICATION: eval right hemothorax TECHNIQUE: AP portable chest COMPARISON: No relevant prior study. FINDINGS: SUPPORT DEVICES: None HEART AND MEDIASTINUM: Mild calcification of the thoracic aorta. Cardiac silhouette is normal in size. LUNGS AND PLEURA: Small right pleural effusion. Subtle hazy opacity in the region of the right lung base, likely due to mild atelectasis and layering pleural fluid. No pneumothorax is identified. OSSEOUS STRUCTURES: Unremarkable. Small right pleural effusion and mild right basilar atelectasis. Report Dictated on Electronically Signed By: Lakeisha Sharp MD Electronically Signed Date/Time: 02/15/2024 11:36 AM EDT POCT glucose meter Result Date: 02/15/2024 Performed by: [facility], [address] [place] [id number] CLIA ID: [id number] POCT glucose meter Result Date: 02/15/2024 Performed by: [facility], [address] [place] [id number] C (more content not included)...[facility] [id number] NoteCare Management Progress Note Geriatrics following. PT/OT signed off. Plan to go home with . SW gave list of PCP in the [place] area. HBG 8.7. Await treatment plan and clinical progress. associate sales manager will continue to follow for transitional care needs and discharge planning. Length of Stay (Days): 2 GMLOS: 2.6 [facility] [id number] NoteOCCUPATIONAL THERAPY [facility] Initial Evaluation Name/MRN: Lyudmila Brennan ([id number]) Evaluation Date: 02/15/2024 Date of : 1950 Admission Date: 02/14/2024 5:14 PM Age: 74 y.o. [facility]: [facility] Discharge Recommendation: Home with assist PRN Assessment IMPRESSION: Pt admitted to [facility] for hematoma. Prior to admission, pt recently moved from [place] to [place], independent with all ADLs and functional mobility with use of cane, and living with spouse. Demonstrates independence in all ADLs and functional mobility during evaluation. No skilled therapy warranted at this time, OT to sign off. Admitting Diagnosis: Hematoma Performance Deficits /Impairments: Increased Pain and Decreased Functional Mobility Prognosis: Good Decision Making: Low Complexity Subjective Pt seen supine in bed, requested to use bathroom. Left in bed at end of session with all needs within reach. Pain: Pt denies any current pain. Past Medical History: No past medical history on file. Past Surgical History: No past surgical history on file. Admission Diagnosis: Patient Active Problem List Diagnosis Date Noted Hematoma 02/14/2024 Medical Precautions: No active isolations Proper PPE donned/doffed in accordance with facility standards. Fall Risk: Muller Fall Risk Score: 45 (Low Risk) Muller Fall Risk Score: 45 (High Risk) Precautions/Restrictions: Lines/Drains/Airways: PIV Fall Precautions Family/Caregiver Present: none Overall Cognitive Status: WFL Overall Orientation Status: Oriented x4 Social/Functional History Patient admitted from home. Lives With: Spouse Type of Home: single family home Home Layout: Single Level Home Home Access: Stairs to Enter without Rails (# of stairs: 1) Bathroom Shower/Tub: Walk in shower with shower chair Toilet: Standard Home Equipment: cane Homemaking Responsibilities: Independent Receives Help From: Spouse Active Air Deodorizer Servicer: Yes Prior Level of Function Prior Level of ADL Function: Independent Prior Level of Mobility: Independent; Device: Straight Cane Prior Level of Transfers: Independent Objective ADLs LE Dressing: Independent Toileting: Independent, Small BM at toilet Grooming: Independent, Hand hygiene while standing at sink Upper Extremity Assessment AROM: WFL PROM: WFL Strength: WFL Vision: not assessed this session Hearing: normal Bed Mobility Supine to sit: Independent Sit to supine: Independent Transfers/Functional Mobility Sit to stand: Independent Stand to sit: Independent Toilet: Independent Sitting balance: Independent Standing balance: Independent Functional mobility: Independent Device(s) used: None Hand dominance: Right AM-PAC AM-PAC Inpatient Daily Activity Raw Score: 24 ADL Inpatient CMS G-Code Modifier: CH Plan No skilled acute OT indicated at this time. Please reconsult should changes occur. Safety/Education Safety Safety Devices in place: All fall risk precautions in place, call light within reach, and left in bed Restraints: No Education Education Given To: patient Education Provided: OT Role, Plan of Care, and Discharge Recommendations Education Method: Verbal Barriers to Learning: None Education Outcome: Verbalized Understanding Goals Patient Stated Goal: Home Therapy Time Individual Co-treatment Time In 1413 Time Out 1424 Minutes 11 Demetrio Vu OT Patient's Occupational Therapy Plan of Care supervision is transferred to a [facility] Occupational Therapist. Goals and/or treatment plan was established in collaboration with patient/family/other representatives.[facility]10-24-2024 NotePHYSICAL THERAPY [facility] Initial Evaluation Name/MRN: Lyudmila Brennan ([id number]) Evaluation Date: 02/15/2024 Date of : 1950 Admission Date: 02/14/2024 5:14 PM Age: 74 y.o. Room[facility]Bed: [facility] Discharge Recommendation: Home with assist PRN Equipment Needed: No Other: He has a straight cane he uses in his right hand. Reminded him that he can switch to the left hand if it increases his pain to use it in the right hand. Assessment IMPRESSION: Lyudmila Brennan was admitted on 02.14.24 with a hematoma he developed after lifting heavy luggage from the car. He states most of his pain is gone, except for right at the underarm area. He is wearing a binder. He is just moving here from [place], and his furniture is being delivered today. He is moving well, demonstrates safety on the stairs, with turns, with use of his cane. He does not need further PT. Will complete PT orders at this time. Admitting Diagnosis: hematoma Prognosis: good Performance Deficits /Impairments: Decreased High Level IADLs Decision Making: Low Complexity Subjective Patient was sitting at the edge of the bed at onset and end of this session. He is moving well. Likely a little slower than baseline, but well. Pain: RN managing pain. Past Medical History: No past medical history on file. Past Surgical History: No past surgical history on file. Admission Diagnosis: Patient Active Problem List Diagnosis Date Noted Hematoma 02/14/2024 Medical Precautions: No active isolations Proper PPE donned/doffed in accordance with facility standards. Fall Risk: Muller Fall Risk Score: 45 (Low Risk) Muller Fall Risk Score: 45 (High Risk) Precautions/Restrictions: N/A Family/Caregiver Present: none Overall Cognitive Status: WFL Overall Orientation Status: Oriented x4 Vision: not assessed this session Hearing: normal Social/Functional History Patient admitted from home. Lives With: Spouse Type of Home: single family home Home Layout: Single Level Home Home Access: Stairs to Enter without Rails (# of stairs: 1) Bathroom Shower/Tub: Toilet: Standard Home Equipment: cane Homemaking Responsibilities: Independent Receives Help From: Spouse Active Air Deodorizer Servicer: Yes Prior Level of Function Prior Level of ADL Function: Independent Prior Level of Mobility: Independent; Device: Straight Cane Prior Level of Transfers: Independent Objective Lower Extremity Assessment AROM: WNL PROM: WNL Strength: WNL Sensation: WFL Balance: Balance During Session: Posture: good Sitting - Static: Independent Sitting - Dynamic: Independent Standing - Static: Independent Standing - Dynamic: Independent Bed Mobility: Supine to sit: Modified Independent Sit to supine: Independent Transfers Sit to stand: Independent Stand to sit: Independent Ambulation Ambulation 1 Assistive device(s) used: Straight Cane Assist level: Modified Independent Distance (ft): 150' x 2 Quality of gait: slow constance Heart Failure on Admission Dyspnea: No Heart failure diagnosis: No No dyspnea during this evaluation. Balance During Session: Posture: good Sitting - Static: Independent Sitting - Dynamic: Independent Standing - Static: Independent Standing - Dynamic: Independent Stairs Stairs 1 Assistive device(s) used: None Assist level: Modified Independent # of steps: 6 Rails: left Additional factors: reciprocal going up, reciprocal going down Outcome Measures AM-PAC How much HELP from another person do you currently need Turning from your back to your side while in a flat bed without using bedrails?: None Moving from lying on your back to sitting on the side of a flat bed without using bedrails?: None Moving to and from a bed to a chair (including a wheelchair)?: None Standing up from a chair using your arms (wheelchair or bedside chair)?: None Walking in a hospital room?: None Stair climbing assessed?: Yes AM-[facility] Inpatient Mobility Raw Score (No Stairs) : 20 [facility] Score: Walked 250 ft or more (i.e. several laps on unit) Plan Pt would benefit from skilled acute PT services to address : none at this time Frequency: 0x/week eval only Barriers: Pain and only pain is at right armpit area Safety/Education Safety Safety Devices in place: call light within reach and patient left sitting EOB Restraints: No Education Education Given To: patient Education Provided: PT Role, Gait Training, Precautions, Transfer Training, Equipment, and Discharge Recommendations Education Method: Verbal Barriers to Learning: None Education Outcome: Verbalized Understanding Goals Patient Stated Goal: to return home. Encounter Problems Encounter Problems (Active) Pain - Adult Therapy Time Individual Co-treatment Time In 0915 Time Out 0931 Minutes 16 Lana Bolden, PT Patient's Physical Therapy Plan of Care supervision is transferred to a [facility] Physi (more content not included)...[facility] 02-15-2024 NoteCare Management Progress Note Geriatric consulted. HBG 6.2, PRBC ordered to be given. SW aware patient needs PCP and specialist set up, just moved from [place]. Insulin pump, patients. PT/OT ordered. Await treatment plan and clinical progress. associate sales manager will continue to follow for transitional care needs and discharge planning. Length of Stay (Days): 1 GMLOS: No GMLOS Documented [facility]10-23-2024 Note Attestation signed by Jaron Henry MD at 03/08/2024 7:28 PM Attending Addendum: I independently saw and evaluated the patient. I personally obtained the arambula and critical portion of the history and physical exam. I reviewed and agree with the documentation above. I personally reviewed the patient's labs and imaging studies. I was present in the trauma bay prior to patient's arrival. I was present by the bedside for the primary and secondary survey, as well as CT scan. HPI: 74 y.o. M brought to ED as a transfer from [facility] s/p right chest/flank pain that developed while lifting a heavy boxes at home. Pt is on ASA/Brilinta for cardiac stents in October. CT at [place] significant for right chest wall/flank hematoma. Pt arrived hemodynamically stable in no acute distress w/ large area of ecchymosis over right flank and swelling to posterior chest wall. Trauma evaluation revealed: Right posterior chest wall/flank hematoma Plan: - admit to trauma - compression w/ binder - hold ASA/Brilinta - serial H/H - keep NPO, IVF for now - reconcile home meds - OOB as tolerated Level of Medical Decision Making: [x]High []Moderate []Low Complexity: Acute illness with systemic symptoms (MOD) Risk: Prescription drug management (MOD) Personally Reviewed/Independently interpreted patient's: [x]Epic notes [x]Radiology studies [x]Labs []EKG [x]Ordering tests []Other Discussed/ With: [x]Patient/Family [x]RN []Consultants []SW/TCC []Other I spent total time of 75 minutes reviewing previous notes, test results, and face to face with Lyudmila Brennan discussing the diagnosis and importance of compliance with the treatment plan as well as documenting on the day of the visit. Time was spent, Reviewing medical record including recent tests and results Ordering prescription medications/tests and procedures Communicating results to the patient/family/caregiver Counseling/educating the patient/family/caregiver Documenting clinical information the patient's electronic record Coordination of care for the patient Performing a medical appropriate exam and evaluation Jaron Henry MD Trauma, Surgical Critical Care & Acute Care Surgery Division of Trauma Department of Surgery [facility] Trauma H&P 02/14/2024 6:11 PM Trauma Attending: Dr. Henry Level of Initial Activation: Trauma Evaluation Upgraded: No To:N/A Mechanism of Injury: Other lifting heavy objects out of car Mechanism of Arrival:Transfer from [facility] Chief Complaint: Right flank pain History of Traumatic Injury: 74 y.o. male presenting as a transfer from [facility]. He states that on 02/10, he was lifting some heavy objects out of his vehicle when he felt a pop in his right shoulder and had subsequent pain that traveled down his shoulder into his right flank. His noticed some bruising and swelling on the right flank which prompted him to present to the hospital. Patient pain level currently is 2/10. Did the Patient have LOC?No C-collar in place on arrival? No Was the patient on an antiplatelet or anticoagulant medication? Yes If yes, which one? Brlinta and ASA COVID-19 Risk Screening Tool: Has patient previously been tested for COVID-19? N/A Is the patient coming from a nursing facility or congregate care facility? N/A Has the patient been in close contact with a COVID-19 positive patient? N/A Has the patient recently experienced any of the following: fever, cough, kdpiusqhn-[id number], myalgias, loss of taste/smell, diarreha/GI symptoms? N/A If any of the screen questions are answered 'yes,' consider ordering a COVID test PMH: T1DM PSH: Cholecystectomy, coronary stenting FHX: non-contributory Social History Socioeconomic History Marital status: Not on file Spouse name: Not on file Number of children: Not on file Years of education: Not on file Highest education level: Not on file Occupational History Not on file Tobacco Use Smoking status: Not on file Smokeless tobacco: Not on file Substance and Sexual Activity Alcohol use: Not on file Drug use: Not on file Sexual activity: Not on file Other Topics Concern Not on file Social History Narrative Not on file Social Drivers of Health Financial Resource Strain: Not on file Food Insecurity: Not on file Transportation Needs: Not on file Physical Activity: Not on file Stress: Not on file Social Connections: Not on file Intimate Partner Violence: Not on file Housing Stability: Not on file No current facility-administered medications on file prior to encounter. No current outpatient medications on file prior to encounter. No current facility-administered medications for this (more content not included)...[facility] SHSEvaluation + Plan note Future Appointments Appointment Date:06/04/2024 10:00:00 AM Scheduled Provider:WILMA IVERSON Location:[facility] Appointment Type:PC OV [facility] Evaluation + Plan note Future Appointments Appointment Date:06/04/2024 10:00:00 AM Scheduled Provider:WILMA IVERSON Location:[facility] Appointment Type:PC OV Future Scheduled Tests Laboratory* Complete Blood Count 03/20/24 * Complete Metabolic Panel 03/20/24 [facility] Evaluation + Plan note Future Appointments Appointment Date:12/16/2024 11:30:00 AM Scheduled Provider:WILMA IVERSON Location:[facility] Appointment Type:PC Wellness Medicare [facility] Hospital course Narrative No data available for this section [facility] Hospital Discharge instructions No data available for this section [facility] Hospital Discharge instructionsAmbulatory Orders* Nephrology Location: None Selected [facility] Work Phone: Progress note No data available for this section [facility] Reason for referral (narrative)No reason for referral information available[facility] Work Phone: Summary Purpose Family History No Family History Records Found Relationship Condition Age at Onset Recorded Date/T alejandro mother Hypertension Unknown son Diabetes mellitus Unknown Advance Directives No Advanced Directives Records Found Advance Directive Response Recorded Date/ Time Advance Directives on File No Decem 2023 3:17pm Living Will No April 08, 2 024 3:17pm Do you have a Healthcare Power of Molder [place]? No April 08, 2024 3:17pm Chief Complaint and Reason for Visit Chief Complaint Admit Date MA NonSTEMI <12 months April 08 1:55pm MA NonSTEMI <12 months April 19 2:15pm Diabetes/Hypothyroid April 22, 2024 9:25am MA NonSTEMI <12 months May 22 2:15pm MA NonSTEMI <12 months June 21 2:30pm 3 M FU July 18, 2024 11: 08am E-ORDER July 18, 2024 12: 35pm Reason for Visit Admit Date Chronic kidney disease (CKD) April 222023 9:25am Diabetes type I April 22, 2024 9:25am Hypertension April 22, 2024 9:25am Hypothyroidism April 22, 2024 9:25am Insulin pump titration April 22 9:25am Nephropathy April 22, 2024 9:25am Presence of insulin pump April 22, 2024 9:25am Chronic kidney disease (CKD) July 18, 2024 11:08am Diabetes type I July 18, 2024 11: 08am Hyperlipidemia July 18, 2024 11: 08am Hypertension July 18, 2024 11: 08am Hypothyroidism July 18, 2024 11: 08am Insulin pump titration July 18, 2024 11:08am Overweight July 18, 2024 11: 08am Presence of insulin pump July 18 11:08am Proteinuria July 18, 2024 11: 08am Chief Complaint Admit Date MA NonSTEMI <12 months May 22 2:15pm MA NonSTEMI <12 months June 21 2:30pm 3 M FU July 18, 2024 11: 08am E-ORDER July 18, 2024 12: 35pm 6 M FU September 17, 2024 9:58a m Reason for Visit Admit Date Chronic kidney disease (CKD) July 18, 2024 11:08am Diabetes type I July 18, 2024 11: 08am Hyperlipidemia July 18, 2024 11: 08am Hypertension July 18, 2024 11: 08am Hypothyroidism July 18, 2024 11: 08am Insulin pump titration July 18, 2024 11:08am Overweight July 18, 2024 11: 08am Presence of insulin pump July 18 11:08am Proteinuria July 18, 2024 11: 08am Fatigue September 17, 2024 9:58a m LV dysfunction September 17, 2024 9:58a m NSTEMI (non-ST elevated myocardial infar ction) September 17, 2024 9:58am Chronic kidney disease (CKD) September 17, 2 025 9:58am Diabetes type I September 17, 2024 9:58a m Hyperlipidemia September 17, 2024 9:58a m Hypertension September 17, 2024 9:58a m Hypothyroidism September 17, 2024 9:58a m Chief Complaint Admit Date MA NonSTEMI <12 months June 21 2:30pm 3 M FU July 18, 2024 11: 08am E-ORDER July 18, 2024 12: 35pm 6 M FU September 17, 2024 9:58a m 2 ORDERING FOSTER FOR LABS September 17, 2024 10:56am LV DYSFUNCTION September 18, 2024 12:59 pm Reason for Visit Admit Date Chronic kidney disease (CKD) July 18, 2024 11:08am Diabetes type I July 18, 2024 11: 08am Hyperlipidemia July 18, 2024 11: 08am Hypertension July 18, 2024 11: 08am Hypothyroidism July 18, 2024 11: 08am Insulin pump titration July 18, 2024 11:08am Overweight July 18, 2024 11: 08am Presence of insulin pump July 18 11:08am Proteinuria July 18, 2024 11: 08am Fatigue September 17, 2024 9:58a m LV dysfunction September 17, 2024 9:58a m S/P right coronary artery (RCA) stent pl acement September 17, 2024 9:58am Chronic kidney disease (CKD) September 17, 2 025 9:58am Hyperlipidemia September 17, 2024 9:58a m Hypertension September 17, 2024 9:58a m Hypothyroidism September 17, 2024 9:58a m Chief Complaint Admit Date MA NonSTEMI <12 months June 21 2:30pm 3 M FU July 18, 2024 11: 08am E-ORDER July 18, 2024 12: 35pm 6 M FU September 17, 2024 9:58a m 2 ORDERING FOSTER FOR LABS September 17, 2024 10:56am LV DYSFUNCTION September 18, 2024 12:59 pm NEEDS ORDER October 14, 2024 10:1 3am 3 M FU October 16, 2024 11:4 8am Reason for Visit Admit Date Chronic kidney disease (CKD) July 18, 2024 11:08am Diabetes type I July 18, 2024 11: 08am Hyperlipidemia July 18, 2024 11: 08am Hypertension July 18, 2024 11: 08am Hypothyroidism July 18, 2024 11: 08am Insulin pump titration July 18, 2024 11:08am Overweight July 18, 2024 11: 08am Presence of insulin pump July 18 11:08am Proteinuria July 18, 2024 11: 08am Fatigue September 17, 2024 9:58a m LV dysfunction September 17, 2024 9:58a m S/P right coronary artery (RCA) stent pl acement September 17, 2024 9:58am Chronic kidney disease (CKD) September 17, 2 025 9:58am Hyperlipidemia September 17, 2024 9:58a m Hypertension September 17, 2024 9:58a m Hypothyroidism September 17, 2024 9:58a m Chronic kidney disease (CKD) October 16, 2024 11:48am Diabetes type I October 16, 2024 11:4 8am Hyperlipidemia October 16, 2024 11:4 8am Hypertension October 16, 2024 11:4 8am Hypothyroidism October 16, 2024 11:4 8am Insulin pump titration October 16, 2024 1 1:48am Microalbuminuria due to type 1 diabetes mellitus October 16, 2024 11:48am Overweight October 16, 2024 11:4 8am Presence of insulin pump October 16, 2024 11:48am Chief Complaint Admit Date NEEDS ORDER October 14, 2024 10:1 3am 3 M FU October 16, 2024 11:4 8am BALANCE RX HERE January 27, 2025 11 :30am 3.5 M FU January 27, 2025 2: 04pm Reason for Visit Admit Date Chronic kidney disease (CKD) October 16, 2024 11:48am Diabetes type I October 16, 2024 11:4 8am Hyperlipidemia October 16, 2024 11:4 8am Hypertension October 16, 2024 11:4 8am Hypothyroidism October 16, 2024 11:4 8am Insulin pump titration October 16, 2024 1 1:48am Microalbuminuria due to type 1 diabetes mellitus October 16, 2024 11:48am Overweight October 16, 2024 11:4 8am Presence of insulin pump October 16, 2024 11:48am Chronic kidney disease (CKD) January 2:04pm Diabetes type I January 27, 2025 2: 04pm Hypertension January 27, 2025 2: 04pm Hypothyroidism January 27, 2025 2: 04pm Insulin pump titration January 27, 2025 2:04pm Microalbuminuria due to type 1 diabetes mellitus January 27, 2025 2:04pm Overweight January 27, 2025 2: 04pm Presence of insulin pump January 27 2:04pm Vitamin D deficiency January 27, 2025 2 :04pm Additional Source Comments (unrecognized sect ion and content) No Status Records FoundNo Status Records FoundNo Status Records FoundNo Status Records Found INFORMATION SOURCE (unrecogn ized section and content) DATE CREATED AUTHOR 09/21/2018 [facility] ([place]) DATE CREATED AUTHOR AUTHOR'S ORGANIZ ATION 03/11/2024 [facility] DATE CREATED AUTHOR AUTHOR'S ORGANIZ ATION 01/16/2025 [facility] DATE CREATED AUTHOR AUTHOR'S ORGANIZ ATION 03/05/2025 [facility] Patient Care team informatio n (unrecognized section and content) Team Status: Active Member Role Status Dates RYLAN BOWDEN Primary Care Provider Active Team Status: Inactive Member Role Status Dates RYLAN BOWDEN Primary Care Provider Active Start: April 08, 2024 End: April 08, 2024 Dr. Tim Salgado MD Attending Provider Active Start: April 08, 2024 End: April 08, 2024 Dr. Tim Salgado MD Referring Provider Active Start: April 08, 2024 End: April 08, 2024 Team Status: Inactive Member Role Status Dates RYLAN BOWDEN Primary Care Provider Active Start: April 19, 2024 End: April 23, 2024 Dr. Tim Salgado MD Attending Provider Active Start: April 19, 2024 End: April 23, 2024 Dr. Tim Salgado MD Referring Provider Active Start: April 19, 2024 End: April 23, 2024 Team Status: Inactive Member Role Status Dates DILIP BOWDNENP Primary Care Provider Active Start: April 22, 2024 End: April 22, 2024 WILMADILIP SANCHEZNP Referring Provider Active Sta rt: April 22, 2024 End: April 22, 2024 BRANDON Cotto Attending Provider Active Start: April 22, 2024 End: April 22, 2024 Team Status: Inactive Member Role Status Dates RYLAN BOWDEN Primary Care Provider Active Start: May 22, 2024 End: May 24, 2024 Dr. Tim Salgado MD Attending Provider Active Start: May 22, 2024 End: May 24, 2024 Dr. Tim Salgado MD Referring Provider Active Start: May 22, 2024 End: May 24, 2024 Team Status: Inactive Member Role Status Dates WILMA IVERSON BIOCHEMISTRY TECHNOLOGIST Primary Care Provider Active Start: June 04, 2024 End: June 04, 2024 Dr. Tim Salgado MD Attending Provider Active Start: June 04, 2024 End: June 04, 2024 Dr. Tim Salgado MD Referring Provider Active Start: June 04, 2024 End: June 04, 2024 Team Status: Inactive Member Role Status Dates RYLAN BOWDEN Primary Care Provider Active Start: June 21, 2024 End: June 21, 2024 Dr. Tim Salgado MD Attending Provider Active Start: June 21, 2024 End: June 21, 2024 Dr. Tim Salgado MD Referring Provider Active Start: June 21, 2024 End: June 21, 2024 Team Status: Inactive Member Role Status Dates WILMACORONA IVERSON BIOCHEMISTRY TECHNOLOGIST Primary Care Provider Active Start: July 18, 2024 End: July 18, 2024 WILMACORONA IVERSON , BIOCHEMISTRY TECHNOLOGIST Referring Provider Active Sta rt: July 18, 2024 End: July 18, 2024 BRANDON Cotto Attending Provider Active Start: July 18, 2024 End: July 18, 2024 Team Status: Inactive Member Role Status Dates WILMA MAST , BIOCHEMISTRY TECHNOLOGIST Primary Care Provider Active Start: July 18, 2024 End: July 18, 2024 BRANDON Cotto Attending Provider Active Start: July 18, 2024 End: July 18, 2024 BRANDON Cotto Referring Provider Active Start: July 18, 2024 End: July 18, 2024 Team Status: Inactive Member Role Status Dates WILMA MAST , BIOCHEMISTRY TECHNOLOGIST Primary Care Provider Active Start: September 17, 2024 End: September 17, 2024 WILMA IVERSON BIOCHEMISTRY TECHNOLOGIST Referring Provider Active Sta rt: September 17, 2024 End: September 17, 2024 Sally Sommer PA, PA Attending Provider Active Start: September 17, 2024 End: September 17, 2024 Team Status: Inactive Member Role Status Dates WILMACORONA IVERSON , BIOCHEMISTRY TECHNOLOGIST Primary Care Provider Active Start: September 17, 2024 End: September 17, 2024 Sally Sommer PA, PA Attending Provider Active Start: September 17, 2024 End: September 17, 2024 BRANDON Cotto Referring Provider Active Start: September 17, 2024 End: September 17, 2024 Team Status: Active Member Role Status Dates WILMA MAST , BIOCHEMISTRY TECHNOLOGIST Primary Care Provider Active Start: September 18, 2024 Sally Sommer PA, PA Attending Provider Active Start: September 18, 2024 Sally Sommer PA, PA Referring Provider Active Start: September 18, 2024 Team Status: Active Member Role Status Dates WILMA ZAYRA , BIOCHEMISTRY TECHNOLOGIST Primary Care Provider Active Start: September 18, 2024 Dr. Justo Olson MD Attending Provider Active Start: September 18, 2024 Team Status: Inactive Member Role Status Dates WILMA MAST , BIOCHEMISTRY TECHNOLOGIST Primary Care Provider Active Start: September 18, 2024 End: September 18, 2024 Sally Sommer PA, PA Attending Provider Active Start: September 18, 2024 End: September 18, 2024 Sally Sommer PA, PA Referring Provider Active Start: September 18, 2024 End: September 18, 2024 Team Status: Active Member Role Status Dates WILMA ZAYRA , BIOCHEMISTRY TECHNOLOGIST Primary Care Provider Active Start: October 14, 2024 BRANDON Cotto Attending Provider Active Start: October 14, 2024 Nydia Nikko , COMMERCIAL BANKER-C Referring Provider Active Start: October 14, 2024 Team Status: Inactive Member Role Status Dates DILIP BOWDENNP Primary Care Provider Active Start: October 16, 2024 End: October 16, 2024 WILMA IVERSON BIOCHEMISTRY TECHNOLOGIST Referring Provider Active Sta rt: October 16, 2024 End: October 16, 2024 BRANDON Cotto Attending Provider Active Start: October 16, 2024 End: October 16, 2024 Team Status: Inactive Member Role Status Dates RYLAN BOWDEN Primary Care Provider Active Start: October 14, 2024 End: October 14, 2024 ASAF CottoC Attending Provider Active Start: October 14, 2024 End: October 14, 2024 BRANDON Cotto Referring Provider Active Start: October 14, 2024 End: October 14, 2024 Team Status: Active Member Role/Relationship Status Dates DILIP BOWDENNP Primary care physician Active Team Status: Inactive Member Role/Relationship Status Dates RYLAN BOWDEN Primary care physician Active Start: October 14, 2024 End: October 14, 2024 BRANDON Cotto Attending physician Active Start: October 14, 2024 End: October 14, 2024 BRANDON Cotto Referring Provider Active Start: October 14, 2024 End: October 14, 2024 Team Status: Inactive Member Role/Relationship Status Dates DILIP BOWDENNP Primary care physician Active Start: October 16, 2024 End: October 16, 2024 WILMA IVERSON BIOCHEMISTRY TECHNOLOGIST Referring Provider Active Sta rt: October 16, 2024 End: October 16, 2024 BRANDON Cotto Attending physician Active Start: October 16, 2024 End: October 16, 2024 Team Status: Active Member Role/Relationship Status Dates WILMACORONA IVERSON BIOCHEMISTRY TECHNOLOGIST Primary care physician Active Start: January 27, 2025 WILMA IVERSON BIOCHEMISTRY TECHNOLOGIST Attending physician Active St art: January 27, 2025 WILMACORONA IVERSON , BIOCHEMISTRY TECHNOLOGIST Referring Provider Active Sta rt: January 27, 2025 Team Status: Inactive Member Role/Relationship Status Dates WILMA IVERSON BIOCHEMISTRY TECHNOLOGIST Primary care physician Active Start: January 27, 2025 End: January 27, 2025 WILMA IVERSON , BIOCHEMISTRY TECHNOLOGIST Referring Provider Active Sta rt: January 27, 2025 End: January 27, 2025 ASAF CottoC Attending physician Active Start: January 27, 2025 End: January 27, 2025 Goals (unrecognized section and content) Goals may be documented in a n alternate section FOR RECORDS PERTAINING TO PATIENTS WHO ARE OR HAVE BEEN ENROLLED IN A CHEMICAL DEPENDENCY/SUBSTANCEABUSE PROGRAM, SOME INFORMATION MAY BE OMITTED. This clinical summary was aggregated from multiple sources. Caution should be exercised in using it in the provision of clinical care. This summary normalizes information from multiple sources, and as a consequence, information in this document may materially change the coding, format and clinical context of patient data. In addition, data may be omitted in some cases. CLINICAL DECISIONS SHOULD BE BASED ON THE PRIMARY CLINICAL RECORDS. [facility] provides no warranty or guarantee of the accuracy or completeness of information in this document.
[2025-03-21 01:29] LABS: Hematocrit 41.5 % (40-54); Hemoglobin 13.0 g/dL (13.0-16.5); Immature Granulocytes Count 0.080 X10^3/uL (0.0-0.0); Mean Corp Hgb Conc 31.3 g/dL (32-36); Mean Corpuscular Volume 80.9 fL (80-94); Mean Platelet Vol. 9.6 fl (6.2-12.0); NRBC Flagged by Analyzer 0 % (0-5); Platelet Count 336 K/mm3 (150-450); RBC Distribution Width CV 18.0 % (11.6-14.6); RBC Distribution Width SD 51.8 fl (35.1-43.9); Red Blood Count 5.13 M/mm3 (4.6-6.2); White Blood Count 13.2 K/mm3 (4.4-11.0)
[2025-03-21] MEDS: Lidocaine 2% Viscous15 ML UDC 15 ML PO (01:41)
[2025-03-21] MEDS: Pantoprazole Sodium 40 MG in 0.9% Normal Saline (100mL MB+) 100 ML 300 MG IV (01:42)
[2025-03-21 02:02] LABS: Lipase 19 U/L (13-75); Magnesium 2.4 mg/dL (1.5-2.2); Troponin T High Sensitivity 25 ng/L (<=22)
[2025-03-21 02:08] LABS: AST(SGOT) 25 U/L (<=37); Alanine Aminotransfer ALT/SGPT 14 U/L (<=46); Albumin, Serum 3.9 g/dL (3.4-4.8); Alkaline Phosphatase 85 U/L (40-129); Anion Gap 18 (5-15); BUN 25 mg/dL (4-19); BUN/Creat Ratio 11.4 RATIO (10-20); Bilirubin, Direct 0.11 mg/dL (0.00-0.30); Calcium,Total 8.6 mg/dL (7.6-11.0); Carbon Dioxide 19.3 mmol/L (21.0-32.0); Chloride 99 mmol/L (98-108); Estimated Creatinine Clearance 37.17 ml/min (50-250); Globulin 3.3 g/dL (2.2-4.2); Glucose 530 mg/dL (70-99); Potassium 4.3 mmol/L (3.3-5.1)
[2025-03-21] MEDS: 0.9% Normal Saline (1000mL) 1,000 ML 999 ML IV (02:45)
[2025-03-21 02:46] VITALS: BP 149/72; PULSE 82; RESP 18; O2SAT 96
[2025-03-21 03:00] VITALS: BP 159/67; PULSE 89; RESP 20; O2SAT 97
[2025-03-21 03:02] LABS: SITE Not entered; VBG BASE EXCESS -1 mmol/L (-1.0-3.5); VBG PO2 52 mmHg (25-40); VBG SO2 88 % (50-70); VBG TCO2 25 mmol/L (23-33)
[2025-03-21 03:53] LABS: Troponin T High Sens 2 HR 27 ng/L (<=22)
--- NOTE | 2025-03-21 04:26 | EX.ED.DYSGE1 ---
HPI History of Present Illness Chief Complaint: Chest Pain Informant: patient and spouse/S.O. Narrative Narrative: Patient is a 75-year-old male with past medical history of hypertension hyperlipidemia chronic kidney disease CAD and type 1 diabetes. He states he has had stents placed in the past and that each time he had a "heart attack" his symptoms were more consistent with "indigestion". He states he developed symptoms of indigestion around 930 this evening. He reports he took some [id number] medications but did not have complete resolution of symptoms. He states because his previous heart attacks presented similar he was concerned this could be a cardiac event and with this presents for evaluation [facility] Medical History STEMI (ST elevation myocardial infarction) NSTEMI (non-ST elevated myocardial infarction) Hyperlipidemia Diabetic neuropathy Gout Diabetes type I Nephropathy Chronic kidney disease (CKD) Systolic ejection murmur Carotid artery stenosis Hypertension Fatty liver disease, nonalcoholic Renal cyst Chronic back pain Acute renal failure Iron deficiency anemia Hypothyroidism Home Medications Medication Instructions Recorded Last Taken Type aspirin 81 mg tablet,delayed 81 mg PO QDAY 03/13/24 Unknown History release (Adult Aspirin Regimen) gabapentin 300 mg capsule 300 mg PO BID 03/13/24 Unknown History cholecalciferol (vitamin D3) 25 25 mcg PO QDAY 03/20/24 Unknown History mcg (1,000 unit) capsule dupilumab 300 mg/2 mL subcutaneous 300 mg subcut Q2W 03/20/24 Unknown History pen injector (Dupixent) multivitamin 1 tab PO QDAY 03/20/24 Unknown History vitamin B complex 1 tab PO QDAY 03/20/24 Unknown History losartan 50 mg tablet 50 mg PO QDAY #90 tabs 05/23/24 Unknown Rx clobetasol 0.05 % topical cream 1 applic topical BID 09/17/24 Unknown History ketoconazole 2 % shampoo 1 applic topical BID 09/17/24 Unknown History tacrolimus 0.1 % topical ointment 1 applic topical QDAY 09/17/24 Unknown History nisoldipine 34 mg tablet,extended 34 mg PO QDAY Pt is out, awaiting 12/05/24 Unknown Rx release 24 hr mail in RX #7 tabs levothyroxine 100 mcg tablet See Rx Instructions PO QDAY #96 12/25/24 Unknown Rx tabs ticagrelor 90 mg tablet (Brilinta) 90 mg PO BID #180 tabs 01/06/25 Unknown Rx insulin lispro 100 unit/mL 100 unit subcut DAILY #90 mL 01/15/25 Unknown Rx subcutaneous solution empagliflozin 25 mg tablet 25 mg PO QAM #90 tabs 01/27/25 Unknown Rx (Jardiance) atorvastatin 10 mg tablet 10 mg PO QDAY #90 tabs 02/03/25 Unknown Rx hydrochlorothiazide 12.5 mg tablet 25 mg PO QAM 02/21/25 Unknown History metoprolol succinate 25 mg 25 mg PO QDAY #90 tabs 03/13/25 Unknown Rx tablet,extended release 24 hr Allergy/AdvReac Type Severity Reaction Status Date / Time No Known Allergies Allergy Verified 03/21/25 00:26 Family History Mother Hypertension Son Diabetes Surgical History S/P right coronary artery (RCA) stent placement History of bilateral cataract extraction History of vasectomy History of cholecystectomy Social History Smoking Status: Former smoker how long ago did patient quit smokin years ago alcohol intake: never substance use type: does not use caffeine: Yes Type: coffee Number of servings: 3 ROS ROS ED Constitutional Constitutional ED: Denies chills or fever(s) Eyes Eyes: Denies change in vision ENT ENT ED: Denies sore throat Cardiovascular Cardiovascular: Reports chest pain; Denies palpitations or racing heartbeat Respiratory/Chest Respiratory/Chest: Denies cough or dyspnea Gastrointestinal Gastrointestinal: Reports nausea; Denies abdominal pain, diarrhea or vomiting Musculoskeletal Musculoskeletal: Denies back pain or myalgias Integumentary Denies rash Neurologic Neurologic: Denies headache(s) Hematologic/Lymphatic Hematologic/Lymphatic: Denies easy bleeding or easy bruising EXAM Physical Exam Const Vital Signs: 03/21/25 00:24 03/21/25 00:26 03/21/25 01:23 Temperature 97.6 F L Temperature Source Oral Pulse Rate 111 H 85 Respiratory Rate 23 H 17 Respiratory Effort Short of Breath Blood Pressure 211/94 H 179/88 H Blood Pressure Mean 133 118 Pulse Ox 98 96 Oxygen Delivery Method Room Air Room Air 03/21/25 02:46 03/21/25 03:00 03/21/25 04:39 Temperature 97.6 F L Temperature Source Pulse Rate 82 89 84 Respiratory Rate 18 20 H 18 Respiratory Effort Blood Pressure 149/72 H 159/67 H 162/72 H Blood Pressure Mean 97 97 102 Pulse Ox 96 97 97 Oxygen Delivery Method Room Air Room Air Positive well nourished and well developed General Appearance ED: well developed; Negative for pallor HEENT HEENT Narrative: Normocephalic atraumatic Eyes PERRL and EOMs intact bilaterally General Eye ED: Negative for scleral icterus Neck supple and no JVD Chest Wall palpation of chest normal Chest Narrative: No bony deformity or subcutaneous emphysema noted No reproducible pain with palpation Resp normal respiratory effort Resp Narrative: Breath sounds are diminished throughout with rhonchi noted in the right lower lobe however no signs of acute respiratory distress Cardio regular rhythm Rate: tachycardic and other Other Details: Slightly tachycardic rate with regular rhythm and occasional ectopic beat noted Radial and carotid pulses are equal and symmetric GI normal to inspection, nondistended, normoactive bowel sounds, non-tender, non-distended and no masses GI Narrative: No voluntary guarding or rigidity or pulsatile mass No peritoneal signs Auscultation: normoactive bowel sounds Palpation: soft Extremity normal to inspection Extremity Narrative: No asymmetric edema no pitting edema negative Homans' sign bilaterally Neuro oriented x3, CN's II-XII intact bilaterally and no sensory deficits noted Sensorium / Orientation: alert Motor Exam: strength 5/5 throughout Psych mental status grossly normal Skin no rashes or lesions noted General Skin Exam: Negative for jaundice or pallor MDM MDM MDM Narrative Medical decision making narrative: Patient arrived to the ER slightly hypertensive and tachycardic. He reported symptoms most consistent with indigestion however he states that his previous cardiac events were similar in nature. Therefore in order to rule out ACS versus cardiac dysrhythmia an EKG was obtained and troponins were ordered. In order to assess for acute on chronic kidney disease as well as electrolyte abnormality or potential acute pancreatitis as a cause of his symptoms blood work was ordered. A chest x-ray was obtained to assess for lung pathology such as pneumothorax or pneumonia. The patient's chest x-ray revealed chronic findings consistent with his history but no acute changes. His blood sugar was elevated at 530 but patient states that he just changed his insulin within the pump and each time he does so he will have spikes in his blood sugar. In order to assess for DKA and HHS a VBG was obtained and patient is not acidotic as his pH is 7.43. His serum osmolality is less than 320 going against HHS. His kidney function is elevated at 2.2 but chart review reveals this is baseline for him and therefore he does not have acute on chronic kidney disease. His troponins are flat at a value of 25 and 27 going against any type of active heart disease. Patient also reported resolution of symptoms with the provided medication. As well the hypertension that was present upon arrival has improved by 15 to 25% which is the goal reduction after medication provided in the ER. Therefore at this time the patient does not have DKA or HHS he does not have a cardiac dysrhythmia or signs of acute coronary syndrome as his troponins are flat. He does not have acute on chronic kidney disease as his creatinine is at baseline. As he has had resolution of symptoms and improvement of vitals I do not feel the need for further intervention in the ER and he is otherwise safe for discharge. History & Record Review Discussion w/independent historian: Patient and Significant other Lab Data Attestation: I reviewed the patient's lab results. Labs: Laboratory Results - last 24 hr 03/21/25 03/21/25 03/21/25 01:20 03:24 03:50 WBC 13.2 H RBC 5.13 Hgb 13.0 Hct 41.5 MCV 80.9 MCH 25.3 L MCHC 31.3 L RDW Std Deviation 51.8 H RDW Coeff of Toney 18.0 H Plt Count 336 MPV 9.6 Immature Gran % (Auto) 0.600 Neut % (Auto) 81.7 H Lymph % (Auto) 9.0 L [place] % (Auto) 5.2 Eos % (Auto) 2.9 Baso % (Auto) 0.6 Absolute Neuts (auto) 10.8 H Absolute Lymphs (auto) 1.18 Nucleated RBC % 0 Sodium 136 Potassium 4.3 Chloride 99 Carbon Dioxide 19.3 L Anion Gap 18 H BUN 25 H Creatinine 2.19 H Estim Creat Clear Calc 37.17 L Est GFR (MDRD) Non-Af 31 L BUN/Creatinine Ratio 11.4 Glucose 530 H* Serum Osmolality 305 H Calcium 8.6 Magnesium 2.4 H Total Bilirubin 0.31 Direct Bilirubin 0.11 AST 25 ALT 14 Alkaline Phosphatase 85 Troponin T High Sens 25 H Troponin T Hi Sens 2 Hr 27 H Total Protein 7.2 Albumin 3.9 Globulin 3.3 Lipase 19 ABG Data ABG results: ABG 03/21/25 02:59 Specimen Type LEX Sample Site Not entered VBG pH 7.43 H VBG pO2 52 H VBG HCO3 24 VBG Total CO2 25 VBG O2 Sat (Calc) 88 H VBG Base Excess -1 POC Mix VBG pCO2 Pt Tmp 35.9 L O2 Delivery Device Room Air Radiography Diagnostic Testing: Clinical Impression(s) from Imaging Studies Chest X-Ray 03/21/25 01:20 IMPRESSION: Unchanged right pleural effusion. Unchanged right pleural thickening. Unchanged atelectatic airspace disease of the right lower lobe. Reading Location: [place] [id number] Chest x-ray as interpreted by the emergency medicine physician reveals atelectasis and pleural effusion on the right lower lobe without infiltrate or pneumothorax Discharge Plan Triage Chief Complaint: Chest Pain ED Provider: Jaron Bartholomew Dx/Rx/DC Orders Clinical Impression: Nonspecific chest pain, Acute hyperglycemia, Hypertension, Chronic kidney disease (CKD), Diabetes type I, Hyperlipidemia, CAD (coronary artery disease) Instructions: High Blood Sugar (Hyperglycemia), ED Chest Pain, Uncertain Cause Prescriptions: No Action gabapentin 300 mg capsule 300 mg PO BID aspirin [Adult Aspirin Regimen] 81 mg tablet,delayed release (DR/EC) 81 mg PO QDAY Dupixent Pen 300 mg/2 mL pen injector 300 mg subcut Q2W multivitamin Tablet 1 tab PO QDAY vitamin B complex Tablet 1 tab PO QDAY cholecalciferol (vitamin D3) 25 mcg (1,000 unit) capsule 25 mcg PO QDAY tacrolimus 0.1 % ointment 1 applic topical QDAY ketoconazole 2 % shampoo 1 applic topical BID clobetasol 0.05 % cream 1 applic topical BID Jardiance 25 mg tablet 25 mg PO QAM Qty: 90 1RF hydrochlorothiazide 12.5 mg tablet 25 mg PO QAM losartan 50 mg tablet 50 mg PO QDAY Qty: 90 3RF nisoldipine 34 mg tablet extended release 24 hr 34 mg PO QDAY Qty: 7 0RF levothyroxine 100 mcg tablet See Rx Instructions PO QDAY Qty: 96 1RF Rx Instructions: 2 tabs Monday, 1 tab Monday-Monday orally daily; ticagrelor [Brilinta] 90 mg tablet 90 mg PO BID Qty: 180 3RF insulin lispro 100 unit/mL solution 100 unit subcut DAILY Qty: 90 1RF Rx Instructions: via insulin pump atorvastatin 10 mg tablet 10 mg PO QDAY Qty: 90 3RF metoprolol succinate 25 mg tablet extended release 24 hr 25 mg PO QDAY Qty: 90 3RF Primary Care Provider: WILMA IVERSON Referrals: Tim Salgado MD [Med Staff - Active Staff, Cardiology] WILMA IVERSON CRNP [Primary Care Provider, Family Practice] Activity Restrictions/Additional Instructions: Your EKG revealed no sign of heart attack or abnormal heart rhythm and your troponins were flat going against active heart disease. Follow-up with your log pond worker for repeat evaluation and continue all of your other medication as directed by your doctor. Print Language: French Disposition Disposition: Home, Self Care Discharge Date/Time: 03/21/25 04:41
[2025-03-21 04:39] VITALS: BP 162/72; PULSE 84; RESP 18; TEMP 36.4; O2SAT 97
[2025-03-21 04:39] LABS: Osmolality, Serum 305 mOsm/KG (280-301)
[2025-03-21 12:25] LABS: BETA-HYDROXYBUTYRATE 1.1 mmol/L (0.0-0.3)
== END 2025-03-21 04:41 | disposition home or self-care (01) ==
PROVIDERS: Emergency Provider Emergency Medicine; PCP Nurse Practitioner Adult Health; Visit Provider Emergency Medicine
DX: R07.9 Chest pain, unspecified (principal); E10.22 Type 1 diabetes mellitus with diabetic chronic kidney disease; E10.65 Type 1 diabetes mellitus with hyperglycemia; N18.9 Chronic kidney disease, unspecified; I25.10 Atherosclerotic heart disease of native coronary artery without angina pectoris; I12.9 Hypertensive chronic kidney disease with stage 1 through stage 4 chronic kidney disease, or unspecified chronic kidney disease; E78.5 Hyperlipidemia, unspecified; I25.2 Old myocardial infarction; Z95.5 Presence of coronary angioplasty implant and graft; Z79.82 Long term (current) use of aspirin; Z79.84 Long term (current) use of oral hypoglycemic drugs; Z79.899 Other long term (current) drug therapy; Z87.891 Personal history of nicotine dependence
CPT/HCPCS: 71046; 80048; 80076; 82010; 82803; 83690; 83735; 83930; 84484; 85025; 93005; 96361; 96365; 96375; 99283; A4216

== ENCOUNTER 2025-03-23 11:57 | Emergency (ER) | payer MEDICARE, OTHER, SELFPAY ==
[2024-06-06 07:20] VITALS: BMI 28.4
[2025-03-23 11:58] VITALS: BP 167/85; PULSE 88; RESP 16; TEMP 36.6; O2SAT 97; BMI 29.7
--- OUTSIDE RECORDS SUMMARY | 2025-03-23 12:57 | XMS RPT_ITS | CCD ---
Author Organization [facility] Care Team Providers Care Cone Runner Name Role Phone ANCELMO THOMPSON Attending Unavailable ANCELMO THOMPSON Referring Unavailable NONE, PCP Referring Unavailable JARON HENRY Admitting Unavailable JARON HENRY Attending Unavailable MAST GIN CLERK-HOUSEKEEPER CHILD CARE, WILMA Primary Care Physician [phone] MAST PREFINISH OPERATOR, WILMA Primary Care Provider [phone] Dr. Tim Salgado MD Attending Provider Dr. Tim Salgado MD Referring Provider MAST PREFINISH OPERATOR, WILMA Referring Provider [phone] Nikko PATIENT SUPPORT PARTNER-CNydia Attending Provider Nikko PATIENT SUPPORT PARTNER-CNydia Referring Provider MAST PREFINISH OPERATOR, WILMA Primary Care Provider [phone] Dr. Tim Salgado MD Attending Provider Dr. Tim Salgado MD Referring Provider MAST PREFINISH OPERATOR, WILMA Referring Provider Nikko ANDRADE-CNydia Attending Provider Sally Nolan Attending Provider [phone] MAST PREFINISH OPERATOR, WILMA Primary Care Provider [phone] Dr. Tim Salgado MD Attending Provider Dr. Tim Salgado MD Referring Provider Sally Nolan Referring Provider [phone] Dr. Justo Olson MD Attending Provider MAST PREFINISH OPERATOR, WILMA Primary Care Provider [phone] Dr. Tim Salgado MD Attending Provider Dr. Tim Salgado MD Referring Provider MAST GIN CLERK-HOUSEKEEPER CHILD CARE, WILMA Attending Unavailabl e MAST GIN CLERK-HOUSEKEEPER CHILD CARE, WILMA Primary Care Unavailabl e MAST GIN CLERK-HOUSEKEEPER CHILD CARE, WILMA Primary Care Unavailabl e MAST GIN CLERK-HOUSEKEEPER CHILD CARE, WILMA Attending Unavailabl e MAST GIN CLERK-HOUSEKEEPER CHILD CARE, WILMA Primary Care Unavailabl e MAST GIN CLERK-HOUSEKEEPER CHILD CARE, WILMA Attending Unavailabl e MAST GIN CLERK-HOUSEKEEPER CHILD CARE, WILMA Primary Care Unavailabl e MAST GIN CLERK-HOUSEKEEPER CHILD CARE, WILMA Attending Unavailabl e MAST PREFINISH OPERATOR, WILMA Primary Care Physician [phone] Nikko PATIENT SUPPORT PARTNER-C, Nydia Attending Physician Nikko PATIENT SUPPORT PARTNER-C, Nydia Referring Provider MAST PREFINISH OPERATOR, WILMA Referring Provider [phone] MAST PREFINISH OPERATOR, WILMA Attending Physician [phone] MAST, WILMA Primary Care Unavailable Tim Salgado [...] BID, # 60 cap(s), 0 Refill(s), Pharmacy: [facility], Peripheral neuropathy, 186, cm, 12/16/24 [...] 30 tab(s), 2 Refill(s), Pharmacy: [facility] #[id number], 187.3, cm, 02/28/24 13:26:00 EST, Height, kg, [...] Start: 02-28-2024 take 1 capsule by mo [facility] once daily Multiple Vitamins oral capsule [...] 1 Start: 02-28-2024 take 1 capsule by [facility] once daily Vitamin B Complex oral capsule [...] U No growth in 5 days. Normal [facility] Comment on above: Performed By: #### L 503.0300, M100.2900, L200.0200, M100.2000, L350.1000, M100.4001 ####[facility] [address] [place], [address] Body Fluid Culton 03-02-2025 BFC U U No growth aerobically. Normal [facility] Comment on above: Performed By: #### L 503.0300, M100.2900, L200.0200, M100.2000, L350.1000, M100.4001 ####[facility] [address] [place], [address] Body Fluid Cell Count+Diffon 02-27-2025 PATH COMM/BF Reviewed Normal [facility] Comment on above: Order Comment: The [...] 503.0300, M100.2900, L200.0200, M100.2000, L350.1000, M100.4001 #### [facility] [address] [place], [address] Cytology, Body Fluid / CSFon 02-27-2025 CYTOLOGY,BF/CSF SEE PATHOLOGY REPORT Normal [facility] Comment on above: Order Comment: THORA CENTESIS Result Comment: Spec imen submitted to Anatomical Pathology Department for testing. Performed By: #### L 503.0300, M100.2900, L200.0200, M100.2000, L350.1000, M100.4001 ####[facility] [address] [place], [address] Gram Stainon 02-27-2025 GS U U Centrifuged Specimen? Culture performed on centrifuged specimen Gram Stain 4+ Red Blood Cells 3+ White Blood Cells No organisms seen Normal [facility] Comment on above: Performed By: #### L 503.0300, M100.2900, L200.0200, M100.2000, L350.1000, M100.4001 ####[facility] [address] [place], [address] LDHon 02-27-2025 LDH 183 U/L Normal 87-241 [facility] Comment on above: Order Comment: 1 Performed By: #### L 300.3900, L300.4310, L100.1900, L504.2610, L001.0705 #### [facility] [address] [place], [address] Partial Thromboplast Timeon 02-27-2025 aPTT Coag (Bld) [Time] 26.3 s Normal 24.1-36.2 [facility] Comment on above: Performed By: #### L 300.3900, L300.4310, L100.1900, L504.2610, L001.0705 #### [facility] [address] [place], [address] Platelet Counton 02-27-2025 Platelets (Bld) [#/Vol] 353 10*3/uL Normal 150-450 [facility] Comment on above: Performed By: #### L 300.3900, L300.4310, L100.1900, L504.2610, L001.0705 #### [facility] [address] [place], [address] Protein, Body Fluidon 2024 Protein [Mass/Vol] 2.5 g/dL Normal Not Establ. [facility] Comment on above: Order Comment: THORA CENTESIS Performed By: #### L 503.0300, M100.2900, L200.0200, M100.2000, L350.1000, M100.4001 ####[facility] [address] [place], [place], [address] Protein, Totalon 02-27-2025 T PROT 6.9 g/dL Normal 5.9-8.4 [facility] Comment on above: Performed By: #### L 300.3900, L300.4310, L100.1900, L504.2610, L001.0705 #### [facility] [address] [place], [place], [address] Prothrombin Time w/INRon INR Coag (PPP) [Relative time] 1.0 {INR} Normal [facility] Comment on above: Performed By: #### L 300.3900, L300.4310, L100.1900, L504.2610, L001.0705 #### [facility] [address] [place], [place], [address] PT Coag (PPP) [Time] 13.2 s Normal 11.7-14.9 [facility] Comment on above: Performed By: #### L 300.3900, L300.4310, L100.1900, L504.2610, L001.0705 #### [facility] [address] [place], [place], [address] Special Stain Group IIon Special Stain Group II --- Patient Age/Sex Location Account Attending Physician ANTONLYUDMILA 75/M [id number] Keira Harper NP Specimen: [id number] Received: 02/27/25-1235 Status: PRICILA Walker Num: [id number] Spec Type: Fluid Subm Dr: Keira Harper [...] and cell block preparation. Mr 02/27/2025 CPT: 26363,13585 Signed (signature on file) Dr. Nilda Herrera MD 03/04/25 1218 Normal [facility] Comment on above: Performed By: #### P SSII ####[facility] [address] [place], [place], [address] Thoracentesis W USon 025 Thoracentesis W US [facility] Imaging Services [address] [place], [place] [address] Thoracentesis W US MR#: [id number] Acct: [id number] Name: LYUDMILA BRENNAN Rep #: [id number] : 1950 M 75 From: Tom Toro PCP: RYLAN BOWDEN Status: REG CLI Study: Thoracentesis W US Date of Exam: 02/27/25 Exam# [id number] Ordering Dr: Keira Harper PATIENT SUPPORT PARTNER- C PROCEDURE: THORACENTESIS W US 02/27/2025 REASON FOR EXAM: RIGHT PLEURAL EFFUSION TECHNIQUE: THORACENTESIS W US COMPARISON: Thoracic CT of 01/08/2025. FINDINGS: Initial imaging demonstrates a [id number]-px-[id number] sized multiloculated right pleural fluid collection. Procedure: Following informed consent, and using standard sterile technique, an ultrasound-guided right thoracentesis was performed via a posterior approach. 2% lidocaine local anesthesia was followed by placement of a 7 cm 5 Afghan Yueh catheter. A proximally 29 mL of light vi fluid was successfully removed, and sent to the laboratory for evaluation. US/Thoracentesis W US IMPRESSION: Successful ultrasound-guided diagnostic right thoracentesis. Laboratory results pending. Reading Location: [place] [address] CC: RYLAN BOWDEN; Keira Harper NP Paving Supervisor: Signed Normal [facility] Pulmonary Visit Reporton Pulmonary Visit Report [facility] [address] [place], [place] [address] OFFICE VISIT Date of Service: 02/21/25 MR#: [id number] Acct: [id number] Name: LYUDMILA BRENNAN Rep #: [id number] : 1950 Provider: Keira Harper NP Age/Sex: 75/M Location: [facility].PMW Status: Signed Assessment and Plan Assessment and [...] classified Plan This note was generated with [employer] dictation software. It may contain incorrect words, [...] left pleural effusion. He did experience an SC in September 2023 with 2 stent placements and he forgot to take Brilinta for 3 days and had a second SC at the end of September due to clot in stent. He reports that a chest x-ray showed pneumonia during this time and he was treated with IV antibiotic therapy and was hospitalized for most of October 2023. He had an injury in his back last year. reports that he was admitted to [facility] in January 2024 for bleeding and hematoma [...] peripheral neuropathy, anemia, hypothyroidism in addition to SC and stent placem (more content not included)... Normal [facility] Comprehensive Metabolic Prof sandra 01-29-2025 Albumin [Mass/Vol] 3.8 g/dL Normal 3.4-4.8 [facility] Comment on above: Performed By: #### L 500.2500 #### [facility] [address] [place], [address] Albumin/Globulin [Mass ratio] 1.3 {ratio} Normal 0.9-2.4 [facility] Comment on above: Performed By: #### L 500.2500 #### [facility] [address] [place], [address] ALK PHOS 77 U/L Normal 40-129 [facility] Comment on above: Performed By: #### L 500.2500 #### [facility] [address] [place], [address] ALT [Catalytic activity/Vol] 8 U/L Normal <=46 [facility] Comment on above: Performed By: #### L 500.2500 #### [facility] [address] [place], [address] AST [Catalytic activity/Vol] 12 U/L Normal <=37 [facility] Comment on above: Performed By: #### L 500.2500 #### [facility] [address] [place], [address] Bilirubin [Mass/Vol] 0.22 mg/dL Normal 0.00-1.30 [facility] Comment on above: Performed By: #### L 500.2500 #### [facility] [address] [place], [address] BUN/CRE 12.2 RATIO Normal 10-20 [facility] Comment on above: Performed By: #### L 500.2500 #### [facility] [address] [place], [address] Calcium [Mass/Vol] 8.8 mg/dL Normal 7.6-11.0 [facility] Comment on above: Performed By: #### L 500.2500 #### [facility] [address] [place], [address] Chloride [Moles/Vol] 102 mmol/L Normal 98-108 [facility] Comment on above: Performed By: #### L 500.2500 #### [facility] [address] [place], [address] CO2 [Moles/Vol] 26.2 mmol/L Normal 21.0-32.0 [facility] Comment on above: Performed By: #### L 500.2500 #### [facility] [address] [place], [address] Creatinine [Mass/Vol] 2.03 mg/dL High 0.70-1.20 [facility] Comment on above: Performed By: #### L 500.2500 #### [facility] [address] [place], [address] GAP 12 Normal 5-15 [facility] Comment on above: Performed By: #### L 500.2500 #### [facility] [address] [place], [address] GFR/1.73 sq M.predicted among non-blacks MDRD (S/P/Bld) [Vol rate/Area] 34 mL/min/{1.73_m2} Low >60 [facility] Comment on above: Result Comment: mL/m in/1.73m2 CKD-EPI Creatinine Equation (2020) Performed By: #### L 500.2500 #### [facility] [address] [place], [address] Globulin (S) [Mass/Vol] 2.9 g/dL Normal 2.2-4.2 [facility] Comment on above: Performed By: #### L 500.2500 #### [facility] [address] [place], [address] Glucose [Mass/Vol] 175 mg/dL High 70-99 [facility] Comment on above: Performed By: #### L 500.2500 #### [facility] [address] [place], [address] Potassium [Moles/Vol] 3.8 mmol/L Normal 3.3-5.1 [facility] Comment on above: Performed By: #### L 500.2500 #### [facility] [address] [place], [address] Sodium [Moles/Vol] 140 mmol/L Normal 133-145 [facility] Comment on above: Performed By: #### L 500.2500 #### [facility] [address] [place], [address] T PROT 6.6 g/dL Normal 5.9-8.4 [facility] Comment on above: Performed By: #### L 500.2500 #### [facility] [address] [place], [address] Urea nitrogen [Mass/Vol] 25 mg/dL High 4-19 [facility] Comment on above: Performed By: #### L 500.2500 #### [facility] [address] [place], [address] Microalb:Creat Ratio,Random URon 01-29-2025 Creatinine [Mass/Vol] 118.00 mg/dL Normal 39.00-259.00 [facility] Comment on above: Performed By: #### L 501.9520, L509.1000, L502.0250, L506.1001, L500.4050, L506.0400 ####[facility] [address] [place], [address] MALB:CREAT UNABLE TO CALCULATE Normal <30 mg/g CRE [facility] Comment on above: Performed By: #### L 501.9520, L509.1000, L502.0250, L506.1001, L500.4050, L506.0400 ####[facility] [address] [place], [address] MICROALBUMIN,UR < 12.0 Normal <20 mg/L [facility] Comment on above: Performed By: #### L 501.9520, L509.1000, L502.0250, L506.1001, L500.4050, L506.0400 ####[facility] [address] [place], [address] PTHINon 01-29-2025 PTH 53 pg/mL Normal 11-61 [facility] Comment on above: Performed By: #### L 501.9520, L509.1000, L502.0250, L506.1001, L500.4050, L506.0400 ####[facility] [address] [place], [address] T4 Free Directon 01-29-2025 T4 FREE DIRECT 1.20 ng/dL Normal 0.76-1.46 [facility] Comment on above: Performed By: #### L 500.2500 #### [facility] [address] [place], [address] Thyroid Stim Hormone (TSH)on 01-29-2025 TSH 4.040 uIU/mL Normal 0.300-4.200 [facility] Comment on above: Performed By: #### L 500.2500 #### [facility] [address] [place], [address] Vitamin D,25 Hydroxyon 01-29 Vitamin D 25-OH 45.2 ng/mL Normal 30-100 [facility] Comment on above: Result Comment: Carlota min D Status Deficiency: <20 ng/mL (50nmol/L) Insufficiency: 20-30 ng/mL (50-75 nmol/L) Sufficiency: 30-100 ng/mL (75-250 nmol/L) Toxicity: >100 ng/mL (>250 nmol/L) Performed By: #### L 500.2500 #### [facility] [address] [place], [address] Endocrinology Visit Reporton 01-27-2025 Endocrinology Visit Report [facility] [address] [place] [address] OFFICE VISIT Date of Service: 01/27/25 MR#: [id number] Acct: [id number] Name: LYUDMILA BRENNAN Rep #: [id number] : 1950 Provider: BRANDON sainz Age/Sex: 75/M Location: [facility] Status: Signed Intake Vital Signs 10/16/24 11:54 [...] with nephrol (more content not included)... Normal [facility] CT THORAX SCREENING W/O CONT [facility] 01-13-2025 CT THORAX SCREENING W/O CONTRAST ORIGINAL [...] 01/13/2025 11:59:12 AM Ordering Provider: WILMA Harper [facility] Inital Evaluation (1) - PTwilda 01-09-2025 Inital Evaluation (1) - PT [facility] [address] [place] [address] / REHABILITATION SERVICES INITIAL EVALUATION MR#: [id number] Acct: [id number] Name: LYUDMILA BRENNAN Rep #: [id number] : 1950 75 From: Marques Soliman PT, [...] .Patient has no falls. Patient just from [place]. Patient has h/o neuropathy . Patient has [...] to be FAXED BACK to us at [phone] for Medicare purposes. For Medicare only, by signing this I certify the plan of care. Please let me know if there are questions or concerns regarding this plan of care. Physician Signature: D ate: 01/09/25 1158 CC: RYLAN BOWDEN TRESSA Signed Normal [facility] .Auto Diffon 12-12-2024 Basophil, Absolute 0.1 10 3/mcL Normal 0.0-0.3 [facility] Comment on above: Performed By: #### C BC, CMP, GFR, ANEU, ADIFF #### [place] [address] Lymphocyte, Absolute 1.2 10 3/mcL Normal 0.9-4.[address] [facility] Comment on above: Performed By: #### C BC, CMP, GFR, ANEU, ADIFF #### [address] [address] Monocyte, Absolute 0.6 10 3/mcL Normal 0.1-1.4 [facility] Comment on above: Performed By: #### C BC, CMP, GFR, ANEU, ADIFF #### [address] [address] .Auto DiffOrdered By: SYSTEM SYSTEM on 12-12-2024 Basophils/100 WBC (Bld) 0.9 % Normal 0.0-2.5 [facility] Comment on above: Performed By: #### C BC, CMP, GFR, ANEU, ADIFF #### [address] [address] Eosinophil, Absolute 0.3 103/mcL Normal 0.0-0.7 [facility] Comment on above: Performed By: #### C BC, CMP, GFR, ANEU, ADIFF #### [address] [address] Eosinophils/100 WBC (Bld) 3.1 % Normal 0.0-6.0 [facility] Comment on above: Performed By: #### C BC, CMP, GFR, ANEU, ADIFF #### [address] [place] [address] [place], [place] [address] Lymphocytes/100 WBC (Bld) 12.1 % Low 20.0-40.0 [facility] Comment on above: Performed By: #### C BC, CMP, GFR, ANEU, ADIFF #### [address] [address] Monocytes/100 WBC (Bld) 6.5 % Normal 2.0-13.0 [facility] Comment on above: Performed By: #### C BC, CMP, GFR, ANEU, ADIFF #### [address] [address] Neutrophils/100 WBC (Bld) 77.4 % High 50.0-75.0 [facility] Comment on above: Performed By: #### C BC, CMP, GFR, ANEU, ADIFF #### [address] [address] .GFROrdered By: SYSTEM Kreyonic on 12-12-2024 Estimated Glomerular Filtration Rate 38 [...] C BC, CMP, GFR, ANEU, ADIFF #### [place] [address] .NEUABSon 12-12-2024 Neutrophil, Absolute 7.7 10 3/mcL Normal 2.3-8.[address] [facility] Comment on above: Performed By: #### C BC, CMP, GFR, ANEU, ADIFF #### [place] [address] CBCOrdered By: SYSTEM SYSTEM on 12-12-2024 Erythrocyte distribution width (RBC) [Ratio] 15.7 % High 11.5-15.5 [facility] Comment on above: Performed By: #### C BC, CMP, GFR, ANEU, ADIFF #### [place] [address] Hematocrit (Bld) [Volume fraction] 38.4 % Low 40.0-52.0 [facility] Comment on above: Performed By: #### C BC, CMP, GFR, ANEU, ADIFF #### [place] [address] MCH (RBC) [Entitic mass] 26.0 pg Low 27.0-33.0 [facility] Comment on above: Performed By: #### C BC, CMP, GFR, ANEU, ADIFF #### [place] [address] MCHC 33.0 G/dL Normal 32.0-36.0 [facility] Comment on above: Performed By: #### C BC, CMP, GFR, ANEU, ADIFF #### [place] [address] MCV (RBC) [Entitic vol] 78.7 fL Low 81.0-100.0 [facility] Comment on above: Performed By: #### C BC, CMP, GFR, ANEU, ADIFF #### [place] [id number] Platelet mean volume (Bld) [Entitic vol] 7.5 fL Normal 6.4-10.5 [facility] Comment on above: Performed By: #### C BC, CMP, GFR, ANEU, ADIFF #### [address] [address] CBCon 12-12-2024 Hgb 12.7 G/dL Low 13.0-17.5 [facility] Comment on above: Performed By: #### C BC, CMP, GFR, ANEU, ADIFF #### [address] [address] Platelet 395 10 3/mcL Normal 150-450 [facility] Comment on above: Performed By: #### C BC, CMP, GFR, ANEU, ADIFF #### [address] [address] RBC 4.88 10 6/mcL Normal 4.50-6.00 [facility] Comment on above: Performed By: #### C BC, CMP, GFR, ANEU, ADIFF #### [address] [address] WBC 9.9 10 3/mcL Normal 4.5-10.8 [facility] Comment on above: Performed By: #### C BC, CMP, GFR, ANEU, ADIFF #### [address] [address] CMPon 12-12-2024 Albumin Level 3.1 G/dL Low 3.4-4.8 [facility] Comment on above: Performed By: #### C BC, CMP, GFR, ANEU, ADIFF #### [address] [address] ALT [Catalytic activity/Vol] 11 U/L Low 16-63 [facility] Comment on above: Performed By: #### C BC, CMP, GFR, ANEU, ADIFF #### [address] [address] AST [Catalytic activity/Vol] 10 U/L Normal 10-40 [facility] Comment on above: Performed By: #### C BC, CMP, GFR, ANEU, ADIFF #### [address] [address] Bili Total 0.3 mg/dL Normal 0.2-1.0 [facility] Comment on above: Result Comment: Use of this assay is not recommended for patients undergoing treatment with eltrombopag due to the potential for falsely elevated results. Performed By: #### C BC, CMP, GFR, ANEU, ADIFF #### [address] [address] BUN/Creatinine Ratio 16 ratio Normal 7-27 [facility] Comment on above: Performed By: #### C BC, CMP, GFR, ANEU, ADIFF #### [place] [id number] Total Protein 7.2 G/dL Normal 6.4-8.2 [facility] Comment on above: Performed By: #### C BC, CMP, GFR, ANEU, ADIFF #### [address] [address] CMPOrdered By: SYSTEM SYSTEM on 12-12-2024 Albumin/Globulin [Mass ratio] 0.8 {ratio} Low 1.1-2.5 AO [facility]M [facility] Comment on above: Performed By: #### C BC, CMP, GFR, ANEU, ADIFF #### [address] [address] ALP [Catalytic activity/Vol] 72 U/L Normal 40-135 [facility] Comment on above: Performed By: #### C BC, CMP, GFR, ANEU, ADIFF #### [address] [address] Calcium [Mass/Vol] 9.4 mg/dL Normal 8.4-10.2 [facility] Comment on above: Performed By: #### C BC, CMP, GFR, ANEU, ADIFF #### [address] [address] Chloride [Moles/Vol] 104 mmol/L Normal 98-107 AO A DM SS Comment on above: Performed By: #### C BC, CMP, GFR, ANEU, ADIFF #### [address] [address] CO2 [Moles/Vol] 30 mmol/L Normal 23-31 [facility] Comment on above: Performed By: #### C BC, CMP, GFR, ANEU, ADIFF #### [address] [address] Creatinine [Mass/Vol] 1.86 mg/dL High 0.67-1.17 [facility] Comment on above: Performed By: #### C BC, CMP, GFR, ANEU, ADIFF #### [address] [address] Electrolyte Balance 5.0 mEq/L Normal 4.0-15.0 AO AD M SS Comment on above: Performed By: #### C BC, CMP, GFR, ANEU, ADIFF #### [address] [address] Globulin 4.1 G/dL Normal 2.7-4.4 AO [facility] Comment on above: Performed By: #### C BC, CMP, GFR, ANEU, ADIFF #### [address] [address] Glucose [Mass/Vol] 89 mg/dL Normal 83-110 [facility] Comment on above: Performed By: #### C BC, CMP, GFR, ANEU, ADIFF #### [address] [address] Potassium [Moles/Vol] 4.4 mmol/L Normal 3.5-5.1 AO [facility] Comment on above: Performed By: #### C BC, CMP, GFR, ANEU, ADIFF #### [address] [address] Sodium [Moles/Vol] 139 mmol/L Normal 136-145 AO [facility] Comment on above: Performed By: #### C BC, CMP, GFR, ANEU, ADIFF #### [address] [address] Urea nitrogen [Mass/Vol] 29 mg/dL High 7-18 AO ADM SS Comment on above: Performed By: #### C BC, CMP, GFR, ANEU, ADIFF #### [address] [place] [id number] [place] [id number] LABORATORYOrdered By: SYSTEM SYSTEM on 12-12-2024 Albumin [...] Endocrinology Visit Reporton 10-16-2024 Endocrinology Visit Report [facility] [address] [place] [address] OFFICE VISIT Date of Service: 10/16/24 MR#: [id number] Acct: [id number] Name: LYUDMILA BRENNAN Rep #: [id number] : 1950 Provider: BRANDON sainz Age/Sex: 74/M Location: [facility] Status: Signed Intake Vital Signs 07/18/24 11:18 09/17/24 09:53 10/16/24 11:54 Height 6 ft 2 in 6 ft 2 in 6 ft 2 in Weight: 228 lb BMI 29.2 BP 120/67 Blood Pressure Location Lt brachial Position Sitting Pulse 58 L Pulse Source Monitor Pulse Oximetry (%) 96 Oxygen Delivery Method room air Intake Visit Reasons: 3 M FU Chief Complaint: f/u diabetes/hypothyroid Website Developer Required: No Accompanied by: Self Is patient [...] up to date. Denies any acute concerns. [facility] Musculoskeletal: Positive for joint pain Exam Const General: cooperative, healthy appearing (more content not included)... Normal [facility] - Hematology and Cell countsOrdered By: Nydia El on 10-16-2024 HbA1c (Bld) [Mass fraction] 7.0 % High 4.2-6.3 [facility] T4 Free Directon 10-14-2024 T4 FREE DIRECT 0.90 ng/dL Normal 0.76-1.46 [facility] Comment on above: Performed By: #### L 506.0400, L501.9520 ####[facility] [address] [place], [address] T4 freeOrdered By: Jairo on 10-14-2024 Free T4 [Mass/Vol] 0.90 ng/dL 0.76-1.46 [facility] TSH DL <= 0.005 mIU/L QnOrde red By: Nydia El on 10-14-2024 TSH Qn 17.600 uIU/mL High 0.300-4.200 [facility] Thyroid Stim Hormone (TSH)on 10-14-2024 TSH 17.600 uIU/mL High 0.300-4.200 [facility] Comment on above: Performed By: #### L 506.0400, L501.9520 ####[facility] [address] [place], [address] Microalb:Creat Ratio,Random URon 10-10-2024 MALB:CREAT 13.9 mg/g CRE Normal [facility] Comment on above: Result Comment: AMENDED REPORT 10/10/24 0819 MALB:CREAT previously reported as: 139.9 mg/g CRE Performed By: #### L 500.4050, L506.0400, L501.9520, L502.0250 ####[facility] [address] [place], [address] Echo Completeon 09-18-2024 Echo Complete [facility] [address] [place] [address] Echo Complete 09/18/24 1312 MR#: [id number] Acct: [id number] Name: LYUDMILA BRENNAN Rep #: [id number] : 1950 74 From: Justo Olson MD Attending Dr: ANH Garsia Status: REG CLI Ordering Dr: Sally Sommer Date: 08/23 12/16 Location: [facility] Sex: M C Admitted: Reason For Study [...] Dictated: 09/18/24 1312 Date Transcribed: 09/18/24 1500 Paving Supervisor: Signed Normal [facility] Echocardiogram study reportO rdered By: Justo Olson on 09-18-2024 Study report [facility] [address] [place] [address] Echo Complete 09/18/24 1312 MR#: [id number] Acct: [id number] Name: LYUDMILA BRENNAN Rep #:[id number] : 1950 74 From: Justo Olson MD Attending Dr: ANH Garsia Status: REG CLI Ordering Dr: Sally Sommer PA Date: 09/18/24 Location: [facility] Sex: M C Admitted: Reason For Study [...] Dictated: 09/18/24 1312 Date Transcribed: 09/18/24 1500 Paving Supervisor: Signed [facility] Work Phone: Absolute lymphocyte countOrd ered By: Sally Sommer on 09-17-2024 Lymphocytes Auto (Unsp spec) [#/Vol] 1.37 10*3/uL 0.83-4.51 [facility] Absolute neutrophil countOrd ered By: Sally Sommer on 09-17-2024 Neutrophils (Bld) [#/Vol] 7.3 10*3/uL 2.0-7.7 [facility] Anion gap in Serum or Plasma Ordered By: Nydia El on 09-17-2024 Anion gap [Moles/Vol] 13 mmol/L 5-15 [facility] Automated blood erythrocyte countOrdered By: Sally Sommer on 09-17-2024 RBC (Bld) [#/Vol] 5.01 10*6/uL Normal 4.6-6.2 [facility] Comment on above: Performed By: #### L 500.4050, L500.4100, L100.0100 ####[facility] [address], [address] Automated blood hematocrit ( percentage)Ordered By: Sally Sommer on 09-17-2024 Hematocrit (Bld) [Volume fraction] 40.7 % Normal 40-54 [facility] Comment on above: Performed By: #### L 500.4050, L500.4100, L100.0100 ####[facility] [address], [address] Automated lymphocyte count a s percentage of total leukocytesOrdered By: Sally Sommer on 09-17-2024 Lymphocytes/100 WBC Auto (Unsp spec) 14.2 % Low 19-41 [facility] BUN/creatinine ratioOrdered By: Nydia El on 09-17-2024 Urea nitrogen/Creatinine [Mass ratio] 15.0 mg/mg 10-20 [facility] Basic Metabolic Profile (BMP )on 09-17-2024 BUN/CRE 15.0 RATIO Normal -20 [facility] Comment on above: Performed By: #### L 500.2500 ####[facility] [address] [place], [address] GAP 13 Normal 5-15 [facility] Comment on above: Performed By: #### L 500.2500 ####[facility] [address] [place], [address] Potassium [Moles/Vol] 4.2 mmol/L Normal 3.3-5.1 [facility] Comment on above: Performed By: #### L 500.2500 ####[facility] [address] [place], [address] Basophil percentageOrdered B y: Sally Sommer on 09-17-2024 Basophils/100 WBC (Bld) 0.6 % Normal 0-1 [facility] Comment on above: Performed By: #### L 500.4050, L500.4100, L100.0100 ####[facility] [address] [place], [address] Bilirubin, totalOrdered By: Sally Sommer on 09-17-2024 Bilirubin [Mass/Vol] 0.23 mg/dL Normal 0.00-1.30 [facility] Comment on above: Performed By: #### L 500.4050, L500.4100, L100.0100 ####[facility] [address] [place], [address] CBC W/Diff, Automatedon - Absolute Lymph 1.37 X10 3/uL Normal 0.83-4.51 [facility] Comment on above: Performed By: #### L 500.4050, L500.4100, L100.0100 ####[facility] [address] [place], [address] Absolute Neut 7.3 X10 3/uL Normal 2.0-7.7 [facility] Comment on above: Performed By: #### L 500.4050, L500.4100, L100.0100 ####[facility] [address] [place], [address] IG% 0.500 Normal 0.0-0.9 [facility] Comment on above: Result Comment: IG% - Immature Granulocytes (promyelocytes, myelocytes and metamyelocytes) > 1% indicates that a LEFT SHIFT is Present. Performed By: #### L 500.4050, L500.4100, L100.0100 ####[facility] [address] [place], [address] Lymphocytes/100 WBC (Bld) 14.2 % Low 19-41 [facility] Comment on above: Performed By: #### L 500.4050, L500.4100, L100.0100 ####[facility] [address] [place], [address] Nucleated RBC (Bld) [#/Vol] 0 10*3/uL Normal 0-5 [facility] Comment on above: Performed By: #### L 500.4050, L500.4100, L100.0100 ####[facility] [address] [place], [address] RDW SD 50.9 fl High 35.1-43.9 [facility] Comment on above: Performed By: #### L 500.4050, L500.4100, L100.0100 ####[facility] [address] [place], [address] Calculated very low density lipoprotein (VLDL) cholesterol measurementOrdered By: Sally Sommer on 09-17-2024 Calculated very low density lipoprotein (VLDL) cholesterol measurement 22 mg/dL 5-40 [facility] Carbon dioxide, total [Moles /volume] in Central venous bloodOrdered By: Nydia El on 09-17-2024 CO2 [Moles/Vol] 23.3 mmol/L Normal 21.0-32.0 [facility] Comment on above: Performed By: #### L 500.2500 ####[facility] [address] [place], [address] Cardiology Visit Reporton Cardiology Visit Report [facility] [address] [place] [address] OFFICE VISIT Date of Service: 09/17/24 MR#: [id number] Acct: [id number] Name: LYUDMILA BRENNAN Rep #: [id number] [...] NIBP Intake Visit Reasons: 6 M FU Website Developer Required: No Is patient in pain?: No [...] of vasectomy (more content not included)... Normal [facility] Chloride assayOrdered By: Me jono El on 09-17-2024 Chloride [Moles/Vol] 104 mmol/L Normal 98-108 [facility] Comment on above: Performed By: #### L 500.2500 ####[facility] [address] [place], [place], [address] Performed By: #### L 500.4050, L500.4100, L100.0100 ####[facility] [address] [place], [address] Comprehensive Metabolic Prof sandra 09-17-2024 ALK PHOS 73 U/L Normal 40-129 [facility] Comment on above: Performed By: #### L 500.4050, L500.4100, L100.0100 ####[facility] [address] [place], [address] BUN/CRE 14.9 RATIO Normal 10-20 [facility] Comment on above: Performed By: #### L 500.4050, L500.4100, L100.0100 ####[facility] [address] [place], [address] CO2 [Moles/Vol] 22.8 mmol/L Normal 21.0-32.0 [facility] Comment on above: Performed By: #### L 500.4050, L500.4100, L100.0100 ####[facility] [address] [place], [address] Creatinine [Mass/Vol] 2.27 mg/dL High 0.70-1.20 [facility] Comment on above: Performed By: #### L 500.4050, L500.4100, L100.0100 ####[facility] [address] [place], [address] GAP 14 Normal 5-15 [facility] Comment on above: Performed By: #### L 500.4050, L500.4100, L100.0100 ####[facility] [address] [place], [address] Glucose [Mass/Vol] 101 mg/dL High 70-99 [facility] Comment on above: Performed By: #### L 500.4050, L500.4100, L100.0100 ####[facility] [address] [place], [address] Potassium [Moles/Vol] 4.2 mmol/L Normal 3.3-5.1 [facility] Comment on above: Performed By: #### L 500.4050, L500.4100, L100.0100 ####[facility] [address] [place], [address] T PROT 7.6 g/dL Normal 5.9-8.4 [facility] Comment on above: Performed By: #### L 500.4050, L500.4100, L100.0100 ####[facility] [address] [place], [address] Comprehensive Metabolic Prof ilOrdered By: Sally Sommer on 09-17-2024 AST [Catalytic activity/Vol] 14 U/L Normal <=37 [facility] Comment on above: Performed By: #### L 500.4050, L500.4100, L100.0100 ####[facility] [address] [place], [address] Eosinophil percentageOrdered By: Sally Sommer on 09-17-2024 Eosinophils/100 WBC (Bld) 3.0 % Normal 0-5 [facility] Comment on above: Performed By: #### L 500.4050, L500.4100, L100.0100 ####[facility] [address] [place], [address] Erythrocyte distribution wid th ratioOrdered By: Sally Sommer on 09-17-2024 Erythrocyte distribution width (RBC) [Ratio] 17.4 % High 11.6-14.6 [facility] Comment on above: Performed By: #### L 500.4050, L500.4100, L100.0100 ####[facility] [address] [place], [address] Erythrocyte distribution wid th standard deviationOrdered By: Sally Sommer on 09-17-2024 Erythrocyte distribution width (RBC) [Ratio] 50.9 fl High 35.1-43.9 [facility] Glomerular filtration rate ( GFR) estimation/1.73 sq m using serum, plasma, or whole bOrdered By: Nydia El on 09-17-2024 GFR/1.73 sq M.predicted among non-blacks MDRD (S/P/Bld) [Vol rate/Area] 30 mL/min/{1.73_m2} Low >60 [facility] Comment on above: mL/min/1.73m2 CKD-EP I Creatinine Equation (2020) Result Comment: mL/m in/1.73m2 CKD-EPI Creatinine Equation (2020) Performed By: #### L 500.2500 ####[facility] [address] [place], [address] Performed By: #### L 500.4050, L500.4100, L100.0100 ####[facility] [address] [place], [address] Hemoglobin measurementOrdere d By: Sally Sommer on 09-17-2024 Hemoglobin (Bld) [Mass/Vol] 13.3 g/dL Normal 13.0-16.5 [facility] Comment on above: Performed By: #### L 500.4050, L500.4100, L100.0100 ####[facility] [address] [place], [address] Immature granulocytes/100 WB C Auto (Bld)Ordered By: Sally Sommer on 09-17-2024 Immature granulocytes/100 WBC (Bld) 0.500 % 0.0-0.9 [facility] Comment on above: IG% - Immature Granu locytes (promyelocytes, myelocytes and metamyelocytes) > 1% indicates that a LEFT SHIFT is Present. LDL calc ser/plasOrdered By: Sally Sommer on 09-17-2024 Cholesterol in LDL [Mass/Vol] 52 mg/dL Normal [facility] Comment on above: Plusbvpmes=827-183 m g/dL & Higher Efaz=501 mg/dL or greater Result Comment: Bord gaxgix=294-095 mg/dL Higher Fklj=821 mg/dL or greater Performed By: #### L 500.4050, L500.4100, L100.0100 ####[facility] [address] [place], [address] Lipid Profileon 09-17-2024 CHOL:HDL 2.75 Normal [facility] Comment on above: Performed By: #### L 500.4050, L500.4100, L100.0100 ####[facility] [address] [place], [address] Cholesterol in VLDL [Mass/Vol] 22 mg/dL Normal 5-40 [facility] Comment on above: Performed By: #### L 500.4050, L500.4100, L100.0100 ####[facility] [address] [place], [address] MCV (mean corpuscular volume ) determinationOrdered By: Sally Sommer on 09-17-2024 MCV (RBC) [Entitic vol] 81.2 fL Normal 80-94 [facility] Comment on above: Performed By: #### L 500.4050, L500.4100, L100.0100 ####[facility] [address] [place], [address] Mean corpuscular hemoglobin (MCH) determinationOrdered By: Sally Sommer on 09-17-2024 MCH (RBC) [Entitic mass] 26.5 pg Low 27.0-32.0 [facility] Comment on above: Performed By: #### L 500.4050, L500.4100, L100.0100 ####[facility] [address] [place], [address] Mean corpuscular hemoglobin concentration (MCHC) determinationOrdered By: Sally Sommer on 09-17-2024 MCHC (RBC) [Mass/Vol] 32.7 g/dL Normal 32-36 [facility] Comment on above: Performed By: #### L 500.4050, L500.4100, L100.0100 ####[facility] [address] [place], [address] Mean platelet volume determi nationOrdered By: Sally Sommer on 09-17-2024 Platelet mean volume (Bld) [Entitic vol] 8.9 fL Normal 6.2-12.0 [facility] Comment on above: Performed By: #### L 500.4050, L500.4100, L100.0100 ####[facility] [address] [place], [address] Monocyte percentageOrdered B y: Sally Sommer on 09-17-2024 Monocytes/100 WBC (Bld) 6.3 % Normal 0-10 [facility] Comment on above: Performed By: #### L 500.4050, L500.4100, L100.0100 ####[facility] [address] [place], [address] Neutrophil percentageOrdered By: Sally Sommer on 09-17-2024 Neutrophils/100 WBC (Bld) 75.4 % High 47-70 [facility] Comment on above: Performed By: #### L 500.4050, L500.4100, L100.0100 ####[facility] [address] [place], [address] Nucleated red blood cell per centageOrdered By: Sally Sommer on 09-17-2024 Nucleated RBC/100 WBC (Bld) [Ratio] 0 % 0-5 [facility] Platelet countOrdered By: Debora Sommer on 09-17-2024 Platelets (Bld) [#/Vol] 443 10*3/uL Normal 150-450 [facility] Comment on above: Performed By: #### L 500.4050, L500.4100, L100.0100 ####[facility] [address] [place], [address] Potassium measurement (mass/ volume)Ordered By: Nydia El on 09-17-2024 Potassium (Unsp spec) [Mass/Vol] 4.2 mmol/L 3.3-5.1 [facility] Screening total cholesterol/ high density lipoprotein (HDL) cholesterol ratioOrdered By: aSlly Sommer on 09-17-2024 Cholesterol.total/Sruthi sterol in HDL [Mass ratio] 2.75 {ratio} [facility] Serum creatinine measurement (mass/volume)Ordered By: Nydia El on 09-17-2024 Creatinine [Mass/Vol] 2.26 mg/dL High 0.70-1.20 [facility] Comment on above: Performed By: #### L 500.2500 ####[facility] [address] [place], [address] Serum globulin measurementOr dered By: Sally Sommer on 09-17-2024 Globulin (S) [Mass/Vol] 3.6 g/dL Normal 2.2-4.2 [facility] Comment on above: Performed By: #### L 500.4050, L500.4100, L100.0100 ####[facility] [address] [place], [address] Serum glucose measurement (m ass/volume)Ordered By: Nydia El on 09-17-2024 Glucose [Mass/Vol] 99 mg/dL Normal 70-99 [facility] Comment on above: Performed By: #### L 500.2500 ####[facility] [address] [place], [address] Serum or plasma alanine garcia otransferase (ALT) measurementOrdered By: Sally Sommer on 09-17-2024 ALT [Catalytic activity/Vol] 10 U/L Normal <=46 [facility] Comment on above: Performed By: #### L 500.4050, L500.4100, L100.0100 ####[facility] [address] [place], [address] Serum or plasma albumin selwyn urement (mass/volume)Ordered By: Sally Sommer on 09-17-2024 Albumin [Mass/Vol] 4.0 g/dL Normal 3.4-4.8 [facility] Comment on above: Performed By: #### L 500.4050, L500.4100, L100.0100 ####[facility] [address] [place], [address] Serum or plasma albumin/glob ulin mass ratioOrdered By: Sally Sommer on 09-17-2024 Albumin/Globulin [Mass ratio] 1.1 {ratio} Normal 0.9-2.4 [facility] Comment on above: Performed By: #### L 500.4050, L500.4100, L100.0100 ####[facility] [address], [address] Serum or plasma alkaline nidia sphatase measurementOrdered By: Sally Sommer on 09-17-2024 ALP [Catalytic activity/Vol] 73 U/L 40-129 [facility] Serum or plasma calcium selwyn urement (mass/volume)Ordered By: Nydia El on 09-17-2024 Calcium [Mass/Vol] 9.3 mg/dL Normal 7.6-11.0 [facility] Comment on above: Performed By: #### L 500.2500 ####[facility] [address] [place], [place], [address] Performed By: #### L 500.4050, L500.4100, L100.0100 ####[facility] [address] [place], [address] Serum or plasma cholesterol in HDL measurement (mass/volume)Ordered By: Sally Sommer on 09-17-2024 Cholesterol in HDL [Mass/Vol] 43 mg/dL Normal [facility] Comment on above: National Cholesterol Education [...] Performed By: #### L 500.4050, L500.4100, L100.0100 ####[facility] [address] [place], [address] Serum or plasma cholesterol measurement (mass/volume)Ordered By: Sally Sommer on 09-17-2024 Cholesterol [Mass/Vol] 117 mg/dL Normal <=200 [facility] Comment on above: Cholesterol level, D esirable <200 mg/dLBorderline high cholesterol 200-239 mg/dLHigh cholesterol >=240 mg/dLRecommendations of the NCEP Adult Treatment Panel for the following risk-cutoff thresholds for the [place] population. Result Comment: Chol esterol level, Desirable <200 mg/dL Borderline high cholesterol 200-239 mg/dL High cholesterol >=240 mg/dL Recommendations of the NCEP Adult Treatment Panel for the following risk-cutoff thresholds for the [place] population. Performed By: #### L 500.4050, L500.4100, L100.0100 ####[facility] [address] [place], [address] Serum or plasma urea nitroge n measurement (mass/volume)Ordered By: Nydia El on 09-17-2024 Urea nitrogen [Mass/Vol] 34 mg/dL High 4-19 [facility] Comment on above: Performed By: #### L 500.2500 ####[facility] [address] [place], [address] Performed By: #### L 500.4050, L500.4100, L100.0100 ####[facility] [address] [place], [address] Sodium levelOrdered By: Bro El on 09-17-2024 Sodium [Moles/Vol] 141 mmol/L Normal 133-145 [facility] Comment on above: Performed By: #### L 500.2500 ####[facility] [address] [place], [address] Performed By: #### L 500.4050, L500.4100, L100.0100 ####[facility] [address] [place], [address] Total proteinOrdered By: Etienne Sommer on 09-17-2024 Protein [Mass/Vol] 7.6 g/dL 5.9-8.4 [facility] Triglycerides measurementOrd ered By: Sally Sommer on 09-17-2024 Triglyceride [Mass/Vol] 110 mg/dL Normal [facility] Comment on above: The drugs N-Acetylcy steine and Metamizole may falsely depress this assay. Normal range: <150 mg/dLBorderline High: 150-199 mg/dLHigh: 200-499 mg/dLVery High: >500 mg/dL Result Comment: The drugs N-Acetylcysteine and Metamizole may falsely depress this assay. Normal range: <150 mg/dL Borderline High: 150-199 mg/dL High: 200-499 mg/dL Very High: >500 mg/dL Performed By: #### L 500.4050, L500.4100, L100.0100 ####[facility] [address] [place], [address] White blood cell (WBC) count Ordered By: Sally Sommer on 09-17-2024 WBC (Bld) [#/Vol] 9.7 10*3/uL Normal 4.4-11.0 [facility] Comment on above: Performed By: #### L 500.4050, L500.4100, L100.0100 ####[facility] [address] [place], [address] Albumin DL <= 20 mg/L (U) [M ass/Vol]Ordered By: Nydia El on 07-18-2024 Urine Random Microalbumin 27.0 mg/L NO RANGE EST. [facility] Anion gap in Serum or Plasma Ordered By: Nydia El on 07-18-2024 Anion gap [Moles/Vol] 12 mmol/L 5-15 [facility] BUN/creatinine ratioOrdered By: Nydia El on 07-18-2024 Urea nitrogen/Creatinine [Mass ratio] 12.4 mg/mg 10-20 [facility] Bilirubin, totalOrdered By: Nydia El on 07-18-2024 Bilirubin [Mass/Vol] 0.16 mg/dL 0.00-1.30 [facility] Carbon dioxide, total [Moles /volume] in Central venous bloodOrdered By: Nydia El on 07-18-2024 CO2 [Moles/Vol] 20.1 mmol/L Low 21.0-32.0 [facility] Chloride assayOrdered By: Me jono El on 07-18-2024 Chloride [Moles/Vol] 109 mmol/L High 98-108 [facility] Comprehensive Metabolic Prof ilon 07-18-2024 Albumin [Mass/Vol] 3.6 g/dL Normal 3.4-4.8 [facility] Comment on above: Performed By: #### L 500.4050, L506.0400, L501.9520, L502.0250 ####[facility] [address] [place], [address] Albumin/Globulin [Mass ratio] 1.4 {ratio} Normal 0.9-2.4 [facility] Comment on above: Performed By: #### L 500.4050, L506.0400, L501.9520, L502.0250 ####[facility] [address] [place], [address] ALK PHOS 61 U/L Normal 40-129 [facility] Comment on above: Performed By: #### L 500.4050, L506.0400, L501.9520, L502.0250 ####[facility] [address] [place], [address] ALT [Catalytic activity/Vol] 11 U/L Normal <=46 [facility] Comment on above: Performed By: #### L 500.4050, L506.0400, L501.9520, L502.0250 ####[facility] [address] [place], [address] AST [Catalytic activity/Vol] 12 U/L Normal <=37 [facility] Comment on above: Performed By: #### L 500.4050, L506.0400, L501.9520, L502.0250 ####[facility] [address] [place], [address] Bilirubin [Mass/Vol] 0.16 mg/dL Normal 0.00-1.30 [facility] Comment on above: Performed By: #### L 500.4050, L506.0400, L501.9520, L502.0250 ####[facility] [address] [place], [address] BUN/CRE 12.4 RATIO Normal 10-20 [facility] Comment on above: Performed By: #### L 500.4050, L506.0400, L501.9520, L502.0250 ####[facility] [address] [place], [address] Calcium [Mass/Vol] 8.8 mg/dL Normal 7.6-11.0 [facility] Comment on above: Performed By: #### L 500.4050, L506.0400, L501.9520, L502.0250 ####[facility] [address] [place], [address] Chloride [Moles/Vol] 109 mmol/L High 98-108 [facility] Comment on above: Performed By: #### L 500.4050, L506.0400, L501.9520, L502.0250 ####[facility] [address] [place], [address] CO2 [Moles/Vol] 20.1 mmol/L Low 21.0-32.0 [facility] Comment on above: Performed By: #### L 500.4050, L506.0400, L501.9520, L502.0250 ####[facility] [address] [place], [address] Creatinine [Mass/Vol] 2.11 mg/dL High 0.70-1.20 [facility] Comment on above: Performed By: #### L 500.4050, L506.0400, L501.9520, L502.0250 ####[facility] [address] [place], [address] GAP 12 Normal 5-15 [facility] Comment on above: Performed By: #### L 500.4050, L506.0400, L501.9520, L502.0250 ####[facility] [address] [place], [address] GFR/1.73 sq M.predicted among non-blacks MDRD (S/P/Bld) [Vol rate/Area] 32 mL/min/{1.73_m2} Low >60 [facility] Comment on above: Result Comment: mL/m in/1.73m2 CKD-EPI Creatinine Equation (2020) Performed By: #### L 500.4050, L506.0400, L501.9520, L502.0250 ####[facility] [address] [place], [address] Globulin (S) [Mass/Vol] 2.5 g/dL Normal 2.2-4.2 [facility] Comment on above: Performed By: #### L 500.4050, L506.0400, L501.9520, L502.0250 ####[facility] [address] [place], [address] Glucose [Mass/Vol] 84 mg/dL Normal 70-99 [facility] Comment on above: Performed By: #### L 500.4050, L506.0400, L501.9520, L502.0250 ####[facility] [address] [place], [address] Potassium [Moles/Vol] 4.8 mmol/L Normal 3.3-5.1 [facility] Comment on above: Performed By: #### L 500.4050, L506.0400, L501.9520, L502.0250 ####[facility] [address] [place], [address] Sodium [Moles/Vol] 142 mmol/L Normal 133-145 [facility] Comment on above: Performed By: #### L 500.4050, L506.0400, L501.9520, L502.0250 ####[facility] [address] [place], [address] T PROT 6.1 g/dL Normal 5.9-8.4 [facility] Comment on above: Performed By: #### L 500.4050, L506.0400, L501.9520, L502.0250 ####[facility] [address] [place], [address] Urea nitrogen [Mass/Vol] 26 mg/dL High 4-19 [facility] Comment on above: Performed By: #### L 500.4050, L506.0400, L501.9520, L502.0250 ####[facility] [address] [place], [address] Creatinine Unsp time (U) [Ma ss/Vol]Ordered By: Nydia El on 07-18-2024 Creatinine (U) [Mass/Vol] 193.00 mg/dL 39.00-259.00 [facility] Endocrinology Visit Reporton 07-18-2024 Endocrinology Visit Report [facility] [address] [place] [address] OFFICE VISIT Date of Service: 07/18/24 MR#: [id number] Acct: [id number] Name: LYUDMILA BRENNAN Rep #: [id number] : 1950 Provider: BRANDON sainz Age/Sex: 74/M Location: [facility] Status: Signed Intake Vital Signs 04/22/24 09:41 [...] Skin: No (more content not included)... Normal [facility] GFR/1.73 sq M.predicted kenisha g non-blacks MDRD (S/P/Bld) [Vol rate/Area]Ordered By: Nydia El on 07-18-2024 Estimated GFR (MDRD) Non-Af Amer 32 Low >60 [facility] Comment on above: mL/min/1.73m2 CKD-EP I Creatinine Equation (2020) Glomerular filtration rate ( GFR) estimation/1.73 sq m using serum, plasma, or whole bOrdered By: Nydia El on 07-18-2024 GFR/1.73 sq M.predicted among non-blacks MDRD (S/P/Bld) [Vol rate/Area] 32 mL/min/{1.73_m2} Low >60 [facility] Comment on above: mL/min/1.73m2 CKD-EP I Creatinine Equation (2020) Laboratory - Chemistry and C hemistry - challengeOrdered By: Nydia El on 07-18-2024 AST [Catalytic activity/Vol] 12 U/L <38 [facility] Laboratory - Hematology and Cell countsOrdered By: Nydia El on 07-18-2024 HbA1c (Bld) [Mass fraction] 7.1 % High 4.2-6.3 [facility] Microalbumin/creat ratio urO rdered By: Nydia El on 07-18-2024 Urine Microalbumin/Creatinine Ratio 139.9 mg/g CRE [facility] Potassium (Unsp spec) [Mass/ Vol]Ordered By: Nydia El on 07-18-2024 Potassium [Moles/Vol] 4.8 mmol/L 3.3-5.1 [facility] Potassium measurement (mass/ volume)Ordered By: Nydia El on 07-18-2024 Potassium (Unsp spec) [Mass/Vol] 4.8 mmol/L 3.3-5.1 [facility] Random urine creatinine selwyn urement (mass/volume)Ordered By: Nydia El on 07-18-2024 Creatinine Unsp time (U) [Mass/Vol] 193.00 mg/dL 39.00-259.00 [facility] Serum creatinine measurement (mass/volume)Ordered By: Nydia El on 07-18-2024 Creatinine [Mass/Vol] 2.11 mg/dL High 0.70-1.20 [facility] Serum globulin measurementOr dered By: Nydia El on 07-18-2024 Globulin (S) [Mass/Vol] 2.5 g/dL 2.2-4.2 [facility] Serum glucose measurement (m ass/volume)Ordered By: Nydia El on 07-18-2024 Glucose [Mass/Vol] 84 mg/dL 70-99 [facility] Serum or plasma alanine garcia otransferase (ALT) measurementOrdered By: Nydia El on 07-18-2024 ALT [Catalytic activity/Vol] 11 U/L <47 [facility] Serum or plasma albumin selwyn urement (mass/volume)Ordered By: Nydia El on 07-18-2024 Albumin [Mass/Vol] 3.6 g/dL 3.4-4.8 [facility] Serum or plasma albumin/glob ulin mass ratioOrdered By: Nydia El on 07-18-2024 Albumin/Globulin [Mass ratio] 1.4 {ratio} 0.9-2.4 [facility] Serum or plasma alkaline nidia sphatase measurementOrdered By: Nydia El on 07-18-2024 ALP [Catalytic activity/Vol] 61 U/L 40-129 [facility] Serum or plasma calcium selwyn urement (mass/volume)Ordered By: Nydia El on 07-18-2024 Calcium [Mass/Vol] 8.8 mg/dL 7.6-11.0 [facility] Serum or plasma urea nitroge n measurement (mass/volume)Ordered By: Nydia El on 07-18-2024 Urea nitrogen [Mass/Vol] 26 mg/dL High 4-19 [facility] Sodium levelOrdered By: Bro El on 07-18-2024 Sodium [Moles/Vol] 142 mmol/L 133-145 [facility] T4 Free Directon 07-18-2024 T4 FREE DIRECT 0.70 ng/dL Low 0.76-1.46 [facility] Comment on above: Performed By: #### L 500.4050, L506.0400, L501.9520, L502.0250 ####[facility] [address] [place], [address] T4 freeOrdered By: Jairo on 07-18-2024 Free T4 [Mass/Vol] 0.70 ng/dL Low 0.76-1.46 [facility] TSH DL <= 0.005 mIU/L QnOrde red By: Nydia El on 07-18-2024 Thyroid Stimulating Hormone (TSH) 39.000 uIU/mL High 0.300-4.200 [facility] TSH Qn 39.000 uIU/mL High 0.300-4.200 [facility] Thyroid Stim Hormone (TSH)on 07-18-2024 TSH 39.000 uIU/mL High 0.300-4.200 [facility] Comment on above: Performed By: #### L 500.4050, L506.0400, L501.9520, L502.0250 ####[facility] [address] [place], [address] Total proteinOrdered By: Neelam El on 07-18-2024 Protein [Mass/Vol] 6.1 g/dL 5.9-8.4 [facility] Urine albumin measurement wi detection limit of 20 mg/L or less (mass/volume)Ordered By: Nydia El on 07-18-2024 Albumin DL <= 20 mg/L (U) [Mass/Vol] 27.0 mg/L NO RANGE EST. [facility] Basic Metabolic Profile (BMP )on 06-04-2024 BUN/CRE 13.1 RATIO Normal 10-20 [facility] Comment on above: Performed By: #### L 500.2500 #### [facility] [address] [place], [address] CA,Total 8.8 mg/dL Normal 8.5-10.1 [facility] Comment on above: Performed By: #### L 500.2500 #### [facility] [address] [place], [address] EST GFR - AA 39 mL/min Low >60 [facility] Comment on above: Result Comment: Afri can Irish GFR Calc Performed By: #### L 500.2500 #### [facility] [address] [place], [address] GAP 3 Low 5-15 [facility] Comment on above: Performed By: #### L 500.2500 #### [facility] [address] [place], [place], [address] Blood urea nitrogen (BUN)/cr eatinine ratioOrdered By: Tim Salgado on 06-04-2024 Urea nitrogen/Creatinine [Mass ratio] 13.1 mg/mg 10- [facility] Carbon dioxide measurementOr dered By: Tim Salgado on 06-04-2024 CO2 [Moles/Vol] 29.0 mmol/L Normal 21.0-32.0 [facility] Comment on above: Performed By: #### L 500.2500 #### [facility] [address] [place], [place], [id number] Chloride measurementOrdered By: Tim Salgado on 06-04-2024 Chloride [Moles/Vol] 108 mmol/L High 98-107 [facility] Comment on above: Performed By: #### L 500.2500 #### [facility] [address] [place], [place], [address] Estimated glomerular filtrat ion rate (GFR) AmericanOrdered By: Tim Salgado on 06-04-2024 Estimated GFR (MDRD) Amer 39 mL/min Low >60 [facility] Comment on above: GFR Calc Glomerular filtration rate ( GFR) estimationOrdered By: Tim Salgado on 06-04-2024 Estimated GFR (MDRD) Non-Af Amer 32 mL/min Low >60 [facility] Comment on above: Non- GFR Calc GFR/1.73 sq M.predicted among non-blacks MDRD (S/P/Bld) [Vol rate/Area] 32 mL/min/{1.73_m2} Low >60 [facility] Comment on above: Non- GFR Calc Result Comment: Non- GFR Calc Performed By: #### L 500.2500 #### [facility] [address] [facility] [address] [place], [place], [address] Glucose measurementOrdered B y: Tim Salgado on 06-04-2024 Glucose [Mass/Vol] 143 mg/dL High 74-106 [facility] Comment on above: Fasting Glucose resu lt greater than or equal to 126 mg/dL suggests DIABETES MELLITUS per A.D.A. criteria. Result Comment: Fast ing Glucose result greater than or equal to 126 mg/dL suggests DIABETES MELLITUS per A.D.A. criteria. Performed By: #### L 500.2500 #### [facility] [address] [place], [place], [address] Potassium measurementOrdered By: Tim Salgado on 06-04-2024 Potassium [Moles/Vol] 5.2 mmol/L High 3.5-5.1 [facility] Comment on above: Performed By: #### L 500.2500 #### [facility] [address] [place], [place], [id number] Serum anion gap measurementO rdered By: Tim Salgado on 06-04-2024 Anion gap [Moles/Vol] 3 mmol/L Low 5-15 [facility] Serum or plasma calcium selwyn urement (mass/volume)Ordered By: Tim Salgado on 06-04-2024 Calcium [Mass/Vol] 8.8 mg/dL 8.5-10.1 [facility] Serum or plasma creatinine m easurement (mass/volume)Ordered By: Tim Salgado on 06-04-2024 Creatinine [Mass/Vol] 2.14 mg/dL High 0.70-1.30 [facility] Comment on above: The validity of the calculated GFR & GFRAA in patients over 70 years has not been determined. Clinical correlation is essential. Result Comment: The validity of the calculated GFR GFRAA in patients over 70 years has not been determined. Clinical correlation is essential. Performed By: #### L 500.2500 #### [facility] [address] [place], [place], [address] Serum or plasma urea nitroge n measurement (mass/volume)Ordered By: Tim Salgado on 06-04-2024 Urea nitrogen [Mass/Vol] 28 mg/dL High 7-18 [facility] Comment on above: Performed By: #### L 500.2500 #### [facility] [address] [place], [address] Sodium levelOrdered By: Basil Salgado on 06-04-2024 Sodium [Moles/Vol] 140 mmol/L Normal 136-145 [facility] Comment on above: Performed By: #### L 500.2500 #### [facility] [address] [facility] [place], [place], [address] .Auto Diffon 05-29-2024 Basophil, Absolute 0.1 10 3/mcL Normal 0.0-0.2 [facility] Comment on above: Performed By: #### C BC, CMP, GFR, ANEU, ADIFF #### [address] [address] Basophils/100 WBC (Bld) 1.1 % Normal 0.0-2.5 [facility] Comment on above: Performed By: #### C BC, CMP, GFR, ANEU, ADIFF #### [address] [address] Eosinophil, Absolute 0.4 10 3/mcL Normal 0.0-0.[address] [facility] Comment on above: Performed By: #### C BC, CMP, GFR, ANEU, ADIFF #### [address] [address] Eosinophils/100 WBC (Bld) 3.9 % Normal 0.0-7.0 [facility] Comment on above: Performed By: #### C BC, CMP, GFR, ANEU, ADIFF #### [address] [address] Lymphocyte, Absolute 1.4 10 3/mcL Normal 0.9-4.[address] [facility] Comment on above: Performed By: #### C BC, CMP, GFR, ANEU, ADIFF #### [address] [address] Lymphocytes/100 WBC (Bld) 16.0 % Low 20.0-40.0 [facility] Comment on above: Performed By: #### C BC, CMP, GFR, ANEU, ADIFF #### [address] [address] Monocyte, Absolute 0.6 10 3/mcL Normal 0.1-1.4 [facility] Comment on above: Performed By: #### C BC, CMP, GFR, ANEU, ADIFF #### [address] [address] Monocytes/100 WBC (Bld) 7.0 % Normal 2.0-13.0 [facility] Comment on above: Performed By: #### C BC, CMP, GFR, ANEU, ADIFF #### [address] [address] Neutrophils/100 WBC (Bld) 72.0 % Normal 50.0-75.0 [facility] Comment on above: Performed By: #### C BC, CMP, GFR, ANEU, ADIFF #### [address] [address] .GFRon 05-29-2024 Estimated Glomerular Filtration Rate 37 ml/min/1.73sqm Normal [facility] Comment on above: Result Comment: Stages of [...] C BC, CMP, GFR, ANEU, ADIFF #### [address] [address] .NEUABSon 05-29-2024 Neutrophil, Absolute 6.5 10 3/mcL Normal 2.3-8.[address] [facility] Comment on above: Performed By: #### C BC, CMP, GFR, ANEU, ADIFF #### [address] [address] CBCon 05-29-2024 Erythrocyte distribution width (RBC) [Ratio] 19.9 % High 11.5-15.5 [facility] Comment on above: Performed By: #### C BC, CMP, GFR, ANEU, ADIFF #### [place] [id number] Hematocrit (Bld) [Volume fraction] 38.7 % Low 40.0-52.0 [facility] Comment on above: Performed By: #### C BC, CMP, GFR, ANEU, ADIFF #### [place] [id number] Hgb 12.7 G/dL Low 13.0-17.5 [facility] Comment on above: Performed By: #### C BC, CMP, GFR, ANEU, ADIFF #### [address] [address] MCH (RBC) [Entitic mass] 25.3 pg Low 27.0-33.0 [facility] Comment on above: Performed By: #### C BC, CMP, GFR, ANEU, ADIFF #### [address] [address] MCHC 32.8 G/dL Normal 32.0-36.0 [facility] Comment on above: Performed By: #### C BC, CMP, GFR, ANEU, ADIFF #### [address] [address] MCV (RBC) [Entitic vol] 77.0 fL Low 81.0-100.0 [facility] Comment on above: Performed By: #### C BC, CMP, GFR, ANEU, ADIFF #### [address] [address] Platelet 317 10 3/mcL Normal 150-450 [facility] Comment on above: Performed By: #### C BC, CMP, GFR, ANEU, ADIFF #### [address] [address] Platelet mean volume (Bld) [Entitic vol] 7.8 fL Normal 6.4-10.5 [facility] Comment on above: Performed By: #### C BC, CMP, GFR, ANEU, ADIFF #### [address] [address] RBC 5.02 10 6/mcL Normal 4.50-6.00 [facility] Comment on above: Performed By: #### C BC, CMP, GFR, ANEU, ADIFF #### [address] [address] WBC 9.0 10 3/mcL Normal 4.5-10.8 [facility] Comment on above: Performed By: #### C BC, CMP, GFR, ANEU, ADIFF #### [address] [address] CMPon 05-29-2024 Albumin Level 3.4 G/dL Normal 3.4-4.8 [facility] Comment on above: Performed By: #### C BC, CMP, GFR, ANEU, ADIFF #### [address] [address] Albumin/Globulin [Mass ratio] 0.9 {ratio} Low 1.1-2.5 [facility] Comment on above: Performed By: #### C BC, CMP, GFR, ANEU, ADIFF #### [address] [address] ALP [Catalytic activity/Vol] 73 U/L Normal 40-135 [facility] Comment on above: Performed By: #### C BC, CMP, GFR, ANEU, ADIFF #### [place] [address] ALT [Catalytic activity/Vol] 18 U/L Normal 16-63 [facility] Comment on above: Performed By: #### C BC, CMP, GFR, ANEU, ADIFF #### [place] [address] AST [Catalytic activity/Vol] 13 U/L Normal 10-40 [facility] Comment on above: Performed By: #### C BC, CMP, GFR, ANEU, ADIFF #### [place] [address] Bili Total 0.4 mg/dL Normal 0.2-1.0 [facility] Comment on above: Result Comment: Use of this assay is not recommended for patients undergoing treatment with eltrombopag due to the potential for falsely elevated results. Performed By: #### C BC, CMP, GFR, ANEU, ADIFF #### [address] [address] BUN/Creatinine Ratio 13 ratio Normal 7-27 [facility] Comment on above: Performed By: #### C BC, CMP, GFR, ANEU, ADIFF #### [place] [id number] Calcium [Mass/Vol] 9.0 mg/dL Normal 8.4-10.2 [facility] Comment on above: Performed By: #### C BC, CMP, GFR, ANEU, ADIFF #### [address] [address] Chloride [Moles/Vol] 103 mmol/L Normal 98-107 [facility] Comment on above: Performed By: #### C BC, CMP, GFR, ANEU, ADIFF #### [place] [address] CO2 [Moles/Vol] 28 mmol/L Normal 23-31 [facility] Comment on above: Performed By: #### C BC, CMP, GFR, ANEU, ADIFF #### [place] [address] Creatinine [Mass/Vol] 1.89 mg/dL High 0.70-1.30 [facility] Comment on above: Result Comment: Test ing performed on [employer] Dimension EXL analyzer using a modified kinetic Dianne technique. Performed By: #### C BC, CMP, GFR, ANEU, ADIFF #### [place] [address] Electrolyte Balance 7.0 mEq/L Normal 4.0-15.0 [facility] Comment on above: Performed By: #### C BC, CMP, GFR, ANEU, ADIFF #### [place] [address] Globulin 3.6 G/dL Normal 1.5-3.8 [facility] Comment on above: Performed By: #### C BC, CMP, GFR, ANEU, ADIFF #### [place] [address] Glucose [Mass/Vol] 241 mg/dL High 83-110 [facility] Comment on above: Performed By: #### C BC, CMP, GFR, ANEU, ADIFF #### [place] [address] Potassium [Moles/Vol] 5.2 mmol/L High 3.5-5.1 [facility] Comment on above: Performed By: #### C BC, CMP, GFR, ANEU, ADIFF #### [place] [address] Sodium [Moles/Vol] 138 mmol/L Normal 136-145 [facility] Comment on above: Performed By: #### C BC, CMP, GFR, ANEU, ADIFF #### [place] [address] [place], [place] [address] Total Protein 7.0 G/dL Normal 6.4-8.2 [facility] Comment on above: Performed By: #### C BC, CMP, GFR, ANEU, ADIFF #### [place] [address] [place], [place] [address] Urea nitrogen [Mass/Vol] 24 mg/dL High 7-18 [facility] Comment on above: Performed By: #### C BC, CMP, GFR, ANEU, ADIFF #### [place] [address] [place], [place] [address] LABORATORYOrdered By: SYSTEM SYSTEM on 05-29-2024 Albumin [...] Endocrinology Visit Reporton 04-22-2024 Endocrinology Visit Report [facility] [address] [place] [address]. [address] [place] [address] OFFICE VISIT Date of Service: 04/22/24 MR#: [id number] Acct: [id number] Name: ANTONLYUDMILA GREENBERG Rep #: [id number] : 1950 Provider: BRANDON sainz Age/Sex: 74/M Location: [facility] Status: Signed Intake Vital Signs 03/20/24 [...] and hypothyroid. He recently relocated to [facility] from [place]. He was diagnosed with diabetes in 1996 after noting increased thirst. He reports that he started as a type 2 but then stopped making insulin." Complications include SC, CAD, neuropathy, microalbuminuria, and CKD. Currently using Endgame 780g with Guardian CGM. Reports A1C approximately [...] normal bilat (more content not included)... Normal [facility] CR - History AND Physicalon 04-08-2024 CR - History & Physical [facility] [address] [place] [address] CR - History Physical MR#: [id number] Acct: [id number] Name: LYUDMILA BRENNAN Rep #: [id number] : 1950 74 From: Clay Rosales BS, RVT PCP: RYLAN BOWDEN DOS: 04/08/24 CR - History Physical General Arrival date:: 04/08/24 Arrival time:: 14:06 Date of Referral:: 03/20/24 Date of CR Evaluation:: 04/08/24 Referring Physician: Dr. Salgado Primary Diagnosis: SC NonSTEMI <12 months History of Present Cardiac [...] Negative Advanced Directives Advanced Directives Power of Fisher Diving: No Living Will: No Advance Directives Information [...] Risk Factor Assessment Chief Complaint Chief Complaint: SC NonSTEMI <12 months Vital Signs Pulse Ox: [...] Inactivity: Recreati (more content not included)... Normal [facility] 12 Lead EKG performed by [facility] on 03-20-2024 12 Lead EKG performed by [address] [address] 12 Lead EKG performed by [facility] 03/20/[address] MR#: [id number] Acct: [id number] Name: LYUDMILA BRENNAN Rep #: [id number] : 1950 74 From: Tim Salgado MD Attending Dr: Dr. Tim Salgado MD Status: DE P AMB Ordering Dr: Tim Salgado MD Date: 03/20/24 Location: [facility] Sex: M C Admitted: BMS/12 Lead EKG performed by [facility] ECG Report Interpretation ------Sinus Rhythm -Inferior infarct -probably not recent. ABNORMAL Electronically signed on 03/20/2024 at 12:[address] Tim Salgado [employer] Version [id number] 03/20/24 1242 Date Tim Salgado MD CC: RYLAN BOWDEN Date Dictated: 03/20/24845 Date Transcribed: 03/20/24845 Paving Supervisor: Signed Normal [facility] Cardiology Visit Reporton Cardiology Visit Report [facility] [address] [place] [address] OFFICE VISIT Date of Service: 03/20/24 MR#: [id number] Acct: [id number] Name: LYUDMILA BRENNAN Rep #: [id number] : 1950 Provider: Dr. Tim romero MD Age/Sex: 74/M Location: [facility] Status: Signed HPI HPI History of Present Illness Details: Patient is a 74-year-old white male comes in for new patient visit with his . They have just relocated here from [place]. Patient carries a history of coronary disease [...] earlier this summer and early fall in [place]. He is wishing to get into phase [...] Intake Visit Reasons: Est Care/ HX of SC (Self) Website Developer Required: No Accompanied by: Is patient in [...] No Palpitatio (more content not included)... Normal [facility] .Auto Diffon 03-18-2024 Basophil, Absolute 0.1 10 3/mcL Normal 0.0-0.2 [facility] Comment on above: Performed By: #### A 1C, ANEU, CBC, TSH, GFR, ADIFF, CMP, LIPID #### [address] [address] Basophils/100 WBC (Bld) 1.0 % Normal 0.0-2.5 [facility] Comment on above: Performed By: #### A 1C, ANEU, CBC, TSH, GFR, ADIFF, CMP, LIPID #### [address] [address] Eosinophil, Absolute 0.6 10 3/mcL Normal 0.0-0.[address] [facility] Comment on above: Performed By: #### A 1C, ANEU, CBC, TSH, GFR, ADIFF, CMP, LIPID #### [address] [address] Eosinophils/100 WBC (Bld) 6.9 % Normal 0.0-7.0 [facility] Comment on above: Performed By: #### A 1C, ANEU, CBC, TSH, GFR, ADIFF, CMP, LIPID #### [address] [address] Lymphocyte, Absolute 1.2 10 3/mcL Normal 0.9-4.[address] [facility] Comment on above: Performed By: #### A 1C, ANEU, CBC, TSH, GFR, ADIFF, CMP, LIPID #### [address] [address] Lymphocytes/100 WBC (Bld) 13.0 % Low 20.0-40.0 [facility] Comment on above: Performed By: #### A 1C, ANEU, CBC, TSH, GFR, ADIFF, CMP, LIPID #### [place] [address] [place], [place] [address] Monocyte, Absolute 0.5 10 3/mcL Normal 0.1-1.4 [facility] Comment on above: Performed By: #### A 1C, ANEU, CBC, TSH, GFR, ADIFF, CMP, LIPID #### [address] [address] Monocytes/100 WBC (Bld) 6.2 % Normal 2.0-13.0 [facility] Comment on above: Performed By: #### A 1C, ANEU, CBC, TSH, GFR, ADIFF, CMP, LIPID #### [address] [address] Neutrophils/100 WBC (Bld) 72.9 % Normal 50.0-75.0 [facility] Comment on above: Performed By: #### A 1C, ANEU, CBC, TSH, GFR, ADIFF, CMP, LIPID #### [address] [address] .GFRon 03-18-2024 GFR Non- 43 ml/min/1.73sqm Normal [facility] Comment on above: Result Comment: GFR Population [...] C BC, CMP, GFR, ANEU, ADIFF #### [address] [address] GFR 53 ml/min/1.73sqm Normal [facility] Comment on above: Result Comment: GFR Population [...] C BC, CMP, GFR, ANEU, ADIFF #### [address] [address] .NEUABSon 03-18-2024 Neutrophil, Absolute 6.5 10 3/mcL Normal 2.3-8.[address] [facility] Comment on above: Performed By: #### A 1C, ANEU, CBC, TSH, GFR, ADIFF, CMP, LIPID #### [address] [address] A1Con 03-18-2024 Glucose [Mass/Vol] 134 mg/dL Normal [facility] Comment on above: Result Comment: Corinne mated Average Glucose calculated by equation ((28.7xA1C)-46.7) Estimated average glucose (eAG) is a calculated value from Hemoglobin A1C and is motor vehicle representative of the average blood glucose level in the last 2-3 month period. Normal range: less than 114 mg/dL Performed By: #### C BC, CMP, GFR, ANEU, ADIFF #### [address] [address] HbA1c (Bld) [Mass fraction] 6.3 % Normal 4.3-6.4 [facility] Comment on above: Performed By: #### C BC, CMP, GFR, ANEU, ADIFF #### [place] [address] CBCon 03-18-2024 Erythrocyte distribution width (RBC) [Ratio] 21.3 % High 11.5-15.5 [facility] Comment on above: Performed By: #### A 1C, ANEU, CBC, TSH, GFR, ADIFF, CMP, LIPID #### [place] [address] Hematocrit (Bld) [Volume fraction] 32.5 % Low 40.0-52.0 [facility] Comment on above: Performed By: #### A 1C, ANEU, CBC, TSH, GFR, ADIFF, CMP, LIPID #### [place] [address] Hgb 10.6 G/dL Low 13.0-17.5 [facility] Comment on above: Performed By: #### A 1C, ANEU, CBC, TSH, GFR, ADIFF, CMP, LIPID #### [place] [address] MCH (RBC) [Entitic mass] 24.5 pg Low 27.0-33.0 [facility] Comment on above: Performed By: #### A 1C, ANEU, CBC, TSH, GFR, ADIFF, CMP, LIPID #### [place] [address] MCHC 32.4 G/dL Normal 32.0-36.0 [facility] Comment on above: Performed By: #### A 1C, ANEU, CBC, TSH, GFR, ADIFF, CMP, LIPID #### [place] [address] MCV (RBC) [Entitic vol] 75.7 fL Low 81.0-100.0 [facility] Comment on above: Performed By: #### A 1C, ANEU, CBC, TSH, GFR, ADIFF, CMP, LIPID #### [place] [address] Platelet 330 10 3/mcL Normal 150-450 [facility] Comment on above: Performed By: #### A 1C, ANEU, CBC, TSH, GFR, ADIFF, CMP, LIPID #### [address] [address] Platelet mean volume (Bld) [Entitic vol] 6.5 fL Normal 6.4-10.5 [facility] Comment on above: Performed By: #### A 1C, ANEU, CBC, TSH, GFR, ADIFF, CMP, LIPID #### [address] [address] RBC 4.30 10 6/mcL Low 4.50-6.00 [facility] Comment on above: Performed By: #### A 1C, ANEU, CBC, TSH, GFR, ADIFF, CMP, LIPID #### [address] [address] WBC 8.9 10 3/mcL Normal 4.5-10.8 [facility] Comment on above: Performed By: #### A 1C, ANEU, CBC, TSH, GFR, ADIFF, CMP, LIPID #### [address] [address] CMPon 03-18-2024 Albumin Level 3.0 G/dL Low 3.4-4.8 [facility] Comment on above: Performed By: #### A 1C, ANEU, CBC, TSH, GFR, ADIFF, CMP, LIPID #### [address] [address] Albumin/Globulin [Mass ratio] 1.0 {ratio} Low 1.1-2.5 [facility] Comment on above: Performed By: #### A 1C, ANEU, CBC, TSH, GFR, ADIFF, CMP, LIPID #### [address] [address] ALP [Catalytic activity/Vol] 67 U/L Normal 40-135 [facility] Comment on above: Performed By: #### A 1C, ANEU, CBC, TSH, GFR, ADIFF, CMP, LIPID #### [address] [address] ALT [Catalytic activity/Vol] 14 U/L Low 16-63 [facility] Comment on above: Performed By: #### A 1C, ANEU, CBC, TSH, GFR, ADIFF, CMP, LIPID #### [address] [address] AST [Catalytic activity/Vol] 10 U/L Normal 10-40 [facility] Comment on above: Performed By: #### A 1C, ANEU, CBC, TSH, GFR, ADIFF, CMP, LIPID #### [address] [address] Bili Total 0.3 mg/dL Normal 0.2-1.0 [facility] Comment on above: Result Comment: Use of this assay is not recommended for patients undergoing treatment with eltrombopag due to the potential for falsely elevated results. Performed By: #### A 1C, ANEU, CBC, TSH, GFR, ADIFF, CMP, LIPID #### [address] [address] BUN/Creatinine Ratio 10 ratio Normal 7-27 [facility] Comment on above: Performed By: #### A 1C, ANEU, CBC, TSH, GFR, ADIFF, CMP, LIPID #### [address] [address] Calcium [Mass/Vol] 8.7 mg/dL Normal 8.4-10.2 [facility] Comment on above: Performed By: #### A 1C, ANEU, CBC, TSH, GFR, ADIFF, CMP, LIPID #### [address] [address] Chloride [Moles/Vol] 105 mmol/L Normal 98-107 [facility] Comment on above: Performed By: #### A 1C, ANEU, CBC, TSH, GFR, ADIFF, CMP, LIPID #### [address] [address] CO2 [Moles/Vol] 28 mmol/L Normal 23-31 [facility] Comment on above: Performed By: #### A 1C, ANEU, CBC, TSH, GFR, ADIFF, CMP, LIPID #### [address] [address] Creatinine [Mass/Vol] 1.57 mg/dL High 0.70-1.30 [facility] Comment on above: Result Comment: Test ing performed on Siemens Dimension EXL analyzer using a modified kinetic Dianne technique. Performed By: #### A 1C, ANEU, CBC, TSH, GFR, ADIFF, CMP, LIPID #### [address] [address] Electrolyte Balance 7.0 mEq/L Normal 4.0-15.0 [facility] Comment on above: Performed By: #### A 1C, ANEU, CBC, TSH, GFR, ADIFF, CMP, LIPID #### [address] [address] Globulin 3.0 G/dL Normal [facility] Comment on above: Performed By: #### A 1C, ANEU, CBC, TSH, GFR, ADIFF, CMP, LIPID #### [address] [address] Glucose [Mass/Vol] 162 mg/dL High 83-110 [facility] Comment on above: Performed By: #### A 1C, ANEU, CBC, TSH, GFR, ADIFF, CMP, LIPID #### [address] [address] Potassium [Moles/Vol] 4.7 mmol/L Normal 3.5-5.1 [facility] Comment on above: Performed By: #### A 1C, ANEU, CBC, TSH, GFR, ADIFF, CMP, LIPID #### [address] [address] Sodium [Moles/Vol] 140 mmol/L Normal 136-145 [facility] Comment on above: Performed By: #### A 1C, ANEU, CBC, TSH, GFR, ADIFF, CMP, LIPID #### [address] [address] Total Protein 6.0 G/dL Low 6.4-8.2 [facility] Comment on above: Performed By: #### A 1C, ANEU, CBC, TSH, GFR, ADIFF, CMP, LIPID #### [place] [address] [place], [place] [address] Urea nitrogen [Mass/Vol] 15 mg/dL Normal 7-18 [facility] Comment on above: Performed By: #### A 1C, ANEU, CBC, TSH, GFR, ADIFF, CMP, LIPID #### [place] [address] [place], [place] [address] LABORATORYOrdered By: SYSTEM SYSTEM on 03-18-2024 Albumin [...] calculated value from Hemoglobin A1C and is motor vehicle representative of the average blood glucose level [...] 03-18-2024 Cholesterol [Mass/Vol] 130 mg/dL Normal 0-[address] [facility] Comment on above: Result Comment: Chol esterol Reference Interval: Less than 200 Desirable 200-239 Borderline high risk 240 and above High risk Performed By: #### C BC, CMP, GFR, ANEU, ADIFF #### [place] [address] [place], [place] [address] Cholesterol in HDL [Mass/Vol] 58 mg/dL Normal 40-60 [facility] Comment on above: Performed By: #### C BC, CMP, GFR, ANEU, ADIFF #### Patricio [address] [address] Cholesterol in LDL [Mass/Vol] 61 mg/dL Normal 0-130 [facility] Comment on above: Performed By: #### C BC, CMP, GFR, ANEU, ADIFF #### [place] [address] [place], [place] [address] Triglyceride [Mass/Vol] 55 mg/dL Normal 0-150 [facility] Comment on above: Result Comment: Trig lyceride Reference Interval: Less than 150 Normal 150-199 Borderline high risk 200-499 High risk 500 or higher Very high risk Performed By: #### C BC, CMP, GFR, ANEU, ADIFF #### [address] [address] TSHon 03-18-2024 TSH Qn 28.17 m[IU]/L High 0.36-3.74 [facility] Comment on above: Performed By: #### A 1C, ANEU, CBC, TSH, GFR, ADIFF, CMP, LIPID #### [address] [address] Office Visiton 02-28-2024 Follow-up visit [id number] Lyudmila Brennna 1950 M Date Provider Department Center 02/28/2024 [id number] THOMPSON [facility] None No family history on file Level of Service:57976 [place] OFFICE/OUTPATIENT ESTABLISHED MOD MDM 30 MIN Reason for Visit and Comments: Follow-up [221742] - Shoulder injury Normal [facility] Progress Noteon 02-28-2024 Progress Note [facility] [address] [place] [address] [facility] [address] Dept: [phone] Dept Loc: [phone] Patient Name: Lyudmila Brennan Date: 02/28/24 Reason for Visit: Chief Complaint Patient presents with Follow-up Shoulder injury Visit type: Established Patient HISTORY OF PRESENT ILLNESS 74 y.o. male status post strain injury with hematoma. Patient recently moved into a home into [place] and while moving boxes felt a pop [...] glucose meter Result Date: 02/15/2024 Performed by: [facility], [address] [place] [address] CLIA ID: [id number] XR chest 1 view Result Date: 02/15/2024 Patient Name: LYUDMILA BRENNAN DO (more content not included)... Normal [facility] 36on 02-23-2024 36 Scheduled Normal [facility] 30on 02-17-2024 30 Problem: Pain - [...] of patient condition declining or worsening Normal [facility] BASIC METABOLIC PANELon 01-23 Anion gap [Moles/Vol] 5 mmol/L Normal 3-13 [facility] Comment on above: Performed By: #### L AB15 ####Metal Turner: JUANI FLORES ([id number])[address] Calcium [Mass/Vol] 8.4 mg/dL Normal 8.4-10.4 [facility] Comment on above: Performed By: #### L AB15 ####Metal Turner: JUANI FLORES ([id number])[facility] ([facility])[address] [place] [address] [place] Chloride [Moles/Vol] 108 mmol/L High 98-107 [facility] Comment on above: Performed By: #### L AB15 ####Metal Turner: JUANI FLORES ([id number])[facility] ([facility])[address] [place] [address] CO2 [Moles/Vol] 23 mmol/L Normal 22-30 [facility] Comment on above: Performed By: #### L AB15 ####Metal Turner: JUANI [id number])[facility] ([facility])[address] [place] [address] Creatinine [Mass/Vol] 1.41 mg/dL High 0.66-1.25 [facility] Comment on above: Performed By: #### L AB15 ####Metal Turner: JUANI FLORES ([id number])[facility] ([facility])[address] [place] [address] GLOMERULAR FILTRATION RATE ML/MIN/1.73 SQ M.PREDICTED 52.3 mL/min/1.73m*2 Low >60.0 [facility] Comment on above: Result Comment: Calc ulation based on the Chronic Kidney Disease Epidemiology Collaboration (CKD-EPI) equation refit without adjustment for race Performed By: #### L AB15 ####Metal Turner: JUANI FLORES ([id number])[facility] ([facility])[address] [place] [address] Glucose [Mass/Vol] 107 mg/dL High 70-100 [facility] Comment on above: Performed By: #### L AB15 ####Metal Turner: JUANI FLORES ([id number])[facility] ([facility])[address] [place] [address] Potassium [Moles/Vol] 4.4 mmol/L Normal 3.5-5.1 [facility] Comment on above: Performed By: #### L AB15 ####Metal Turner: JUANI FLORES ([id number])[facility] ([facility])[address] [place] [address] Sodium [Moles/Vol] 136 mmol/L Normal 135-145 [facility] Comment on above: Performed By: #### L AB15 ####Metal Turner: JUANI FLORES ([id number])[facility] ([facility])[address] [place] [address] [place] Urea nitrogen [Mass/Vol] 24 mg/dL High 9-20 [facility] Comment on above: Performed By: #### L AB15 ####Metal Turner: JUANI FLORES ([id number])[facility] ([facility])[address] [place] [address] CBC (HEMOGRAM)on 02-17-2024 Erythrocyte distribution width (RBC) [Ratio] 19.9 % High 11.5-15.0 [facility] Comment on above: Performed By: #### L [id number] ####Metal Turner: JUANI FLORES ([id number])[facility])[address] [place] [address] Hematocrit (Bld) [Volume fraction] 28.4 % Low 40.0-52.0 [facility] Comment on above: Performed By: #### L [id number] ####Metal Turner: JUANI FLORES ([id number])[facility])[address] [place] [address] Hemoglobin (Bld) [Mass/Vol] 8.9 g/dL Low 13.0-18.0 [facility] Comment on above: Performed By: #### L [id number] ####Metal Turner: JUANI FLORES ([id number])[facility])[address] [place] [address] MCH (RBC) [Entitic mass] 23.7 pg Low 26.0-34.0 [facility] Comment on above: Performed By: #### L [id number] ####Metal Turner: JUANI FLORES ([id number])[facility])[address] [place] [address] MCHC 31.3 % Normal 30.5-36.0 [facility] Comment on above: Performed By: #### L [id number] ####Metal Turner: JUANI FLORES ([id number])[facility])[address] [place] [address] MCV (RBC) [Entitic vol] 75.7 fL Low 77.0-99.0 [facility] Comment on above: Performed By: #### L [id number] ####Metal Turner: JUANI FLORES ([id number])[facility])[address] [place] [address] Platelet mean volume (Bld) [Entitic vol] 8.9 fL Low 9.0-12.7 [facility] Comment on above: Performed By: #### L [id number] ####Metal Turner: JUANI FLORES ([id number])[facility])[address] [place] [address] Platelets (Bld) [#/Vol] 352 10*3/uL Normal 140-440 [facility] Comment on above: Performed By: #### L [id number] ####Metal Turner: JUANI FLORES ([id number])[facility])[address] [place] [address] RBC (Bld) [#/Vol] 3.75 10*6/uL Low 4.40-5.90 [facility] Comment on above: Performed By: #### L [id number] ####Metal Turner: JUANI FLORES ([id number])[facility])[address] [place] [address] WBC (Bld) [#/Vol] 10.3 10*3/uL Normal 3.6-10.7 [facility] Comment on above: Performed By: #### L [id number] ####Metal Turner: JUANI FLORES ([id number])[facility])[address] [place] [address] CBC WITH AUTO DIFFERENTIALon 02-17-2024 Basophils (Bld) [#/Vol] 0.1 10*3/uL Normal 0.0-0.2 [facility] Comment on above: Performed By: #### L [id number] ####Metal Turner: JUANI FLORES ([id number])[facility] ([facility])[address] [place] [address] Basophils/100 WBC (Bld) 0.8 % Normal 0.0-2.0 [facility] Comment on above: Performed By: #### L [id number] ####Metal Turner: JUANI FLORES ([id number])[facility])[address] [place] [address] Eosinophils (Bld) [#/Vol] 0.5 10*3/uL Normal 0.0-0.5 [facility] Comment on above: Performed By: #### L [id number] ####Metal Turner: JUANI FLORES ([id number])[address] Eosinophils/100 WBC (Bld) 5.8 % Normal 0.0-6.0 [facility] Comment on above: Performed By: #### L [id number] ####Metal Turner: JUANI FLORES ([id number])[facility])[address] [place] [address] Erythrocyte distribution width (RBC) [Ratio] 20.0 % High 11.5-15.0 [facility] Comment on above: Performed By: #### L [id number] ####Metal Turner: JUANI FLORES ([id number])[address] Hematocrit (Bld) [Volume fraction] 26.0 % Low 40.0-52.0 [facility] Comment on above: Performed By: #### L [id number] ####Metal Turner: JUANI FLORES ([id number])[address] Hemoglobin (Bld) [Mass/Vol] 8.2 g/dL Low 13.0-18.0 [facility] Comment on above: Performed By: #### L [id number] ####Metal Turner: JUANI FLORES ([id number])[address] IMMATURE GRANS % 0.4 % Normal 0.0-2.0 [facility] Comment on above: Performed By: #### L [id number] ####Metal Turner: JUANI FLORES ([id number])[address] IMMATURE GRANS ABSOLUTE 0.0 10*3/uL Normal <0.1 [facility] Comment on above: Performed By: #### L [id number] ####Metal Turner: JUANI [id number])[facility])[address] [place] [address] Lymphocytes (Bld) [#/Vol] 1.4 10*3/uL Normal 1.0-4.3 [facility] Comment on above: Performed By: #### L [id number] ####Metal Turner: JUANI FLORES ([id number])[facility])[address] [place] [address] Lymphocytes/100 WBC (Bld) 15.8 % Normal 15.0-45.0 [facility] Comment on above: Performed By: #### L [id number] ####Metal Turner: JUANI FLORES ([id number])[facility])[address] [place] [address] MCH (RBC) [Entitic mass] 23.9 pg Low 26.0-34.0 [facility] Comment on above: Performed By: #### L [id number] ####Metal Turner: JUANI FLORES ([id number])[facility])[address] [place] [address] MCHC 31.5 % Normal 30.5-36.0 [facility] Comment on above: Performed By: #### L [id number] ####Metal Turner: JUANI FLORES ([id number])[facility])[address] [place] [address] MCV (RBC) [Entitic vol] 75.8 fL Low 77.0-99.0 [facility] Comment on above: Performed By: #### L [id number] ####Metal Turner: JUANI FOLRES ([id number])[facility])[address] [place] [address] Monocytes (Bld) [#/Vol] 0.7 10*3/uL Normal 0.0-0.9 [facility] Comment on above: Performed By: #### L [id number] ####Metal Turner: JUANI FLORES ([id number])[facility])[address] [place] [address] Monocytes/100 WBC (Bld) 7.8 % Normal 5.0-13.0 [facility] Comment on above: Performed By: #### L [id number] ####Metal Turner: JUANI FLORES ([id number])[facility] ([facility])[address] [place] [address] NEUTROPHILS ABSOLUTE 6.0 10*3/uL Normal 1.8-7.5 [facility] Comment on above: Performed By: #### L [id number] ####Metal Turner: JUANI FLORES ([id number])[facility] ([facility])[address] [place] [address] Neutrophils/100 WBC (Bld) 69.4 % Normal 38.0-82.0 [facility] Comment on above: Performed By: #### L [id number] ####Metal Turner: JUANI FLORES ([id number])[facility] ([facility])[address] [place] [address] NRBC 0.0 /100 WBCs Normal 0.0-2.0 [facility] Comment on above: Performed By: #### L [id number] ####Metal Turner: JUANI FLORES ([id number])[facility] ([facility])[address] [place] [address] Platelet mean volume (Bld) [Entitic vol] 9.6 fL Normal 9.0-12.7 [facility] Comment on above: Performed By: #### L [id number] ####Metal Turner: JUANI FLORES ([id number])[facility] ([facility])[address] [place] [address] Platelets (Bld) [#/Vol] 342 10*3/uL Normal 140-440 [facility] Comment on above: Performed By: #### L [id number] ####Metal Turner: JUANI FLORES ([id number])[facility] ([facility])[address] [place] [address] [place] RBC (Bld) [#/Vol] 3.43 10*6/uL Low 4.40-5.90 [facility] Comment on above: Performed By: #### L [id number] ####Metal Turner: JUANI FLORES ([id number])[address] WBC (Bld) [#/Vol] 8.6 10*3/uL Normal 3.6-10.7 [facility] Comment on above: Performed By: #### L [id number] ####Metal Turner: JUANI FLORES ([id number])[address] Nursing Noteon 02-17-2024 Nursing Note Telemetry discontinued, PRN lock removed, home going instructions reviewed with pt and . [facility] Progress Noteon 02-17-2024 Progress Note This note is for coding purposes only. Patient is documented to have DM being treated with insulin. Per [facility] patient had blood glucose as high as 286, 285, 246. Could this be further specified as: DM with hyperglycemia Bertha Can MD Division of Trauma Department of Surgery [facility] Progress Note Attestation signed by Bertha Can MD at 02/19/2024 7:55 AM ATTENDING ADDENDUM Patient Active Problem List Diagnosis Hematoma I have personally performed a face to face diagnostic evaluation on this patient. I have reviewed and agree with the care plan as documented above by my GIN CLERK/JARAD. I personally discussed the review of systems [...] []SW/TCC []Other Total Care Time (combined between GIN CLERK/PA-C and myself) throughout the day today was >= 35 minutes (including chart/data review/analysis, care coordination, and [id number] encounter), and was spent discussing/counselin g the patient/family regarding the care plan for this patient. I examined the patient independently. I reviewed relevant data myself and may have also done so in the context of team rounds. A full chart review was performed. Bertha Can MD Division of Trauma Department of Surgery [facility] Daily Trauma Progress Note JAILYN 02/17/2024 9:31 AM Admit Date: 02/14/2024 Post Trauma Day 3 Other Lifting heavy objects HISTORY OF TRAUMATIC EVENT: 74 y.o. male presenting as a transfer from [facility]. He states that on 02/10, he [...] 81 mg, 81 mg, Oral, Daily, KYLEIGH Hadry CNP, 81 mg at 02/17/24 0919 atorvastatin [...] 0-6 Units, 0-6 Units, SubCUTAneous, Nightly, Bertha [place], GIN CLERK - [employer] Insulin Pump - (Patient Supplied), , SubCUTAneous, Continuous, Gregorio Tellez MD levothyroxine (Synthroid, Levoxyl) tablet 88 mcg, 88 mcg, Oral, qAM AC, Sammy Byrd MD, 88 mcg at 02/17/24 0631 naloxone (Narcan) injection 0.4 (more content not included)... Normal [facility] 30on 02-16-2024 30 The patient is Moderately Unstable - Medium risk of patient condition declining or worsening The patient's goals for the shift include The clinical goals for the shift include Over the shift, the patient did not make progress toward the following goals. Barriers to progression include hematoma. Recommendations to address these barriers include frequent checks . Normal [facility] 30 Problem: Pain - Adult Goal: [...] is maintained or improved Outcome: Progressing Normal [facility] BASIC METABOLIC PANELon 10-2 Anion gap [Moles/Vol] 10 mmol/L Normal 3-13 [facility] Comment on above: Performed By: #### L AB15 ####Metal Turner: JUANI FLORES ([id number])[facility])[address] [place] [address] Calcium [Mass/Vol] 8.1 mg/dL Low 8.4-10.4 [facility] Comment on above: Performed By: #### L AB15 ####Metal Turner: JUANI FLORES ([id number])[facility] ([facility])[address] [place] [address] Chloride [Moles/Vol] 107 mmol/L Normal 98-107 [facility] Comment on above: Performed By: #### L AB15 ####Metal Turner: JUANI FLORES ([id number])[facility])[address] [place] [address] CO2 [Moles/Vol] 19 mmol/L Low 22-30 [facility] Comment on above: Performed By: #### L AB15 ####Metal Turner: JUANI FLORES ([id number])[facility])[address] [place] [address] Creatinine [Mass/Vol] 1.66 mg/dL High 0.66-1.25 [facility] Comment on above: Performed By: #### L AB15 ####Metal Turner: JUANI FLORES ([id number])[facility])[address] [place] [address] GLOMERULAR FILTRATION RATE ML/MIN/1.73 SQ M.PREDICTED 43.0 mL/min/1.73m*2 Low >60.0 [facility] Comment on above: Result Comment: Calc ulation based on the Chronic Kidney Disease Epidemiology Collaboration (CKD-EPI) equation refit without adjustment for race Performed By: #### L [id number] ####Metal Turner: JUANI FLORES ([id number])[facility])[address] [place] [address] Glucose [Mass/Vol] 210 mg/dL High 70-100 [facility] Comment on above: Performed By: #### L [id number] ####Metal Turner: JUANI FLORES ([id number])[facility])[address] [place] [address] Potassium [Moles/Vol] 4.8 mmol/L Normal 3.5-5.1 [facility] Comment on above: Performed By: #### L AB15 ####Metal Turner: JUANI FLORES ([id number])[facility])[address] [place] [address] Sodium [Moles/Vol] 136 mmol/L Normal 135-145 [facility] Comment on above: Performed By: #### L [id number] ####Metal Turner: JUANI FLORES ([id number])[facility] ([facility])[address] [place] [address] Urea nitrogen [Mass/Vol] 25 mg/dL High 9-20 [facility] Comment on above: Performed By: #### L [id number] ####Metal Turner: JUANI FLORES ([id number])[facility] ([facility])[address] [place] [address] CBC WITH AUTO DIFFERENTIALon 02-16-2024 Basophils (Bld) [#/Vol] 0.1 10*3/uL Normal 0.0-0.2 [facility] Comment on above: Performed By: #### L [id number] ####Metal Turner: JUANI FLORES ([id number])[facility] ([facility])[address] [place] [address] Basophils/100 WBC (Bld) 0.6 % Normal 0.0-2.0 [facility] Comment on above: Performed By: #### L [id number] ####Metal Turner: JUANI FLORES ([id number])[facility] ([facility])[address] [place] [address] Eosinophils (Bld) [#/Vol] 0.6 10*3/uL High 0.0-0.5 [facility] Comment on above: Performed By: #### L [id number] ####Metal Turner: JUANI FLORES ([id number])[facility] ([facility])[address] [place] [address] Eosinophils/100 WBC (Bld) 5.5 % Normal 0.0-6.0 [facility] Comment on above: Performed By: #### L [id number] ####Metal Turner: JUANI FLORES ([id number])[facility])[address] [place] [address] Erythrocyte distribution width (RBC) [Ratio] 20.3 % High 11.5-15.0 [facility] Comment on above: Performed By: #### L [id number] ####Metal Turner: JUANI FLORES ([id number])[facility])[address] [place] [address] Hematocrit (Bld) [Volume fraction] 27.9 % Low 40.0-52.0 [facility] Comment on above: Performed By: #### L [id number] ####Metal Turner: JUANI FLORES ([id number])[facility])[address] [place] [address] Hemoglobin (Bld) [Mass/Vol] 8.7 g/dL Low 13.0-18.0 [facility] Comment on above: Performed By: #### L [id number] ####Metal Turner: JUANI FLORES ([id number])[facility])[address] [place] [address] IMMATURE GRANS % 0.3 % Normal 0.0-2.0 [facility] Comment on above: Performed By: #### L [id number] ####Metal Turner: JUANI FLORES ([id number])[facility])[address] [place] [address] IMMATURE GRANS ABSOLUTE 0.0 10*3/uL Normal <0.1 [facility] Comment on above: Performed By: #### L [id number] ####Metal Turner: JUANI FLORES ([id number])[facility])[address] [place] [address] Lymphocytes (Bld) [#/Vol] 1.2 10*3/uL Normal 1.0-4.3 [facility] Comment on above: Performed By: #### L [id number] ####Metal Turner: JUANI FLORES ([id number])[facility])[address] [place] [address] Lymphocytes/100 WBC (Bld) 11.8 % Low 15.0-45.0 [facility] Comment on above: Performed By: #### L [id number] ####Metal Turner: JUANI FLORES ([id number])[facility])[address] [place] [address] MCH (RBC) [Entitic mass] 23.9 pg Low 26.0-34.0 [facility] Comment on above: Performed By: #### L [id number] ####Metal Turner: JUANI FLORES ([id number])[facility])[address] [place] [address] MCHC 31.2 % Normal 30.5-36.0 [facility] Comment on above: Performed By: #### L [id number] ####Metal Turner: JUANI FLORES ([id number])[facility])[address] [place] [address] MCV (RBC) [Entitic vol] 76.6 fL Low 77.0-99.0 [facility] Comment on above: Performed By: #### L [id number] ####Metal Turner: JUANI FLORES ([id number])[facility])[address] [place] [address] Monocytes (Bld) [#/Vol] 0.7 10*3/uL Normal 0.0-0.9 [facility] Comment on above: Performed By: #### L [id number] ####Metal Turner: JUANI FLORES ([id number])[facility])[address] [place] [address] Monocytes/100 WBC (Bld) 6.9 % Normal 5.0-13.0 [facility] Comment on above: Performed By: #### L [id number] ####Metal Turner: JUANI FLORES ([id number])[facility])[address] [place] [address] NEUTROPHILS ABSOLUTE 7.6 10*3/uL High 1.8-7.5 [facility] Comment on above: Performed By: #### L [id number] ####Metal Turner: JUANI FLORES ([id number])[facility])[address] [place] [address] Neutrophils/100 WBC (Bld) 74.9 % Normal 38.0-82.0 [facility] Comment on above: Performed By: #### L [id number] ####Metal Turner: JUANI FLORES ([id number])[facility] ([facility])[address] [place] [address] NRBC 0.0 /100 WBCs Normal 0.0-2.0 [facility] Comment on above: Performed By: #### L [id number] ####Metal Turner: JUANI FLORES ([id number])[facility] ([facility])[address] [place] [address] Platelet mean volume (Bld) [Entitic vol] 9.7 fL Normal 9.0-12.7 [facility] Comment on above: Performed By: #### L [id number] ####Metal Turner: JUANI FLORES ([id number])[facility] ([facility])[address] [place] [address] Platelets (Bld) [#/Vol] 345 10*3/uL Normal 140-440 [facility] Comment on above: Performed By: #### L [id number] ####Metal Turner: JUANI FLORES ([id number])[facility] ([facility])[address] [place] [address] RBC (Bld) [#/Vol] 3.64 10*6/uL Low 4.40-5.90 [facility] Comment on above: Performed By: #### L [id number] ####Metal Turner: JUANI FLORES ([id number])[facility] ([facility])[address] [place] [address] WBC (Bld) [#/Vol] 10.1 10*3/uL Normal 3.6-10.7 [facility] Comment on above: Performed By: #### L [id number] ####Metal Turner: JUANI FLORES ([id number])[facility])[address] [place] [address] HEMOGLOBIN AND HEMATOCRIT, B LOODon 02-16-2024 Hematocrit (Bld) [Volume fraction] 30.8 % Low 40.0-52.0 [facility] Comment on above: Performed By: #### L [id number] ####Metal Turner: JUANI FLORES ([id number])[address] Hemoglobin (Bld) [Mass/Vol] 9.6 g/dL Low 13.0-18.0 [facility] Comment on above: Performed By: #### L [id number] ####Metal Turner: JUANI FLORES ([id number])[facility] ([facility])[address] [place] [address] Progress Noteon 02-16-2024 Progress Note Nutrition rescreen completed. Chart reviewed. Patient to be monitored and followed by the diet soldering technician. Clementina Garibay, LORI Normal [facility] Progress Note Billing Note: Patient transferred from [facility] for reported hematoma extending from R axillary region into diaphragm/R flank. Noted to be on Brilinta ans ASA; both placed on hold. Hb dropped form 8.5 to 6.2 and patient transfused with prbc's. Can this be further clarified as: hematoma worsened by Moe Erwin APRN - [facility] Trauma Surgery/ Critical Care/ Acute Care Surgery Normal [facility] Progress Note Attestation signed by Bertha Can MD at 02/19/2024 7:53 AM ATTENDING ADDENDUM Patient Active Problem List Diagnosis Hematoma I have personally performed a face to face diagnostic evaluation on this patient. I have reviewed and agree with the care plan as documented above by my GIN CLERK/PAGerard. I personally discussed the review of systems [...] []SW/TCC []Other Total Care Time (combined between GIN CLERK/PA-C and myself) throughout the day today was >= 35 minutes (including chart/data review/analysis, care coordination, and gbip-pg-[id number] encounter), and was spent discussing/counselin g the patient/family regarding the care plan for this patient. I examined the patient independently. I reviewed relevant data myself and may have also done so in the context of team rounds. A full chart review was performed. Bertha Can MD Division of Trauma Department of Surgery [facility] Daily Trauma Progress Note Nurse Practitioner 02/16/2024 6:26 AM Admit Date: 02/14/2024 Post Trauma Day 2 Other Lifting heavy objects HISTORY OF TRAUMATIC EVENT: 74 y.o. male presenting as a transfer from [facility]. He states that on 02/10, he [...] 0-6 Unit (more content not included)... Normal [facility] XR CHEST 1 VIEWon 02-16-2024 XR CHEST 1 VIEW [facility] Name[facility]IL[facility] 1950 [id number] Exam Date/Time: 02/16/2024 06:56 Procedure: XR CHEST [...] Electronically Signed Date/Time: 02/16/2024 7:[address] [facility] 30on 02-15-2024 30 The patient is Moderately [...] and maintained or improved Outcome: Progressing Normal [facility] [id number] 02-15-2024 [id number] c/s for no PCP. Pt just moved back to the area in [place]. CAC unable to schedule a [facility] physician per prior TCC note. SW provided pt with a list of PCP in the [place] area. Informed pt he could research other options as well. Normal [facility] BASIC METABOLIC PANELon 10-2 Anion gap [Moles/Vol] 3 mmol/L Normal 3-13 [facility] Comment on above: Performed By: #### L AB15 ####Metal Turner: JUANI FLORES ([id number])[facility] ([facility])[address] [place] [address] Calcium [Mass/Vol] 8.1 mg/dL Low 8.4-10.4 [facility] Comment on above: Performed By: #### L AB15 ####Metal Turner: JUANI FLORES ([id number])[facility] ([facility])[address] [place] [address] Chloride [Moles/Vol] 111 mmol/L High 98-107 [facility] Comment on above: Performed By: #### L AB15 ####Metal Turner: JUANI FLORES ([id number])[facility] ([facility])[address] [place] [address] CO2 [Moles/Vol] 21 mmol/L Low 22-30 [facility] Comment on above: Performed By: #### L AB15 ####Metal Turner: JUANI FLORES ([id number])[facility] ([facility])[address] [place] [address] Creatinine [Mass/Vol] 1.55 mg/dL High 0.66-1.25 [facility] Comment on above: Performed By: #### L AB15 ####Metal Turner: JUANI FLORES ([id number])[facility] ([facility])[address] [place] [address] [place] GLOMERULAR FILTRATION RATE ML/MIN/1.73 SQ M.PREDICTED 46.7 mL/min/1.73m*2 Low >60.0 [facility] Comment on above: Result Comment: Calc ulation based on the Chronic Kidney Disease Epidemiology Collaboration (CKD-EPI) equation refit without adjustment for race Performed By: #### L AB15 ####Metal Turner: JUANI [id number])[facility] [place] [address] [place] Glucose [Mass/Vol] 95 mg/dL Normal 70-100 [facility] Comment on above: Performed By: #### L AB15 ####Metal Turner: JUANI FLORES ([id number])[facility] ([facility])[address] [place] [address] Potassium [Moles/Vol] 4.7 mmol/L Normal 3.5-5.1 [facility] Comment on above: Performed By: #### L AB15 ####Metal Turner: JUANI FLORES ([id number])[facility] ([facility])[address] [place] [address] Sodium [Moles/Vol] 135 mmol/L Normal 135-145 [facility] Comment on above: Performed By: #### L AB15 ####Metal Turner: JUANI FLORES ([id number])[facility] ([facility])[address] [place] [address] Urea nitrogen [Mass/Vol] 20 mg/dL Normal 9-20 [facility] Comment on above: Performed By: #### L AB15 ####Metal Turner: JUANI FLORES ([id number])[facility] ([facility])[address] [place] [address] Anion gap [Moles/Vol] 7 mmol/L Normal 3-13 [facility] Comment on above: Performed By: #### L AB15 ####Metal Turner: JUANI FLORES ([id number])[facility] ([facility])[address] [place] [address] Calcium [Mass/Vol] 8.0 mg/dL Low 8.4-10.4 [facility] Comment on above: Performed By: #### L AB15 ####Metal Turner: JUANI FLORES ([id number])[facility] ([facility])[address] [place] [address] [place] Chloride [Moles/Vol] 109 mmol/L High 98-107 [facility] Comment on above: Performed By: #### L AB15 ####Metal Turner: JUNAI FLORES ([id number])[facility] ([facility])[address] [place] [address] CO2 [Moles/Vol] 22 mmol/L Normal 22-30 [facility] Comment on above: Performed By: #### L AB15 ####Metal Turner: JUANI FLORES ([id number])[facility])[address] [place] [address] Creatinine [Mass/Vol] 1.74 mg/dL High 0.66-1.25 [facility] Comment on above: Performed By: #### L AB15 ####Metal Turner: JUANI FLORES ([id number])[facility])[address] [place] [address] GLOMERULAR FILTRATION RATE ML/MIN/1.73 SQ M.PREDICTED 40.6 mL/min/1.73m*2 Low >60.0 [facility] Comment on above: Result Comment: Calc ulation based on the Chronic Kidney Disease Epidemiology Collaboration (CKD-EPI) equation refit without adjustment for race Performed By: #### L AB15 ####Metal Turner: JUANI FLORES ([id number])[facility])[address] [place] [address] Glucose [Mass/Vol] 92 mg/dL Normal 70-100 [facility] Comment on above: Performed By: #### L AB15 ####Metal Turner: JUANI FLORES ([id number])[facility])[address] [place] [address] Potassium [Moles/Vol] 4.6 mmol/L Normal 3.5-5.1 [facility] Comment on above: Performed By: #### L AB15 ####Metal Turner: JUANI FLORES ([id number])[facility])[address] [place] [address] Sodium [Moles/Vol] 138 mmol/L Normal 135-145 [facility] Comment on above: Performed By: #### L AB15 ####Metal Turner: JUANI FLORES ([id number])[facility] ([facility])[address] [place] [address] Urea nitrogen [Mass/Vol] 24 mg/dL High 9-20 [facility] Comment on above: Performed By: #### L AB15 ####Metal Turner: JUANI FLORES ([id number])[facility])[address] [place] [address] BLOOD TYPE AND SCREEN GELon 02-15-2024 ABO GROUPING A Normal [facility] Comment on above: Performed By: #### L [id number] ####Metal Turner: JUANI FLORES ([id number])[facility] ([facility])[address] [place] [address] RH TYPE IN BLOOD Positive Normal [facility] Comment on above: Performed By: #### L [id number] ####Metal Turner: JUANI FLORES ([id number])[facility] ([facility])[address] [place] [address] CBC WITH AUTO DIFFERENTIALon 02-15-2024 Basophils (Bld) [#/Vol] 0.1 10*3/uL Normal 0.0-0.2 [facility] Comment on above: Performed By: #### L [id number] ####Metal Turner: JUANI FLORES ([id number])[facility])[address] [place] [address] [place] Basophils/100 WBC (Bld) 0.7 % Normal 0.0-2.0 [facility] Comment on above: Performed By: #### L [id number] ####Metal Turner: JUANI FLORES ([id number])[facility])[address] [place] [address] [place] Eosinophils (Bld) [#/Vol] 0.7 10*3/uL High 0.0-0.5 [facility] Comment on above: Performed By: #### L [id number] ####Metal Turner: JUANI FLORES ([id number])[facility])[address] [place] [address] [place] Eosinophils/100 WBC (Bld) 7.7 % High 0.0-6.0 [facility] Comment on above: Performed By: #### L [id number] ####Metal Turner: JUANI FLORES ([id number])[facility])[address] [place] [address] Erythrocyte distribution width (RBC) [Ratio] 20.0 % High 11.5-15.0 [facility] Comment on above: Performed By: #### L [id number] ####Metal Turner: JUANI FLORES ([id number])[facility])[address] [place] [address] Hematocrit (Bld) [Volume fraction] 28.0 % Low 40.0-52.0 [facility] Comment on above: Performed By: #### L [id number] ####Metal Turner: JUANI FLORES ([id number])[address] Hemoglobin (Bld) [Mass/Vol] 8.9 g/dL Low 13.0-18.0 [facility] Comment on above: Performed By: #### L [id number] ####Metal Turner: JUANI FLORES ([id number])[address] IMMATURE GRANS % 0.6 % Normal 0.0-2.0 [facility] Comment on above: Performed By: #### L [id number] ####Metal Turner: JUANI FLORES ([id number])[address] IMMATURE GRANS ABSOLUTE 0.1 10*3/uL High <0.1 [facility] Comment on above: Performed By: #### L [id number] ####Metal Turner: JUANI FLORES ([id number])[facility])[address] [place] [address] [place] Lymphocytes (Bld) [#/Vol] 1.2 10*3/uL Normal 1.0-4.3 [facility] Comment on above: Performed By: #### L [id number] ####Metal Turner: JUANI FLORES ([id number])[facility])[address] [place] [address] Lymphocytes/100 WBC (Bld) 13.3 % Low 15.0-45.0 [facility] Comment on above: Performed By: #### L [id number] ####Metal Turner: JUANI FLORES ([id number])[facility])[address] [place] [address] MCH (RBC) [Entitic mass] 24.3 pg Low 26.0-34.0 [facility] Comment on above: Performed By: #### L [id number] ####Metal Turner: JUANI FLORES ([id number])[facility])[address] [place] [address] MCHC 31.8 % Normal 30.5-36.0 [facility] Comment on above: Performed By: #### L [id number] ####Metal Turner: JUANI FLORES ([id number])[facility])[address] [place] [address] MCV (RBC) [Entitic vol] 76.3 fL Low 77.0-99.0 [facility] Comment on above: Performed By: #### L [id number] ####Metal Turner: JUANI FLORES ([id number])[facility])[address] [place] [address] Monocytes (Bld) [#/Vol] 0.8 10*3/uL Normal 0.0-0.9 [facility] Comment on above: Performed By: #### L [id number] ####Metal Turner: JUANI FLORES ([id number])[facility])[address] [place] [address] Monocytes/100 WBC (Bld) 9.1 % Normal 5.0-13.0 [facility] Comment on above: Performed By: #### L [id number] ####Metal Turner: JUANI FLORES ([id number])[facility] ([facility])[address] [place] [address] NEUTROPHILS ABSOLUTE 6.2 10*3/uL Normal 1.8-7.5 [facility] Comment on above: Performed By: #### L [id number] ####Metal Turner: JUANI FLORES ([id number])[facility] ([facility])[address] [place] [address] Neutrophils/100 WBC (Bld) 68.6 % Normal 38.0-82.0 [facility] Comment on above: Performed By: #### L [id number] ####Metal Turner: JUANI FLORES ([id number])[facility] ([facility])[address] [place] [address] NRBC 0.0 /100 WBCs Normal 0.0-2.0 [facility] Comment on above: Performed By: #### L [id number] ####Metal Turner: JUANI FLORES ([id number])[facility] ([facility])[address] [place] [address] Platelet mean volume (Bld) [Entitic vol] 8.9 fL Low 9.0-12.7 [facility] Comment on above: Performed By: #### L [id number] ####Metal Turner: JUANI FLORES ([id number])[facility] ([facility])[address] [place] [address] Platelets (Bld) [#/Vol] 294 10*3/uL Normal 140-440 [facility] Comment on above: Performed By: #### L [id number] ####Metal Turner: JUANI FLORES ([id number])[facility] ([facility])[address] [place] [address] [place] RBC (Bld) [#/Vol] 3.67 10*6/uL Low 4.40-5.90 [facility] Comment on above: Performed By: #### L [id number] ####Metal Turner: JUANI FLORES ([id number])[facility] ([facility])[address] [place] [address] [place] WBC (Bld) [#/Vol] 9.0 10*3/uL Normal 3.6-10.7 [facility] Comment on above: Performed By: #### L [id number] ####Metal Turner: JUANI FLORES ([id number])[facility] ([facility])[address] [place] [address] Consulton 02-15-2024 Consult Attestation with edits by Sadia Vega DO at 02/15/2024 5:25 PM I have independently seen and evaluated the patient and agree with the Resident, Alfreda. I have edited note as needed, please see edits in blue as needed. 74 year old male who presented as transfer from [facility] with large right sided chest hematoma. Pt reports that he has been moving, unpacking, lifting boxes. He denies know when the injury happened but woke up with large bruise. Pain limited to when he reaches with the right hand. Otherwise independent, navigated move recently. Has [place] with stents placed in October - admits [...] Vega DO on 02/15/2024 at 5:21 PM [facility] Geriatric Medicine Inpatient Consult Service Admission Date: [...] ASA and brillinta) who presented to the [facility] ED on 02/14/24 as a transfer from [facility]. Per patient, on 02/10 he was lifting [...] home with his . Recently moved from [place]. States he is independent with his ADLs [...] Healthcare Power ofAttorney: Unknown Financial Power of [place] Diving: Unknown Living Will:Unknown Code Status: Full No Known Allergies Current Facility-Administere d Medications: acetaminophen (Tylenol) tablet 1,000 mg, 1,000 mg, Oral, q8h, Dewayne Sherman III, MD, 1,000 mg at 02/15/24 0121 amLODIPine (Norvasc) tablet 5 mg, 5 mg, Oral, Daily, Bertha Erwin APRN - [facility], 5 mg at 02/15/24 1125 atorvastatin (Lipitor) tablet 10 mg, 10 mg, Oral, Daily, Sammy Byrd MD, 10 mg at 02/15/24 0836 dextrose 5 % infusion, 100 mL/hr, IntraVEN (more content not included)... Normal [facility] HEMOGLOBIN AND HEMATOCRIT, B Sukhwinder 02-15-2024 Hematocrit (Bld) [Volume fraction] 29.6 % Low 40.0-52.0 [facility] Comment on above: Performed By: #### L [id number] ####Metal Turner: JUANI FLORES ([id number])[address] Hemoglobin (Bld) [Mass/Vol] 9.3 g/dL Low 13.0-18.0 [facility] Comment on above: Performed By: #### L [id number] ####Metal Turner: JUANI FLORES ([id number])[facility])[address] [place] [address] Hematocrit (Bld) [Volume fraction] 20.2 % Low 40.0-52.0 [facility] Comment on above: Performed By: #### L [id number] ####Metal Turner: JUANI FLORES ([id number])[address] Hemoglobin (Bld) [Mass/Vol] 6.2 g/dL Critically low 13.0-18.0 [facility] Comment on above: Performed By: #### L [id number] ####Metal Turner: JUANI FLORES ([id number])[address] Progress Noteon 02-15-2024 Progress Note Attestation signed by Bertha Can MD at 02/19/2024 7:53 AM (Updated) ATTENDING ADDENDUM Patient Active Problem List Diagnosis Hematoma I have personally performed a face to face diagnostic evaluation on this patient. I have reviewed and agree with the care plan as documented above by my GIN CLERK/JARAD. I personally discussed the review of systems [...] []SW/TCC []Other Total Care Time (combined between GIN CLERK/PA-C and myself) throughout the day today was >= 35 minutes (including chart/data review/analysis, care coordination, and ihbg-tt-qhol encounter), and was spent discussing/counselin g the patient/family regarding the care plan for this patient. I examined the patient independently. I reviewed relevant data myself and may have also done so in the context of team rounds. A full chart review was performed. Bertha Can MD Division of Trauma Department of Surgery [facility] Daily Trauma Progress Note Nurse Practitioner 02/15/2024 6:10 AM Admit Date: 02/14/2024 Post Trauma Day 1 Other Lifting heavy objects HISTORY OF TRAUMATIC EVENT: 74 y.o. male presenting as a transfer from [facility]. He states that on 02/10, he [...] immediate releas (more content not included)... Normal [facility] Progress Note Trauma Surgery Overnight Note [...] MD General Surgery PGY-2 Pager [phone] Normal [facility] XR CHEST 1 VIEWon 02-15-2024 XR [...] Signed Date/Time: 02/15/2024 11:36 AM EDT Normal [facility] [id number] [phone] TCC [facility]ed [facility] [place] the [place] transfer center to make aware of admission [phone] [facility] [phone] Care Managment Initial Assessment Date: 02/14/2024 Patient Name: Lyudmila Brennan : 1950 Patient Information Source of Information: Patient Cognition/Language: WFL - Within Functional Limits Permission given to speak with patient motor vehicle representative/careg iver as indicated: Confirmation of Payer with patient/family: Yes Payer Name: Medicare/ [place]: Yes Confirmation of Primary Care Physician: No [...] Referral for: Additional Information: Pt transferred from [facility] for right flank pain after lifting heavy objects out of his car. TCC met with pt bedside in the ED - Introduced self and role. Pt is from home with spouse - They just moved here from [place]. Has not established with a PCP - Per [facility] we do not have any offices near the [place] area to set up a PCP for him - and he is also needing a limited radiology technician and mapper. Pt uses a cane or walker (has [...] wanting to establish these closer to the [place] and [facility] areas. TCC to follow and assist as appropriate. Normal [facility] 36on 02-14-2024 36 ED provider requesting appointments for patient to establish with PCP, Wallpaper Embosser Helper and [facility] in the [place] area. Patient just moved to [facility] from [place]. ED provider advised that a message would be sent to management with a request to assist patient if possible. Normal [facility] BASIC METABOLIC PANELon 01-23 Anion gap [Moles/Vol] 8 mmol/L Normal 3-13 [facility] Comment on above: Performed By: #### L AB15 ####Metal Turner: JUANI FLORES ([id number])[address] Calcium [Mass/Vol] 8.2 mg/dL Low 8.4-10.4 [facility] Comment on above: Performed By: #### L AB15 ####Metal Turner: JUANI FLORES ([id number])[address] Chloride [Moles/Vol] 109 mmol/L High 98-107 [facility] Comment on above: Performed By: #### L AB15 ####Metal Turner: JUANI FLORES ([id number])[facility])[address] [place] [address] CO2 [Moles/Vol] 22 mmol/L Normal 22-30 [facility] Comment on above: Performed By: #### L AB15 ####Metal Turner: JUANI FLORES ([id number])[address] Creatinine [Mass/Vol] 1.68 mg/dL High 0.66-1.25 [facility] Comment on above: Performed By: #### L AB15 ####Metal Turner: JUANI FLORES ([id number])[facility])[address] [place] [address] GLOMERULAR FILTRATION RATE ML/MIN/1.73 SQ M.PREDICTED 42.4 mL/min/1.73m*2 Low >60.0 [facility] Comment on above: Result Comment: Calc ulation based on the Chronic Kidney Disease Epidemiology Collaboration (CKD-EPI) equation refit without adjustment for race Performed By: #### L AB15 ####Metal Turner: JUANI FLORES ([id number])[facility])[address] [place] [address] Glucose [Mass/Vol] 93 mg/dL Normal 70-100 [facility] Comment on above: Performed By: #### L AB15 ####Metal Turner: JUANI FLORES ([id number])[facility])[address] [place] [address] Potassium [Moles/Vol] 4.6 mmol/L Normal 3.5-5.1 [facility] Comment on above: Performed By: #### L AB15 ####Metal Turner: JUANI FLORES ([id number])[facility])[address] [place] [address] Sodium [Moles/Vol] 138 mmol/L Normal 135-145 [facility] Comment on above: Performed By: #### L AB15 ####Metal Turner: JUANI FLORES ([id number])[facility])[address] [place] [address] Urea nitrogen [Mass/Vol] 22 mg/dL High 9-20 [facility] Comment on above: Performed By: #### L AB15 ####Metal Turner: JUANI FLORES ([id number])[facility])[address] [place] [address] CBC WITH AUTO DIFFERENTIALon 02-14-2024 Basophils (Bld) [#/Vol] 0.1 10*3/uL Normal 0.0-0.2 [facility] Comment on above: Performed By: #### L [id number] ####Metal Turner: JUANI FLORES ([id number])[facility])[address] [place] [address] Basophils/100 WBC (Bld) 0.6 % Normal 0.0-2.0 [facility] Comment on above: Performed By: #### L [id number] ####Metal Turner: JUANI FLORES ([id number])[facility])[address] [place] [address] Eosinophils (Bld) [#/Vol] 0.4 10*3/uL Normal 0.0-0.5 [facility] Comment on above: Performed By: #### L [id number] ####Metal Turner: JUANI FLORES ([id number])[facility])[address] [place] [address] Eosinophils/100 WBC (Bld) 4.2 % Normal 0.0-6.0 [facility] Comment on above: Performed By: #### L [id number] ####Metal Turner: JUANI FLORES ([id number])[facility])[address] [place] [address] Erythrocyte distribution width (RBC) [Ratio] 20.9 % High 11.5-15.0 [facility] Comment on above: Performed By: #### L [id number] ####Metal Turner: JUANI FLORES ([id number])[facility])[address] [place] [address] Hematocrit (Bld) [Volume fraction] 22.5 % Low 40.0-52.0 [facility] Comment on above: Performed By: #### L [id number] ####Metal Turner: JUANI FLORES ([id number])[facility])[address] [place] [address] Hemoglobin (Bld) [Mass/Vol] 7.1 g/dL Low 13.0-18.0 [facility] Comment on above: Performed By: #### L [id number] ####Metal Turner: JUANI [id number])[facility] ([facility])[address] [place] [address] IMMATURE GRANS % 0.5 % Normal 0.0-2.0 [facility] Comment on above: Performed By: #### L [id number] ####Metal Turner: JUANI FLORES ([id number])[facility])[address] [place] [address] IMMATURE GRANS ABSOLUTE 0.0 10*3/uL Normal <0.1 [facility] Comment on above: Performed By: #### L [id number] ####Metal Turner: JUANI FLORES ([id number])[facility])[address] [place] [address] Lymphocytes (Bld) [#/Vol] 1.2 10*3/uL Normal 1.0-4.3 [facility] Comment on above: Performed By: #### L [id number] ####Metal Turner: JUANI FLORES ([id number])[facility])[address] [place] [address] Lymphocytes/100 WBC (Bld) 13.3 % Low 15.0-45.0 [facility] Comment on above: Performed By: #### L [id number] ####Metal Turner: JUANI FLORES ([id number])[facility])[address] [place] [address] MCH (RBC) [Entitic mass] 23.4 pg Low 26.0-34.0 [facility] Comment on above: Performed By: #### L [id number] ####Metal Turner: JUANI FLORES ([id number])[facility])[address] [place] [address] MCHC 31.6 % Normal 30.5-36.0 [facility] Comment on above: Performed By: #### L [id number] ####Metal Turner: JUANI FLORES ([id number])[facility])[address] [place] [address] MCV (RBC) [Entitic vol] 74.0 fL Low 77.0-99.0 [facility] Comment on above: Performed By: #### L [id number] ####Metal Turner: JUANI FLORES ([id number])[facility])[address] [place] [address] Monocytes (Bld) [#/Vol] 0.7 10*3/uL Normal 0.0-0.9 [facility] Comment on above: Performed By: #### L [id number] ####Metal Turner: JUANI FLORES ([id number])[facility] ([facility])[address] [place] [address] Monocytes/100 WBC (Bld) 8.2 % Normal 5.0-13.0 [facility] Comment on above: Performed By: #### L [id number] ####Metal Turner: JUANI FLORES ([id number])[facility])[address] [place] [address] NEUTROPHILS ABSOLUTE 6.4 10*3/uL Normal 1.8-7.5 [facility] Comment on above: Performed By: #### L [id number] ####Metal Turner: JUANI FLORES ([id number])[facility] ([facility])[address] [place] [address] Neutrophils/100 WBC (Bld) 73.2 % Normal 38.0-82.0 [facility] Comment on above: Performed By: #### L [id number] ####Metal Turner: JUANI FLORES ([id number])[facility])[address] [place] [address] NRBC 0.0 /100 WBCs Normal 0.0-2.0 [facility] Comment on above: Performed By: #### L [id number] ####Metal Turner: JUANI FLORES ([id number])[facility])[address] [place] [address] Platelet mean volume (Bld) [Entitic vol] 9.7 fL Normal 9.0-12.7 [facility] Comment on above: Performed By: #### L [id number] ####Metal Turner: JUANI FLORES ([id number])[facility] ([facility])[address] [place] [address] Platelets (Bld) [#/Vol] 286 10*3/uL Normal 140-440 [facility] Comment on above: Performed By: #### L [id number] ####Metal Turner: JUANI FLORES ([id number])[facility] ([facility])[address] [place] [address] RBC (Bld) [#/Vol] 3.04 10*6/uL Low 4.40-5.90 [facility] Comment on above: Performed By: #### L [id number] ####Metal Turner: JUANI FLORES ([id number])[facility] ([facility])[address] [place] [address] WBC (Bld) [#/Vol] 8.8 10*3/uL Normal 3.6-10.7 [facility] Comment on above: Performed By: #### L [id number] ####Metal Turner: JUANI FLORES ([id number])[facility] ([facility])[address] [place] [address] Basophils (Bld) [#/Vol] 0.1 10*3/uL Normal 0.0-0.2 [facility] Comment on above: Performed By: #### L [id number] ####Metal Turner: JUANI FLORES ([id number])[facility] ([facility])[address] [place] [address] Basophils/100 WBC (Bld) 0.5 % Normal 0.0-2.0 [facility] Comment on above: Performed By: #### L [id number] ####Metal Turner: JUANI FLORES ([id number])[facility] ([facility])[address] [place] [address] Eosinophils (Bld) [#/Vol] 0.5 10*3/uL Normal 0.0-0.5 [facility] Comment on above: Performed By: #### L [id number] ####Metal Turner: JUANI FLORES ([id number])[facility])[address] [place] [address] Eosinophils/100 WBC (Bld) 4.0 % Normal 0.0-6.0 [facility] Comment on above: Performed By: #### L [id number] ####Metal Turner: JUANI FLORES ([id number])[facility])[address] [place] [address] Erythrocyte distribution width (RBC) [Ratio] 21.2 % High 11.5-15.0 [facility] Comment on above: Performed By: #### L [id number] ####Metal Turner: JUANI FLORES ([id number])[address] Hematocrit (Bld) [Volume fraction] 27.7 % Low 40.0-52.0 [facility] Comment on above: Performed By: #### L [id number] ####Metal Turner: JUANI FLORES ([id number])[facility])[address] [place] [address] Hemoglobin (Bld) [Mass/Vol] 8.5 g/dL Low 13.0-18.0 [facility] Comment on above: Performed By: #### L [id number] ####Metal Turner: JUANI FLORES ([id number])[facility])[address] [place] [address] IMMATURE GRANS % 0.3 % Normal 0.0-2.0 [facility] Comment on above: Performed By: #### L [id number] ####Metal Turner: JUANI FLORES ([id number])[address] IMMATURE GRANS ABSOLUTE 0.0 10*3/uL Normal <0.1 [facility] Comment on above: Performed By: #### L [id number] ####Metal Turner: JUANI FLORES ([id number])[facility])[address] [place] [address] Lymphocytes (Bld) [#/Vol] 1.1 10*3/uL Normal 1.0-4.3 [facility] Comment on above: Performed By: #### L [id number] ####Metal Turner: JUANI FLORES ([id number])[facility])[address] [place] [address] Lymphocytes/100 WBC (Bld) 9.6 % Low 15.0-45.0 [facility] Comment on above: Performed By: #### L [id number] ####Metal Turner: JUANI FLORES ([id number])[facility])[address] [place] [address] MCH (RBC) [Entitic mass] 23.2 pg Low 26.0-34.0 [facility] Comment on above: Performed By: #### L [id number] ####Metal Turner: JUANI FLORES ([id number])[facility])[address] [place] [address] MCHC 30.7 % Normal 30.5-36.0 [facility] Comment on above: Performed By: #### L [id number] ####Metal Turner: JUANI FLORES ([id number])[facility])[address] [place] [address] MCV (RBC) [Entitic vol] 75.5 fL Low 77.0-99.0 [facility] Comment on above: Performed By: #### L [id number] ####Metal Turner: JUANI FLORES ([id number])[facility])[address] [place] [address] Monocytes (Bld) [#/Vol] 0.8 10*3/uL Normal 0.0-0.9 [facility] Comment on above: Performed By: #### L [id number] ####Metal Turner: JUANI FLORES ([id number])[facility])[address] [place] [address] Monocytes/100 WBC (Bld) 7.4 % Normal 5.0-13.0 [facility] Comment on above: Performed By: #### L [id number] ####Metal Turner: JUANI FLORES ([id number])[facility] ([facility])[address] [place] [address] NEUTROPHILS ABSOLUTE 8.8 10*3/uL High 1.8-7.5 [facility] Comment on above: Performed By: #### L [id number] ####Metal Turner: JUANI FLORES ([id number])[facility] ([facility])[address] [place] [address] Neutrophils/100 WBC (Bld) 78.2 % Normal 38.0-82.0 [facility] Comment on above: Performed By: #### L [id number] ####Metal Turner: JUANI FLORES ([id number])[facility] ([facility])[address] [place] [address] NRBC 0.0 /100 WBCs Normal 0.0-2.0 [facility] Comment on above: Performed By: #### L [id number] ####Metal Turner: JUANI FLORES ([id number])[facility] ([facility])[address] [place] [address] Platelet mean volume (Bld) [Entitic vol] 9.2 fL Normal 9.0-12.7 [facility] Comment on above: Performed By: #### L [id number] ####Metal Turner: JUANI FLORES ([id number])[facility] ([facility])[address] [place] [address] Platelets (Bld) [#/Vol] 333 10*3/uL Normal 140-440 [facility] Comment on above: Performed By: #### L [id number] ####Metal Turner: JUANI FLORES ([id number])[facility] ([facility])[address] [place] [address] RBC (Bld) [#/Vol] 3.67 10*6/uL Low 4.40-5.90 [facility] Comment on above: Performed By: #### L [id number] ####Metal Turner: JUANI FLORES ([id number])[facility] ([facility])[address] [place] [address] WBC (Bld) [#/Vol] 11.2 10*3/uL High 3.6-10.7 [facility] Comment on above: Performed By: #### L [id number] ####Metal Turner: JUANI FLORES ([id number])[facility])[address] [place] [address] ED Nursing Noteon 02-14-2024 ED Nursing Note Report to FROYLAN Sears RN 02/14/[address] [facility] ED Nursing Note Patient provided with bagged lunch per request. Tina Persaud RN 02/14/[address] [facility] ED Nursing Note Abdominal binder applied at this time. Tina Persaud RN 02/14/[address] [facility] ED Nursing Note Report from FROYLAN Sears for lunch coverage. Tina Persaud RN 02/14/[address] [facility] ED Provider Noteon ED Provider Note EMERGENCY DEPARTMENT ENCOUNTER Pt Name: Lyudmila Brennan Birthdate 1950 Date of evaluation: 02/14/2024 ED Provider: Jorge Jones PA-C CHIEF COMPLAINT Chief Complaint Patient presents with Flank Pain Patient states R sided flank pain started around last , states bruising to the area started yesterday. Patient went to [facility] today & CT showed internal bleeding [...] the emergency department as a transfer from [facility]. Patient went there today for a [...] in the process of actively moving from [place] and doing a lot of heavy lifting [...] ABDOMINAL: Normal active bowel sounds present. Negative [place] sign. Soft, [place]/NT. No guarding or rigidity. [...] records reviewed. Patient is being transferred from [place] ED a (more content not included)... Normal [facility] ED Provider Note Emergency Department Encounter [facility] EMERGENCY DE[facility] Patient: Lyudmila Brennan : 1950 [...] the emergency department patient was transferred from [place] [facility] is on Plavix for coronary artery disease with stent noticed some hematoma to his right lateral chest. Also had some bruising to the flank had some pain. No known trauma he had a CT scan at [place] which noted a large hematoma from the [...] [employer] Tom Fonseca MD 02/14/24 4850 Normal [facility] .GFRon 09-11-2018 GFR 62 ml/min/1.73sqm Normal [facility] [place] Comment on above: Result Comment: GFR Population [...] Performed By: #### C MP, GFR #### [place] [address] GFR Non- 51 ml/min/1.73sqm Normal [facility] [place] Comment on above: Result Comment: GFR Population [...] Performed By: #### C MP, GFR #### [address] [address] CMPon 09-11-2018 Albumin mass conc 3.5 G/dL Normal 3.4-4.8 [facility] [place] Comment on above: Performed By: #### C MP, GFR #### [address] [address] Albumin/Globulin mass ratio 1.1 {ratio} Normal 1.1-2.5 [facility] [place] Comment on above: Performed By: #### C MP, GFR #### [address] [address] ALP enzyme act/vol 81 U/L Normal 40-135 [facility] ([place] Comment on above: Performed By: #### C MP, GFR #### [address] [address] ALT enzyme act/vol 24 U/L Normal 10-35 [facility] [place] Comment on above: Performed By: #### C MP, GFR #### [address] [address] AST enzyme act/vol 14 U/L Normal 10-40 [facility] [place] Comment on above: Performed By: #### C MP, GFR #### [address] [address] Bili Total 0.4 mg/dL Normal 0.2-1.0 [facility] [place] Comment on above: Performed By: #### C MP, GFR #### [address] [address] Calcium mass conc 9.3 mg/dL Normal 8.4-10.2 [facility] [place] Comment on above: Performed By: #### C MP, GFR #### [place] [id number] Chloride molar conc 104 mmol/L Normal 98-107 [facility] ([place] Comment on above: Performed By: #### C MP, GFR #### [place] [address] CO2 molar conc 30 mmol/L Normal 23-31 [facility] [place] Comment on above: Performed By: #### C MP, GFR #### [place] [address] Creatinine mass conc 1.38 mg/dL High 0.70-1.30 [facility] ([place] Comment on above: Performed By: #### C MP, GFR #### [address] [address] Electrolyte Balance 8.0 mEq/L Normal [facility] [place] Comment on above: Performed By: #### C MP, GFR #### [address] [address] Globulin mass conc (S) 3.1 G/dL Normal [facility] [place] Comment on above: Performed By: #### C MP, GFR #### [place] [address] Glucose mass conc 88 mg/dL Normal 80-115 [facility] [place] Comment on above: Performed By: #### C MP, GFR #### [place] [id number] Potassium molar conc 4.2 mmol/L Normal 3.5-5.1 [facility] ([place] Comment on above: Performed By: #### C MP, GFR #### [place] [id number] Protein mass conc 6.6 G/dL Normal 6.4-8.2 [facility] [place] Comment on above: Performed By: #### C MP, GFR #### [address] [address] Sodium molar conc 142 mmol/L Normal 136-145 [facility] [place] Comment on above: Performed By: #### C MP, GFR #### [address] [address] Urea nitrogen mass conc 22 mg/dL High 7-18 [facility] ([place] Comment on above: Performed By: #### C MP, GFR #### [address] [address] Urea nitrogen/Creatinine mass ratio 16 ratio Normal 7-27 [facility] [place] Comment on above: Performed By: #### C MP, GFR #### [address] [address] .GFRon 06-06-2018 GFR Non- 50 ml/min/1.73sqm Normal [facility] [place] Comment on above: Result Comment: GFR Population [...] By: #### L IPID, CMP, GFR #### [address] [address] GFR 61 ml/min/1.73sqm Normal [facility] [place] Comment on above: Result Comment: GFR Population [...] By: #### L IPID, CMP, GFR #### [address] [address] CMPon 06-06-2018 Albumin mass conc 3.9 G/dL Normal 3.4-4.8 [facility] [place] Comment on above: Performed By: #### L IPID, CMP, GFR #### [address] [address] Albumin/Globulin mass ratio 1.2 {ratio} Normal 1.1-2.5 [facility] ([place] Comment on above: Performed By: #### L IPID, CMP, GFR #### [address] [address] ALP enzyme act/vol 73 U/L Normal 40-135 [facility] ([place] Comment on above: Performed By: #### L IPID, CMP, GFR #### [address] [address] [address] ALT enzyme act/vol 22 U/L Normal 10-35 [facility] [place] Comment on above: Performed By: #### L IPID, CMP, GFR #### [address] [address] AST enzyme act/vol 15 U/L Normal 10-40 [facility] [place] Comment on above: Performed By: #### L IPID, CMP, GFR #### [address] [address] Bili Total 0.3 mg/dL Normal 0.2-1.0 [facility] [place] Comment on above: Performed By: #### L IPID, CMP, GFR #### [place] [address] Calcium mass conc 9.3 mg/dL Normal 8.4-10.2 [facility] [place] Comment on above: Performed By: #### L IPID, CMP, GFR #### [place] [address] Chloride molar conc 102 mmol/L Normal 98-107 [facility] [place] Comment on above: Performed By: #### L IPID, CMP, GFR #### [place] [address] CO2 molar conc 30 mmol/L Normal 23-31 [facility] [place] Comment on above: Performed By: #### L IPID, CMP, GFR #### [place] [address] Creatinine mass conc 1.40 mg/dL High 0.70-1.30 [facility] ([place] Comment on above: Performed By: #### L IPID, CMP, GFR #### [place] [address] Electrolyte Balance 9.0 mEq/L Normal [facility] [place] Comment on above: Performed By: #### L IPID, CMP, GFR #### [place] [address] Globulin mass conc (S) 3.2 G/dL Normal [facility] [place]: Performed By: #### L IPID, CMP, GFR #### [place] [address] Glucose mass conc 53 mg/dL Low 80-115 [facility] [place] Comment on above: Performed By: #### L IPID, CMP, GFR #### [place] [address] Potassium molar conc 4.2 mmol/L Normal 3.5-5.1 [facility] [place] Comment on above: Performed By: #### L IPID, CMP, GFR #### [place] [address] Protein mass conc 7.1 G/dL Normal 6.4-8.2 [facility] [place] Comment on above: Performed By: #### L IPID, CMP, GFR #### [facility] [address] [place] [address] Sodium molar conc 141 mmol/L Normal 136-145 [facility] [place] Comment on above: Performed By: #### L IPID, CMP, GFR #### [facility] [address] [place] [address] Urea nitrogen mass conc 26 mg/dL High 7-18 A [facility] ([place] Comment on above: Performed By: #### L IPID, CMP, GFR #### [address] [address] Urea nitrogen/Creatinine mass ratio 19 ratio Normal 7-27 [facility] [place] Comment on above: Performed By: #### L IPID, CMP, GFR #### [address] [address] LIPIDon 06-06-2018 Cholesterol in HDL mass conc 63 mg/dL High 40-60 [facility] [place] Comment on above: Performed By: #### L IPID, CMP, GFR #### [address] [address] Cholesterol in LDL mass conc 82 mg/dL Normal 0-130 [facility] [place] Comment [place] above: Performed By: #### L IPID, CMP, GFR #### [address] [address] Cholesterol mass conc 175 mg/dL Normal 0-200 [facility] ([place] Comment [place]: Result Comment: Chol esterol Reference Interval: Less than 200 Desirable 200-239 Borderline high risk 240 and above High risk Performed By: #### L IPID, CMP, GFR #### [address] [address] Triglyceride mass conc 152 mg/dL High 0-150 [facility] [place] Comment [place]: Result Comment: Trig lyceride Reference Interval: Less than 150 Normal 150-199 Borderline high risk 200-499 High risk 500 or higher Very high risk Performed By: #### L IPID, CMP, GFR #### [address] [address] Farhan 06-06-2018 U Microalb 3720 mcg/dL Normal [facility] ([place] Comment on above: Performed By: #### M ALBR #### [address] [address] U Ratio Alb/Cre 33.2 mcg/mg High 0.0-16.9 [facility] ([place] Comment on above: Performed By: #### M ALBR #### [place] [address] U Creatinine 112.0 mg/dL Normal [facility] ([place] Comment on above: Performed By: #### M ALBR #### [place] [id number] Vital Signs Date Time Vital Sign Value Performing Clinician Dinh valdez 01-27-2025 14:16-0400 Body height 187.96 cm WILMA MAST PREFINISH OPERATOR Work Phone: [facility] 01-27-2025 14:16-0400 Body mass index (BMI) [Ratio] 28.5 kg/m2 WIMLA MAST PREFINISH OPERATOR Work Phone: [facility] 01-27-2025 14:16-0400 Body weight 100.75 kg WILMA MAST PREFINISH OPERATOR Work Phone: [facility] 01-27-2025 14:16-0400 Diastolic blood pressure 69 mm[Hg] WILMA MAST PREFINISH OPERATOR Work Phone: [facility] 01-27-2025 14:16-0400 Heart rate 75 /min WILMA MAST PREFINISH OPERATOR Work Phone: [facility] 01-27-2025 14:16-0400 SaO2% (BldA) [Mass fraction] 95 % WILMA MAST PREFINISH OPERATOR Work Phone: [facility] 01-27-2025 14:16-0400 Systolic blood pressure 165 mm[Hg] WILMA MAST PREFINISH OPERATOR Work Phone: [facility] 10-16-2024 11:54-0400 Body height 187.96 cm WILMA MAST PREFINISH OPERATOR Work Phone: [facility] 10-16-2024 11:54-0400 Body mass index (BMI) [Ratio] 29.2 kg/m2 WILMA MAST PREFINISH OPERATOR Work Phone: [facility] 10-16-2024 11:54-0400 Body weight 103.41 kg WILMA MAST PREFINISH OPERATOR Work Phone: [facility] 10-16-2024 11:54-0400 Diastolic blood pressure 67 mm[Hg] WILMA MAST PREFINISH OPERATOR Work Phone: [facility] 10-16-2024 11:54-0400 Heart rate 58 /min WILMA MAST PREFINISH OPERATOR Work Phone: [facility] 10-16-2024 11:54-0400 SaO2% (BldA) [Mass fraction] 96 % WILMA MAST PREFINISH OPERATOR Work Phone: [facility] 10-16-2024 11:54-0400 Systolic blood pressure 120 mm[Hg] WILMA MAST PREFINISH OPERATOR Work Phone: [facility] 09-17-2024 11:18-0400 Diastolic blood pressure 78 mm[Hg] WILMA MAST PREFINISH OPERATOR Work Phone: [facility] 09-17-2024 11:18-0400 Systolic blood pressure 120 mm[Hg] WILMA MAST PREFINISH OPERATOR Work Phone: [facility] 09-17-2024 09:53-0400 Body mass index (BMI) [Ratio] 28.3 kg/m2 WILMA MAST PREFINISH OPERATOR Work Phone: [facility] 09-17-2024 09:53-0400 Body weight 100.24 kg WILMA MAST PREFINISH OPERATOR Work Phone: [facility] 09-17-2024 09:53-0400 Diastolic blood pressure 71 mm[Hg] WILMA MAST PREFINISH OPERATOR Work Phone: [facility] 09-17-2024 09:53-0400 Heart rate 73 /min WILMA MAST PREFINISH OPERATOR Work Phone: [facility] 09-17-2024 09:53-0400 Respiratory rate 16 /min WILMA MAST PREFINISH OPERATOR Work Phone: [facility] 09-17-2024 09:53-0400 Systolic blood pressure 155 mm[Hg] WILMA MAST PREFINISH OPERATOR Work Phone: [facility] 07-18-2024 11:18-0400 Body height 187.96 cm WILMA MAST PREFINISH OPERATOR Work Phone: [facility] 07-18-2024 11:18-0400 Body mass index (BMI) [Ratio] 28.8 kg/m2 WILMA MAST PREFINISH OPERATOR Work Phone: [facility] 07-18-2024 11:18-0400 Body weight 101.6 kg WILMA MAST PREFINISH OPERATOR Work Phone: [facility] 07-18-2024 11:18-0400 Diastolic blood pressure 73 mm[Hg] WILMA MAST PREFINISH OPERATOR Work Phone: [facility] 07-18-2024 11:18-0400 Heart rate 63 /min WILMA MAST PREFINISH OPERATOR Work Phone: [facility] 07-18-2024 11:18-0400 SaO2% (BldA) [Mass fraction] 97 % WILMA MAST PREFINISH OPERATOR Work Phone: [facility] 07-18-2024 11:18-0400 Systolic blood pressure 152 mm[Hg] WILMA MAST PREFINISH OPERATOR Work Phone: [facility] 06-06-2024 07:20-0500 Body weight 100.47 kg WILMA MAST PREFINISH OPERATOR Work Phone: [facility] 05-09-2024 07:41-0500 Body weight 100.01 kg WILMA MAST PREFINISH OPERATOR Work Phone: [facility] 04-22-2024 09:41-0500 Body mass index (BMI) [Ratio] 28.8 kg/m2 WILMA MAST PREFINISH OPERATOR Work Phone: [facility] 04-22-2024 09:41-0500 Body weight 101.6 kg WILMA MAST PREFINISH OPERATOR Work Phone: [facility] 04-22-2024 09:41-0500 Diastolic blood pressure 84 mm[Hg] WILMA MAST PREFINISH OPERATOR Work Phone: [facility] 04-22-2024 09:41-0500 Heart rate 59 /min WILMA MAST PREFINISH OPERATOR Work Phone: [facility] 04-22-2024 09:41-0500 SaO2% (BldA) [Mass fraction] 97 % WILMA MAST PREFINISH OPERATOR Work Phone: [facility] 04-22-2024 09:41-0500 Systolic blood pressure 179 mm[Hg] WILMA MAST PREFINISH OPERATOR Work Phone: [facility] 04-08-2024 15:11-0500 Body mass index (BMI) [Ratio] 28.2 kg/m2 WILMA MAST PREFINISH OPERATOR Work Phone: [facility] 04-08-2024 15:11-0500 Body weight 99.79 kg WILMA MAST PREFINISH OPERATOR Work Phone: [facility] 04-08-2024 14:31-0500 SaO2% (BldA) [Mass fraction] 98 % WILMA MAST PREFINISH OPERATOR Work Phone: [facility] 04-08-2024 14:17-0500 Diastolic blood pressure 67 mm[Hg] WILMA MAST PREFINISH OPERATOR Work Phone: [facility] 04-08-2024 14:17-0500 Heart rate 66 /min WILMA MAST PREFINISH OPERATOR Work Phone: [facility] 04-08-2024 14:17-0500 Systolic blood pressure 140 mm[Hg] WILMA MAST PREFINISH OPERATOR Work Phone: [facility] Encounters Encounter Date Encounter Type Care Provider Facility Start: 03-04-2025 ambulatory Keira Mccormack ty:[facility] Start: 02-27-2025 ambulatory Keira Mccormack ty:[facility] Start: 02-21-2025 End: 02-21-2025 ambulatory Keira Harper Facility:[facility] Start: 02-03-2025 ambulatory WILMA MAST Facility:[facility] Start: 01-29-2025 End: 01-29-2025 ambulatory Nydia El Facility:[facility] Start: 01-27-2025 End: 01-27-2025 Patient encounter procedure Nydia El PATIENT SUPPORT PARTNER-C -[facility] Work Phone: Start: 01-27-2025 End: 01-27-2025 ambulatory WILMA MAST PREFINISH OPERATOR Work Phone: -[facility] Start: 01-27-2025 Registered Recurring WILMA MAST CRN P -Physical Therapy Work Phone: Start: 01-08-2025 End: 01-08-2025 ambulatory WILMA MAST GIN CLERK-HOUSEKEEPER CHILD C[employer] Facility:[facility]ASKAR[facility] Caldera [facility] Start: 01-08-2025 End: 01-08-2025 Patient encounter procedure WILMA MAST GIN CLERK-HOU[employer]KEEPER CHILD [employer] Start: 12-12-2024 End: 12-12-2024 ambulatory WILMA MAST GIN CLERK-[employer]ILD [employer] Facility:[facility] Start: 12-12-2024 End: 12-12-2024 Patient encounter procedure WILMA MAST GIN CLERK-[employer] CHILD [employer] Start: 10-16-2024 End: 10-16-2024 Patient encounter procedure Nydia El PATIENT SUPPORT PARTNER-C -[facility] Work Phone: Start: 10-16-2024 End: 10-16-2024 ambulatory WILMA MAST PREFINISH OPERATOR Work Phone: [facility] Work Phone: Start: 10-14-2024 End: 10-14-2024 ambulatory WILMA MAST PREFINISH OPERATOR Work Phone: [facility] Work Phone: Start: 10-14-2024 End: 10-14-2024 Patient encounter procedure Nydia El PATIENT SUPPORT PARTNER-C -Laboratory Work Phone: Start: 10-14-2024 End: 10-14-2024 ambulatory Nydia Nikko Facility:[facility] Start: 09-18-2024 Non-patient / Non-visit Dr. Justo Olson MD -[facility] Start: 09-18-2024 End: 09-18-2024 ambulatory WILMA MAST PREFINISH OPERATOR Work Phone: [facility] Work Phone: Start: 09-18-2024 End: 09-18-2024 Patient encounter procedure Sally Sommer PA -Cardiovascular Services Work Phone: Start: 09-17-2024 End: 09-17-2024 Patient encounter procedure Sally KAMARA -[facility] Work Phone: Start: 09-17-2024 End: 09-18-2024 ambulatory WILMA MAST PREFINISH OPERATOR Work Phone: [facility] Work Phone: Start: 09-17-2024 End: 09-17-2024 ambulatory Nydia Nikko Facility:[facility] Start: 07-18-2024 End: 07-18-2024 ambulatory WILMA MAST PREFINISH OPERATOR Work Phone: [facility] Work Phone: Start: 07-18-2024 End: 07-18-2024 Patient encounter procedure Nydia El PATIENT SUPPORT PARTNER-C -Laboratory Work Phone: Start: 07-18-2024 End: 07-18-2024 Patient encounter procedure Nydia El PATIENT SUPPORT PARTNER-C -[facility] Work Phone: Start: 07-18-2024 End: 07-18-2024 ambulatory WILMA MAST Facility:[facility] Start: 07-18-2024 End: 07-18-2024 ambulatory Nydia Nikko Facility:[facility] Start: 07-02-2024 ambulatory WILMA MAST Facility:[facility] Start: 06-21-2024 End: 06-21-2024 ambulatory WILMA MAST Facility:[facility] Start: 06-21-2024 End: 06-21-[address] iTm Salgado MD -Cardiac Rehab Work Phone: Start: 06-04-2024 End: 06-04-[address] Tim Salgado MD -Laboratory Work Phone: Start: 06-04-2024 End: 06-04-2024 ambulatory WILMA MAST Facility:[facility] Start: 05-29-2024 End: 05-29-2024 ambulatory WILMA MAST GIN CLERK-[employer] [facility] Start: 05-29-2024 End: 05-29-2024 Patient encounter procedure WILMA MAST GIN CLERK-[employer] [facility] Start: 05-22-2024 End: 05-24-2024 ambulatory WILMA MAST Facility:[facility] Start: 05-22-2024 End: 05-24-[address] Tim Salgado MD -Cardiac Rehab Work Phone: Start: 04-22-2024 End: 04-22-2024 Patient encounter procedure Nydia TAYLOR -[facility] Work Phone: Start: 04-22-2024 End: 04-22-2024 ambulatory WILMA MAST Facility:[facility] Start: 04-19-2024 End: 04-23-2024 ambulatory WILMA MAST Facility:[facility] Start: 04-19-2024 End: 04-23-[address] Tim Salgado MD -Cardiac Rehab Work Phone: Start: 04-08-2024 End: 04-08-[address] Tim Salgado MD -Cardiac Rehab Work Phone: Start: 04-08-2024 End: 04-08-2024 ambulatory WILMA MAST Facility:[facility] Start: 03-20-2024 End: 03-20-2024 ambulatory No Primary Care Physician Facility:[facility] Start: 03-18-2024 End: 03-18-2024 ambulatory WILMA MAST GIN CLERK-[facility] [facility] [facility] Verenice AWN Start: 03-18-2024 End: 03-18-2024 Patient encounter procedure WILMA MAST GIN CLERK[facility] Start: 02-28-2024 End: 02-28-2024 ambulatory ANCELMO GHCHEVY [facility] Start: 02-14-2024 End: 02-17-2024 Evaluation and management of inpatient PCP NONE [facility] Procedures Date Procedure Procedure Detail Performing Clinician Start: 07-18-2024 Urine microalbumin/creatinine ratio measurement WILMA MAST PREFINISH OPERATOR Work Phone: Comment on above: Previous reported re sult: 139.9 mg/g CREEdited by: ROBERTA on 10/10/24:0819 AMENDED REPORT 10/10/24 0819 MALB:CREAT previously reported as: 139.9 mg/g CRE Start: 06-04-2024 Measurement of renal function WILMA MAST PREFINISH OPERATOR Work Phone: Comment on above: GFR Calc Start: 02-15-2024 Antibody screen ALOK THOMPSON Comment on above: Performed By: #### L [id number] ####Metal Turner: JUANI FLORES ([id number])[facility] ([address] Start: 11-22-2023 Coronary angioplasty KR ISTA MAST GIN CLERK-[employer]KEE[employer] Start: 10-25-2023 Coronary angioplasty KR ISTA MAST GIN CLERK-[facility] Start: 04-24-1996 Cholecystectomy WILMA MAST GIN CLERK-[facility] Start: 04-24-1975 Removal of thrombus KRI STA MAST GIN CLERK-[employer] History of placement of stent for coronary artery disease S/P right coronary artery (RCA) stent placement WILMA MAST PREFINISH OPERATOR Work Phone: Comment on above: 10/25/2023 PCI RCA x 2 History of placement of stent for coronary artery disease S/P right coronary artery (RCA) stent placement Sally KAMARA Plan of Treatment Date Care Activity Detail Author Start: 01-27-2025 Parathyroid hormone measurement [facility] Start: 01-27-2025 T4 free measurement [facility] Start: 01-27-2025 Thyroid stimulating hormone measurement [facility] Start: 01-27-2025 Urine microalbumin/c reatinine ratio measurement [facility] Start: 01-27-2025 Vitamin D, 25-hydrox y measurement [facility] Start: 09-17-2024 Patient referral [facility] Work Phone: CBC W Auto Different ial panel - Blood [facility] metabo lic 1999 panel - Serum or Plasma [facility] metabo lic 1999 panel - Serum or Plasma [facility] Lipid 1996 panel - S mansi or Plasma [facility] Patient referral [facility] Work Phone: [facility] Immunizations Immunization Date Immunization Notes Care Provider Fa cility 12-16-2024 Pneumococcal conjuga te PCV20, polysaccharide [id number] conjugate, adjuvant, PF; Translations: [Prevnar 20] WILMA MAST GIN CLERK-HOU[employer]KEE[employer] CHILD [employer] [facility] 02-28-2024 influenza, high dose seasonal, preservative-free; Translations: [Fluad PF Prefilled Syringe ] WILMA MAST GIN CLERK-HOUSEKEEPER CHILD CARE [facility] 04-09-2018 pneumococcal conjuga te vaccine, 13 valent WILMA MAST GIN CLERK-HOUSEKEEPER CHILD C[employer] [facility] Payers Date Payer Category Payer Private Health Insurance 06e [id number] 2024 [employer] ( and others) [id number] 2024 Self-pay [id number] 2023 [employer] ( and others) [id number] 2023 [employer] ( and others) [id number] 2014 Medicare [id number] 2014 Medicare [id number] 1950 Unknown [id number] 2.16.840.1.729182.3.579.2.627 1950 Unknown [id number] 2.16.840.1.351921.3.579.2.627 1950 Unknown [id number] 2.16.840.1.261426.3.579.2.627 1950 Unknown [id number] 2.16.840.1.358655.3.579.2.627 Unknown [id number] 2.16.840.1.310053.3.579.2.462 Unknown [id number] 2.16.840.1.445604.3.579.2.462 Unknown [id number] 2.16.840.1.257369.3.579.2.462 Unknown [id number] 2.16.840.1.997557.3.579.2.462 Unknown [id number] 2.16.840.1.599703.3.579.2.462 Unknown [id number] 2.16.840.1.902349.3.579.2.462 Unknown [id number] 2.16.840.1.479733.3.579.2.462 Unknown [id number] 2.16.840.1.748456.3.579.2.462 Unknown [id number] 2.16.840.1.837205.3.579.2.462 Unknown [id number] 2.16.840.1.392483.3.579.2.462 Unknown [id number] 2.16.840.1.757691.3.579.2.462 Unknown [id number] 2.16.840.1.487460.3.579.2.462 Unknown [id number] 2.16.840.1.301190.3.579.2.462 Unknown [id number] 2.16.840.1.850784.3.579.2.462 Unknown [id number] 2.16.840.1.647866.3.579.2.462 Unknown [id number] 2.16.840.1.928745.3.579.2.462 Unknown [id number] 2.16.840.1.501386.3.579.2.462 Unknown [id number] 2.16.840.1.783162.3.579.2.462 Unknown [id number] 2.16.840.1.712909.3.579.2.462 Unknown [id number] 2.16.840.1.250739.3.579.2.462 Unknown [id number] 2.16.840.1.676669.3.579.2.462 Unknown [id number] 2.16.840.1.147767.3.579.2.462 Social History Date Type Detail Facility Start: 02-28-2024 End: 09-17-2024 Tobacco smoking status Ex-smoker (finding) [facility] Tobacco smoking status Former sm okeless tobacco user, quit more than 30 days ago [facility] Start: 1950 Sex Assigned At Male A [facility] Sexual Orientation [facility] gomez [facility] Start: 01-18-2017 End: 07-23-2024 Sex Male (finding) [facility] Sex Male [facility] Clinical Notes 02-14-2024 to 01-27-2025 Note Date & Type Note Facility 01-27-[address] [facility] 01-27-2025 Progress note Note Date/Time January 27, 2025 3:05pm [facility] [address] [place] [address] OFFICE VISIT Date of Service: 01/27/25 MR#: [id number] Acct: [id number] Name: LYUDMILA BRENNAN Rep #: [id number] : 1950 Provider: BRANDON El Age/Sex: 75/M Location: [facility] Status: Signed Intake Vital Signs 10/16/24 [...] high/low blood sugars. I reached out to [employer] to pursue new [employer] CGM. CGM: he [...] Date (if applicable) CC: RYLAN BOWDEN ~ [facility] Work Phone: 1(635) 791-421906-25-2025 Evaluation note* Diagnosis Onset Date Resolution Status [...] 2:04pm Vitamin D deficiency chronic 2024 2:04pm [facility] Work Phone: 1(251) 216-996703-27-2025 Evaluation note* Diagnosis Onset Date Resolution Status Admit Date Chronic kidney disease (CKD) chronic July 18, 2024 11:08am Diabetes type I chronic June 11:08am Hyperlipidemia chronic June 11:08am Hypertension chronic July 18, 2024 11:08am Hypothyroidism chronic June 11:08am Insulin pump titration chronic [facility] 2024 11:08am Overweight chronic July 18 [...] 9:58am Hypothyroidism chronic September 17, 2024 9:58am [facility] Work Phone: 1(589) 155-153703-27-2025 Evaluation note* Diagnosis Onset Date Resolution Status Admit Date Chronic kidney disease (CKD) chronic July 18, 2024 11:08am Diabetes type I chronic June 11:08am Hyperlipidemia chronic June 11:08am Hypertension chronic July 18, 2024 11:08am Hypothyroidism chronic June 11:08am Insulin pump titration chronic [facility] 2024 11:08am Overweight chronic July 18 [...] 9:58am Hypothyroidism chronic September 17, 2024 9:58am [facility] Work Phone: 1(746) 108-920903-27-2025 Evaluation note* Diagnosis Onset Date Resolution Status Admit Date Chronic kidney disease (CKD) chronic July 18, 2024 11:08am Diabetes type I chronic June 11:08am Hyperlipidemia chronic June 11:08am Hypertension chronic July 18, 2024 11:08am Hypothyroidism chronic June 11:08am Insulin pump titration chronic [facility] 2024 11:08am Overweight chronic July 18 [...] 9:58am Hypothyroidism chronic September 17, 2024 9:58am [facility] Work Phone: 1(365) 736-942103-27-2025 Evaluation note* Diagnosis Onset Date Resolution Status Admit Date Chronic kidney disease (CKD) chronic July 18, 2024 11:08am Diabetes type I chronic June 11:08am Hyperlipidemia chronic June 11:08am Hypertension chronic July 18, 2024 11:08am Hypothyroidism chronic June 11:08am Insulin pump titration chronic [facility] 2024 11:08am Overweight chronic July 18 [...] insulin pump chronic October 16, 2024 11:48am [facility] Work Phone: 1(654) 119-918612-30-2024 Evaluation note* Diagnosis Onset Date Resolution Status [...] chronic June 11:08am Insulin pump titration chronic [facility] 2024 11:08am Overweight chronic July 18 20 25 11:08am Presence of insulin pump chronic July 18, 2024 11:08am Proteinuria chronic July 18, 2 025 11:08am [facility] Work Phone: 1(460) 865-362010-31-2024 NoteName of Caller: Ayde Contact Reason for Appointment: New Patient. Patient has referral with diagnosis of T14.8XXA (ICD-10-CM) - Hematoma . Please contact to schedule. Office Name: [address]26-2024 NoteDepartment of Trauma / Critical Care [...] y.o. male presenting as a transfer from [facility]. He states that on 02/10, he [...] Patient recently moved into a home into [place] and while moving boxes felt a pop [...] glucose meter Result Date: 02/15/2024 Performed by: [facility], [address] [place] [id number] CLIA ID: [id number] XR chest 1 view Result Date: 02/15/2024 Patient Name: LYUDMILA BRENNAN : 1950 [facility]#: [id number] Exam Date/Time: 02/15/2024 11:17 Procedure: XR CHEST [...] glucose meter Result Date: 02/15/2024 Performed by: [facility], [address] [place] [id number] CLIA ID: [id number] POCT glucose meter Result Date: 02/15/2024 [facility]: [facility], [address] [place] [id number] C (more content not included)...[facility] [id number] NoteCare Management Progress Note Geriatrics following. PT/OT signed off. Plan to go home with . SW gave list of PCP in the [place] area. [facility] 8.7. Await treatment plan and clinical progress. manager strategic sourcing will continue to follow for transitional care needs and discharge planning. Length of Stay (Days): 2 GMLOS: 2.6 [facility] [id number] NoteOCCUPATIONAL THERAPY [facility] Initial Evaluation Name/MRN: Lyudmila Brennan ([id number]) Evaluation Date: 02/15/2024 Date of : 1950 Admission Date: 02/14/2024 5:14 PM Age: 74 y.o. Room/Bed: [facility] B Discharge Recommendation: Home with assist PRN Assessment IMPRESSION: Pt admitted to [facility] for hematoma. Prior to admission, pt recently moved from [place] to [place], independent with all ADLs and functional mobility [...] Responsibilities: Independent Receives Help From: Spouse Active Veterans Adviser: Yes Prior Level of Function Prior Level [...] of Care supervision is transferred to a [facility] Services Occupational Therapist. Goals and/or treatment plan was established in collaboration with patient/family/other representatives.[facility]10-24-2024 NotePHYSICAL THERAPY [facility] Initial Evaluation Name/MRN: Lyudmila Brennan ([id number]) Evaluation Date: 02/15/2024 Date of : 1950 Admission Date: 02/14/2024 5:14 PM Age: 74 y.o. Room/Bed: [facility] Discharge Recommendation: Home with assist PRN [...] binder. He is just moving here from [place], and his furniture is being delivered today. [...] Responsibilities: Independent Receives Help From: Spouse Active Veterans Adviser: Yes Prior Level of Function Prior Level [...] hospital room?: None Stair climbing assessed?: Yes AM-[facility] Inpatient Mobility Raw Score (No Stairs) : 20 [facility] Score: Walked 250 ft or more (i.e. [...] of Care supervision is transferred to a [facility] Therapy Services Physi (more content not included)...[facility] 02-15-2024 NoteCare Management Progress Note Geriatric consulted. HBG 6.2, PRBC ordered to be given. SW aware patient needs PCP and specialist set up, just moved from [place]. Insulin pump, patients. PT/OT ordered. Await treatment plan and clinical progress. manager strategic sourcing will continue to follow for transitional care needs and discharge planning. Length of Stay (Days): 1 GMLOS: No GMLOS Documented [facility]10-23-2024 Note Attestation signed by Jaron Henry [...] brought to ED as a transfer from [facility] s/p right chest/flank pain that developed while lifting a heavy boxes at home. Pt is on ASA/Brilinta for cardiac stents in October. CT at [place] significant for right chest wall/flank hematoma. Pt [...] Surgery Division of Trauma Department of Surgery [facility] Trauma H&P 02/14/2024 6:11 PM Trauma Attending: Dr. Henry Level of Initial Activation: Trauma Evaluation Upgraded: No To:N/A Mechanism of Injury: Other lifting heavy objects out of car Mechanism of Arrival:Transfer from [facility] Chief Complaint: Right flank pain History of Traumatic Injury: 74 y.o. male presenting as a transfer from [facility]. He states that on 02/10, he [...] experienced any of the following: fever, cough, [id number], myalgias, loss of taste/smell, diarreha/GI symptoms? N/A [...] facility-administered medications for this (more content not included)...[facility] SHSEvaluation + Plan note Future Appointments Appointment Date:06/04/2024 10:00:00 AM Scheduled Provider:WILMA IVERSON Location:[facility] Appointment Type:PC OV [facility] Evaluation + Plan note Future Appointments Appointment Date:06/04/2024 10:00:00 AM Scheduled Provider:WILMA IVERSON Location:[facility] Appointment Type:PC OV Future Scheduled Tests Laboratory* Complete Blood Count 03/20/24 * Complete Metabolic Panel 03/20/24 [facility] Evaluation + Plan note Future Appointments Appointment Date:12/16/2024 11:30:00 AM Scheduled Provider:WILMA IVERSON Location:[facility] Appointment Type:PC Wellness Medicare [facility] Hospital course Narrative No data available for this section [facility] Hospital Discharge instructions No data available for this section [facility] Hospital Discharge instructionsAmbulatory Orders* Nephrology Location: None Selected [facility] Work Phone: Progress note No data available for this section [facility] Reason for referral (narrative)No reason for referral [facility] Work Phone: Summary Purpose Family History No Family History Records Found Relationship Condition Age at Onset Recorded Date/T alejandro mother Hypertension Unknown son Diabetes mellitus Unknown Advance Directives No Advanced Directives Records Found Advance Directive Response Recorded Date/ Time Advance Directives on File No Decem 2023 3:17pm Living Will No April 08, 2 024 3:17pm Do you have a Healthcare Power of [place] [employer]? No April 08, 2024 3:17pm Chief Complaint and Reason for Visit Chief Complaint Admit Date SC NonSTEMI <12 months April 08 1:55pm SC NonSTEMI <12 months April 19 2:15pm Diabetes/Hypothyroid April 22, 2024 9:25am SC NonSTEMI <12 months May 22 2:15pm SC NonSTEMI <12 months June 21 2:30pm 3 [...] 2024 11: 08am Chief Complaint Admit Date SC NonSTEMI <12 months May 22 2:15pm SC NonSTEMI <12 months June 21 2:30pm 3 [...] 2024 9:58a m Chief Complaint Admit Date SC NonSTEMI <12 months June 21 2:30pm 3 [...] 2024 9:58a m Chief Complaint Admit Date SC NonSTEMI <12 months June 21 2:30pm 3 [...] section and content) DATE CREATED AUTHOR 09/21/2018 [facility] DATE CREATED AUTHOR AUTHOR'S ORGANIZ ATION 03/11/2024 [facility] DATE CREATED AUTHOR AUTHOR'S ORGANIZ ATION 01/16/2025 [facility] DATE CREATED AUTHOR AUTHOR'S ORGANIZ ATION [facility]/20[facility] Care team informatio n (unrecognized section [...] DILIP BOWDENNP Primary Care Provider Active Start: April 22, [...] Inactive Member Role Status Dates WILMA IVERSON PREFINISH OPERATOR Primary Care Provider Active Start: June 04, [...] Inactive Member Role Status Dates WILMACORONA IVERSON PREFINISH OPERATOR Primary Care Provider Active Start: July 18, 2024 End: July 18, 2024 WILMACORONA IVERSON , PREFINISH OPERATOR Referring Provider Active Sta rt: July 18, 2024 End: July 18, 2024 BRANDON Cotto Attending Provider Active Start: July 18, 2024 End: July 18, 2024 Team Status: Inactive Member Role Status Dates WILMA MAST , PREFINISH OPERATOR Primary Care Provider Active Start: July 18, 2024 End: July 18, 2024 BRANDON Cotto Attending Provider Active Start: July 18, 2024 End: July 18, 2024 BRANDON Cotto Referring Provider Active Start: July 18, 2024 End: July 18, 2024 Team Status: Inactive Member Role Status Dates WILMA MAST , PREFINISH OPERATOR Primary Care Provider Active Start: September 17, 2024 End: September 17, 2024 WILMA IVERSON PREFINISH OPERATOR Referring Provider Active Sta rt: September 17, 2024 End: September 17, 2024 Sally Sommer PA, PA Attending Provider Active Start: September 17, 2024 End: September 17, 2024 Team Status: Inactive Member Role Status Dates WILMACORONA IVERSON , PREFINISH OPERATOR Primary Care Provider Active Start: September 17, 2024 End: September 17, 2024 Sally Sommer PA, PA Attending Provider Active Start: September 17, 2024 End: September 17, 2024 BRANDON Cotto Referring Provider Active Start: September 17, 2024 End: September 17, 2024 Team Status: Active Member Role Status Dates WILMA MAST , PREFINISH OPERATOR Primary Care Provider Active Start: September 18, 2024 Sally Sommer PA, PA Attending Provider Active Start: September 18, 2024 Sally Sommer PA, PA Referring Provider Active Start: September 18, 2024 Team Status: Active Member Role Status Dates WILMA ZAYRA , PREFINISH OPERATOR Primary Care Provider Active Start: September 18, 2024 Dr. Justo Olson MD Attending Provider Active Start: September 18, 2024 Team Status: Inactive Member Role Status Dates WILMA MAST , PREFINISH OPERATOR Primary Care Provider Active Start: September 18, 2024 End: September 18, 2024 Sally Sommer PA, PA Attending Provider Active Start: September 18, 2024 End: September 18, 2024 Sally Sommer PA, PA Referring Provider Active Start: September 18, 2024 End: September 18, 2024 Team Status: Active Member Role Status Dates WILMA ZAYRA , PREFINISH OPERATOR Primary Care Provider Active Start: October 14, 2024 BRANDON Cotto Attending Provider Active Start: October 14, 2024 Nydia Nikko , PATIENT SUPPORT PARTNER-C Referring Provider Active Start: October 14, 2024 Team Status: Inactive Member Role Status Dates DILIP BOWDENNP Primary Care Provider Active Start: October 16, 2024 End: October 16, 2024 WILMA IVERSON PREFINISH OPERATOR Referring Provider Active Sta rt: October 16, [...] 2024 End: October 16, 2024 WILMA IVERSON PREFINISH OPERATOR Referring Provider Active Sta rt: October 16, 2024 End: October 16, 2024 BRANDON Cotto Attending physician Active Start: October 16, 2024 End: October 16, 2024 Team Status: Active Member Role/Relationship Status Dates WILMACORONA IVERSON PREFINISH OPERATOR Primary care physician Active Start: January 27, 2025 WILMA IVERSON PREFINISH OPERATOR Attending physician Active St art: January 27, 2025 WILMACORONA IVERSON , PREFINISH OPERATOR Referring Provider Active Sta rt: January 27, 2025 Team Status: Inactive Member Role/Relationship Status Dates WILMA IVERSON PREFINISH OPERATOR Primary care physician Active Start: January 27, 2025 End: January 27, 2025 WILMA IVERSON , PREFINISH OPERATOR Referring Provider Active Sta rt: January 27, [...] BE BASED ON THE PRIMARY CLINICAL RECORDS. [facility]. provides no warranty or guarantee of the accuracy or completeness of information in this document.
--- NOTE | 2025-03-23 13:29 | EKG12_ITS ---
Test Reason : Blood Pressure : */* mmHG Vent. Rate : 85 BPM Atrial Rate : 85 BPM P-R Int : 178 ms QRS Dur : 90 ms QT Int : 388 ms P-R-T Axes : 5 41 33 degrees QTcB Int : 461 ms Sinus rhythm with marked sinus arrhythmia with occasional Premature ventricular complexes Otherwise normal ECG Confirmed by Tim Salgado ([id number]), senior technical editor DEDRICK WILKINS ([id number]) on 03/24/2025 8:27:16 AM Referred By: Confirmed By: Tim Salgado
[2025-03-23] MEDS: 0.9% Normal Saline (1000mL) 1,000 ML 1000 ML IV (13:44)
[2025-03-23 13:45] LABS: Hematocrit 45.7 % (40-54); Hemoglobin 14.6 g/dL (13.0-16.5); Immature Granulocytes Count 0.070 X10^3/uL (0.0-0.0); Mean Corp Hgb Conc 31.9 g/dL (32-36); Mean Corpuscular Volume 79.1 fL (80-94); Mean Platelet Vol. 9.3 fl (6.2-12.0); NRBC Flagged by Analyzer 0 % (0-5); Platelet Count 355 K/mm3 (150-450); RBC Distribution Width CV 18.6 % (11.6-14.6); RBC Distribution Width SD 51.2 fl (35.1-43.9); Red Blood Count 5.78 M/mm3 (4.6-6.2); White Blood Count 13.2 K/mm3 (4.4-11.0)
[2025-03-23 13:57] VITALS: BP 172/83; PULSE 85; O2SAT 93
[2025-03-23 14:03] LABS: Troponin T High Sensitivity 27 ng/L (<=22)
[2025-03-23 14:06] LABS: AST(SGOT) 19 U/L (<=37); Alanine Aminotransfer ALT/SGPT 12 U/L (<=46); Albumin, Serum 3.9 g/dL (3.4-4.8); Alkaline Phosphatase 83 U/L (40-129); Anion Gap 18 (5-15); BUN 18 mg/dL (4-19); BUN/Creat Ratio 10.8 RATIO (10-20); Calcium,Total 9.6 mg/dL (7.6-11.0); Carbon Dioxide 19.8 mmol/L (21.0-32.0); Chloride 101 mmol/L (98-108); Estimated Creatinine Clearance 49.12 ml/min (50-250); Globulin 3.5 g/dL (2.2-4.2); Glucose 89 mg/dL (70-99); Magnesium 2.2 mg/dL (1.5-2.2); Potassium 3.9 mmol/L (3.3-5.1)
--- NOTE | 2025-03-23 14:18 | CT_ITS ---
PROCEDURE: ABDOMEN/PELVIS WITHOUT CONT 03/23/2025 REASON FOR EXAM: ABD PAIN, DIARRHEA TECHNIQUE: Procedure Code: CTABDPEL Modality: CT Procedure: ABDOMEN/PELVIS WITHOUT CONT Noncontrast technique limits evaluation of the abdominal and pelvic viscera. Coronal and Sagittal reconstruction series were provided. One or more dose reduction techniques were used (e.g., Automated exposure control, adjustment of the mA and/or kV according to patient size, use of iterative reconstruction technique). RADIATION DOSE SUMMARY: CTDlvol: 11.53 mGy DLP: 596.23 mGycm COMPARISON: 02/14/2024 FINDINGS: Lung bases: There is a right pleural effusion with likely rounded atelectasis present on image 1, series 2. Atherosclerotic coronary calcifications are present. Liver: The liver is grossly unremarkable. Gallbladder: The gallbladder is surgically absent. Mild compensatory common bile duct dilatation. Spleen: Normal size. Pancreas: The pancreas is atrophic. Adrenals: Unremarkable. Kidneys: There is some mild stranding again noted around both kidneys. A hypoattenuating left renal lesion measuring 1.9 cm is again noted on image 54, series 2, suggesting a cyst. There is no hydronephrosis or nephrolithiasis. Bladder: Unremarkable Reproductive Organs: The prostate gland may be mildly enlarged. Bowel: There is no bowel obstruction. Appendix: Unremarkable. Lymph nodes: No adenopathy. Vasculature: Atherosclerotic aortoiliac calcifications are present. Peritoneum / Retroperitoneum: No free fluid or free air. Bones: Degenerative disc disease is noted at L5-S1 and to a lesser degree at additional levels with Schmorl's nodes. CT/Abdomen/Pelvis without Cont IMPRESSION: Right pleural effusion and compressive atelectasis which is perhaps mildly impr perez compared with the previous study. Likely left renal cysts. Similar stranding around both kidneys which may be chronic. No obstructive uro flavia. Additional findings as detailed above. Reading Location[facility]
[2025-03-23 14:46] LABS: Troponin T High Sens 2 HR 24 ng/L (<=22)
[2025-03-23 15:00] VITALS: BP 169/88; PULSE 89; RESP 16; O2SAT 98
--- NOTE | 2025-03-23 16:45 | EX.ED.DYSGE1 ---
HPI History of Present Illness Chief Complaint: Nausea/Vomiting/Diarrhea Informant: patient Narrative Narrative: Patient is a 75 year old male with history of type 1 diabetes mellitus, coronary artery disease status post RCA, CKD, hypertension and hypothyroidism presenting with recurrent abdominal discomfort, diarrhea and vomiting. Patient was seen in our ER on early Monday morning. At that time he was having these GI symptoms. He had a workup with lab work, BHB and troponins as well as EKG. He was given IV fluids and ultimately discharged home. He states he was feeling better the following day. He notes yesterday started feel sick again with diarrhea. Had multiple episodes of diarrhea. This morning he had an episode of vomiting shortly after taking his a.m. medications with water. He states that vomit was more brown in color. States he feels lightheaded when he standing. Denies any associated abdominal pain. Denies any fever. Denies any blood in his stool. Did take Pepto-Bismol for his symptoms yesterday with no significant relief. Is also concerned because last time he had symptoms of indigestion and nausea and that being on LA which was last summer. He is on Brilinta and aspirin. Denies any other symptoms at this time. States he does not have any nausea medicine at home. No sick contacts reported. [facility] Medical History STEMI (ST elevation myocardial infarction) NSTEMI (non-ST elevated myocardial infarction) Hyperlipidemia Diabetic neuropathy Gout Diabetes type I Nephropathy Chronic kidney disease (CKD) Systolic ejection murmur Carotid artery stenosis Hypertension Fatty liver disease, nonalcoholic Renal cyst Chronic back pain Acute renal failure Iron deficiency anemia Hypothyroidism Home Medications Medication Instructions Recorded Last Taken Type aspirin 81 mg tablet,delayed 81 mg PO QDAY 03/13/24 Unknown History release (Adult Aspirin Regimen) gabapentin 300 mg capsule 300 mg PO BID 03/13/24 Unknown History cholecalciferol (vitamin D3) 25 25 mcg PO QDAY 03/20/24 Unknown History mcg (1,000 unit) capsule dupilumab 300 mg/2 mL subcutaneous 300 mg subcut Q2W 03/20/24 Unknown History pen injector (Dupixent) multivitamin 1 tab PO QDAY 03/20/24 Unknown History vitamin B complex 1 tab PO QDAY 03/20/24 Unknown History losartan 50 mg tablet 50 mg PO QDAY #90 tabs 05/23/24 Unknown Rx clobetasol 0.05 % topical cream 1 applic topical BID 09/17/24 Unknown History ketoconazole 2 % shampoo 1 applic topical BID 09/17/24 Unknown History tacrolimus 0.1 % topical ointment 1 applic topical QDAY 09/17/24 Unknown History nisoldipine 34 mg tablet,extended 34 mg PO QDAY Pt is out, awaiting 12/05/24 Unknown Rx release 24 hr mail in RX #7 tabs levothyroxine 100 mcg tablet See Rx Instructions PO QDAY #96 12/25/24 Unknown Rx tabs ticagrelor 90 mg tablet (Brilinta) 90 mg PO BID #180 tabs 01/06/25 Unknown Rx insulin lispro 100 unit/mL 100 unit subcut DAILY #90 mL 01/15/25 Unknown Rx subcutaneous solution empagliflozin 25 mg tablet 25 mg PO QAM #90 tabs 01/27/25 Unknown Rx (Jardiance) atorvastatin 10 mg tablet 10 mg PO QDAY #90 tabs 02/03/25 Unknown Rx hydrochlorothiazide 12.5 mg tablet 25 mg PO QAM 02/21/25 Unknown History metoprolol succinate 25 mg 25 mg PO QDAY #90 tabs 03/13/25 Unknown Rx tablet,extended release 24 hr dicyclomine 10 mg capsule 10 mg PO TID PRN abdominal pain 03/23/25 Unknown Rx #10 caps ondansetron 4 mg disintegrating 4 mg PO Q8H PRN PRN Nausea #10 tabs 03/23/25 Unknown Rx tablet Allergy/AdvReac Type Severity Reaction Status Date / Time No Known Allergies Allergy Verified 03/23/25 12:01 Family History Mother Hypertension Son Diabetes Surgical History S/P right coronary artery (RCA) stent placement History of bilateral cataract extraction History of vasectomy History of cholecystectomy Social History Smoking Status: Former smoker how long ago did patient quit smokin years ago alcohol intake: never substance use type: does not use caffeine: Yes Type: coffee Number of servings: 3 ROS ROS ED Constitutional Constitutional ED: Reports other Details: Reports lightheadedness ; Denies chills or fever(s) Cardiovascular Cardiovascular: Denies chest pain Respiratory/Chest Respiratory/Chest: Denies cough or dyspnea Gastrointestinal Gastrointestinal: Reports diarrhea, nausea and vomiting; Denies abdominal pain Genitourinary Genitourinary ED: Denies dysuria or urinary frequency Integumentary Denies rash Neurologic Neurologic: Reports weakness; Denies paresthesias Hematologic/Lymphatic Hematologic/Lymphatic: Denies easy bleeding or easy bruising EXAM Physical Exam Const Vital Signs: 03/23/25 11:58 03/23/25 13:57 03/23/25 15:00 Temperature 97.8 F Temperature Source Oral Pulse Rate 88 85 89 Respiratory Rate 16 16 Blood Pressure 167/85 H 172/83 H 169/88 H Blood Pressure Mean 112 112 115 Pulse Ox 97 93 98 Oxygen Delivery Method Room Air HEENT Reports moist mucous membranes Eyes General Eye ED: Negative for pale conjunctiva or scleral icterus Neck supple Chest Wall inspection of chest normal and palpation of chest normal Resp normal respiratory effort and clear to auscultation bilaterally Cardio regular rate and regular rhythm GI normal to inspection, nondistended, normoactive bowel sounds and non-tender Auscultation: normoactive bowel sounds Palpation: soft; Negative for tender or guarding Extremity normal to inspection General Extremety ED: Negative for edema General Extremity: Negative for edema Neuro oriented x3 Sensorium / Orientation: alert Motor Exam: Negative for general weakness Psych mental status grossly normal Skin no rashes or lesions noted and no wounds MDM MDM MDM Narrative Medical decision making narrative: Patient evaluated for recurrent nausea with associated vomiting this morning and diarrhea yesterday. Was seen and evaluated for similar complaint 2 days ago. At that time he had an extensive workup including VBG (he is a type I diabetic), serum osmolality, delta high-sensitivity troponin, CBC and CMP. He was hyperglycemic in the ER, had a mild leukocytosis but otherwise his workup was largely negative and he was discharged home. He states he felt better but then his symptoms returned which is what prompted him return to the emergency room today in addition to vomiting. Differential includes referred cardiac symptoms (lower suspicion given he is also having diarrhea with his indigestion), gastroenteritis, colitis, diverticulitis, RAGHAVENDRA, electrolyte derangement and DKA. Patient continues to have a mild leukocytosis of 13.2 which is stable from 2 days ago. Normal hemoglobin lower suspicion for any ongoing GI bleeding. No left shift is present. His CMP shows a normal glucose of 89 today. He does have a bicarb of 19.8 and an elevated anion gap of 18 which I suspect is more related to dehydration. His creatinine is elevated 1.68 but actually below his baseline improved compared to his prior labs. Of note on his labs 2 days ago he also had similar bicarb and anion gap with normal pH. High since he troponin is stable at [address] abdomen pelvis is added on which shows no acute findings. He has a mildly improved right pleural effusion compared to prior study. Given his underlying history of CKD and the fact that his symptoms been going on for days now contrast is not used. Patient is given IV fluids and Zofran in the emergency room. On repeat evaluation he is feeling somewhat improved. Repeat abdominal exam is benign. Given p.o. challenge which he tolerates. At this time I do not think he requires admission to the hospital as I do not have an acute medical or surgical abnormality on workup and he is not have intractable symptoms. Patient will be given a prescription for Zofran. Given return precautions. Discharged home in stable condition. Lab Data Attestation: I reviewed the patient's lab results. Labs: Laboratory Results - last 24 hr 03/23/25 03/23/25 12:06 14:13 WBC 13.2 H RBC 5.78 Hgb 14.6 Hct 45.7 MCV 79.1 L MCH 25.3 L MCHC 31.9 L RDW Std Deviation 51.2 H RDW Coeff of Toney 18.6 H Plt Count 355 MPV 9.3 Immature Gran % (Auto) 0.500 Neut % (Auto) 85.4 H Lymph % (Auto) 8.0 L [place] % (Auto) 5.1 Eos % (Auto) 0.5 Baso % (Auto) 0.5 Absolute Neuts (auto) 11.3 H Absolute Lymphs (auto) 1.06 Nucleated RBC % 0 Sodium 138 Potassium 3.9 Chloride 101 Carbon Dioxide 19.8 L Anion Gap 18 H BUN 18 Creatinine 1.68 H Estim Creat Clear Calc 49.12 L Est GFR (MDRD) Non-Af 42 L BUN/Creatinine Ratio 10.8 Glucose 89 Calcium 9.6 Magnesium 2.2 Total Bilirubin 0.42 AST 19 ALT 12 Alkaline Phosphatase 83 Troponin T High Sens 27 H D Troponin T Hi Sens 2 Hr 24 H Total Protein 7.4 Albumin 3.9 Globulin 3.5 Albumin/Globulin Ratio 1.1 Radiography Diagnostic Testing: Clinical Impression(s) from Imaging Studies Abdomen/Pelvis CT 03/23/25 14:18 IMPRESSION: Right pleural effusion and compressive atelectasis which is perhaps mildly improved compared with the previous study. Likely left renal cysts. Similar stranding around both kidneys which may be chronic. No obstructive uropathy. Additional findings as detailed above. Reading Location: [facility] Rhythm Strip Rhythm Strip: Sinus Rhythm Rate: 85 Ectopy: PVC(s) EKG Initial EKG: Attestation: I personally reviewed and interpreted this EKG as follows: Interpretation: Sinus Rhythm Comments: Normal sinus rhythm at a rate of 85 bpm with PVCs present and sinus arrhythmia Normal axis Normal intervals Normal ST segment Discharge Plan Triage Chief Complaint: Nausea/Vomiting/Diarrhea ED Provider: Monik Alston Dx/Rx/DC Orders Clinical Impression: Diarrhea, Nausea & vomiting, Diabetes type I, Chronic kidney disease (CKD) Instructions: ED Vomit & Diarrhea [facility] Adult Prescriptions: New ondansetron 4 mg tablet,disintegrating 4 mg PO Q8H PRN PRN (Reason: Nausea) Qty: 10 0RF dicyclomine 10 mg capsule 10 mg PO TID PRN (Reason: abdominal pain) Qty: 10 0RF No Action gabapentin 300 mg capsule 300 mg PO BID aspirin [Adult Aspirin Regimen] 81 mg tablet,delayed release (DR/EC) 81 mg PO QDAY Dupixent Pen 300 mg/2 mL pen injector 300 mg subcut Q2W multivitamin Tablet 1 tab PO QDAY vitamin B complex Tablet 1 tab PO QDAY cholecalciferol (vitamin D3) 25 mcg (1,000 unit) capsule 25 mcg PO QDAY tacrolimus 0.1 % ointment 1 applic topical QDAY ketoconazole 2 % shampoo 1 applic topical BID clobetasol 0.05 % cream 1 applic topical BID Jardiance 25 mg tablet 25 mg PO QAM Qty: 90 1RF hydrochlorothiazide 12.5 mg tablet 25 mg PO QAM losartan 50 mg tablet 50 mg PO QDAY Qty: 90 3RF nisoldipine 34 mg tablet extended release 24 hr 34 mg PO QDAY Qty: 7 0RF levothyroxine 100 mcg tablet See Rx Instructions PO QDAY Qty: 96 1RF Rx Instructions: 2 tabs Monday, 1 tab Monday-Monday orally daily; ticagrelor [Brilinta] 90 mg tablet 90 mg PO BID Qty: 180 3RF insulin lispro 100 unit/mL solution 100 unit subcut DAILY Qty: 90 1RF Rx Instructions: via insulin pump atorvastatin 10 mg tablet 10 mg PO QDAY Qty: 90 3RF metoprolol succinate 25 mg tablet extended release 24 hr 25 mg PO QDAY Qty: 90 3RF Primary Care Provider: WILMA IVERSON Referrals: WILMA IVERSON CRNP [Primary Care Provider, Family Practice] Activity Restrictions/Additional Instructions: Continue to push fluids and electrolyte solution at home (preferably low sugar or sugar-free). If you have worsening symptoms please do not hesitate to return the emergency room. Your lab work was largely stable or improved compared to [address] did not show any acute abnormalities. Suspect you might have viral illness causing your symptoms. Print Language: Afghan Disposition Disposition: Home, Self Care
[2025-03-23 17:04] VITALS: BP 174/84; PULSE 74; RESP 19; TEMP 36.6; O2SAT 100
== END 2025-03-23 17:05 | disposition home or self-care (01) ==
PROVIDERS: Emergency Provider Emergency Medicine; PCP Nurse Practitioner Adult Health; Visit Provider Emergency Medicine
DX: R11.2 Nausea with vomiting, unspecified (principal); E10.22 Type 1 diabetes mellitus with diabetic chronic kidney disease; Z79.4 Long term (current) use of insulin; R19.7 Diarrhea, unspecified; I12.9 Hypertensive chronic kidney disease with stage 1 through stage 4 chronic kidney disease, or unspecified chronic kidney disease; N18.9 Chronic kidney disease, unspecified; I25.10 Atherosclerotic heart disease of native coronary artery without angina pectoris; I25.2 Old myocardial infarction; Z95.5 Presence of coronary angioplasty implant and graft; Z79.02 Long term (current) use of antithrombotics/antiplatelets; Z79.82 Long term (current) use of aspirin; Z79.84 Long term (current) use of oral hypoglycemic drugs; Z79.899 Other long term (current) drug therapy; Z87.891 Personal history of nicotine dependence
CPT/HCPCS: 74176; 80053; 83735; 84484; 85025; 93005; 96361; 96374; 99285; A4216; J2405

== ENCOUNTER → 2025-04-08 | Outpatient (CLI) | payer MEDICARE, OTHER, SELFPAY ==
[2024-06-06 07:20] VITALS: BMI 28.4
== END | disposition home or self-care (01) ==
LOC: PSN 10:47
PROVIDERS: PCP Nurse Practitioner Adult Health; Referring Provider Nurse Practitioner Family; Visit Provider Nurse Practitioner Family
DX: F17.210 Nicotine dependence, cigarettes, uncomplicated (principal)
CPT/HCPCS: 94060; 94726; 94729